=== PATIENT | female | born 1945 | race Caucasian/White ===

== ENCOUNTER 2016-04-30 13:55 | Emergency (ER) | payer OTHER ==
[~2016-04-30 13:55] MED LIST: ADVIN25/60 INH; ASCO500T16 PO; CALC-354 PO; CHOL100010 PO; CYAN250T PO; DIPH1TAB PO; FERR1TAB13 PO; FURO-85 PO; LEVE750T PO; LEVO112T2 PO; MULTTAB58 PO; OMEP20CA9 PO; POLYSOL4 OP; SIMV10TA2 PO; SNG10 PO
[2016-04-30 13:58] VITALS: TEMP 36.7
[2016-04-30 14:32] VITALS: O2SAT 100
--- NOTE | 2016-04-30 14:33 | EMERGENCY ROOM VISIT NOTE ---
History Report prepared by Jodi: Ranjith Gaxiola Under the Supervision of: Dr. Julián Hernandez M.D. First contact with patient: 14:15 Chief Complaint: DIARRHEA Stated Complaint: DIARRHEA AND DIZZINESS Nursing Triage Summary: pt to the ED with diarrhea since yesterday, c/o black stool for 2 years "my counts are low" no c/o pain c/o difficulty breathing and talking History of Present Illness The patient is a 70 year old female who presents to the Emergency Room with complaints of worsening dizziness today. The patient is experiencing generalized weakness. She had similar dizziness and weakness last time she was in the ED when she was anemic and required a blood transfusion. She had an appointment to have her blood work checked today but could not make it secondary to her symptoms. The patient had diarrhea yesterday but not today. Her stools have been black. The patient denies any history of GI bleeding. She has a history of pernicious anemia. The patient additionally has complaints of having trouble initialing urination. She also urinates frequently but in small amounts. Source of History: patient Onset: today Position: other (global) Quality: other (dizzy) Timing: worsening Associated Symptoms: + diarrhea, + melena, + urinary symptoms, + weakness Review of Systems All systems have been listed, reviewed, and are negative other than those previously mentioned. Please see Additional Medical History Sheet. Past Medical & Surgical Medical Problems: (1) Diabetes mellitus (2) DVT (deep venous thrombosis) (3) HTN (hypertension) (4) Hyperlipemia (5) Symptomatic anemia Surgical Problems: (1) Bilateral knee replacements Family History Blood disorder Heart disease Social History Smoking Status: Never Smoker Drug Use: none Marital Status: Housing Status: lives with significant other Occupation Status: retired Current/Historical Medications Scheduled Calcium Carbonate-Cholecalcife (Caltrate 600+D), 1 TAB PO DAILY Cholecalciferol (Vitamin D3), 1 CAP PO DAILY Ciprofloxacin Tab (Cipro), 250 MG PO BID Cyanocobalamin (Vitamin B-12), 250 MCG PO DAILY Ferrous Sulfate (Kp Ferrous Sulfate), 325 MG PO DAILY Fluticasone Prop/Salmeterol (Advair Diskus 250/50 60 Dose), 1 PUFFS INH BID Furosemide (Lasix), 20 MG PO UD Levetiracetam (Keppra), 750 MG PO BID Levothyroxine Sodium (Synthroid), 112 MCG PO DAILY Montelukast Sod (Montelukast Sodium), 10 MG PO DAILY Multiple Vitamin (Multivitamin), 1 TAB PO DAILY Omeprazole (Prilosec), 20 MG PO DAILY Polyethylene Glycol-Propylene (Systane), 1 DROPS OP UD Simvastatin (Zocor), 10 MG PO QPM Scheduled PRN Ascorbic Acid (Ascorbic Acid), 500 PO BID PRN for COLS SYMPTOMS Diphenhydramine Hcl (Benadryl Allergy), 25 MG PO TID PRN for ALLERGIC REACTION Allergies Coded Allergies: Iodinated Diagnostic Agents (Verified Allergy, Severe, SHORTNESS OF BREATH , 01/18/16) Gluten (Verified Allergy, Intermediate, GI SYMPTOMS, 01/18/16) Latex (Verified Allergy, Intermediate, RASH, 01/18/16) Aspirin (Verified Allergy, Unknown, 01/18/16) Ibuprofen (Verified Allergy, Unknown, 01/18/16) Latex1 -Allergic Contact Dermititis (Verified Allergy, Unknown, 01/18/16) Lisinopril (Unverified Allergy, Unknown, UNKNOWN, 01/18/16) Meperidine (Unverified Allergy, Unknown, UNKNOWN, 01/18/16) Metformin (Unverified Allergy, Unknown, GI SYMPTOMS, 01/18/16) Midazolam (Verified Allergy, Unknown, UNKN, 01/18/16) Nut Tree (Unverified Allergy, Unknown, UNKNOWN, 01/18/16) Peanut (Unverified Allergy, Unknown, UNKNOWN, 01/18/16) Penicillins (Verified Allergy, Unknown, SHORTNESS OF BREATH, 01/18/16) (FROM UNCODED ALLERGIES) Sulfa Antibiotics (Verified Allergy, Unknown, UNKNOWN, 01/18/16) Physical Exam Vital Signs Date Time Temp Pulse Resp B/P Pulse Ox O2 Delivery O2 Flow Rate FiO2 04/30/16 17:20 96 Room Air 04/30/16 17:00 67 18 182/84 04/30/16 16:16 68 18 176/73 04/30/16 14:32 100 Room Air 04/30/16 14:32 73 04/30/16 13:58 36.7 76 20 175/82 100 Room Air Physical Exam GENERAL: Patient awake, alert, oriented x 3. Patient follows commands. Patient does not appear toxic. Patient is adequately hydrated and well- nourished. SKIN: Skin is pale. HEENT: Normal head, pupils equal, reactive to light and accommodation. Ears normal. Oral cavity and posterior pharynx appear normal. Neck: Without adenopathy, no neck vein distention. LUNGS: Clear to auscultation. No wheezes, no rales, no rhonchi. HEART: No murmurs. No gallops. No rubs ABDOMEN: Obese, soft, nontender. EXTREMITIES: No signs of trauma. 2+ nonpitting pretibial edema. No calf or thigh tenderness. NEUROLOGIC: Cranial nerves II-XII within normal limits. No gross motor sensory function deficits. RECTAL: Small external hemorrhoids, brown stool heme positive. Medical Decision & Procedures ER Provider Diagnostic Interpretation: X ray results are stated below per my interpretation and the radiologist's interpretation. SINGLE VIEW CHEST CLINICAL HISTORY: Dizziness. Anemia. FINDINGS: An AP, portable, upright chest radiograph is compared to study dated 01/18/2016. The examination is degraded by portable technique and patient rotation. The heart is enlarged and there is atherosclerotic calcification of the thoracic aorta. The pulmonary vasculature is noncongested. There is mild bibasilar atelectasis. A trace left pleural effusion is suspected. No airspace consolidation is identified typical for pneumonia. There is no pneumothorax. The skeletal structures are osteopenic. Degenerative change is noted throughout the thoracic spine. IMPRESSION: 1. Cardiomegaly without radiographic evidence of congestive failure. 2. Small left pleural effusion and bibasilar atelectasis. There is no airspace consolidation typical for pneumonia. Electronically signed by: Mitchell Tejada M.D. 04/30/2016 3:07 PM Dictated Date/Time: 04/30/2016 3:06 PM Laboratory Results 04/30/16 14:55 Red Blood Count 3.46, Mean Corpuscular Volume 78.0, Mean Corpuscular Hemoglobin 24.0, Mean Corpuscular Hemoglobin Concent 30.7, Mean Platelet Volume 9.9, Neutrophils (%) (Auto) 69.2, Lymphocytes (%) (Auto) 15.6, Monocytes (%) (Auto) 12.6, Eosinophils (%) (Auto) 2.0, Basophils (%) (Auto) 0.4, Neutrophils # (Auto ) 3.14, Lymphocytes # (Auto) 0.71, Monocytes # (Auto) 0.57, Eosinophils # (Auto ) 0.09, Basophils # (Auto) 0.02 04/30/16 14:55 Test 04/30/16 14:55 04/30/16 15:24 White Blood Count 4.54 K/uL (4.8-10.8) Red Blood Count 3.46 M/uL (4.2-5.4) Hemoglobin 8.3 g/dL (12.0-16.0) Hematocrit 27.0 % (37-47) Mean Corpuscular Volume 78.0 fL (80-100) Mean Corpuscular Hemoglobin 24.0 pg (25-34) Mean Corpuscular Hemoglobin Concent 30.7 g/dl (32-36) Platelet Count 260 K/uL (130-400) Mean Platelet Volume 9.9 fL (7.4-10.4) Neutrophils (%) (Auto) 69.2 % Lymphocytes (%) (Auto) 15.6 % Monocytes (%) (Auto) 12.6 % Eosinophils (%) (Auto) 2.0 % Basophils (%) (Auto) 0.4 % Neutrophils # (Auto) 3.14 K/uL (1.4-6.5) Lymphocytes # (Auto) 0.71 K/uL (1.2-3.4) Monocytes # (Auto) 0.57 K/uL (0.11-0.59) Eosinophils # (Auto) 0.09 K/uL (0-0.5) Basophils # (Auto) 0.02 K/uL (0-0.2) RDW Standard Deviation 44.5 fL (36.4-46.3) RDW Coefficient of Variation 15.7 % (11.5-14.5) Immature Granulocyte % (Auto) 0.2 % Immature Granulocyte # (Auto) 0.01 K/uL (0.00-0.02) Polychromasia 1+ Anisocytosis PRESENT Ovalocytes 1+ Schistocytes OCCASIONAL Prothrombin Time 11.1 SECONDS (9.0-12.0) Prothromb Time International Ratio 1.0 (0.9-1.1) Activated Partial Thromboplast Time 23.3 SECONDS (21.0-31.0) Partial Thromboplastin Ratio 0.9 Anion Gap 5.0 mmol/L (3-11) Estimated GFR () 77.7 Estimated GFR (Non- 67.0 BUN/Creatinine Ratio 37.1 (10-20) Calcium Level 8.8 mg/dl (8.5-10.1) Total Bilirubin 0.2 mg/dl (0.2-1) Aspartate Amino Transf (AST/SGOT) 10 U/L (15-37) Alanine Aminotransferase (ALT/SGPT) 19 U/L (12-78) Alkaline Phosphatase 81 U/L (45-117) Troponin I < 0.015 ng/ml (0-0.045) Total Protein 6.7 gm/dl (6.4-8.2) Albumin 3.7 gm/dl (3.4-5.0) Globulin 3.0 gm/dl (2.5-4.0) Albumin/Globulin Ratio 1.2 (0.9-2) Urine Color YELLOW Urine Appearance CLEAR (CLEAR) Urine pH 7.0 (4.5-7.5) Urine Specific [place] 1.011 (1.000-1.030) Urine Protein NEG (NEG) Urine Glucose (UA) NEG (NEG) Urine Ketones NEG (NEG) Urine Occult Blood NEG (NEG) Urine Nitrite POS (NEG) Urine Bilirubin NEG (NEG) Urine Urobilinogen NEG (NEG) Urine Leukocyte Esterase MODERATE (NEG) Urine WBC (Auto) 10-30 /hpf (0-5) Urine RBC (Auto) 0-4 /hpf (0-4) Urine Hyaline Casts (Auto) 0 /lpf (0-5) Urine Epithelial Cells (Auto) 0-5 /lpf (0-5) Urine Bacteria (Auto) 4+ (NEG) Laboratory results as stated above per my review. ECG Indication: weakness Rate (beats per minute): 77 Rhythm: sinus rhythm Findings: nonspecific-ST abn, PAC, other (LVH) ED Course 1418: Past medical records reviewed. The patient was evaluated in room B7. A complete history and physical examination was performed. 1625: Reassessed the patient. Discussed the discharge instructions with her. She verbalized understanding. The patient is ready for discharge. Medical Decision I considered multiple diagnoses including diarrhea viral vs bacterial, GI bleed , anemia, metabolic disorder. The patient is here with weakness. A full workup ensued including multiple labs , urinalysis, imaging and EKG. Please see above. The patient has guaiac positive stools which I believe she has had for some time. She is anemic which is also chronic. Her hemoglobin now is slightly higher than it was in the past. The patient does have a urinary tract infection which may be the major reason why her weakness is worse. The patient will be placed on ciprofloxacin. She is allergic to penicillin and sulfa. Impression Primary Impression: Urinary tract infection Additional Impressions: Anemia Guaiac positive stools Scribe Attestation The scribe's documentation has been prepared under my direction and personally reviewed by me in its entirety. I confirm that the note above accurately reflects all work, treatment, procedures, and medical decision making performed by me. Departure Information Dispostion Home / Self-Care Prescriptions Ciprofloxacin Tab (Cipro) 250 Mg Tab 250 MG PO BID for 10 Days, #20 TAB Prov: Julián Hernandez M.D. 04/30/16 Referrals Bill Young MD (PCP) Forms HOME CARE DOCUMENTATION FORM, IMPORTANT VISIT INFORMATION Patient Instructions My [facility] Additional Instructions One Cipro twice a day for 10 days. Continue all of your current medications as prescribed. Have your urinalysis repeated in 2 weeks. Problem Qualifiers
[2016-04-30 15:02] LABS: BASO % 0.4 %; BASO ABS # 0.02 K/uL (0-0.2); IG% 0.2 %; LYMPH % 15.6 %; LYMPH ABS # 0.71 K/uL (1.2-3.4); MEAN CORPUSCULAR HGB CONC 30.7 g/dl (32-36); MEAN PLATELET VOLUME 9.9 fL (7.4-10.4); MONO % 12.6 %; NEUT % 69.2 %; PLATELET COUNT 260 K/uL (130-400); RED BLOOD COUNT 3.46 M/uL (4.2-5.4); WHITE BLOOD COUNT 4.54 K/uL (4.8-10.8)
[2016-04-30] MEDS ORDERED: CHOL2000 PO (15:05)
--- NOTE | 2016-04-30 15:09 | DIAGNOSTIC IMAGING REPORT ---
SINGLE VIEW CHEST CLINICAL HISTORY: Dizziness. Anemia. FINDINGS: An AP, portable, upright chest radiograph is compared to study dated 01/18/2016. The examination is degraded by portable technique and patient rotation. The heart is enlarged and there is atherosclerotic calcification of the thoracic aorta. The pulmonary vasculature is noncongested. There is mild bibasilar atelectasis. A trace left pleural effusion is suspected. No airspace consolidation is identified typical for pneumonia. There is no pneumothorax. The skeletal structures are osteopenic. Degenerative change is noted throughout the thoracic spine. IMPRESSION: 1. Cardiomegaly without radiographic evidence of congestive failure. 2. Small left pleural effusion and bibasilar atelectasis. There is no airspace consolidation typical for pneumonia. Electronically signed by: Mitchell Tejada M.D. 04/30/2016 3:07 PM Dictated Date/Time: 04/30/2016 3:06 PM
[2016-04-30 15:15] LABS: ALT/SGPT 19 U/L (12-78); AST/SGOT 10 U/L (15-37); BLOOD UREA NITROGEN 32 mg/dl (7-18); BUN/CREATININE RATIO 37.1 (10-20); CALCIUM 8.8 mg/dl (8.5-10.1); CARBON DIOXIDE 31 mmol/L (21-32); CHLORIDE 106 mmol/L (98-107); CREATININE 0.87 mg/dl (0.60-1.20); GLUCOSE 113 mg/dl (70-99); SODIUM 142 mmol/L (136-145)
[2016-04-30 15:16] LABS: PARTIAL THROMBOPLASTIN RATIO 0.9; PROTHROMBIN TIME (PATIENT) 11.1 SECONDS (9.0-12.0)
[2016-04-30 15:20] LABS: ALB/GLOB RATIO 1.2 (0.9-2); ALKALINE PHOSPHATASE 81 U/L (45-117)
[2016-04-30 15:43] LABS: ANISOCYTOSIS PRESENT; COMPLETE YES; OVALOCYTES 1+; POLYCHROMASIA 1+; SCHISTOCYTES OCCASIONAL
[2016-04-30 15:46] LABS: URINE APPEARANCE CLEAR (CLEAR); URINE BILIRUBIN NEG (NEG); URINE COLOR YELLOW; URINE EPITHELIAL CELL AUTO 0-5 /lpf (0-5); URINE NITRITE POS (NEG); URINE SPECIFIC GRAVITY 1.011 (1.000-1.030); UROBILINOGEN NEG (NEG); ZZURINE CULT IF INDIC CATH YES
[2016-04-30 15:47] LABS: MANUAL MICROSCOPIC REQUIRED? NO; REVIEW REQ? NO
[2016-04-30] MEDS ORDERED: CIPR1TAB11 PO (16:35)
[2016-04-30 17:00] VITALS: BP 182/84; PULSE 67
[2016-04-30 17:20] VITALS: O2SAT 96
--- NOTE | 2016-05-02 11:35 | Pharmacy Progress Note ---
ED Pharmacist Culture FollowUp Date of Service: May 02, 2016. Patient was sent home with a prescription for ciprofloxacin, which should cover the E. coli growing from the patient's urine culture.
[2016-09-09] MEDS ORDERED: DIPH25CA65 PO (10:41)
[2016-09-09] MEDS ORDERED: DOCU-94 PO (10:41)
== END 2016-04-30 17:19 | disposition home or self-care (01) ==
LOC: C.EDB 13:57
DX: N39.0 Urinary tract infection, site not specified (principal); D64.9 Anemia, unspecified; R19.5 Other fecal abnormalities; A49.8 Other bacterial infections of unspecified site; E11.9 Type 2 diabetes mellitus without complications; I10 Essential (primary) hypertension; E78.5 Hyperlipidemia, unspecified; Z96.653 Presence of artificial knee joint, bilateral; Z86.718 Personal history of other venous thrombosis and embolism; Z79.899 Other long term (current) drug therapy

== ENCOUNTER → 2016-05-16 | Outpatient (CLI) | payer OTHER ==
[~2016-05-16] MED LIST changes: +ACET-1256 PO; +ARTISOL12 OP; +CARB25TA12 PO; -CHOL100010 PO; +CHOL2000 PO; +CLIN300C2 PO; +COEN1CAP17 PO; +CPR500 PO; -DIPH1TAB PO; +DIPH1TAB87 PO; +DIPH25CA65 PO; +DOCU-94 PO; +LEVE500T13 PO; +MENTPOW4 TOP; +NITR1CAP33 PO; +NRV5 PO; +NYST80OI TOP; +OXYBUTIN PO; +PRVIN525X NEB; +SPCCR30 TOP
--- NOTE | 2016-05-16 12:57 | DIAGNOSTIC IMAGING REPORT ---
NUCLEAR GI BLEEDING SCAN CLINICAL HISTORY: Iron deficiency anemia. COMPARISON STUDY: Fluoroscopic small bowel study dated 04/22/2015. TECHNIQUE: Following the IV administration of 22 mCi of technetium 99m UltraTag labeled red blood cells, nuclear bleeding scan was performed. Anterior flow images were obtained every 2 seconds for a total 58 seconds. Anterior static images were obtained every 5 minutes for a total of 60 minutes. FINDINGS: There is no evidence of active GI bleeding at the time of examination. There is expected tracer activity within the liver, spleen, and abdominal excreted tracer is noted within the bladder. IMPRESSION: There is no evidence of active GI bleeding at the time of examination. Electronically signed by: Mitchell Tejada M.D. 05/16/2016 12:55 PM Dictated Date/Time: 05/16/2016 12:50 PM
== END | disposition home or self-care (01) ==
LOC: C.NUCL 10:35
PROVIDERS: ATTEND Internal Medicine Hematology & Oncology
DX: D50.0 Iron deficiency anemia secondary to blood loss (chronic) (principal)

== ENCOUNTER 2016-07-07 12:06 | Inpatient (IN) | payer OTHER ==
[2016-07-07] VITALS (7 sets, daily range): BP systolic 111–192; BP diastolic 63–86; PULSE 66–74; TEMP 36.4–36.8; O2SAT 18–97; Ht 167.6 cm; Wt 108.0 kg
[~2016-07-07] VITALS: Ht 167.6 cm; Wt 108.0 kg
[~2016-07-07 12:06] MED LIST changes: -ACET-1256 PO; -ARTISOL12 OP; -CARB25TA12 PO; -CLIN300C2 PO; -COEN1CAP17 PO; -CPR500 PO; -DIPH25CA65 PO; -DOCU-94 PO; -LEVE500T13 PO; -MENTPOW4 TOP; -NITR1CAP33 PO; -NRV5 PO; -NYST80OI TOP; -OXYBUTIN PO; -PRVIN525X NEB; -SPCCR30 TOP
[2016-07-07] MEDS ORDERED: SODIUM CHLORIDE 0.9% 1000ML 500 ML IV STA (12:32)
[2016-07-07] MEDS ORDERED: NITR1CAP33 PO (12:47)
--- NOTE | 2016-07-07 12:50 | EMERGENCY ROOM VISIT NOTE ---
History Report prepared by Jodi: Natalia Hale Under the Supervision of: Dr. Mitchell Dela Cruz M.D. First contact with patient: 12:27 Chief Complaint: ILLNESS Stated Complaint: GENERALIZED ILLNESS History of Present Illness The patient is a 70 year old female who presents to the Emergency Room with complaints of a persistent illness that has worsened over the past several days. The patient states that over the past month she has been treated for a bladder infection first with Cipro and now with Nitrofurantoin. She states that she has been on a low dosage of the Nitrofurantoin for the past month. The patient states that over the past few days she has noticed a decrease in appetite and fluid intake and was instructed by her PCP's office to come to the emergency department for further evaluation. Today she notes urinary frequency , cough, shortness of breath and diarrhea. She denies any chest pain, fever, or vomiting. The patient reports a history of GERD, but denies any history of lung disease. She states that she has been anemic for the past two years, but states that she is unsure where she has been losing blood. The patient states that she has been receiving iron infusions at the cancer center. Source of History: patient Onset: past several days Position: other (global) Quality: other (illness) Timing: worsening Associated Symptoms: + cough, + SOB, + diarrhea, + urinary symptoms ( urinary frequency), No fevers, No chest pain, No vomiting Note: Associated Symptoms: decrease in appetite, decrease in fluid intake Review of Systems See HPI for pertinent positives & negatives. A total of 10 systems reviewed and were otherwise negative. Past Medical & Surgical Medical Problems: (1) Diabetes mellitus (2) DVT (deep venous thrombosis) (3) HTN (hypertension) (4) Hyperlipemia (5) Symptomatic anemia Surgical Problems: (1) Bilateral knee replacements Family History Blood disorder Heart disease Social History Smoking Status: Never Smoker Drug Use: none Marital Status: Housing Status: lives with significant other Occupation Status: retired Current/Historical Medications Scheduled Calcium Carbonate-Cholecalcife (Caltrate 600+D), 1 TAB PO DAILY Cholecalciferol (Vitamin D3), 1 CAP PO DAILY Cyanocobalamin (Vitamin B-12), 250 MCG PO DAILY Fluticasone Prop/Salmeterol (Advair Diskus 250/50 60 Dose), 1 PUFFS INH BID Furosemide (Lasix), 20 MG PO UD Levetiracetam (Keppra), 750 MG PO BID Levothyroxine Sodium (Synthroid), 112 MCG PO DAILY Montelukast Sod (Montelukast Sodium), 10 MG PO DAILY Nitrofurantoin Macrocrystals (Macrodantin), 50 MG PO DAILY Omeprazole (Prilosec), 20 MG PO DAILY Simvastatin (Zocor), 10 MG PO QPM Scheduled PRN Ascorbic Acid (Ascorbic Acid), 500 PO BID PRN for COLS SYMPTOMS Diphenhydramine Hcl (Benadryl Allergy), 25 MG PO TID PRN for ALLERGIC REACTION Allergies Coded Allergies: Iodinated Diagnostic Agents (Verified Allergy, Severe, SHORTNESS OF BREATH , 01/18/16) Gluten (Verified Allergy, Intermediate, GI SYMPTOMS, 01/18/16) Latex (Verified Allergy, Intermediate, RASH, 01/18/16) Aspirin (Verified Allergy, Unknown, 01/18/16) Ibuprofen (Verified Allergy, Unknown, 01/18/16) Latex1 -Allergic Contact Dermititis (Verified Allergy, Unknown, 01/18/16) Lisinopril (Unverified Allergy, Unknown, UNKNOWN, 01/18/16) Meperidine (Unverified Allergy, Unknown, UNKNOWN, 01/18/16) Metformin (Unverified Allergy, Unknown, GI SYMPTOMS, 01/18/16) Midazolam (Verified Allergy, Unknown, UNKN, 01/18/16) Nut Tree (Unverified Allergy, Unknown, UNKNOWN, 01/18/16) Peanut (Unverified Allergy, Unknown, UNKNOWN, 01/18/16) Penicillins (Verified Allergy, Unknown, SHORTNESS OF BREATH, 01/18/16) (FROM UNCODED ALLERGIES) Sulfa Antibiotics (Verified Allergy, Unknown, UNKNOWN, 01/18/16) Physical Exam Vital Signs Date Time Temp Pulse Resp B/P (MAP) Pulse Ox O2 Delivery O2 Flow Rate FiO2 07/07/16 17:30 95 Room Air 07/07/16 16:08 168/65 07/07/16 15:21 81 26 200/85 95 07/07/16 14:14 69 22 214/96 93 Room Air 07/07/16 14:05 70 07/07/16 13:35 70 20 223/95 98 Room Air 07/07/16 13:34 93 Room Air 07/07/16 12:08 36.6 75 22 158/80 97 Room Air Physical Exam GENERAL: Patient is in no acute distress. HEENT: No acute trauma, normocephalic atraumatic, mucous membranes moist, no nasal congestion, no scleral icterus. NECK: No stridor, no adenopathy, no meningismus, trachea is midline. LUNGS: Clear to auscultation bilaterally, no wheeze, no rhonchi, breath sounds equal. HEART: 2/6 systolic murmur with a regular rate and rhythm ABDOMEN: Soft, nontender, bowel sounds positive, no hernias, no peritonitis. EXTREMITIES: Moderate bilateral pedal edema. No cyanosis, full range of motion of all the joints without pain or difficulty, no signs for acute trauma. NEUROLOGIC: Oriented x 3, no acute motor or sensory deficits, no focal weakness. SKIN: Cellulitic appearing erythematous rash around the vaginal area extending down the inner thighs, no drainage, no jaundice, no diaphoresis. Medical Decision & Procedures ER Provider Diagnostic Interpretation: Radiology results as stated below per my review and radiologist interpretation: CHEST ONE VIEW PORTABLE CLINICAL HISTORY: Altered mental status. Weakness. COMPARISON STUDY: Chest radiograph April 30, 2016. FINDINGS: Lung volumes are normal. There is no pneumothorax or pleural effusion. Moderate cardiomegaly is unchanged. The patient is rotated. There is no consolidation to suggest pneumonia. There is no evidence of pulmonary edema. Minimal bibasilar opacities favor atelectasis. IMPRESSION: No acute cardiopulmonary findings. Electronically signed by: Joshua Nelson M.D. 07/07/2016 1:52 PM Dictated Date/Time: 07/07/2016 1:[address] OF THE HEAD WITHOUT CONTRAST CLINICAL HISTORY: Weakness. COMPARISON STUDY: Head CT June 21, 2012. TECHNIQUE: Helical axial images of the head were obtained without IV contrast. Automated exposure control was utilized for the study. FINDINGS: No acute intracranial hemorrhage, midline shift or mass effect is present. Cavum septum pellucidum is incidentally noted. Ventricular system is stable. The basilar cisterns are patent. There are no extra-axial collections. There are no findings to suggest acute dural sinus thrombosis or acute territorial infarct. Visualized portions of the sinuses and mastoid air cells were clear. There are no calvarial abnormality. IMPRESSION: No acute intracranial findings. Electronically signed by: Joshua Nelson M.D. 07/07/2016 3:01 PM Dictated Date/Time: 07/07/2016 2:58 PM Laboratory Results 07/07/16 14:05 Red Blood Count 3.66, Mean Corpuscular Volume 78.4, Mean Corpuscular Hemoglobin 23.0, Mean Corpuscular Hemoglobin Concent 29.3, Mean Platelet Volume 10.5, Neutrophils (%) (Auto) 77.0, Lymphocytes (%) (Auto) 10.8, Monocytes (%) (Auto) 7.9, Eosinophils (%) (Auto) 3.9, Basophils (%) (Auto) 0.2, Neutrophils # (Auto) 4.57, Lymphocytes # (Auto) 0.64, Monocytes # (Auto) 0.47, Eosinophils # (Auto) 0.23, Basophils # (Auto) 0.01 07/07/16 13:00 Test 07/07/16 12:30 07/07/16 13:00 07/07/16 13:19 07/07/16 14:05 Urine Color YELLOW Urine Appearance CLEAR (CLEAR) Urine pH 7.5 (4.5-7.5) Urine Specific [place] 1.010 (1.000-1.030) Urine Protein NEG (NEG) Urine Glucose (UA) NEG (NEG) Urine Ketones NEG (NEG) Urine Occult Blood NEG (NEG) Urine Nitrite NEG (NEG) Urine Bilirubin NEG (NEG) Urine Urobilinogen NEG (NEG) Urine Leukocyte Esterase NEG (NEG) Anion Gap 9.0 mmol/L (3-11) Estimated GFR () 90.0 Estimated GFR (Non- 77.7 BUN/Creatinine Ratio 21.6 (10-20) Calcium Level 9.4 mg/dl (8.5-10.1) Magnesium Level 2.4 mg/dl (1.8-2.4) Total Bilirubin 0.3 mg/dl (0.2-1) Aspartate Amino Transf (AST/SGOT) 10 U/L (15-37) Alanine Aminotransferase (ALT/SGPT) 20 U/L (12-78) Alkaline Phosphatase 65 U/L (45-117) Troponin I < 0.015 ng/ml (0-0.045) Total Protein 6.8 gm/dl (6.4-8.2) Albumin 3.6 gm/dl (3.4-5.0) Globulin 3.2 gm/dl (2.5-4.0) Albumin/Globulin Ratio 1.1 (0.9-2) Thyroid Stimulating Hormone (TSH) 0.827 uIu/ml (0.300-4.500) Free Thyroxine 1.62 ng/dl (0.80-1.60) Lactic Acid Level 1.0 mmol/L (0.4-2.0) White Blood Count 5.93 K/uL (4.8-10.8) Red Blood Count 3.66 M/uL (4.2-5.4) Hemoglobin 8.4 g/dL (12.0-16.0) Hematocrit 28.7 % (37-47) Mean Corpuscular Volume 78.4 fL (80-100) Mean Corpuscular Hemoglobin 23.0 pg (25-34) Mean Corpuscular Hemoglobin Concent 29.3 g/dl (32-36) Platelet Count 260 K/uL (130-400) Mean Platelet Volume 10.5 fL (7.4-10.4) Neutrophils (%) (Auto) 77.0 % Lymphocytes (%) (Auto) 10.8 % Monocytes (%) (Auto) 7.9 % Eosinophils (%) (Auto) 3.9 % Basophils (%) (Auto) 0.2 % Neutrophils # (Auto) 4.57 K/uL (1.4-6.5) Lymphocytes # (Auto) 0.64 K/uL (1.2-3.4) Monocytes # (Auto) 0.47 K/uL (0.11-0.59) Eosinophils # (Auto) 0.23 K/uL (0-0.5) Basophils # (Auto) 0.01 K/uL (0-0.2) RDW Standard Deviation 54.2 fL (36.4-46.3) RDW Coefficient of Variation 18.6 % (11.5-14.5) Immature Granulocyte % (Auto) 0.2 % Immature Granulocyte # (Auto) 0.01 K/uL (0.00-0.02) Polychromasia 1+ Poikilocytosis PRESENT Anisocytosis PRESENT Microcytosis PRESENT Prothrombin Time 11.2 SECONDS (9.0-12.0) Prothromb Time International Ratio 1.0 (0.9-1.1) Activated Partial Thromboplast Time 26.1 SECONDS (21.0-31.0) Partial Thromboplastin Ratio 1.0 Test 07/07/16 17:51 Laboratory results reviewed by me. Medications Administered Medications (Trade) Dose Ordered Sig/Phong Route Start Time Stop Time Status Last Admin Dose Admin Sodium Chloride 500 ml @ 999 mls/hr Q31M STAT IV 07/07/16 12:32 07/07/16 13:02 DC 07/07/16 13:31 999 MLS/HR Hydralazine HCl (HydrALAZINE INJ) 10 mg NOW STAT IV 07/07/16 14:13 07/07/16 14:14 DC 07/07/16 14:18 10 MG Labetalol HCl (Normodyne IV) 10 mg NOW STAT IV 07/07/16 15:25 07/07/16 15:26 DC 07/07/16 15:48 10 MG Ceftriaxone Sodium (Rocephin Inj) 1 gm NOW STAT IV 07/07/16 15:25 07/07/16 15:26 DC 07/07/16 15:49 1 GM ECG Indication: SOB/dyspnea Rate (beats per minute): 66 Rhythm: normal sinus Findings: no acute ischemic change, no ectopy, other (LVH) ED Course 1231: The patient was evaluated in room A3. A complete history and physical exam was performed. 1232: Ordered Sodium Chloride 500 ml @ 999 mls/hr IV. 1413: Ordered Hydralazine Inj 10 mg IV. 1516: I reevaluated the patient and she is resting comfortably. I discussed the exam findings with her and I discussed the treatment plan. She verbalized complete understanding and agreement. She will be e valuated for further treatment. 1525: Ordered Rocephin Inj 1 gm IV, Labetalol HCL 10 mg IV. 1528: I discussed the patients case with CHAYITO Mejia. He is going to evaluate the patient for further treatment. Medical Decision The patient is a 70 year old female who presents to the ED with complaints of illness. Differential diagnoses considered include failed outpatient treatment , UTI, anemia, electrolyte imbalance, dehydration, pneumonia, infection, cardiac ischemia, OK. There is no leukocytosis. The patient is anemic but the hemoglobin has been around the level of 8 for the last several checks. In short, no significant hemoglobin drop. Renal panel testing does not show renal failure or significant electrolyte abnormality. There was no hepatitis. Lactic acid level was not elevated making sepsis less likely. Blood cultures are pending. Urinalysis does not show infection. There was no significant coagulopathy. EKG showed a sinus rhythm, no acute ischemia. Cardiac enzyme testing 1 is not consistent with acute cardiac injury. Chest x-ray does not show pneumonia or CHF. Brain CT shows no acute bleed or mass effect. On exam, there were no focal neurologic deficits. The patient was given IV ceftriaxone for the possibility of cellulitis in the area of the groin and vaginal region. She received IV hydralazine and then IV labetalol for the high blood pressure. She received IV saline for hydration. The patient presents with weakness and some fatigue. Workup here shows a high blood pressure, she appears to have a cellulitis in the vaginal area and groin, she is having a very difficult time holding her urine and this may be causing the irritation to the groin. The patient does not have a UTI by our urinalysis result. I don't find evidence for stroke. I do think further care in the hospital is warranted as she is not doing well at home. I did speak to the patient and to case management. The on-call hospitalist was consulted. Medication Reconciliation: I attest that I have personally reviewed the patient' s current medication list. Blood Pressure Screening: Patient was found to have an elevated blood pressure and was referred to their primary doctor for recheck and further treatment. Consults Time Called: 1520 Consulting Physician: CHAYITO Mejia Returned Call: 1528 I discussed the patients case with CHAYITO Mejia. He is going to evaluate the patient for further treatment. Impression Primary Impression: Weakness Additional Impressions: Hypertension Dehydration Cellulitis Scribe Attestation The scribe's documentation has been prepared under my direction and personally reviewed by me in its entirety. I confirm that the note above accurately reflects all work, treatment, procedures, and medical decision making performed by me. Departure Information Dispostion Being Evaluated By Hospitalist Referrals No Doctor, Assigned (PCP) Problem Qualifiers
[2016-07-07 13:02] LABS: URINE APPEARANCE CLEAR (CLEAR); URINE BILIRUBIN NEG (NEG); URINE COLOR YELLOW; URINE NITRITE NEG (NEG); URINE PH 7.5 (4.5-7.5); UROBILINOGEN NEG (NEG); ZZURINE CULT IF INDIC CATH NO
[2016-07-07 13:12] LABS: MANUAL MICROSCOPIC REQUIRED? NO; REVIEW REQ? NO
[2016-07-07 13:33] LABS: ALT/SGPT 20 U/L (12-78); BLOOD UREA NITROGEN 17 mg/dl (7-18); BUN/CREATININE RATIO 21.6 (10-20); CARBON DIOXIDE 30 mmol/L (21-32); CHLORIDE 104 mmol/L (98-107); CREATININE 0.77 mg/dl (0.60-1.20); GLUCOSE 103 mg/dl (70-99); MAGNESIUM 2.4 mg/dl (1.8-2.4); POTASSIUM 3.7 mmol/L (3.5-5.1); SODIUM 143 mmol/L (136-145)
[2016-07-07 13:40] LABS: CALCIUM 9.4 mg/dl (8.5-10.1)
[2016-07-07 13:43] LABS: ALB/GLOB RATIO 1.1 (0.9-2); ALKALINE PHOSPHATASE 65 U/L (45-117); AST/SGOT 10 U/L (15-37); THYROID STIMULATING HORMONE 0.827 uIu/ml (0.300-4.500)
--- NOTE | 2016-07-07 13:53 | DIAGNOSTIC IMAGING REPORT ---
CHEST ONE VIEW PORTABLE CLINICAL HISTORY: Altered mental status. Weakness. COMPARISON STUDY: Chest radiograph April 30, 2016. FINDINGS: Lung volumes are normal. There is no pneumothorax or pleural effusion. Moderate cardiomegaly is unchanged. The patient is rotated. There is no consolidation to suggest pneumonia. There is no evidence of pulmonary edema. Minimal bibasilar opacities favor atelectasis. IMPRESSION: No acute cardiopulmonary findings. Electronically signed by: Joshua Nelson M.D. 07/07/2016 1:52 PM Dictated Date/Time: 07/07/2016 1:51 PM
[2016-07-07] MEDS ORDERED: HydrALAZINE HCL 20 MG/ML VIAL IV STA (14:13)
[2016-07-07 14:26] LABS: PROTHROMBIN TIME (PATIENT) 11.2 SECONDS (9.0-12.0)
[2016-07-07 14:33] LABS: HEMATOCRIT 28.7 % (37-47); MEAN CELL VOLUME 78.4 fL (80-100); MEAN CORPUSCULAR HGB CONC 29.3 g/dl (32-36); MEAN PLATELET VOLUME 10.5 fL (7.4-10.4); PLATELET COUNT 260 K/uL (130-400); RED BLOOD COUNT 3.66 M/uL (4.2-5.4); WHITE BLOOD COUNT 5.93 K/uL (4.8-10.8)
[2016-07-07 14:37] LABS: ANISOCYTOSIS PRESENT; BASO % 0.2 %; BASO ABS # 0.01 K/uL (0-0.2); COMPLETE YES; EOS % 3.9 %; IG% 0.2 %; LYMPH % 10.8 %; LYMPH ABS # 0.64 K/uL (1.2-3.4); MICROCYTOSIS PRESENT; MONO % 7.9 %; POIKILOCYTOSIS PRESENT; POLYCHROMASIA 1+
--- NOTE | 2016-07-07 15:02 | DIAGNOSTIC IMAGING REPORT ---
CT OF THE HEAD WITHOUT CONTRAST CLINICAL HISTORY: Weakness. COMPARISON STUDY: Head CT June 21, 2012. TECHNIQUE: Helical axial images of the head were obtained without IV contrast. Automated exposure control was utilized for the study. FINDINGS: No acute intracranial hemorrhage, midline shift or mass effect is present. Cavum septum pellucidum is incidentally noted. Ventricular system is stable. The basilar cisterns are patent. There are no extra-axial collections. There are no findings to suggest acute dural sinus thrombosis or acute territorial infarct. Visualized portions of the sinuses and mastoid air cells were clear. There are no calvarial abnormality. IMPRESSION: No acute intracranial findings. Electronically signed by: Joshua Nelson M.D. 07/07/2016 3:01 PM Dictated Date/Time: 07/07/2016 2:58 PM
[2016-07-07] MEDS ORDERED: LABETALOL HCL IV 5 MG/ML 20ML IV STA (15:25)
[2016-07-07] MEDS ORDERED: CEFTRIAXONE SOD INJ 1 GM ADDVIAL IV STA (15:25)
[2016-07-07] MEDS ORDERED: ONDANSETRON INJ 2 MG/ML 2 ML VIAL IV PRN (17:15)
[2016-07-07] MEDS ORDERED: ALUMINUM/MAGNESIUM/SIMETH (MAALOX MAX) 30 ML UDC PO PRN (17:15)
[2016-07-07] MEDS ORDERED: ACETAMINOPHEN 325 MG TAB PO PRN (17:15)
--- NOTE | 2016-07-07 17:29 | History and Physical ---
History & Physical Date & Time of Service: Jul 07, 2016 at 17:26 Chief Complaint: Generalized Illness Primary Care Physician: Bill Young MD History of Present Illness Source: patient, family 70 F with a PMH significant for chronic iron deficiency anemia and ESBL presented to [facility] with a 3 week history of weakness She has had 3 weeks of feeling very tired and sluggish. She has had a decreased appetite, palpitations, and dizziness when she stands up. She has been going to the [facility] for iron infusions. She has been going for 6 weeks. Her last infusion was last week but she was unable to attend because she felt far too tired. She has been diagnosed with an iron deficiency anemia but does not have a known source of bleeding. She had a colonoscopy and upper GI done 2 years ago at which point there was no source of bleeding found. She has not had any blood in her stools, or in her urine. She notes that she has had dark stools in the past that started before her iron transfusions. She also has a history of UTI's in which she is being treated with macrobid for 6 months due to ESBL that was cultured as an outpatient. She failed a trial of cipro. She still has burning when she pees on occasion however her urine done in the ED was clear. She has not noticed any blood in her urine. She is incontinent of urine at times. On ROS she has a dry cough at night, recent weight loss, bruises easily and left hand shakes She denies any chest pain, SOB, fevers, night sweats, chills, ab pain, nausea, vomiting, blood in stool, or blood in urine Past Medical/Surgical History Medical Problems: (1) Diabetes mellitus Status: Chronic (2) DVT (deep venous thrombosis) Status: Resolved (3) HTN (hypertension) Status: Chronic (4) Hyperlipemia Status: Chronic Surgical Problems: (1) Bilateral knee replacements Status: Resolved Family History Blood disorder Heart disease Social History Smoking Status: Never Smoker Alcohol Use: none Drug Use: none Marital Status: Housing status: lives with family Occupational Status: retired Immunizations History of Influenza Vaccine: Yes History of Tetanus Vaccine?: Yes History of Pneumococcal: No History of Hepatitis B Vaccine: Yes Multi-Drug Resistant Organisms History of MDRO: No Allergies Coded Allergies: Iodinated Diagnostic Agents (Verified Allergy, Severe, SHORTNESS OF BREATH , 01/18/16) Gluten (Verified Allergy, Intermediate, GI SYMPTOMS, 01/18/16) Latex (Verified Allergy, Intermediate, RASH, 01/18/16) Aspirin (Verified Allergy, Unknown, 01/18/16) Ibuprofen (Verified Allergy, Unknown, 01/18/16) Latex1 -Allergic Contact Dermititis (Verified Allergy, Unknown, 01/18/16) Lisinopril (Unverified Allergy, Unknown, UNKNOWN, 01/18/16) Meperidine (Unverified Allergy, Unknown, UNKNOWN, 01/18/16) Metformin (Unverified Allergy, Unknown, GI SYMPTOMS, 01/18/16) Midazolam (Verified Allergy, Unknown, UNKN, 01/18/16) Nut Tree (Unverified Allergy, Unknown, UNKNOWN, 01/18/16) Peanut (Unverified Allergy, Unknown, UNKNOWN, 01/18/16) Penicillins (Verified Allergy, Unknown, SHORTNESS OF BREATH, 01/18/16) (FROM UNCODED ALLERGIES) Sulfa Antibiotics (Verified Allergy, Unknown, UNKNOWN, 01/18/16) Home Medications Scheduled Calcium Carbonate-Cholecalcife (Caltrate 600+D), 1 TAB PO DAILY Cholecalciferol (Vitamin D3), 1 CAP PO DAILY Cyanocobalamin (Vitamin B-12), 250 MCG PO DAILY Fluticasone Prop/Salmeterol (Advair Diskus 250/50 60 Dose), 1 PUFFS INH BID Furosemide (Lasix), 20 MG PO UD Levetiracetam (Keppra), 750 MG PO BID Levothyroxine Sodium (Synthroid), 112 MCG PO DAILY Montelukast Sod (Montelukast Sodium), 10 MG PO DAILY Nitrofurantoin Macrocrystals (Macrodantin), 50 MG PO DAILY Omeprazole (Prilosec), 20 MG PO DAILY Simvastatin (Zocor), 10 MG PO QPM Scheduled PRN Ascorbic Acid (Ascorbic Acid), 500 PO BID PRN for COLS SYMPTOMS Diphenhydramine Hcl (Benadryl Allergy), 25 MG PO TID PRN for ALLERGIC REACTION Review of Systems Please see HPI for ROS Physical Exam Vital Signs Date Time Temp Pulse Resp B/P (MAP) Pulse Ox O2 Delivery O2 Flow Rate FiO2 07/07/16 16:08 168/65 07/07/16 15:21 81 26 200/85 95 07/07/16 14:14 69 22 214/96 93 Room Air 07/07/16 14:05 70 07/07/16 13:35 70 20 223/95 98 Room Air 07/07/16 13:34 93 Room Air 07/07/16 12:08 36.6 75 22 158/80 97 Room Air General Appearance: WD/WN, no apparent distress, + pertinent finding (obese) Eyes: normal inspection, PERRL, sclerae normal ENT: hearing grossly normal, pharynx normal, + pertinent finding (full neck) Neck: supple, no carotid bruits, trachea midline, + pertinent finding (unable to see JVD due to weight) Respiratory/Chest: chest non-tender, lungs clear, normal breath sounds, no accessory muscle use Cardiovascular: regular rate, rhythm, no murmur, + abnormal peripheral pulses ( weak) Abdomen/GI: normal bowel sounds, soft, + tenderness (tender in the suprapubic region) Back: normal inspection, no CVA tenderness Extremities/Musculoskelatal: + pedal edema (edema up to the mid garcia +2), + pertinent finding (has bandages on lower extremities) Neurologic/Psych: alert, normal mood/affect, oriented x 3 Skin: + pertinent finding (redenned area around groin area as well as vagina ( appears to be fungal infection in nature)) Lymphatic: no adenopathy Diagnostics Laboratory Results Results Past 24 Hours Test 07/07/16 12:30 07/07/16 13:00 07/07/16 13:19 07/07/16 14:05 Range/Units Urine Color YELLOW Urine Appearance CLEAR CLEAR Urine pH 7.5 4.5-7.5 Urine Specific [place] 1.010 1.000-1.030 Urine Protein NEG NEG Urine Glucose (UA) NEG NEG Urine Ketones NEG NEG Urine Occult Blood NEG NEG Urine Nitrite NEG NEG Urine Bilirubin NEG NEG Urine Urobilinogen NEG NEG Urine Leukocyte Esterase NEG NEG Sodium Level 143 136-145 mmol/L Potassium Level 3.7 3.5-5.1 mmol/L Chloride Level 104 98-107 mmol/L Carbon Dioxide Level 30 21-32 mmol/L Anion Gap 9.0 3-11 mmol/L Blood Urea Nitrogen 17 7-18 mg/dl Creatinine 0.77 0.60-1.20 mg/dl Estimated GFR () 90.0 Estimated GFR (Non- 77.7 BUN/Creatinine Ratio 21.6 10-20 Random Glucose 103 70-99 mg/dl Calcium Level 9.4 8.5-10.1 mg/dl Magnesium Level 2.4 1.8-2.4 mg/dl Total Bilirubin 0.3 0.2-1 mg/dl Aspartate Amino Transf (AST/SGOT) 10 15-37 U/L Alanine Aminotransferase (ALT/SGPT) 20 12-78 U/L Alkaline Phosphatase 65 45-117 U/L Troponin I < 0.015 0-0.045 ng/ml Total Protein 6.8 6.4-8.2 gm/dl Albumin 3.6 3.4-5.0 gm/dl Globulin 3.2 2.5-4.0 gm/dl Albumin/Globulin Ratio 1.1 0.9-2 Thyroid Stimulating Hormone (TSH) 0.827 0.300-4.500 uIu/ml Free Thyroxine 1.62 0.80-1.60 ng/dl Lactic Acid Level 1.0 0.4-2.0 mmol/L White Blood Count 5.93 4.8-10.8 K/uL Red Blood Count 3.66 4.2-5.4 M/uL Hemoglobin 8.4 12.0-16.0 g/dL Hematocrit 28.7 37-47 % Mean Corpuscular Volume 78.4 80-100 fL Mean Corpuscular Hemoglobin 23.0 25-34 pg Mean Corpuscular Hemoglobin Concent 29.3 32-36 g/dl Platelet Count 260 130-400 K/uL Mean Platelet Volume 10.5 7.4-10.4 fL Neutrophils (%) (Auto) 77.0 % Lymphocytes (%) (Auto) 10.8 % Monocytes (%) (Auto) 7.9 % Eosinophils (%) (Auto) 3.9 % Basophils (%) (Auto) 0.2 % Neutrophils # (Auto) 4.57 1.4-6.5 K/uL Lymphocytes # (Auto) 0.64 1.2-3.4 K/uL Monocytes # (Auto) 0.47 0.11-0.59 K/uL Eosinophils # (Auto) 0.23 0-0.5 K/uL Basophils # (Auto) 0.01 0-0.2 K/uL RDW Standard Deviation 54.2 36.4-46.3 fL RDW Coefficient of Variation 18.6 11.5-14.5 % Immature Granulocyte % (Auto) 0.2 % Immature Granulocyte # (Auto) 0.01 0.00-0.02 K/uL Polychromasia 1+ Poikilocytosis PRESENT Anisocytosis PRESENT Microcytosis PRESENT Prothrombin Time 11.2 9.0-12.0 SECONDS Prothromb Time International Ratio 1.0 0.9-1.1 Activated Partial Thromboplast Time 26.1 21.0-31.0 SECONDS Partial Thromboplastin Ratio 1.0 Test 07/07/16 17:15 Range/Units Microbiology Results 07/07/16 Blood Culture, Received Pending 07/07/16 Blood Culture, Received Pending Diagnostic Radiology CT head=normal CXR normal Impression Assessment and Plan 70 year old female with PMH of iron deficiency anemia and ESBL presented to [facility] with weakness. Fatigue -- likely multifactorial - iron deficiency anemia/deconditioning/?sleep apnea/?orthostasis. No sign of infection - Transfuse and further evaluate anemia - Nocturnal O2 testing - PT/OT Anemia - Most recent Hgb 8.4 (symptomatic) - Will transfuse 1 unit of PRBC - Peripheral smear - FOBT - Hgb electrophoresis - Monitor Hgb Hx of ESBL uti - UA clear in ED - Continue nitrofurantoin - incontinence likely contributing to recurrence Hx of Orthostatic Hypotension - obtain orthostatic vitals Urinary incontinence - Fair catheter placed as patient incontinent in ED Lower extremity edema - likely chronic venous insufficiency - will order wound care nurse to see patient - hold lasix HTN - no home meds Hypothyroidism - continue synthroid GERD - continue omeprazole HLD - continue statin Asthma - continue montelukast and advair Seizure - continue keppra Diet - regular diet DVT prophylaxis - lovenox Dispo - PT/OT - discharge eval Level of Care Med/Surg VTE Prophylaxis VTE Risk Assessment Done? Y/N: Yes Risk Level: High Given or contraindicated: Enoxaparin (Lovenox)SQ Reviewed: Pt Seen/Exam by Me History 70 y/o F brought to ED for worsening fatigue. Has known h/o iron deficiency anemia with negative GI work up and has been on IV iron infusion. Nursing in ED reports patient being completely incontinent of urine with erythema in groin area. Constitutional: acknowledges: weakness, denies: fever Respiratory: negative: short of breath Cardiovascular: denies chest pain Gastrointestinal/Abdominal: negative: abdominal pain General Appearance: no apparent distress (lethargic) Respiratory: lungs clear, no respiratory distress Cardiovascular: regular rate, rhythm Extremities: pedal edema (bilaterally) Neurologic/Psychiatric: alert, oriented x 3, other (tremors in UE) Skin Characteristics: warm/dry Assessment/Plan I have reviewed the medical record and performed a history and physical examination of this patient today. I have discussed the case with Dr. Sellers . The above note reflects my findings, conclusions, and recommendations
[2016-07-07] MEDS ORDERED: PATIENT'S HEIGHT AND/OR WEIGHT NEEDED SCH (20:00)
[2016-07-07] MEDS: FLUTICASONE/SALMETEROL 250/50 (ADVAIR) 14 PUFF/1 INHALER INH SCH (21:19)
[2016-07-07] MEDS: SIMVASTATIN 10 MG TAB PO SCH (21:20)
[2016-07-07] MEDS: MONTELUKAST SOD 10 MG TAB PO SCH (21:20)
[2016-07-07] MEDS: LEVETIRACETAM 250 MG TAB PO SCH (21:20)
[2016-07-07] MEDS: ENOXAPARIN 40 MG/0.4 ML SYR SQ SCH (21:55)
[2016-07-08] VITALS: BP 147/70; PULSE 63; TEMP 36.8; O2SAT 92
[2016-07-08 06:15] LABS: BASO % 0.4 %; BASO ABS # 0.02 K/uL (0-0.2); EOS % 5.5 %; HEMATOCRIT 26.7 % (37-47); IG% 0.2 %; LYMPH % 16.8 %; LYMPH ABS # 0.82 K/uL (1.2-3.4); MEAN CELL VOLUME 79.2 fL (80-100); MEAN CORPUSCULAR HGB CONC 30.3 g/dl (32-36); MEAN PLATELET VOLUME 10.5 fL (7.4-10.4); MONO % 10.9 %; NEUT % 66.2 %; PLATELET COUNT 236 K/uL (130-400); RED BLOOD COUNT 3.37 M/uL (4.2-5.4); WHITE BLOOD COUNT 4.88 K/uL (4.8-10.8)
[2016-07-08] MEDS: LEVOTHYROXINE 112 MCG TAB PO SCH (06:22)
[2016-07-08 06:39] LABS: COMPLETE YES; HYPOCHROMIA PRESENT; OVALOCYTES 1+
[2016-07-08 07:25] VITALS: BP_SYST 166; BP_SYST 168; BP_DIAS 70; BP_DIAS 77; PULSE 63; TEMP 36.6; O2SAT 90
[2016-07-08] MEDS: LEVETIRACETAM 250 MG TAB PO SCH ×2 (08:01→20:49)
[2016-07-08] MEDS: PANTOprazole SOD 40 MG TAB PO SCH (08:01)
[2016-07-08] MEDS: FLUTICASONE/SALMETEROL 250/50 (ADVAIR) 14 PUFF/1 INHALER INH SCH ×2 (08:01→20:48)
[2016-07-08] MEDS: CYANOCOBALAMIN 500 MCG TAB (VIT B-12) PO SCH (08:02)
[2016-07-08] MEDS: NYSTATIN POWDER 15GM BTL EXT SCH (08:02)
[2016-07-08] MEDS: CALCIUM 600MG + VIT D 400 IU TAB PO SCH (08:02)
[2016-07-08] MEDS: NITROFURANTOIN MACROCRYSTALS 50 MG CAP PO SCH (08:03)
[2016-07-08] MEDS: CHOLECALCIFEROL 1000 INTER.UNIT TAB PO SCH (08:03)
--- NOTE | 2016-07-08 08:44 | Family Medicine Progress Note ---
Progress Note Date of Service Jul 08, 2016. Subjective Pt evaluation today including: conversation w/ patient, physical exam, chart review, conversation w/ emergency management consultant, review of inpatient medication list Pain: none PO Intake: good Voiding: munoz catheter in place Patient with no acute events overnight She is feeling a lit bit better than she did yesterday. She said her "head feels out of sorts", and the she said that she thinks her vision is failing her. She did receive 1 unit of PRBC yesterday evening but she did not have a significant rise in her Hgb. When listening to her heart she asked if she had CHF because a doctor once had told her that she had it but then told her she didn't? She denies any syncope, chest pain, palpitations, nausea, vomiting, shortness of breath, fevers, night sweats chills, leg swelling Additional Comments: please see above for ROS Medications Current Inpatient Medications Medications (Trade) Dose Ordered Sig/Phong Route Start Time Stop Time Status Last Admin Dose Admin Enoxaparin Sodium (Lovenox Inj) 40 mg Q24H SQ 07/07/16 21:00 08/06/16 20:59 07/07/16 21:55 40 MG Acetaminophen (Tylenol Tab) 650 mg Q4H PRN PO 07/07/16 17:15 08/06/16 17:14 Al Hydrox/Mg Hydrox/Simethicone (Maalox Max Susp) 15 ml Q4H PRN PO 07/07/16 17:15 08/06/16 17:14 Magnesium Hydroxide (Milk Of Magnesia Susp) 30 ml Q6H PRN PO 07/07/16 17:15 08/06/16 17:14 Polyethylene (Miralax Powder Packet) 17 gm DAILY PRN PO 07/07/16 17:15 08/06/16 17:14 Ondansetron HCl (Zofran Inj) 4 mg Q6H PRN IV 07/07/16 17:15 08/06/16 17:14 Nystatin (Mycostatin Powder) 1 appln DAILY EXT 07/08/16 08:00 08/07/16 08:59 07/08/16 08:02 1 APPLN Cyanocobalamin (Vitamin B-12 Tab) 250 mcg DAILY PO 07/08/16 08:00 08/07/16 08:59 07/08/16 08:02 250 MCG Salmeterol Xinafoate/ Fluticasone (Advair Diskus 250/50 Inh) 1 puff BID INH 07/07/16 20:00 08/06/16 20:59 07/08/16 08:01 1 PUFF Levetiracetam (Keppra Tab) 750 mg BID PO 07/07/16 20:00 08/06/16 20:59 07/08/16 08:01 750 MG Levothyroxine Sodium (Synthroid Tab) 112 mcg DAILYBB PO 07/08/16 06:30 08/07/16 06:59 07/08/16 06:22 112 MCG Montelukast Sodium (Singulair Tab) 10 mg HS PO 07/07/16 21:00 08/06/16 20:59 07/07/16 21:20 10 MG Nitrofurantoin Macrocrystals (Macrodantin Cap) 50 mg DAILY PO 07/08/16 08:00 08/07/16 08:59 07/08/16 08:03 50 MG Simvastatin (Zocor Tab) 10 mg QPM PO 07/07/16 21:00 08/06/16 20:59 07/07/16 21:20 10 MG Calcium/Vitamin D (Caltrate Plus Tab) 1 tab DAILY PO 07/08/16 08:00 08/07/16 08:59 07/08/16 08:02 1 TAB Cholecalciferol (Vitamin D Tab) 2,000 inter.unit DAILY PO 07/08/16 08:00 08/07/16 08:59 07/08/16 08:03 2,000 INTER.UNIT Diphenhydramine HCl (Benadryl Cap) 25 mg TID PRN PO 07/07/16 17:15 08/06/16 17:14 Pantoprazole Sodium (Protonix Tab) 40 mg DAILY PO 07/08/16 08:00 08/07/16 08:59 07/08/16 08:01 40 MG Objective Vital Signs Date Time Temp Pulse Resp B/P (MAP) Pulse Ox O2 Delivery O2 Flow Rate FiO2 07/08/16 07:25 36.6 63 20 168/70 (102) 90 Room Air 166/77 (106) 07/08/16 02:30 Room Air 07/08/16 00:00 36.8 63 18 147/70 (95) 92 Room Air 07/07/16 22:37 36.8 66 18 159/76 97 07/07/16 21:50 36.7 67 18 184/86 97 07/07/16 21:50 36.7 67 18 184/82 97 07/07/16 20:50 36.8 66 18 157/75 97 07/07/16 20:20 36.5 71 18 111/64 97 07/07/16 20:00 36.4 74 18 124/67 18 07/07/16 19:54 36.5 70 18 169/63 (98) 95 Room Air 07/07/16 19:34 36.6 67 18 192/70 95 07/07/16 19:07 67 18 07/07/16 19:02 69 17 192/70 07/07/16 18:57 66 16 07/07/16 18:52 66 16 07/07/16 18:47 66 23 07/07/16 18:42 68 19 07/07/16 18:37 59 20 07/07/16 18:32 192/78 07/07/16 18:30 63 20 07/07/16 18:19 65 07/07/16 18:01 196/82 07/07/16 18:00 67 15 07/07/16 17:31 186/75 07/07/16 17:30 36.6 67 18 192/70 95 Room Air 07/07/16 17:30 65 23 07/07/16 17:03 166/47 07/07/16 17:00 70 23 07/07/16 16:32 187/70 07/07/16 16:30 71 19 98 07/07/16 16:16 172/72 07/07/16 16:08 168/65 07/07/16 16:02 168/65 07/07/16 16:00 70 19 95 07/07/16 15:54 183/74 07/07/16 15:51 173/77 07/07/16 15:32 197/78 07/07/16 15:30 74 20 95 07/07/16 15:21 81 26 200/85 95 07/07/16 15:19 200/85 07/07/16 15:06 208/83 07/07/16 14:14 69 22 214/96 93 Room Air 07/07/16 14:05 70 07/07/16 13:35 70 20 223/95 98 Room Air 07/07/16 13:34 93 Room Air 07/07/16 12:08 36.6 75 22 158/80 97 Room Air Physical Exam General Appearance: WD/WN, no apparent distress, + obese Eyes: normal inspection, PERRL ENT: hearing grossly normal, pharynx normal Neck: supple, thyroid normal, trachea midline, + JVD (elevated half way up to the angle of the mandible) Respiratory/Chest: chest non-tender, no respiratory distress, no accessory muscle use, + crackles (crackles at the bases bilaterally), + pertinent finding (no wheezing or rhonchi) Cardiovascular: regular rate, rhythm, no edema, + systolic murmur (systolic murmur heard best over the LUSB and RUSB) Abdomen: normal bowel sounds, non tender, soft, + pertinent finding (groin area is much less red after application of antifungal yesterday) Extremities: no pedal edema, no calf tenderness, normal capillary refill, + pertinent finding (has some sloughing of skin of the lower extremities bilaterally, doesnt have dressing over skin) Neurologic/Psychiatric: alert, normal mood/affect, oriented x 3 Laboratory Results Results Past 24 Hours Test 07/07/16 12:30 07/07/16 13:00 07/07/16 13:19 07/07/16 14:05 Range/Units Urine Color YELLOW Urine Appearance CLEAR CLEAR Urine pH 7.5 4.5-7.5 Urine Specific [place] 1.010 1.000-1.030 Urine Protein NEG NEG Urine Glucose (UA) NEG NEG Urine Ketones NEG NEG Urine Occult Blood NEG NEG Urine Nitrite NEG NEG Urine Bilirubin NEG NEG Urine Urobilinogen NEG NEG Urine Leukocyte Esterase NEG NEG Sodium Level 143 136-145 mmol/L Potassium Level 3.7 3.5-5.1 mmol/L Chloride Level 104 98-107 mmol/L Carbon Dioxide Level 30 21-32 mmol/L Anion Gap 9.0 3-11 mmol/L Blood Urea Nitrogen 17 7-18 mg/dl Creatinine 0.77 0.60-1.20 mg/dl Estimated GFR () 90.0 Estimated GFR (Non- 77.7 BUN/Creatinine Ratio 21.6 10-20 Random Glucose 103 70-99 mg/dl Calcium Level 9.4 8.5-10.1 mg/dl Magnesium Level 2.4 1.8-2.4 mg/dl Total Bilirubin 0.3 0.2-1 mg/dl Aspartate Amino Transf (AST/SGOT) 10 15-37 U/L Alanine Aminotransferase (ALT/SGPT) 20 12-78 U/L Alkaline Phosphatase 65 45-117 U/L Troponin I < 0.015 0-0.045 ng/ml Total Protein 6.8 6.4-8.2 gm/dl Albumin 3.6 3.4-5.0 gm/dl Globulin 3.2 2.5-4.0 gm/dl Albumin/Globulin Ratio 1.1 0.9-2 Thyroid Stimulating Hormone (TSH) 0.827 0.300-4.500 uIu/ml Free Thyroxine 1.62 0.80-1.60 ng/dl Lactic Acid Level 1.0 0.4-2.0 mmol/L White Blood Count 5.93 4.8-10.8 K/uL Red Blood Count 3.66 4.2-5.4 M/uL Hemoglobin 8.4 12.0-16.0 g/dL Hematocrit 28.7 37-47 % Mean Corpuscular Volume 78.4 80-100 fL Mean Corpuscular Hemoglobin 23.0 25-34 pg Mean Corpuscular Hemoglobin Concent 29.3 32-36 g/dl Platelet Count 260 130-400 K/uL Mean Platelet Volume 10.5 7.4-10.4 fL Neutrophils (%) (Auto) 77.0 % Lymphocytes (%) (Auto) 10.8 % Monocytes (%) (Auto) 7.9 % Eosinophils (%) (Auto) 3.9 % Basophils (%) (Auto) 0.2 % Neutrophils # (Auto) 4.57 1.4-6.5 K/uL Lymphocytes # (Auto) 0.64 1.2-3.4 K/uL Monocytes # (Auto) 0.47 0.11-0.59 K/uL Eosinophils # (Auto) 0.23 0-0.5 K/uL Basophils # (Auto) 0.01 0-0.2 K/uL RDW Standard Deviation 54.2 36.4-46.3 fL RDW Coefficient of Variation 18.6 11.5-14.5 % Immature Granulocyte % (Auto) 0.2 % Immature Granulocyte # (Auto) 0.01 0.00-0.02 K/uL Polychromasia 1+ Poikilocytosis PRESENT Anisocytosis PRESENT Microcytosis PRESENT Prothrombin Time 11.2 9.0-12.0 SECONDS Prothromb Time International Ratio 1.0 0.9-1.1 Activated Partial Thromboplast Time 26.1 21.0-31.0 SECONDS Partial Thromboplastin Ratio 1.0 Test 07/07/16 17:51 07/07/16 20:29 07/08/16 05:55 Range/Units Bedside Glucose 144 70-90 mg/dl White Blood Count 4.88 4.8-10.8 K/uL Red Blood Count 3.37 4.2-5.4 M/uL Hemoglobin 8.1 12.0-16.0 g/dL Hematocrit 26.7 37-47 % Mean Corpuscular Volume 79.2 80-100 fL Mean Corpuscular Hemoglobin 24.0 25-34 pg Mean Corpuscular Hemoglobin Concent 30.3 32-36 g/dl Platelet Count 236 130-400 K/uL Mean Platelet Volume 10.5 7.4-10.4 fL Neutrophils (%) (Auto) 66.2 % Lymphocytes (%) (Auto) 16.8 % Monocytes (%) (Auto) 10.9 % Eosinophils (%) (Auto) 5.5 % Basophils (%) (Auto) 0.4 % Neutrophils # (Auto) 3.23 1.4-6.5 K/uL Lymphocytes # (Auto) 0.82 1.2-3.4 K/uL Monocytes # (Auto) 0.53 0.11-0.59 K/uL Eosinophils # (Auto) 0.27 0-0.5 K/uL Basophils # (Auto) 0.02 0-0.2 K/uL RDW Standard Deviation 54.6 36.4-46.3 fL RDW Coefficient of Variation 18.7 11.5-14.5 % Immature Granulocyte % (Auto) 0.2 % Immature Granulocyte # (Auto) 0.01 0.00-0.02 K/uL Hypochromasia PRESENT Ovalocytes 1+ Microbiology Results 07/07/16 Blood Culture, Received Pending 07/07/16 Blood Culture, Received Pending Assessment and Plan 70 year old female with PMH of iron deficiency anemia and ESBL presented to [facility] with weakness. Fatigue -- likely multifactorial - iron deficiency anemia/deconditioning/ orthostasis. - No sign of infection - nocturnal pulse oximetry inconclusive - PT/OT Anemia - Transfuse and further evaluate anemia, Hgb this morning was 8.1, will recheck this afternoon - FOBT was positive, but nurse notes no umer red blood was seen in stool - Peripheral smear - Hgb electrophoresis - Monitor Hgb Orthostasis - likely sec to parkinsons - Gene stocking - amlodipine may make orthostasis worse - follow Atypical parkinsons/polyneuropathy/gait disturbance - sees neurology - PT/OT Hx of ESBL uti - UA clear in ED - Continue nitrofurantoin - incontinence likely contributing to recurrence Urinary incontinence - Munoz catheter placed as patient incontinent in ED Lower extremity edema - likely chronic venous insufficiency - will order wound care nurse to see patient - lasix restarted HTN - started amlodipine and lasix Hypothyroidism - continue synthroid GERD - continue omeprazole HLD - continue statin Asthma - continue montelukast and advair Seizure - continue keppra Diet - regular diet DVT prophylaxis - lovenox Dispo - PT/OT - discharge eval Continued [facility] stay due to: ambulation difficulties Reviewed: Pt Seen/Exam by Me History Feeling slightly better PT checked orthostatics and noted to have significant orthostasis. Constitutional: denies: fever Respiratory: negative: short of breath Cardiovascular: denies chest pain General Appearance: no apparent distress Respiratory: lungs clear, no respiratory distress Cardiovascular: regular rate, rhythm Neurologic/Psychiatric: alert, oriented x 3 Skin Characteristics: warm/dry Assessment/Plan I have reviewed the medical record and performed a history and physical examination of this patient today. I have discussed the case with Dr. Sellers . The above note reflects my findings, conclusions, and recommendations
[2016-07-08] MEDS ORDERED: AMLODIPINE BESYLATE 5 MG TAB PO ONE (11:30)
[2016-07-08 12:42] VITALS: BP 165/75
[2016-07-08 16:00] VITALS: BP_SYST 144; BP_SYST 146; BP_SYST 85; BP_DIAS 43; BP_DIAS 63; BP_DIAS 67; PULSE 71; PULSE 76; O2SAT 93; O2SAT 95; O2SAT 97
[2016-07-08 16:45] LABS: HEMATOCRIT 30.2 % (37-47)
[2016-07-08] MEDS: MONTELUKAST SOD 10 MG TAB PO SCH (20:49)
[2016-07-08] MEDS: ENOXAPARIN 40 MG/0.4 ML SYR SQ SCH (20:49)
[2016-07-08] MEDS: POLYETHYLENE (MIRALAX) 17 GM PACK PO PRN (20:49)
[2016-07-08] MEDS: SIMVASTATIN 10 MG TAB PO SCH (21:20)
[2016-07-09] VITALS (8 sets, daily range): BP systolic 161–176; BP diastolic 68–75; PULSE 18–69; TEMP 36.5–36.8; O2SAT 90–93
[2016-07-09 06:52] LABS: HEMATOCRIT 28.6 % (37-47); MEAN CELL VOLUME 78.4 fL (80-100); MEAN CORPUSCULAR HGB CONC 29.4 g/dl (32-36); MEAN PLATELET VOLUME 9.6 fL (7.4-10.4); PLATELET COUNT 240 K/uL (130-400); RED BLOOD COUNT 3.65 M/uL (4.2-5.4); WHITE BLOOD COUNT 5.07 K/uL (4.8-10.8)
[2016-07-09] MEDS: LEVOTHYROXINE 112 MCG TAB PO SCH (07:00)
[2016-07-09] MEDS: PANTOprazole SOD 40 MG TAB PO SCH (07:51)
[2016-07-09] MEDS: LEVETIRACETAM 250 MG TAB PO SCH ×2 (07:51→22:06)
[2016-07-09] MEDS: AMLODIPINE BESYLATE 5 MG TAB PO SCH (07:51)
[2016-07-09] MEDS: CALCIUM 600MG + VIT D 400 IU TAB PO SCH (07:51)
[2016-07-09] MEDS: NITROFURANTOIN MACROCRYSTALS 50 MG CAP PO SCH (07:51)
[2016-07-09] MEDS: CHOLECALCIFEROL 1000 INTER.UNIT TAB PO SCH (07:51)
[2016-07-09] MEDS: FUROSEMIDE 20 MG TAB PO SCH (07:51)
[2016-07-09] MEDS: FLUTICASONE/SALMETEROL 250/50 (ADVAIR) 14 PUFF/1 INHALER INH SCH ×2 (07:52→22:05)
[2016-07-09] MEDS: NYSTATIN POWDER 15GM BTL EXT SCH (07:52)
[2016-07-09] MEDS: MAGNESIUM HYDROXIDE SUSP 30 ML UDC PO PRN (07:59)
[2016-07-09] MEDS: CYANOCOBALAMIN 500 MCG TAB (VIT B-12) PO SCH (08:35)
[2016-07-09] MEDS ORDERED: IRON SUCROSE INJ 300 MG in SODIUM CHLORIDE 0.9% 250ML 250 ML IV SCH (09:00)
[2016-07-09 09:21] LABS: BUN/CREATININE RATIO 22.9 (10-20); CALCIUM 8.4 mg/dl (8.5-10.1); CREATININE 0.79 mg/dl (0.60-1.20); POTASSIUM 3.8 mmol/L (3.5-5.1)
--- NOTE | 2016-07-09 10:37 | Family Medicine Progress Note ---
Progress Note Date of Service Jul 09, 2016. Subjective Pt evaluation today including: conversation w/ patient, physical exam, chart review Pain: 0/10 PO Intake: WNL Voiding: no voiding problems Patient states that she is feeling generally well this morning We were discussing her iron transfusions and she states that she normally tries to make it to the appointments for these transfusions however she was missing the last couple because of difficulty getting to these appointments/ feeling too fatigued for the transfusion She also mentions that last her "muscles in her feet froze" and she has been unable to ambulate byherself, states she really does not wish to be wheelchair bound and would like to work on ambulation while she is here Constitutional: No fever Eyes: No worsening of vision ENT: No hearing loss Respiratory: No cough, No sputum, No wheezing, No shortness of breath, No dyspnea on exertion Cardiovascular: + problem reported (hypotension when getting up too quickly) , No chest pain Abdomen: + constipation, No pain, No nausea, No vomiting, No diarrhea Musculoskeletal: + problem reported ("numb feet"), No joint pain, No muscle pain Female : No dysuria, No hematuria Neurologic: + weakness, + numbness/tingling, No balance problems Psychiatric: No depression symptoms Endo: + fatigue Medications Medications Administered Medications (Trade) Dose Ordered Sig/Phong Route Start Time Stop Time Status Last Admin Dose Admin Sodium Chloride 500 ml @ 999 mls/hr Q31M STAT IV 07/07/16 12:32 07/07/16 13:02 DC 07/07/16 13:31 999 MLS/HR Hydralazine HCl (HydrALAZINE INJ) 10 mg NOW STAT IV 07/07/16 14:13 07/07/16 14:14 DC 07/07/16 14:18 10 MG Labetalol HCl (Normodyne IV) 10 mg NOW STAT IV 07/07/16 15:25 07/07/16 15:26 DC 07/07/16 15:48 10 MG Ceftriaxone Sodium (Rocephin Inj) 1 gm NOW STAT IV 07/07/16 15:25 07/07/16 15:26 DC 07/07/16 15:49 1 GM Enoxaparin Sodium (Lovenox Inj) 40 mg Q24H SQ 07/07/16 21:00 07/09/16 09:31 DC 07/08/16 20:49 40 MG Magnesium Hydroxide (Milk Of Magnesia Susp) 30 ml Q6H PRN PO 07/07/16 17:15 08/06/16 17:14 07/09/16 07:59 30 ML Polyethylene (Miralax Powder Packet) 17 gm DAILY PRN PO 07/07/16 17:15 08/06/16 17:14 07/08/16 20:49 17 GM Nystatin (Mycostatin Powder) 1 appln DAILY EXT 07/08/16 08:00 08/07/16 08:59 07/09/16 07:52 1 APPLN Cyanocobalamin (Vitamin B-12 Tab) 250 mcg DAILY PO 07/08/16 08:00 08/07/16 08:59 07/09/16 08:35 250 MCG Salmeterol Xinafoate/ Fluticasone (Advair Diskus 250/50 Inh) 1 puff BID INH 07/07/16 20:00 08/06/16 20:59 07/09/16 07:52 1 PUFF Levetiracetam (Keppra Tab) 750 mg BID PO 07/07/16 20:00 08/06/16 20:59 07/09/16 07:51 750 MG Levothyroxine Sodium (Synthroid Tab) 112 mcg DAILYBB PO 07/08/16 06:30 08/07/16 06:59 07/09/16 07:00 112 MCG Montelukast Sodium (Singulair Tab) 10 mg HS PO 07/07/16 21:00 08/06/16 20:59 07/08/16 20:49 10 MG Nitrofurantoin Macrocrystals (Macrodantin Cap) 50 mg DAILY PO 07/08/16 08:00 08/07/16 08:59 07/09/16 07:51 50 MG Simvastatin (Zocor Tab) 10 mg QPM PO 07/07/16 21:00 08/06/16 20:59 07/08/16 21:20 10 MG Calcium/Vitamin D (Caltrate Plus Tab) 1 tab DAILY PO 07/08/16 08:00 08/07/16 08:59 07/09/16 07:51 1 TAB Cholecalciferol (Vitamin D Tab) 2,000 inter.unit DAILY PO 07/08/16 08:00 08/07/16 08:59 6/3/17 07:51 2,000 INTER.UNIT Pantoprazole Sodium (Protonix Tab) 40 mg DAILY PO 07/08/16 08:00 08/07/16 08:59 07/09/16 07:51 40 MG Amlodipine Besylate (Norvasc Tab) 5 mg QAM PO 07/09/16 08:00 08/08/16 07:59 07/09/16 07:51 5 MG Amlodipine Besylate (Norvasc Tab) 5 mg NOW ONCE PO 07/08/16 11:30 07/08/16 11:31 DC 07/08/16 11:41 5 MG Furosemide (Lasix Tab) 20 mg DAILY PO 07/09/16 08:00 08/08/16 07:59 07/09/16 07:51 20 MG Objective Vital Signs Date Time Temp Pulse Resp B/P (MAP) Pulse Ox O2 Delivery O2 Flow Rate FiO2 07/09/16 07:49 36.5 63 18 163/71 (101) 90 07/09/16 00:13 36.8 67 20 169/75 (106) 93 Room Air 07/09/16 00:00 Room Air 07/08/16 19:34 Room Air 07/08/16 16:00 71 146/63 (90) 97 Room Air 07/08/16 16:00 85/43 (57) 95 Room Air 07/08/16 16:00 76 144/67 (92) 93 Room Air 07/08/16 12:42 165/75 (105) 07/08/16 11:00 Room Air Physical Exam General Appearance: no apparent distress Eyes: normal inspection ENT: normal ENT inspection Neck: supple Respiratory/Chest: normal breath sounds, no respiratory distress, no accessory muscle use Cardiovascular: regular rate, rhythm, + systolic murmur (3/6, known to patient) Abdomen: normal bowel sounds, non tender, soft Extremities: non-tender, normal inspection, no calf tenderness, + pertinent finding (outbowing of both feet, decreased sensation to bilat feet, limited ROM of bilat feet) Neurologic/Psychiatric: alert, normal mood/affect, oriented x 3 Skin: normal color, warm/dry, no rash Lymphatic: no adenopathy Laboratory Results Results Past 24 Hours Test 07/08/16 15:22 07/09/16 06:34 Range/Units Hemoglobin 8.9 8.4 12.0-16.0 g/dL Hematocrit 30.2 28.6 37-47 % White Blood Count 5.07 4.8-10.8 K/uL Red Blood Count 3.65 4.2-5.4 M/uL Mean Corpuscular Volume 78.4 80-100 fL Mean Corpuscular Hemoglobin 23.0 25-34 pg Mean Corpuscular Hemoglobin Concent 29.4 32-36 g/dl RDW Standard Deviation 53.9 36.4-46.3 fL RDW Coefficient of Variation 18.8 11.5-14.5 % Platelet Count 240 130-400 K/uL Mean Platelet Volume 9.6 7.4-10.4 fL Sodium Level 144 136-145 mmol/L Potassium Level 3.8 3.5-5.1 mmol/L Chloride Level 107 98-107 mmol/L Carbon Dioxide Level 33 21-32 mmol/L Anion Gap 4.0 3-11 mmol/L Blood Urea Nitrogen 18 7-18 mg/dl Creatinine 0.79 0.60-1.20 mg/dl Est Creatinine Clear Calc Drug Dose 81.2 ml/min Estimated GFR () 87.3 Estimated GFR (Non- 75.3 BUN/Creatinine Ratio 22.9 10-20 Random Glucose 95 70-99 mg/dl Calcium Level 8.4 8.5-10.1 mg/dl Assessment and Plan 70 year old female with PMH of iron deficiency anemia and ESBL presented to [facility] with weakness. When admitted she was found to have profound anemia along with extreme fatigue so decision was made for a blood transfusion. Patient did receive 2 units of blood with minimal improvement in the hgb. Fecal occult positive however she has had extensive work up for this and does not wish for further investigation. Anemia secondary to iron deficiency anemia - 2 units transfused - IV iron ordered - peripheral smear reflective of microcytic anemia - HGB electrophoresis pending - Fecal occult positive - hem/ onc consult- this is now the patient's third admission since 2015 for profound anemia Orthostatic hypotension; autonomic instability secondary to Parkinson's - Gene stocking - amlodipine may make orthostasis worse - follow - Education on appropriate transfer methods discussed - was unable to tolerate Sinemet according to notes because of this - follows Dr Dominguez for this Hx of ESBL uti - UA clear in ED - Continue nitrofurantoin -d/c munoz as increased risk of infection with this Lower extremity edema- improved - likely chronic venous insufficiency - lasix20 mg daily - I&O noted HTN - Amlodipine restarted - will be cautious with orthostasis - lasix cont'd Hypothyroidism - continue synthroid GERD - continue omeprazole once out of hospital - changed to protonix while inpt HLD - continue statin Asthma - continue montelukast and advair Seizure - continue keppra DVT prophylaxis - SCD as fecal occult positive - lovenox is d/c Dispo - PT/OT- discuss placement with pt as she is concerned she will lose her room at the [place] - Continued [facility] stay due to: other Discharge planning: other Reviewed: Pt Seen/Exam by Me History continuing to feel better. aware that her bp drops on standing up Constitutional: denies: fever Respiratory: negative: short of breath Cardiovascular: denies chest pain Gastrointestinal/Abdominal: negative: abdominal pain General Appearance: no apparent distress Respiratory: lungs clear, no respiratory distress Cardiovascular: regular rate, rhythm Neurologic/Psychiatric: alert, oriented x 3 Skin Characteristics: warm/dry Assessment/Plan I have reviewed the medical record and performed a history and physical examination of this patient today. I have discussed the case with Dr. Adames . The above note reflects my findings, conclusions, and recommendations
--- NOTE | 2016-07-09 12:45 | ONCOLOGY CONSULTATION ---
DATE OF CONSULTATION: 07/09/2016 DATE OF CONSULTATION: 07/09/2016. REASON FOR CONSULTATION: Generalized weakness in a 70-year-old female patient with persistent iron deficiency. HISTORY OF PRESENT ILLNESS: Izabela is a very pleasant 70-year-old female patient well known to [facility] as she is being treated for refractory iron deficiency anemia. Izabela was in the midst of receiving her final course of Ferrlecit however unfortunately missed that appointment because of weakness and inability to ambulate. Over the past several weeks she has been battling with fatigue and sluggishness as well as decreased appetite and dizziness upon change in position. Izabela has been worked up extensively from a gastroenterology standpoint, which included multiple scope procedures and camera endoscopy x2. Radio labeled bleeding scan was done recently again revealing no evidence of active bleeding. She was admitted on 07/07/2016 and labs at that time confirmed the presence of persistent microcytic anemia. She has received 1 unit of packed RBCs thus far. Today her hemoglobin is 8.4. PAST MEDICAL HISTORY: Extensive, which includes persistent iron deficiency anemia, allergic rhinitis, asthma, autonomic neuropathy, COPD, partial complex seizure, DJD, lower extremity DVT, acute, dermatitis, diverticulosis, edema, hypertension, gastroesophageal reflux disease, hypothyroidism, chronic lower extremity edema, pulmonary nodule, hyperlipidemia, orthostatic hypotension, osteoporosis, overactive bladder, syncope, venous stasis, and vitamin D deficiency. MEDICATIONS: Prior to admission include Advair 250 mcg/50 mcg 2 puffs b.i.d., supplemental calcium, furosemide 20 mg p.o. daily, Keppra 1000 mg p.o. b.i.d., levothyroxine 125 mcg p.o. every day, Singulair 10 mg p.o. every day, omeprazole 20 mg p.o. every day, simvastatin 10 mg p.o. every day, Ventolin inhaler q.i.d. p.r.n., vitamin B12 and D3 complexes. ALLERGIES: SULFA, IV CONTRAST, ASPIRIN, IBUPROFEN, METFORMIN, PENICILLIN, LISINOPRIL, MEPERIDINE, VERSED, TREE NUTS AND SEAFOOD. SOCIAL HISTORY: The patient lives in an assisted living facility, , nonsmoker, nondrinker. FAMILY HISTORY: Reports a sister with an unusual gastrointestinal bleeding issue, underwent previous colonic resection presumed arteriovenous malformations. REVIEW OF SYSTEMS: As per HPI most notably for disambulation and generalized weakness along with fatigue and anorexia. SKIN: No rashes or lesions. No history of dermatoses. HEAD, EYES, EARS, NOSE, AND THROAT: She denies headaches. No lightheadedness, dizziness on change in position. No sinus symptoms, sore throat or dysphagia. LYMPH: No history of lymphoproliferative disorder. CARDIAC: Negative for angina or palpitations. PULMONARY: Positive for COPD. She is not presently short of breath, dyspneic or orthopneic. No cough or hemoptysis. GASTROINTESTINAL: Negative for abdominal pain, nausea, vomiting, diarrhea or constipation, hematochezia or melena stools. GENITOURINARY: No hematuria, dysuria, urinary incontinence. PSYCHIATRIC: Negative for anxiety, depression or psychoses. ENDOCRINE: Positive for hypothyroidism, currently on hormone replacement. NEUROLOGIC: Positive for seizure disorder. No history of migraine headache or CVA. HEMATOLOGIC: Positive for persistent microcytic anemia consistent with iron deficiency. PHYSICAL EXAMINATION: GENERAL: Izabela is a pleasant 70-year-old female patient awake and alert and appropriate in no acute distress. VITAL SIGNS: Temperature 36.5, pulse 63, respirations 18, blood pressure 163/71. SKIN: Without rash or lesion. No petechiae or ecchymosis noted. Turgor is fair. HEAD, EYES, EARS, NOSE, AND THROAT: Atraumatic, normocephalic. EYES: PERRLA, EOMI. Nares are patent without rhinorrhea or discharge. Throat clear. Tongue is midline. Mucous membranes are moist. NECK: Supple without JVD or thyromegaly. HEART: Regular rate and rhythm. LUNGS: Clear to auscultation bilaterally. ABDOMEN: Soft, nontender, nondistended. Bowel sounds are active. No rigidity or guarding. No palpable hepatosplenomegaly. EXTREMITIES: Trace peripheral edema in bilateral lower extremities. Otherwise, strength and pulses are equal. NEUROLOGIC: The patient is awake, alert and oriented. Cranial nerves II-XII are intact. LABORATORY DATA: WBC count 5070, hemoglobin 8.4, platelet count 240,000. Sodium 144, potassium 3.8, chloride 107, carbon dioxide 33, BUN 18, creatinine 0.79. Urinalysis unremarkable. Stool occult blood is once again positive as measured on 07/08/2016. CT of the head done on admission without intracranial findings. Chest x-ray negative as well. IMPRESSIONS: 1. General clinical decline. 2. Persistent microcytic anemia. 3. Orthostatic hypotension. 4. Urinary incontinence. 5. Chronic lower extremity edema. PLAN: Izabela is well known to the [facility] currently under my care with refractory iron deficiency anemia. The patient has undergone extensive GI workup in the past revealing no direct source of bleeding which included camera endoscopy and multiple scope procedures. She once again presents with fecal occult blood testing positive for blood. However, in the setting of receiving intravenous iron it is conceivable the infused iron may be reflected in her stool. Nonetheless, she continues to drop her hemoglobin. One unit of packed RBCs has already been transfused and I would advocate for an additional unit of blood. She has completed 5 of the 6 prescribed doses of intravenous iron. I do not see the need to give her the additional course here in house and will arrange for her to follow up expediently post discharge. Other than what you are already incorporating in her care I would add PT and OT and case management to look into further outpatient support, specifically for her . She readily admits it is becoming more difficult for her to care for her at home. I have nothing further to add at this point. I am international guest coordinator the rest of the weekend and will be checking in on Izabela periodically. Thank you very much for allowing me to participate in her care. If you have any questions or concerns, feel free to contact me at any time.
[2016-07-09] MEDS: MONTELUKAST SOD 10 MG TAB PO SCH (22:07)
[2016-07-09] MEDS: SIMVASTATIN 10 MG TAB PO SCH (22:08)
[2016-07-10 00:01] VITALS: BP 174/72; PULSE 67; TEMP 37.1; O2SAT 92
[2016-07-10] MEDS: LEVOTHYROXINE 112 MCG TAB PO SCH (05:35)
[2016-07-10 05:56] LABS: HEMATOCRIT 29.2 % (37-47); MEAN CELL VOLUME 79.3 fL (80-100); MEAN CORPUSCULAR HEMOGLOBIN 23.9 pg (25-34); MEAN CORPUSCULAR HGB CONC 30.1 g/dl (32-36); MEAN PLATELET VOLUME 9.8 fL (7.4-10.4); PLATELET COUNT 227 K/uL (130-400); RED BLOOD COUNT 3.68 M/uL (4.2-5.4); WHITE BLOOD COUNT 5.35 K/uL (4.8-10.8)
[2016-07-10 06:22] LABS: CREATININE 0.78 mg/dl (0.60-1.20)
[2016-07-10 07:59] VITALS: BP 159/68; PULSE 69; TEMP 36.8; O2SAT 91
[2016-07-10] MEDS: FLUTICASONE/SALMETEROL 250/50 (ADVAIR) 14 PUFF/1 INHALER INH SCH ×2 (08:57→20:31)
[2016-07-10] MEDS: CYANOCOBALAMIN 500 MCG TAB (VIT B-12) PO SCH (08:57)
[2016-07-10] MEDS: AMLODIPINE BESYLATE 5 MG TAB PO SCH (08:57)
[2016-07-10] MEDS: NYSTATIN POWDER 15GM BTL EXT SCH (08:57)
[2016-07-10] MEDS: CALCIUM 600MG + VIT D 400 IU TAB PO SCH (08:58)
[2016-07-10] MEDS: CHOLECALCIFEROL 1000 INTER.UNIT TAB PO SCH (08:58)
[2016-07-10] MEDS: NITROFURANTOIN MACROCRYSTALS 50 MG CAP PO SCH (08:58)
[2016-07-10] MEDS: FUROSEMIDE 20 MG TAB PO SCH (08:58)
[2016-07-10] MEDS: PANTOprazole SOD 40 MG TAB PO SCH (08:59)
[2016-07-10] MEDS: LEVETIRACETAM 250 MG TAB PO SCH ×2 (08:59→20:32)
--- NOTE | 2016-07-10 09:56 | HEME/ONC PROGRESS NOTE ---
DATE: 07/10/2016 DIAGNOSES: 1. Generalized weakness, decline in performance status. 2. Persistent iron deficiency. 3. Suspected gastrointestinal bleeding. HOSPITAL COURSE: Izabela is on her second hospital day. She was admitted in the midst of completing her final course of Ferrlecit, unfortunately missed the appointment because of weakness and inability to ambulate. She is working with physical therapy presently. She also I believe will be discharged to a rehabilitation facility. She was given intravenous iron ordered by the hospitalist service. She has no other complaints otherwise this morning. Nursing reports no overnight issues. PHYSICAL EXAMINATION: GENERAL: She is in no acute distress. VITAL SIGNS: Temperature 36.8, pulse 69, respirations 18, blood pressure 159/68. SKIN: Without rash or lesion. HEENT: Oral mucosa without erythema or ulceration. NECK: Supple. HEART: Regular rate and rhythm. LUNGS: Clear to auscultation bilaterally. ABDOMEN: Soft, nontender, nondistended. EXTREMITIES: Pneumatics in place. No clubbing, cyanosis or edema. NEUROLOGIC: Grossly intact. LABORATORY DATA: WBC count 5350, hemoglobin 8.8, MCV 79.3, platelet count 227,000. Today's result, creatinine 0.78. IMPRESSION: 1. General clinical decline. 2. Persistent microcytic anemia. 3. Orthostatic hypotension. 4. Urinary incontinence. 5. Chronic lower extremity edema. PLAN: Izabela was seen at bedside today. She reports a reasonable appetite and is moving her bowels. Nursing reports no overnight issues. Reviewed the hospitalist note and plan is to have the patient sent to rehabilitation facility. She did receive IV iron yesterday. Izabela already has established outpatient followup with me. I have nothing further to add and will officially sign off her case. Feel free to reconsult as the need should arise. Thank you very much for allowing me to participate in her care.
--- NOTE | 2016-07-10 10:09 | Family Medicine Progress Note ---
Progress Note Date of Service Jul 10, 2016. Subjective Pt evaluation today including: conversation w/ patient, physical exam, chart review, lab review, review of studies Pain: 0/10 PO Intake: WNL Voiding: no voiding problems, requires PRN straight cath Patient has a history of incontinence and required a straight cath overnight No concerns but we did have a long discussion about her concerns about her quality of life and the parkinson's. She feels disheartened as the disease progresses. was able to move her bowels overnight Constitutional: No fever Eyes: No worsening of vision ENT: No hearing loss Respiratory: No cough, No sputum, No wheezing, No shortness of breath, No dyspnea on exertion Cardiovascular: No chest pain Abdomen: No pain, No nausea, No vomiting, No diarrhea, No constipation Musculoskeletal: No joint pain, No muscle pain Female : + incontinence Neurologic: + weakness, + balance problems, No numbness/tingling Psychiatric: + depression symptoms Heme: No abnormal bleeding/bruising Endo: + fatigue Medications Medications Administered Medications (Trade) Dose Ordered Sig/Phong Route Start Time Stop Time Status Last Admin Dose Admin Sodium Chloride 500 ml @ 999 mls/hr Q31M STAT IV 07/07/16 12:32 07/07/16 13:02 DC 07/07/16 13:31 999 MLS/HR Hydralazine HCl (HydrALAZINE INJ) 10 mg NOW STAT IV 07/07/16 14:13 07/07/16 14:14 DC 07/07/16 14:18 10 MG Labetalol HCl (Normodyne IV) 10 mg NOW STAT IV 07/07/16 15:25 07/07/16 15:26 DC 07/07/16 15:48 10 MG Ceftriaxone Sodium (Rocephin Inj) 1 gm NOW STAT IV 07/07/16 15:25 07/07/16 15:26 DC 07/07/16 15:49 1 GM Enoxaparin Sodium (Lovenox Inj) 40 mg Q24H SQ 07/07/16 21:00 07/09/16 09:31 DC 07/08/16 20:49 40 MG Magnesium Hydroxide (Milk Of Magnesia Susp) 30 ml Q6H PRN PO 07/07/16 17:15 08/06/16 17:14 07/09/16 07:59 30 ML Polyethylene (Miralax Powder Packet) 17 gm DAILY PRN PO 07/07/16 17:15 08/06/16 17:14 07/08/16 20:49 17 GM Nystatin (Mycostatin Powder) 1 appln DAILY EXT 07/08/16 08:00 08/07/16 08:59 07/10/16 08:57 1 APPLN Cyanocobalamin (Vitamin B-12 Tab) 250 mcg DAILY PO 07/08/16 08:00 08/07/16 08:59 07/10/16 08:57 250 MCG Salmeterol Xinafoate/ Fluticasone (Advair Diskus 250/50 Inh) 1 puff BID INH 07/07/16 20:00 08/06/16 20:59 07/10/16 08:57 1 PUFF Levetiracetam (Keppra Tab) 750 mg BID PO 07/07/16 20:00 08/06/16 20:59 07/10/16 08:59 750 MG Levothyroxine Sodium (Synthroid Tab) 112 mcg DAILYBB PO 07/08/16 06:30 08/07/16 06:59 07/10/16 05:35 112 MCG Montelukast Sodium (Singulair Tab) 10 mg HS PO 07/07/16 21:00 08/06/16 20:59 07/09/16 22:07 10 MG Nitrofurantoin Macrocrystals (Macrodantin Cap) 50 mg DAILY PO 07/08/16 08:00 08/07/16 08:59 07/10/16 08:58 50 MG Simvastatin (Zocor Tab) 10 mg QPM PO 07/07/16 21:00 08/06/16 20:59 07/09/16 22:08 10 MG Calcium/Vitamin D (Caltrate Plus Tab) 1 tab DAILY PO 07/08/16 08:00 08/07/16 08:59 07/10/16 08:58 1 TAB Cholecalciferol (Vitamin D Tab) 2,000 inter.unit DAILY PO 07/08/16 08:00 08/07/16 08:59 07/10/16 08:58 2,000 INTER.UNIT Pantoprazole Sodium (Protonix Tab) 40 mg DAILY PO 07/08/16 08:00 08/07/16 08:59 07/10/16 08:59 40 MG Amlodipine Besylate (Norvasc Tab) 5 mg QAM PO 07/09/16 08:00 08/08/16 07:59 07/10/16 08:57 5 MG Amlodipine Besylate (Norvasc Tab) 5 mg NOW ONCE PO 07/08/16 11:30 07/08/16 11:31 DC 07/08/16 11:41 5 MG Furosemide (Lasix Tab) 20 mg DAILY PO 07/09/16 08:00 08/08/16 07:59 07/10/16 08:58 20 MG Iron Sucrose 300 mg/Sodium Chloride 265 ml @ 176.667 mls/hr 0900 IV 07/09/16 09:00 07/09/16 10:29 DC 07/09/16 11:08 176.667 MLS/HR Objective Vital Signs Date Time Temp Pulse Resp B/P (MAP) Pulse Ox O2 Delivery O2 Flow Rate FiO2 07/10/16 09:31 Room Air 07/10/16 07:59 36.8 69 18 159/68 (98) 91 Room Air 07/10/16 00:15 Room Air 07/10/16 00:01 37.1 67 20 174/72 (106) 92 Room Air 07/09/16 17:22 Room Air 07/09/16 16:45 36.8 64 18 173/72 07/09/16 15:45 36.7 66 18 176/68 07/09/16 15:30 36.7 69 18 166/74 (104) 93 Room Air 07/09/16 15:15 36.7 69 18 166/74 07/09/16 15:00 36.8 64 18 170/75 07/09/16 14:37 36.8 66 18 161/70 07/09/16 10:35 Room Air Physical Exam General Appearance: no apparent distress Eyes: normal inspection ENT: normal ENT inspection Neck: supple Respiratory/Chest: normal breath sounds, no respiratory distress, no accessory muscle use Cardiovascular: regular rate, rhythm, + systolic murmur (3/6) Abdomen: normal bowel sounds, non tender, soft Extremities: no pedal edema, no calf tenderness, + pertinent finding ( outbowing of bilat feet) Neurologic/Psychiatric: alert, normal mood/affect, oriented x 3 Skin: normal color, warm/dry, no rash Lymphatic: no adenopathy Laboratory Results Results Past 24 Hours Test 07/10/16 05:33 Range/Units White Blood Count 5.35 4.8-10.8 K/uL Red Blood Count 3.68 4.2-5.4 M/uL Hemoglobin 8.8 12.0-16.0 g/dL Hematocrit 29.2 37-47 % Mean Corpuscular Volume 79.3 80-100 fL Mean Corpuscular Hemoglobin 23.9 25-34 pg Mean Corpuscular Hemoglobin Concent 30.1 32-36 g/dl RDW Standard Deviation 55.4 36.4-46.3 fL RDW Coefficient of Variation 18.9 11.5-14.5 % Platelet Count 227 130-400 K/uL Mean Platelet Volume 9.8 7.4-10.4 fL Creatinine 0.78 0.60-1.20 mg/dl Est Creatinine Clear Calc Drug Dose 82.3 ml/min Estimated GFR () 88.6 Estimated GFR (Non- 76.5 Assessment and Plan 70 year old female with PMH of iron deficiency anemia and ESBL presented to [facility] with weakness. When admitted she was found to have profound anemia along with extreme fatigue so decision was made for a blood transfusion. Patient did receive 2 units of blood with minimal improvement in the hgb. Fecal occult positive however she has had extensive work up for this and does not wish for further investigation. Anemia secondary to iron deficiency anemia - 2 units transfused - IV iron ordered - peripheral smear reflective of microcytic anemia - HGB electrophoresis pending - Fecal occult positive - hem/ onc consult- follow up in outpt Orthostatic hypotension; autonomic instability secondary to Parkinson's - Gene stocking - amlodipine may make orthostasis worse - follow - Education on appropriate transfer methods discussed - was unable to tolerate Sinemet according to notes because of this - follows Dr Dominguez for this Hx of ESBL uti; urinary incontinence - seems overflow - d/opal munoz this am to avoid infection consider h/o ESBL uti - retained > 900cc of urine and "leaking" throughout the day - has seen urology in past- will consult. declines use of medication - has had problem with side effects - UA clear in ED - Continue nitrofurantoin Groin skin irritation sec to urinary incontinence/intertrigo - munoz cath - nystatin powder Lower extremity edema- improved - likely chronic venous insufficiency - lasix20 mg daily - I&O noted HTN - Amlodipine restarted - will be cautious with orthostasis - lasix cont'd Hypothyroidism - continue synthroid GERD - continue omeprazole once out of hospital - changed to protonix while inpt HLD - continue statin Asthma - continue montelukast and advair Seizure - continue keppra DVT prophylaxis - SCD as fecal occult positive - lovenox is d/c Dispo - PT/OT- discuss placement with pt as she is concerned she will lose her room at the [facility] - Plan is for [facility]ued [facility] stay due to: other Discharge planning: [facility] facility Reviewed: Pt Seen/Exam by Me History munoz d/opal this am - had incontinence. had retained urine of 900ml Constitutional: denies: fever Respiratory: negative: short of breath Cardiovascular: denies chest pain Gastrointestinal/Abdominal: negative: abdominal pain General Appearance: no apparent distress Respiratory: lungs clear, no respiratory distress Cardiovascular: regular rate, rhythm Neurologic/Psychiatric: alert, oriented x 3 Skin Characteristics: warm/dry Assessment/Plan I have reviewed the medical record and performed a history and physical examination of this patient today. I have discussed the case with Dr. Adames . The above note reflects my findings, conclusions, and recommendations
[2016-07-10 15:35] VITALS: BP 143/73; PULSE 70; TEMP 36.8; O2SAT 96
[2016-07-10] MEDS: LIDOCAINE HCL 2% VISCOUS SOLN 60 ML, DiphenhydrAMINE HCL SYRUP 150 MG, ALUMINUM/MAGNESI... MT SCH ×4 (20:00)
[2016-07-10] MEDS ORDERED: MAGIC SWIZZLE PO SCH (20:00)
[2016-07-10] MEDS: MONTELUKAST SOD 10 MG TAB PO SCH (20:33)
[2016-07-10] MEDS: SIMVASTATIN 10 MG TAB PO SCH (20:33)
[2016-07-10 23:59] VITALS: BP 131/74; PULSE 62; TEMP 36.6; O2SAT 93
[2016-07-11 05:47] LABS: HEMATOCRIT 31.5 % (37-47); MEAN CELL VOLUME 79.3 fL (80-100); MEAN CORPUSCULAR HEMOGLOBIN 23.7 pg (25-34); MEAN CORPUSCULAR HGB CONC 29.8 g/dl (32-36); MEAN PLATELET VOLUME 9.6 fL (7.4-10.4); PLATELET COUNT 238 K/uL (130-400); RED BLOOD COUNT 3.97 M/uL (4.2-5.4); WHITE BLOOD COUNT 6.53 K/uL (4.8-10.8)
[2016-07-11 06:16] LABS: BUN/CREATININE RATIO 26.5 (10-20); CALCIUM 8.7 mg/dl (8.5-10.1); CREATININE 0.97 mg/dl (0.60-1.20); POTASSIUM 3.9 mmol/L (3.5-5.1)
[2016-07-11] MEDS: LEVOTHYROXINE 112 MCG TAB PO SCH (06:34)
[2016-07-11 07:34] VITALS: BP 138/72; PULSE 68; TEMP 36.6; O2SAT 90
[2016-07-11] MEDS: CHOLECALCIFEROL 1000 INTER.UNIT TAB PO SCH (09:03)
[2016-07-11] MEDS: LEVETIRACETAM 250 MG TAB PO SCH ×2 (09:03→19:44)
[2016-07-11] MEDS: PANTOprazole SOD 40 MG TAB PO SCH (09:04)
[2016-07-11] MEDS: AMLODIPINE BESYLATE 5 MG TAB PO SCH (09:04)
[2016-07-11] MEDS: CYANOCOBALAMIN 500 MCG TAB (VIT B-12) PO SCH (09:05)
[2016-07-11] MEDS: CALCIUM 600MG + VIT D 400 IU TAB PO SCH (09:06)
[2016-07-11] MEDS: NITROFURANTOIN MACROCRYSTALS 50 MG CAP PO SCH (09:06)
[2016-07-11] MEDS: FUROSEMIDE 20 MG TAB PO SCH (09:07)
[2016-07-11] MEDS: FLUTICASONE/SALMETEROL 250/50 (ADVAIR) 14 PUFF/1 INHALER INH SCH ×2 (09:07→19:42)
[2016-07-11] MEDS: NYSTATIN POWDER 15GM BTL EXT SCH (09:08)
[2016-07-11] MEDS: LIDOCAINE HCL 2% VISCOUS SOLN 60 ML, DiphenhydrAMINE HCL SYRUP 150 MG, ALUMINUM/MAGNESI... MT SCH ×8 (09:21→19:45)
--- NOTE | 2016-07-11 12:09 | Urology Consultation ---
History General Date of Service: Jul 11, 2016. Chief Complaint: incomplete bladder emptying with incontinence Primary Care Physician: Bill Young MD Pt seen a urologist before?: Yes (Merly YOON) If yes, why?: incontinence, recurrent UTI History of Present Illness 70 yo female with Parkinson's admitted to [facility] for ESBL UTI and weakness. Found to have incomplete bladder emptying and incontinence on admission. Munoz catheter replaced after noted to have a PVR of >900ml. Munoz now draining clear, yellow urine. She reports being treated for UTI by Dr. Sellers as an outpatient for the past month. Noted to have an ESBL infection. Other than weakness, she denies any other UTI symptoms, and says she was unaware of having a UTI. No repeat urine culture since admission. Noted to have negative blood cultures. She does report skin breakdown around her vaginal and thigh area d/t incontinence. This area sanchez and is sore with leaking of urine. She was last seen in our office by Merly YOON in May 2016. Noted to have some incontinence at that time as well. Previously unable to tolerate Myrbetriq. Also previously recommend she not be tx for UTI unless symptomatic d/ t chronic bacteruria. Laboratory Last 24 Hours Test 07/11/16 05:26 White Blood Count 6.53 K/uL Red Blood Count 3.97 M/uL Hemoglobin 9.4 g/dL Hematocrit 31.5 % Mean Corpuscular Volume 79.3 fL Mean Corpuscular Hemoglobin 23.7 pg Mean Corpuscular Hemoglobin Concent 29.8 g/dl RDW Standard Deviation 56.3 fL RDW Coefficient of Variation 19.3 % Platelet Count 238 K/uL Mean Platelet Volume 9.6 fL Sodium Level 142 mmol/L Potassium Level 3.9 mmol/L Chloride Level 102 mmol/L Carbon Dioxide Level 34 mmol/L Anion Gap 6.0 mmol/L Blood Urea Nitrogen 26 mg/dl Creatinine 0.97 mg/dl Est Creatinine Clear Calc Drug Dose 66.2 ml/min Estimated GFR () 68.1 Estimated GFR (Non- 58.8 BUN/Creatinine Ratio 26.5 Random Glucose 106 mg/dl Calcium Level 8.7 mg/dl Problem List Medical Problems: (1) Cellulitis Status: Acute (2) Congestive heart failure (CHF) Status: Acute (3) Dehydration Status: Acute (4) Flu-like symptoms Status: Acute (5) Guaiac positive stools Status: Acute (6) Hypertension Status: Acute (7) Profound anemia Status: Acute (8) Shortness of breath Status: Acute (9) Urinary tract infection Status: Acute (10) Weakness Status: Acute Past History arthritis, deep vein thrombosis, diabetes, high cholesterol, hypertension, urinary tract infection, other Past Surgical History: , TKR (bilatearl ), other Family History Blood disorder Heart disease Social History Hx Tobacco Use In Past Year?: No Smoking: non-smoker Alcohol: never Drug use: none Marital status: Housing status: lives with family Occupation status: retired Immunizations History of Influenza Vaccine: Yes History of Tetanus Vaccine?: Yes History of Pneumococcal: No History of Hepatitis B Vaccine: Yes History of MDRO No Allergies Coded Allergies: Iodinated Diagnostic Agents (Verified Allergy, Severe, SHORTNESS OF BREATH , 01/18/16) Gluten (Verified Allergy, Intermediate, GI SYMPTOMS, 01/18/16) Latex (Verified Allergy, Intermediate, RASH, 01/18/16) Aspirin (Verified Allergy, Unknown, 01/18/16) Ibuprofen (Verified Allergy, Unknown, 01/18/16) Latex1 -Allergic Contact Dermititis (Verified Allergy, Unknown, 01/18/16) Lisinopril (Unverified Allergy, Unknown, UNKNOWN, 01/18/16) Meperidine (Unverified Allergy, Unknown, UNKNOWN, 01/18/16) Metformin (Unverified Allergy, Unknown, GI SYMPTOMS, 01/18/16) Midazolam (Verified Allergy, Unknown, UNKN, 01/18/16) Nut Tree (Unverified Allergy, Unknown, UNKNOWN, 01/18/16) Peanut (Unverified Allergy, Unknown, UNKNOWN, 01/18/16) Penicillins (Verified Allergy, Unknown, SHORTNESS OF BREATH, 01/18/16) (FROM UNCODED ALLERGIES) Sulfa Antibiotics (Verified Allergy, Unknown, UNKNOWN, 01/18/16) Medications Home Medications: Home Meds and Scripts Medications Dose Route/Sig Max Daily Dose Days Date Category Dose Instructions Macrodantin (Nitrofurantoin Macrocrystals) 50 Mg Cap 50 Mg PO DAILY 07/07/16 Reported Vitamin D3 (Cholecalciferol) 2,000 Unit Cap 1 Cap PO DAILY 90 04/30/16 Reported Ascorbic Acid 500 Mg Tab 500 PO BID PRN 01/18/16 Reported Vitamin B-12 (Cyanocobalamin) 250 Mcg Tab 250 Mcg PO DAILY 01/18/16 Reported Lasix (Furosemide) 20 Mg Tab 20 Mg PO UD 01/18/16 Reported 1 TABLET DAILY. INCREASE TO 40MG (2 TABS) FOR WEIGHT GAIN >4 LBS Advair Diskus 250/50 60 Dose (Fluticasone Prop/Salmeterol) 1 Ea Aerp 1 Puffs INH BID 01/18/16 Reported Benadryl Allergy (Diphenhydramine Hcl) 25 Mg Tab 25 Mg PO TID PRN 04/20/15 Reported Synthroid (Levothyroxine Sodium) 112 Mcg Tab 112 Mcg PO DAILY 04/20/15 Reported Caltrate 600+D (Calcium Carbonate-Cholecalcife) 1 Tab Tab 1 Tab PO DAILY 10/15/14 Reported Zocor (Simvastatin) 10 Mg Tab 10 Mg PO QPM 08/12/14 Reported Prilosec (Omeprazole) 20 Mg Cap 20 Mg PO DAILY 04/23/14 Reported Montelukast Sodium (Montelukast Sod) 10 Mg Tab 10 Mg PO DAILY 04/23/14 Reported Keppra (Levetiracetam) 750 Mg Tab 750 Mg PO BID 06/21/12 Reported Inpatient Medications: Current Inpatient Medications Medications (Trade) Dose Ordered Sig/Phong Route Start Time Stop Time Status Last Admin Dose Admin Acetaminophen (Tylenol Tab) 650 mg Q4H PRN PO 07/07/16 17:15 08/06/16 17:14 Al Hydrox/Mg Hydrox/Simethicone (Maalox Max Susp) 15 ml Q4H PRN PO 07/07/16 17:15 08/06/16 17:14 Magnesium Hydroxide (Milk Of Magnesia Susp) 30 ml Q6H PRN PO 07/07/16 17:15 08/06/16 17:14 07/09/16 07:59 30 ML Polyethylene (Miralax Powder Packet) 17 gm DAILY PRN PO 07/07/16 17:15 08/06/16 17:14 07/08/16 20:49 17 GM Ondansetron HCl (Zofran Inj) 4 mg Q6H PRN IV 07/07/16 17:15 08/06/16 17:14 Nystatin (Mycostatin Powder) 1 appln DAILY EXT 07/08/16 08:00 08/07/16 08:59 07/11/16 09:08 1 APPLN Cyanocobalamin (Vitamin B-12 Tab) 250 mcg DAILY PO 07/08/16 08:00 08/07/16 08:59 07/11/16 09:05 250 MCG Salmeterol Xinafoate/ Fluticasone (Advair Diskus 250/50 Inh) 1 puff BID INH 07/07/16 20:00 08/06/16 20:59 07/11/16 09:07 1 PUFF Levetiracetam (Keppra Tab) 750 mg BID PO 07/07/16 20:00 08/06/16 20:59 07/11/16 09:03 750 MG Levothyroxine Sodium (Synthroid Tab) 112 mcg DAILYBB PO 07/08/16 06:30 08/07/16 06:59 07/11/16 06:34 112 MCG Montelukast Sodium (Singulair Tab) 10 mg HS PO 07/07/16 21:00 08/06/16 20:59 07/10/16 20:33 10 MG Nitrofurantoin Macrocrystals (Macrodantin Cap) 50 mg DAILY PO 07/08/16 08:00 08/07/16 08:59 07/11/16 09:06 50 MG Simvastatin (Zocor Tab) 10 mg QPM PO 07/07/16 21:00 08/06/16 20:59 07/10/16 20:33 10 MG Calcium/Vitamin D (Caltrate Plus Tab) 1 tab DAILY PO 07/08/16 08:00 08/07/16 08:59 07/11/16 09:06 1 TAB Cholecalciferol (Vitamin D Tab) 2,000 inter.unit DAILY PO 07/08/16 08:00 08/07/16 08:59 07/11/16 09:03 2,000 INTER.UNIT Diphenhydramine HCl (Benadryl Cap) 25 mg TID PRN PO 07/07/16 17:15 08/06/16 17:14 Pantoprazole Sodium (Protonix Tab) 40 mg DAILY PO 07/08/16 08:00 08/07/16 08:59 07/11/16 09:04 40 MG Amlodipine Besylate (Norvasc Tab) 5 mg QAM PO 07/09/16 08:00 08/08/16 07:59 07/11/16 09:04 5 MG Furosemide (Lasix Tab) 20 mg DAILY PO 07/09/16 08:00 08/08/16 07:59 07/11/16 09:07 20 MG Lidocaine HCl/ Diphenhydramine HCl/Al Hydroxide/ Mg Hydroxide/ Glycerin/Barcode BID MT 07/10/16 20:00 08/09/16 19:59 07/11/16 09:21 5 ML Review of Systems Review of Systems Constitutional: No fever, No chills Eyes: No double vision Neurological: No dizzy Endocrine: No excessive thirst Gastrointestinal: No abdominal pain, No nausea, No vomiting Cardiovascular: No chest pain Respiratory: No shortness of breath Skin: No rash Musculoskeletal: + arthritis Female : No blood in urine Physical Exam Vital Signs: Vital Signs Past 12 Hours Date Time Temp Pulse Resp B/P (MAP) Pulse Ox O2 Delivery O2 Flow Rate FiO2 07/11/16 09:00 Room Air 07/11/16 07:34 36.6 68 18 138/72 (94) 90 07/11/16 00:15 Room Air 07/10/16 23:59 36.6 62 16 131/74 (93) 93 Room Air Physical Exam: General Appearance: no apparent distress, + obese Eyes: bilateral eyes normal inspection ENT: hearing grossly normal Neck: no JVD Respiratory/Chest: no respiratory distress, no accessory muscle use Cardiovascular: no JVD Extremities: normal inspection Neurologic/Psychiatric: alert, normal mood/affect, oriented x 3 Skin: normal color Assessment & Plan Assessment & Plan A/P: Incomplete bladder emptying, recurrent UTI 1. Incomplete bladder emptying Recommend leaving munoz catheter in place until perineal/thigh skin irritation has improved. Would then attempt a TOV in the next 1-2 weeks as an outpatient. If she fails the TOV, may consider initiating CIC 3-4x per day to prevent overflow incontinence. 2. Recurrent UTI Previously recommended the pt not be tx for UTI unless she is symptomatic. Would continue with this plan if possible as she likely has chronic bacteriuria and says she often is asymptomatic. May need to consider outpatient cysto and/or UDS if incomplete emptying persists. Thanks for the consult. No further management at this time. Will arrange for outpatient f/u in our office in 1-2 weeks for a TOV.
[2016-07-11 15:16] VITALS: BP 157/61; PULSE 82; TEMP 37; O2SAT 94
--- NOTE | 2016-07-11 18:01 | Progress Note ---
Subjective Date of Service: Jul 11, 2016. Subjective Pt evaluation today including: conversation w/ patient, physical exam, chart review, lab review, review of inpatient medication list Pain: denies PO Intake: fair, on gluten free diet Voiding: munoz catheter in place, incontinence, voiding difficulty munoz catheter needed to be reinserted yesterday after she had significant urinary retention (nearly 1 liter of urine) she reports diarrhea with gluten-rich foods and has been following a gluten- free diet for 1-2 years she cannot recall how long she took oral iron before transitioning over to IV iron denies other complaints Problem List Medical Problems: (1) Cellulitis Status: Acute (2) Congestive heart failure (CHF) Status: Acute (3) Dehydration Status: Acute (4) Flu-like symptoms Status: Acute (5) Guaiac positive stools Status: Acute (6) Hypertension Status: Acute (7) Profound anemia Status: Acute (8) Shortness of breath Status: Acute (9) Urinary tract infection Status: Acute (10) Weakness Status: Acute Review of Systems Constitutional: No fever Respiratory: No cough, No shortness of breath Cardiac: No chest pain, No orthopnea Abdomen: No pain Objective Vital Signs Date Time Temp Pulse Resp B/P (MAP) Pulse Ox O2 Delivery O2 Flow Rate FiO2 07/11/16 15:30 Room Air 07/11/16 15:16 37.0 82 16 157/61 (93) 94 Room Air 07/11/16 09:00 Room Air 07/11/16 07:34 36.6 68 18 138/72 (94) 90 07/11/16 00:15 Room Air 07/10/16 23:59 36.6 62 16 131/74 (93) 93 Room Air Physical Exam General Appearance: no apparent distress, + pertinent finding (masked facies ) ENT: pharynx normal Neck: no JVD Respiratory/Chest: lungs clear, no respiratory distress, no accessory muscle use Cardiovascular: regular rate, rhythm, no gallop, no murmur Abdomen: normal bowel sounds, non tender, soft, no organomegaly Extremities: + pedal edema (trace b/l ) Neurologic/Psychiatric: alert, oriented x 3, + pertinent finding (rigid extremities x 4 ) Laboratory Results Last 24 Hours Test 07/11/16 05:26 White Blood Count 6.53 K/uL Red Blood Count 3.97 M/uL Hemoglobin 9.4 g/dL Hematocrit 31.5 % Mean Corpuscular Volume 79.3 fL Mean Corpuscular Hemoglobin 23.7 pg Mean Corpuscular Hemoglobin Concent 29.8 g/dl RDW Standard Deviation 56.3 fL RDW Coefficient of Variation 19.3 % Platelet Count 238 K/uL Mean Platelet Volume 9.6 fL Sodium Level 142 mmol/L Potassium Level 3.9 mmol/L Chloride Level 102 mmol/L Carbon Dioxide Level 34 mmol/L Anion Gap 6.0 mmol/L Blood Urea Nitrogen 26 mg/dl Creatinine 0.97 mg/dl Est Creatinine Clear Calc Drug Dose 66.2 ml/min Estimated GFR () 68.1 Estimated GFR (Non- 58.8 BUN/Creatinine Ratio 26.5 Random Glucose 106 mg/dl Calcium Level 8.7 mg/dl Assessment and Plan 70yo female - 1. weakness - presumed to be due to acute/chronic anemia. I am unclear if the anemia is the sole player in this. Will check sed rate, CPK, keppra level, etc in AM to be complete. TSH noted to be compensated. 2. acute/chronic anemia - Acute anemia presumed to be acute GI blood loss. Chronic anemia is 2nd to iron deficiency. Other vitamins (b12, folate) have been normal. She has been anemic for 5+ years based on records. Appreciate heme/onc consultation. She is s/p 2 units PRBCs this admission. She has heme+ stool and has had extensive GI work-ups in the past w/o a source of bleeding. She reports gluten intolerance. Celiac disease can cause iron deficiency and thus will check celiac panel in AM. Repeat Hb in am for stability. 3. orthostatic hypotension/autonomic insuff 2nd to PD - check orthostatics. consider midodrine if needed. TEDS. 4. hypothyroidism - TSH compensated; cont synthroid. 5. chronic urinary incontinence - urology consult appreciated. Cont munoz. Spontaneous trial of voiding as outpatient. May need urodynamic studies and/or cystoscopy. No evidence of UTI this admission. Cont nitrofurantoin. 6. intertrigo of groin - cont nystatin. 7. DVT proph - SCDs due to heme+ stool and anemia. 8. HTN - cont amlodipine. 9. GERD - PPI. 10. hyperlipidemia - check CPK in am due to statin use. 11. asthma - cont montelukast and advair. Not in exacerbation. 12. h/o seizure d/o - cont keppra. Check level in AM as high level can lead to sedation. 13. dispo - SNF ([facility]) Discharge planning: residential facility
--- NOTE | 2016-07-11 18:25 | ECHOCARDIOGRAM REPORT ---
*NOTICE TO RECEIVING DEMOCRAT AGENCY This information is strictly Confidential and protected under [place] law. [place] law prohibits you from making any further disclosure of this information unless further disclosure is expressly permitted by the written consent of the person to whom it pertains or is authorized by law. A general authorization for the release of medical or other information is not sufficient for this purpose. Hospital accepts no responsibility if the information is made available to any other person, INCLUDING THE PATIENT. Interpretation Summary * Name: JACQUELINE FLYNN Study Date: 07/11/2016 12:56 PM BP: 138/72 mmHg * Patient Location: .[id number]\E414\S\1 HR: 72 * : 1945 (M/d/yyyy) Gender: Female Height: 66 in * Age: 70 yrs Ethnicity: [place] Weight: 231 lb * Ordering Physician: Yovani Sellers * Referring Physician: Bill Young * Performed By: Charlotte Napoles RCS * * Reason For Study: MURMUR * BSA: 2.1 m2 * -- Conclusions -- * 1. Normal LV size. Mild concentric LVH. * 2. Normal LV systolic function. LVEF 55-60 %. No regional wall motion abnormalities. Grade 1 diastolic dysfunction. * 3. Mildly dilated RV, normal RV function. * 4. No significant valvular pathology. * 5. Mild pulmonary hypertension. Estimated PASP 40-45 mmHg. Est RA 8 mmHg * 6. Severe biatrial dilation * 7. Compared with prior study on 04/25/2015: No significant change Procedure Details * A complete two-dimensional transthoracic echocardiogram was performed (2D, M-mode, Doppler and color flow Doppler). Left Ventricle * The left ventricle is grossly normal size. * There is mild concentric left ventricular hypertrophy. * Ejection Fraction = 55-60%. * No regional wall motion abnormalities noted. Right Ventricle * The right ventricle is mildly dilated. * The right ventricular systolic function is normal as assessed by tricuspid annular plane systolic excursion (TAPSE) (normal >1.5 cm). Atria * The left atrium is severely dilated. * The right atrium is severely dilated. * No ASD detected; PFO is not assessed. Mitral Valve * The mitral valve is grossly normal. * Mitral stenosis is absent. * Significant mitral regurgitation is absent. Tricuspid Valve * The tricuspid valve anatomy is normal. * There is no tricuspid stenosis. * There is trace tricuspid regurgitation. * Mild pulmonary hypertension. Est PASP 40-45 mmHg. Aortic Valve * The aortic valve opens well. * The aortic valve is trileaflet. * No hemodynamically significant valvular aortic stenosis. * There is no significant aortic regurgitation. Pulmonic Valve * The pulmonary valve is inadequately visualized, but the Doppler data is adequate for interpretation. * Pulmonic stenosis is absent. * There is no pulmonic valvular regurgitation. Great Vessels * The aortic root and proximal ascending aorta are normal sized. * No Doppler or imaging evidence of an aortic coarctation. Pericardium/Pleural * There is no pericardial effusion. Great Vessels * IVC > 2.1, > 50% change with respiration. Est RA 8 mmHg. Left Ventricular Diastolic Function * Grade I diastolic dysfunction, (abnormal relaxation pattern). MMode 2D Measurements and Calculations IVSd 1.6 cm IVSs 1.7 cm LVIDd 5.2 cm LVIDs 3.8 cm LVPWd 1.5 cm LVPWs 1.7 cm IVS/LVPW 1.0 FS 27.8 % EDV(Teich) 129.5 ml ESV(Teich) 60.2 ml EF(Teich) 53.5 % EDV(cubed) 140.6 ml ESV(cubed) 52.9 ml EF(cubed) 62.4 % % IVS thick 8.1 % % LVPW thick 8.9 % LV mass(C)d 355.5 grams LV mass(C)dI 167.2 grams/m\S\2 LV mass(C)s 253.6 grams LV mass(C)sI 119.3 grams/m\S\2 SV(Teich) 69.3 ml SI(Teich) 32.6 ml/m\S\2 SV(cubed) 87.7 ml SI(cubed) 41.3 ml/m\S\2 Ao root diam 3.4 cm Ao root area 9.1 cm\S\2 LA dimension 3.3 cm LA/Ao 0.98 LVOT diam 1.9 cm LVOT area 2.8 cm\S\2 LVAd ap4 41.9 cm\S\2 LVLd ap4 8.9 cm EDV(MOD-sp4) 164.0 ml EDV(sp4-el) 168.3 ml LVAs ap4 26.7 cm\S\2 LVLs ap4 8.0 cm ESV(MOD-sp4) 73.3 ml ESV(sp4-el) 75.8 ml EF(MOD-sp4) 55.3 % EF(sp4-el) 55.0 % LVAd ap2 33.2 cm\S\2 LVLd ap2 8.0 cm EDV(MOD-sp2) 112.6 ml EDV(sp2-el) 117.5 ml LVAs ap2 20.7 cm\S\2 LVLs ap2 6.7 cm ESV(MOD-sp2) 55.2 ml ESV(sp2-el) 54.7 ml EF(MOD-sp2) 50.9 % EF(sp2-el) 53.4 % LVLd %diff -11.25 % EDV(MOD-bp) 134.9 ml LVLs %diff -19.93 % ESV(MOD-bp) 68.9 ml EF(MOD-bp) 49.0 % SV(MOD-sp4) 90.6 ml SI(MOD-sp4) 42.6 ml/m\S\2 SV(MOD-sp2) 57.3 ml SI(MOD-sp2) 27.0 ml/m\S\2 SV(MOD-bp) 66.0 ml SI(MOD-bp) 31.0 ml/m\S\2 SV(sp4-el) 92.5 ml SI(sp4-el) 43.5 ml/m\S\2 SV(sp2-el) 62.8 ml SI(sp2-el) 29.5 ml/m\S\2 Doppler Measurements and Calculations MV E max jessie 57.2 cm/sec MV A max jessie 108.9 cm/sec MV E/A 0.52 MV P1/2t max jessie 74.2 cm/sec MV P1/2t 63.4 msec MVA(P1/2t) 3.5 cm\S\2 MV dec slope 342.7 cm/sec\S\2 MV dec time 0.23 sec Ao V2 max 180.1 cm/sec Ao max PG 13.0 mmHg Ao max PG (full) 4.7 mmHg GLENNY(V,A) 2.3 cm\S\2 GLENNY(V,D) 2.3 cm\S\2 LV V1 max PG 8.3 mmHg LV V1 max 144.2 cm/sec PA V2 max 140.1 cm/sec PA max PG 7.8 mmHg TR max jessie 288.4 cm/sec
[2016-07-11] MEDS: SIMVASTATIN 10 MG TAB PO SCH (20:32)
[2016-07-11] MEDS: MONTELUKAST SOD 10 MG TAB PO SCH (20:32)
[2016-07-11] MEDS: MAGNESIUM HYDROXIDE SUSP 30 ML UDC PO PRN (20:35)
[2016-07-12 00:20] VITALS: BP 144/55; PULSE 72; TEMP 36.5; O2SAT 95
[2016-07-12] MEDS: LEVOTHYROXINE 112 MCG TAB PO SCH (06:16)
[2016-07-12 07:38] VITALS: BP 129/61; PULSE 71; TEMP 36.7; O2SAT 86; O2SAT 95
[2016-07-12] MEDS: FUROSEMIDE 20 MG TAB PO SCH (08:02)
[2016-07-12] MEDS: LEVETIRACETAM 250 MG TAB PO SCH ×2 (08:02→19:31)
[2016-07-12] MEDS: CYANOCOBALAMIN 500 MCG TAB (VIT B-12) PO SCH (08:02)
[2016-07-12] MEDS: FLUTICASONE/SALMETEROL 250/50 (ADVAIR) 14 PUFF/1 INHALER INH SCH ×2 (08:03→19:30)
[2016-07-12] MEDS: NITROFURANTOIN MACROCRYSTALS 50 MG CAP PO SCH (08:03)
[2016-07-12] MEDS: NYSTATIN POWDER 15GM BTL EXT SCH (08:03)
[2016-07-12] MEDS: AMLODIPINE BESYLATE 5 MG TAB PO SCH (08:03)
[2016-07-12] MEDS: CALCIUM 600MG + VIT D 400 IU TAB PO SCH (08:03)
[2016-07-12] MEDS: PANTOprazole SOD 40 MG TAB PO SCH (08:03)
[2016-07-12] MEDS: CHOLECALCIFEROL 1000 INTER.UNIT TAB PO SCH (08:03)
[2016-07-12] MEDS: LIDOCAINE HCL 2% VISCOUS SOLN 60 ML, DiphenhydrAMINE HCL SYRUP 150 MG, ALUMINUM/MAGNESI... MT SCH ×8 (08:07→19:33)
[2016-07-12 10:04] LABS: BUN/CREATININE RATIO 34.4 (10-20); CREATININE 0.88 mg/dl (0.60-1.20); POTASSIUM 4.1 mmol/L (3.5-5.1)
[2016-07-12 15:08] VITALS: BP 144/69; PULSE 69; TEMP 36.7; O2SAT 97
[2016-07-12] MEDS: POLYETHYLENE (MIRALAX) 17 GM PACK PO PRN (17:20)
[2016-07-12 18:18] LABS: URINE APPEARANCE CLEAR (CLEAR); URINE BILIRUBIN NEG (NEG); URINE COLOR YELLOW; URINE EPITHELIAL CELL AUTO >30 /lpf (0-5); URINE NITRITE POS (NEG); URINE SPECIFIC GRAVITY 1.018 (1.000-1.030); UROBILINOGEN NEG (NEG)
[2016-07-12 18:27] LABS: MANUAL MICROSCOPIC REQUIRED? NO; REVIEW REQ? NO
--- NOTE | 2016-07-12 19:38 | Family Medicine Progress Note ---
Progress Note Date of Service Jul 12, 2016. Subjective Pt evaluation today including: conversation w/ patient, physical exam, chart review, lab review, conversation w/ [facility] consultant, review of inpatient medication list Pain: none PO Intake: poor Voiding: munoz catheter in place Patient is still feeling very weak and tied. Has not eaten breakfast because she is feeling so tired. She says that her eyes have been burning and watering all the time. They are not itchy. She has also been complaining of a dry mouth for months. She denies any arm/leg weakness, chest pain, sob, speech difficulties, ab pain, fevers, night sweats or chills Additional Comments: please see note for ROS Medications Current Inpatient Medications Medications (Trade) Dose Ordered Sig/Phong Route Start Time Stop Time Status Last Admin Dose Admin Acetaminophen (Tylenol Tab) 650 mg Q4H PRN PO 07/07/16 17:15 08/06/16 17:14 Al Hydrox/Mg Hydrox/Simethicone (Maalox Max Susp) 15 ml Q4H PRN PO 07/07/16 17:15 08/06/16 17:14 Magnesium Hydroxide (Milk Of Magnesia Susp) 30 ml Q6H PRN PO 07/07/16 17:15 08/06/16 17:14 07/11/16 20:35 30 ML Polyethylene (Miralax Powder Packet) 17 gm DAILY PRN PO 07/07/16 17:15 08/06/16 17:14 07/12/16 17:20 17 GM Ondansetron HCl (Zofran Inj) 4 mg Q6H PRN IV 07/07/16 17:15 08/06/16 17:14 Nystatin (Mycostatin Powder) 1 appln DAILY EXT 07/08/16 08:00 08/07/16 08:59 07/12/16 08:03 1 APPLN Cyanocobalamin (Vitamin B-12 Tab) 250 mcg DAILY PO 07/08/16 08:00 08/07/16 08:59 07/12/16 08:02 250 MCG Salmeterol Xinafoate/ Fluticasone (Advair Diskus 250/50 Inh) 1 puff BID INH 07/07/16 20:00 08/06/16 20:59 07/12/16 08:03 1 PUFF Levetiracetam (Keppra Tab) 750 mg BID PO 07/07/16 20:00 08/06/16 20:59 07/12/16 08:02 750 MG Levothyroxine Sodium (Synthroid Tab) 112 mcg DAILYBB PO 07/08/16 06:30 08/07/16 06:59 07/12/16 06:16 112 MCG Montelukast Sodium (Singulair Tab) 10 mg HS PO 07/07/16 21:00 08/06/16 20:59 07/11/16 20:32 10 MG Nitrofurantoin Macrocrystals (Macrodantin Cap) 50 mg DAILY PO 07/08/16 08:00 08/07/16 08:59 07/12/16 08:03 50 MG Simvastatin (Zocor Tab) 10 mg QPM PO 07/07/16 21:00 08/06/16 20:59 07/11/16 20:32 10 MG Calcium/Vitamin D (Caltrate Plus Tab) 1 tab DAILY PO 07/08/16 08:00 08/07/16 08:59 07/12/16 08:03 1 TAB Cholecalciferol (Vitamin D Tab) 2,000 inter.unit DAILY PO 07/08/16 08:00 08/07/16 08:59 07/12/16 08:03 2,000 INTER.UNIT Diphenhydramine HCl (Benadryl Cap) 25 mg TID PRN PO 07/07/16 17:15 08/06/16 17:14 Pantoprazole Sodium (Protonix Tab) 40 mg DAILY PO 07/08/16 08:00 08/07/16 08:59 07/12/16 08:03 40 MG Amlodipine Besylate (Norvasc Tab) 5 mg QAM PO 07/09/16 08:00 08/08/16 07:59 07/12/16 08:03 5 MG Furosemide (Lasix Tab) 20 mg DAILY PO 07/09/16 08:00 08/08/16 07:59 07/12/16 08:02 20 MG Lidocaine HCl/ Diphenhydramine HCl/Al Hydroxide/ Mg Hydroxide/ Glycerin/Barcode BID MT 07/10/16 20:00 08/09/16 19:59 07/12/16 08:07 5 ML Objective Vital Signs Date Time Temp Pulse Resp B/P (MAP) Pulse Ox O2 Delivery O2 Flow Rate FiO2 07/12/16 16:08 Room Air 07/12/16 15:08 36.7 69 18 144/69 (94) 97 Room Air 07/12/16 08:00 Room Air 07/12/16 07:38 36.7 71 18 129/61 (83) 95 Room Air 07/12/16 00:20 36.5 72 20 144/55 (84) 95 Room Air 07/12/16 00:00 Room Air Physical Exam General Appearance: WD/WN, no apparent distress, + pertinent finding (fine resting tremor) Eyes: PERRL, sclerae normal, + pertinent finding (eyes watery bilaterally) Neck: no carotid bruits, trachea midline Respiratory/Chest: lungs clear, normal breath sounds, no respiratory distress, no accessory muscle use Cardiovascular: regular rate, rhythm, + systolic murmur (2/6 over LUSB) Abdomen: normal bowel sounds, non tender, soft Extremities: non-tender, no pedal edema, no calf tenderness, + pedal edema ( trace), + pertinent finding (rigid extremities) Neurologic/Psychiatric: alert, oriented x 3, + motor weakness (lower limb 3-4/ 5 power), + pertinent finding (flat affect) Assessment and Plan 70 year old female with PMH of iron deficiency anemia and ESBL presented to [facility] with weakness. Anemia secondary to iron deficiency anemia - 2 units transfused - IV iron ordered - peripheral smear reflective of microcytic anemia - HGB electrophoresis pending - Fecal occult positive - hem/ onc consult- follow up in outpt - Celiac panel pending - follow hgb Orthostatic hypotension; autonomic instability secondary to Parkinson's - Gene stocking - Education on appropriate transfer methods discussed Hx of ESBL uti; urinary incontinence - seems overflow - munoz placed - has seen urology in past- will consult. declines use of medication - has had problem with side effects - UA clear in ED - stop nitrofurantoin - will repeat UA today Groin skin irritation sec to urinary incontinence/intertrigo - munoz cath - nystatin powder Lower extremity edema- improved - likely chronic venous insufficiency - lasix20 mg daily - I&O noted HTN - Amlodipine restarted - will be cautious with orthostasis - lasix cont'd Hypothyroidism - continue synthroid GERD - continue omeprazole once out of hospital - changed to protonix while inpt HLD - continue statin Asthma - continue montelukast and advair Seizure - continue keppra DVT prophylaxis - SCD as fecal occult positive - lovenox is d/c Dispo - PT/OT- discuss placement with pt as she is concerned she will lose her room at the [facility] - Plan is for [facility] Resident Physician Supervision Note: I was present with PGY1 Dr. Yovani Sellers during the history and exam. I discussed the case with the resident and agree with the findings and plan as documented in the note. Any exceptions or clarifications are listed here: patient with strength of all 4 extremities closer to 4-5/5. Pt c/o ongoing weakness and poor appetite. States she doesn't like the hospital food. c/o bilateral watery eyes. Some irritation. c/o weakness in all 4 extremities. Has been essentially wheelchair dependent for months-years. Dx with possible PD by Dr. Villa in the last year. VSS no fever gen - nad, flat affect vs masked facies eyes - conjunctival injection b/l, sclera clear mouth - MMM neck - no JVD heart - RRR, s1 ,s2 lungs - CTA b/l abd - soft, NT ext - no edema neuro - no proximal muscle weakness; strength all 4 limbs 4-5/5; DTRs symmetric ; no facial droop; mild tremor u/a suggestive of UTI A/P: 1. weakness - presumed to be due to acute/chronic anemia, but she continues with generalized weakness even despite improvement in H/H. This makes it likely there is a concomitant process contributing. Sed rate, b12, tsh normal. Neuro consult, r/o PD; if PD is present - need for meds?? U/a suggestive of UTI - start abx. 2. acute/chronic anemia - Acute anemia presumed to be acute GI blood loss. Chronic anemia is 2nd to iron deficiency. Other vitamins (b12, folate) have been normal. She has been anemic for 5+ years based on records. Appreciate heme/onc consultation. She is s/p 2 units PRBCs this admission. She has heme+ stool and has had extensive GI work-ups in the past w/o a source of bleeding. She reports gluten intolerance. Celiac disease can cause iron deficiency and thus celiac panel sent. Repeat Hb stable today; cbc again in am. 3. possible UTI - urine cx pending, ancef 1 gm BID started. dispo - [place] Documented By: Jonathon Devries MD
[2016-07-12 20:00] VITALS: O2SAT 97
[2016-07-12] MEDS: SIMVASTATIN 10 MG TAB PO SCH (21:29)
[2016-07-12] MEDS: MONTELUKAST SOD 10 MG TAB PO SCH (21:29)
[2016-07-12] MEDS: CEFAZOLIN IV 1,000 MG in DEXTROSE 5% 50ML 50 ML IV SCH (22:38)
[2016-07-12 23:33] VITALS: BP 148/69; PULSE 76; TEMP 36.8; O2SAT 97
[2016-07-13] VITALS: O2SAT 97
[2016-07-13] MEDS: LEVOTHYROXINE 112 MCG TAB PO SCH (05:28)
[2016-07-13 06:25] LABS: BUN/CREATININE RATIO 42.1 (10-20); CALCIUM 8.7 mg/dl (8.5-10.1); CREATININE 0.85 mg/dl (0.60-1.20); POTASSIUM 4.4 mmol/L (3.5-5.1)
[2016-07-13 06:36] LABS: HEMATOCRIT 32.9 % (37-47); MEAN CELL VOLUME 80.8 fL (80-100); MEAN CORPUSCULAR HEMOGLOBIN 23.3 pg (25-34); MEAN CORPUSCULAR HGB CONC 28.9 g/dl (32-36); MEAN PLATELET VOLUME 10.5 fL (7.4-10.4); PLATELET COUNT 234 K/uL (130-400); RED BLOOD COUNT 4.07 M/uL (4.2-5.4); WHITE BLOOD COUNT 7.08 K/uL (4.8-10.8)
[2016-07-13 07:39] VITALS: BP 136/66; PULSE 72; TEMP 36.4; O2SAT 92
[2016-07-13] MEDS: CYANOCOBALAMIN 500 MCG TAB (VIT B-12) PO SCH (08:30)
[2016-07-13] MEDS: LEVETIRACETAM 250 MG TAB PO SCH ×2 (08:30→20:53)
[2016-07-13] MEDS: LIDOCAINE HCL 2% VISCOUS SOLN 60 ML, DiphenhydrAMINE HCL SYRUP 150 MG, ALUMINUM/MAGNESI... MT SCH ×8 (08:30→20:00)
[2016-07-13] MEDS: CALCIUM 600MG + VIT D 400 IU TAB PO SCH (08:31)
[2016-07-13] MEDS: NITROFURANTOIN MACROCRYSTALS 50 MG CAP PO SCH (08:31)
[2016-07-13] MEDS: FUROSEMIDE 20 MG TAB PO SCH (08:31)
[2016-07-13] MEDS: CHOLECALCIFEROL 1000 INTER.UNIT TAB PO SCH (08:31)
[2016-07-13] MEDS: PANTOprazole SOD 40 MG TAB PO SCH (08:31)
[2016-07-13] MEDS: AMLODIPINE BESYLATE 5 MG TAB PO SCH (08:31)
[2016-07-13] MEDS: FLUTICASONE/SALMETEROL 250/50 (ADVAIR) 14 PUFF/1 INHALER INH SCH ×2 (08:32→20:52)
[2016-07-13] MEDS: NYSTATIN POWDER 15GM BTL EXT SCH (08:32)
[2016-07-13] MEDS: CEFAZOLIN IV 1,000 MG in DEXTROSE 5% 50ML 50 ML IV SCH (10:34)
--- NOTE | 2016-07-13 10:58 | Neurology Consultation ---
Neurology Consultation Date of Consultation: Jul 13, 2016. Attending Physician: Jonathon Devries MD Primary Care Physician: Bill Young MD Reason for Consultation: Consultation for Parkinson's and question about medication management History of Present Illness Source: patient, clinic records, hospital records This is a 70-year-old female who has been followed in neurology clinic for many years by Dr. Villa for epilepsy that appears to be well controlled on Keppra. Patient has had worsening parkinsonism symptoms over the last year. Most prominently with autonomic dysregulation of blood pressure. Clinic notes were reviewed. Patient was tried on Sinemet earlier this year in February and did not tolerate medication likely due to Sinemet exacerbating orthostatic hypotension symptoms. Patient also has recently had an updated MRI of her brain which I reviewed the report but did not have images to review as it came from an outside institution. 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 Dr. 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 Today the patient complains about generally worsening weakness. The same time she reports that she is essentially been bed or chair bound for the last year due to her orthostatic dizziness symptoms. No focal weakness. Reports some dysarthria and slurred speech at times. Reports small handwriting. Reports trouble using utensils. Patient also reports some symptoms of dysphasia at times. Reports poor appetite. Has been evaluated this admission for possible UTI. She reports her blood pressure will go from 170s laying down to a systolic 80's standing when working with physical therapy. Patient does describe any symptoms consistent with orthostatic hypotension. 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 Also reports a father with some sort of progressive paralysis. No other neurodegenerative neuromuscular disorders within the family. Social History The patient has been bedbound and wheelchair-bound for the last year. Needs help with activities of daily living. Smoking Status: Never smoker Alcohol Use: none Drug Use: none Marital Status: Housing Status: lives with significant other Occupation Status: retired Allergies Coded Allergies: Iodinated Diagnostic Agents (Verified Allergy, Severe, SHORTNESS OF BREATH , 01/18/16) Gluten (Verified Allergy, Intermediate, GI SYMPTOMS, 01/18/16) Latex (Verified Allergy, Intermediate, RASH, 01/18/16) Aspirin (Verified Allergy, Unknown, 01/18/16) Ibuprofen (Verified Allergy, Unknown, 01/18/16) Latex1 -Allergic Contact Dermititis (Verified Allergy, Unknown, 01/18/16) Lisinopril (Unverified Allergy, Unknown, UNKNOWN, 01/18/16) Meperidine (Unverified Allergy, Unknown, UNKNOWN, 01/18/16) Metformin (Unverified Allergy, Unknown, GI SYMPTOMS, 01/18/16) Midazolam (Verified Allergy, Unknown, UNKN, 01/18/16) Nut Tree (Unverified Allergy, Unknown, UNKNOWN, 01/18/16) Peanut (Unverified Allergy, Unknown, UNKNOWN, 01/18/16) Penicillins (Verified Allergy, Unknown, SHORTNESS OF BREATH, 01/18/16) (FROM UNCODED ALLERGIES) Sulfa Antibiotics (Verified Allergy, Unknown, UNKNOWN, 01/18/16) Current Inpatient Medications Current Inpatient Medications Medications (Trade) Dose Ordered Sig/Phong Route Start Time Stop Time Status Last Admin Dose Admin Acetaminophen (Tylenol Tab) 650 mg Q4H PRN PO 07/07/16 17:15 08/06/16 17:14 Al Hydrox/Mg Hydrox/Simethicone (Maalox Max Susp) 15 ml Q4H PRN PO 07/07/16 17:15 08/06/16 17:14 Magnesium Hydroxide (Milk Of Magnesia Susp) 30 ml Q6H PRN PO 07/07/16 17:15 08/06/16 17:14 07/11/16 20:35 30 ML Polyethylene (Miralax Powder Packet) 17 gm DAILY PRN PO 07/07/16 17:15 08/06/16 17:14 07/12/16 17:20 17 GM Ondansetron HCl (Zofran Inj) 4 mg Q6H PRN IV 07/07/16 17:15 08/06/16 17:14 Nystatin (Mycostatin Powder) 1 appln DAILY EXT 07/08/16 08:00 08/07/16 08:59 07/13/16 08:32 1 APPLN Cyanocobalamin (Vitamin B-12 Tab) 250 mcg DAILY PO 07/08/16 08:00 08/07/16 08:59 07/13/16 08:30 250 MCG Salmeterol Xinafoate/ Fluticasone (Advair Diskus 250/50 Inh) 1 puff BID INH 07/07/16 20:00 08/06/16 20:59 07/13/16 08:32 1 PUFF Levetiracetam (Keppra Tab) 750 mg BID PO 07/07/16 20:00 08/06/16 20:59 07/13/16 08:30 750 MG Levothyroxine Sodium (Synthroid Tab) 112 mcg DAILYBB PO 07/08/16 06:30 08/07/16 06:59 07/13/16 05:28 112 MCG Montelukast Sodium (Singulair Tab) 10 mg HS PO 07/07/16 21:00 08/06/16 20:59 07/12/16 21:29 10 MG Nitrofurantoin Macrocrystals (Macrodantin Cap) 50 mg DAILY PO 07/08/16 08:00 08/07/16 08:59 07/13/16 08:31 50 MG Simvastatin (Zocor Tab) 10 mg QPM PO 07/07/16 21:00 08/06/16 20:59 07/12/16 21:29 10 MG Calcium/Vitamin D (Caltrate Plus Tab) 1 tab DAILY PO 07/08/16 08:00 08/07/16 08:59 07/13/16 08:31 1 TAB Cholecalciferol (Vitamin D Tab) 2,000 inter.unit DAILY PO 07/08/16 08:00 08/07/16 08:59 07/13/16 08:31 2,000 INTER.UNIT Diphenhydramine HCl (Benadryl Cap) 25 mg TID PRN PO 07/07/16 17:15 08/06/16 17:14 Pantoprazole Sodium (Protonix Tab) 40 mg DAILY PO 07/08/16 08:00 08/07/16 08:59 07/13/16 08:31 40 MG Amlodipine Besylate (Norvasc Tab) 5 mg QAM PO 07/09/16 08:00 08/08/16 07:59 07/13/16 08:31 5 MG Furosemide (Lasix Tab) 20 mg DAILY PO 07/09/16 08:00 08/08/16 07:59 07/13/16 08:31 20 MG Lidocaine HCl/ Diphenhydramine HCl/Al Hydroxide/ Mg Hydroxide/ Glycerin/Barcode BID MT 07/10/16 20:00 08/09/16 19:59 07/13/16 08:30 5 ML Naphazoline HCl/ Pheniramine Maleate (Visine-A Oph Soln) 1 drops Q4 PRN OP 07/12/16 20:00 08/11/16 19:59 Cefazolin Sodium 1000 mg/Dextrose 55 ml @ 100 mls/hr Q12H IV 07/12/16 22:00 07/22/16 21:59 07/13/16 10:34 100 MLS/HR Review of Systems Complete review of systems otherwise negative except for the above-noted history of present illness Physical Exam Vital Signs (Past 24 Hrs): Date Time Temp Pulse Resp B/P (MAP) Pulse Ox O2 Delivery O2 Flow Rate FiO2 07/13/16 08:00 Room Air 07/13/16 07:39 36.4 72 18 136/66 (89) 92 Room Air 07/13/16 00:00 97 Room Air 07/12/16 23:33 36.8 76 18 148/69 (95) 97 Room Air 07/12/16 20:00 97 Room Air 07/12/16 16:08 Room Air 07/12/16 15:08 36.7 69 18 144/69 (94) 97 Room Air Gen.: Patient is alert and oriented in no acute distress lying in bed Heart: Regular rate and rhythm Extremities: No gross deformities or rashes noted Neurological examination: Mental status: Patient is alert and oriented to person place and time. Able to give his own history. Attention concentration normal for the situation. Speech is fluent without any dysarthria or aphasia noted Cranial nerves: Funduscopic examination was difficult to visualize. Pupils equally round and reactive to light. Extraocular muscles intact without nystagmus. No facial asymmetry noted. Facial sensation intact. Tongue midline. Good palatal elevation. Good shoulder shrug bilaterally. Hearing grossly intact voice. Strength: 5/5 both proximal and distal in all extremities . Mild to moderate increased rigidity in bilateral upper extremities equally. Sensation: Grossly intact to light touch in all extremities with the exception of decreased sensation in distal feet. (Patient has no neuropathy) Deep tendon reflexes: +1 in bilateral biceps and patellar. Toes are downgoing to plantar stimulation bilaterally Coordination: Patient had a mild action tremor with [id number] testing and likely mild dysmetria (which would would be consistent with reported signs of cerebellar atrophy on previous MRI) Station within the bed is normal. Laboratory Results Past 24 Hours: 07/13/16 05:30 07/13/16 05:30 Test 07/12/16 18:07 07/13/16 05:30 Urine Color YELLOW Urine Appearance CLEAR (CLEAR) Urine pH 7.0 (4.5-7.5) Urine Specific Mize 1.018 (1.000-1.030) Urine Protein NEG (NEG) Urine Glucose (UA) NEG (NEG) Urine Ketones NEG (NEG) Urine Occult Blood NEG (NEG) Urine Nitrite POS (NEG) Urine Bilirubin NEG (NEG) Urine Urobilinogen NEG (NEG) Urine Leukocyte Esterase MODERATE (NEG) Urine WBC (Auto) 10-30 /hpf (0-5) Urine RBC (Auto) 0-4 /hpf (0-4) Urine Hyaline Casts (Auto) 1-5 /lpf (0-5) Urine Epithelial Cells (Auto) >30 /lpf (0-5) Urine Bacteria (Auto) 1+ (NEG) Red Blood Count 4.07 M/uL (4.2-5.4) Mean Corpuscular Volume 80.8 fL (80-100) Mean Corpuscular Hemoglobin 23.3 pg (25-34) Mean Corpuscular Hemoglobin Concent 28.9 g/dl (32-36) RDW Standard Deviation 58.8 fL (36.4-46.3) RDW Coefficient of Variation 20.0 % (11.5-14.5) Mean Platelet Volume 10.5 fL (7.4-10.4) Anion Gap 2.0 mmol/L (3-11) Est Creatinine Clear Calc Drug Dose 75.5 ml/min Estimated GFR () 79.9 Estimated GFR (Non- 68.9 BUN/Creatinine Ratio 42.1 (10-20) Calcium Level 8.7 mg/dl (8.5-10.1) Imaging No acute findings on CT of the head Impression This is a 70-year-old female with 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 Patient has failed trial Sinemet earlier this year. 2) seizures appear to be under good control with current antiepileptic medication. Plan Patient was tried on Sinemet earlier this year and did not tolerate it. Unfortunately for multiple system atrophy we do not have any good medical treatment and many of the Parkinson's plus disorders do not respond well to dopamine medications. While we could consider a dopamine agonist such as Requip , I do not strongly recommend this as more than likely the patient will not find benefit and have increased side effects of dizziness and orthostatic hypotension. Follow-up in neurology clinic with Dr. Villa. Discussed extensively with the patient diagnosis of multisystem atrophy. Discussed that blood pressure fluctuations are common and can be fairly disabling. Discussed that we usually allow for a wide range of blood pressures to try to reduce symptoms even though her blood pressure being on the higher side does put her at risk for heart attacks and strokes. Discussed that we do not have any good medical treatment for this condition. Physical therapy and activity as tolerated. Think you for allowing me to participate in this patient's care. If there is any questions or concerns, feel free to call/page me.
[2016-07-13] MEDS ORDERED: CEFEPIME IV 1,000 MG in DEXTROSE 5% 100ML 100 ML IV ONE (14:30)
[2016-07-13 15:08] VITALS: BP 170/69; PULSE 69; TEMP 36.6; O2SAT 94
--- NOTE | 2016-07-13 17:48 | Family Medicine Progress Note ---
Progress Note Date of Service Jul 13, 2016. Subjective Pt evaluation today including: conversation w/ patient, conversation w/ family , physical exam Pain: none PO Intake: adequate Voiding: munoz catheter in place patient with no acute events overnight She says that her weakness and fatigue have improved and that she is feeling better than she had yesterday. She was started on antibiotics yesterday for UTI. 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 Constitutional: No fever, No chills Respiratory: No cough, No shortness of breath Cardiovascular: No chest pain, No edema, No palpitations Abdomen: No pain, No nausea, No vomiting, No diarrhea Medications Current Inpatient Medications Medications (Trade) Dose Ordered Sig/Phong Route Start Time Stop Time Status Last Admin Dose Admin Acetaminophen (Tylenol Tab) 650 mg Q4H PRN PO 07/07/16 17:15 08/06/16 17:14 Al Hydrox/Mg Hydrox/Simethicone (Maalox Max Susp) 15 ml Q4H PRN PO 07/07/16 17:15 08/06/16 17:14 Magnesium Hydroxide (Milk Of Magnesia Susp) 30 ml Q6H PRN PO 07/07/16 17:15 08/06/16 17:14 07/11/16 20:35 30 ML Polyethylene (Miralax Powder Packet) 17 gm DAILY PRN PO 07/07/16 17:15 08/06/16 17:14 07/12/16 17:20 17 GM Ondansetron HCl (Zofran Inj) 4 mg Q6H PRN IV 07/07/16 17:15 08/06/16 17:14 Nystatin (Mycostatin Powder) 1 appln DAILY EXT 07/08/16 08:00 08/07/16 08:59 07/13/16 08:32 1 APPLN Cyanocobalamin (Vitamin B-12 Tab) 250 mcg DAILY PO 07/08/16 08:00 08/07/16 08:59 07/13/16 08:30 250 MCG Salmeterol Xinafoate/ Fluticasone (Advair Diskus 250/50 Inh) 1 puff BID INH 07/07/16 20:00 08/06/16 20:59 07/13/16 08:32 1 PUFF Levetiracetam (Keppra Tab) 750 mg BID PO 07/07/16 20:00 08/06/16 20:59 07/13/16 08:30 750 MG Levothyroxine Sodium (Synthroid Tab) 112 mcg DAILYBB PO 07/08/16 06:30 08/07/16 06:59 07/13/16 05:28 112 MCG Montelukast Sodium (Singulair Tab) 10 mg HS PO 07/07/16 21:00 08/06/16 20:59 07/12/16 21:29 10 MG Nitrofurantoin Macrocrystals (Macrodantin Cap) 50 mg DAILY PO 07/08/16 08:00 08/07/16 08:59 07/13/16 08:31 50 MG Simvastatin (Zocor Tab) 10 mg QPM PO 07/07/16 21:00 08/06/16 20:59 07/12/16 21:29 10 MG Calcium/Vitamin D (Caltrate Plus Tab) 1 tab DAILY PO 07/08/16 08:00 08/07/16 08:59 07/13/16 08:31 1 TAB Cholecalciferol (Vitamin D Tab) 2,000 inter.unit DAILY PO 07/08/16 08:00 08/07/16 08:59 07/13/16 08:31 2,000 INTER.UNIT Diphenhydramine HCl (Benadryl Cap) 25 mg TID PRN PO 07/07/16 17:15 08/06/16 17:14 Pantoprazole Sodium (Protonix Tab) 40 mg DAILY PO 07/08/16 08:00 08/07/16 08:59 07/13/16 08:31 40 MG Amlodipine Besylate (Norvasc Tab) 5 mg QAM PO 07/09/16 08:00 08/08/16 07:59 07/13/16 08:31 5 MG Furosemide (Lasix Tab) 20 mg DAILY PO 07/09/16 08:00 08/08/16 07:59 07/13/16 08:31 20 MG Lidocaine HCl/ Diphenhydramine HCl/Al Hydroxide/ Mg Hydroxide/ Glycerin/Barcode BID MT 07/10/16 20:00 08/09/16 19:59 07/13/16 08:30 5 ML Naphazoline HCl/ Pheniramine Maleate (Visine-A Oph Soln) 1 drops Q4 PRN OP 07/12/16 20:00 08/11/16 19:59 Cefepime HCl 1000 mg/Dextrose 111.3 ml @ 200 mls/hr Q12H IV 07/14/16 04:00 07/23/16 03:59 Objective Vital Signs Date Time Temp Pulse Resp B/P (MAP) Pulse Ox O2 Delivery O2 Flow Rate FiO2 07/13/16 16:00 Room Air 07/13/16 15:08 36.6 69 18 170/69 (102) 94 Room Air 07/13/16 08:00 Room Air 07/13/16 07:39 36.4 72 18 136/66 (89) 92 Room Air 07/13/16 00:00 97 Room Air 07/12/16 23:33 36.8 76 18 148/69 (95) 97 Room Air 07/12/16 20:00 97 Room Air Physical Exam Notes: General Appearance: WD/WN, no apparent distress, + pertinent finding (fine resting tremor) Eyes: PERRL, sclerae normal, Neck: no carotid bruits, trachea midline Respiratory/Chest: lungs clear, normal breath sounds, no respiratory distress, no accessory muscle use Cardiovascular: regular rate, rhythm, + systolic murmur (2/6 over LUSB) Abdomen: normal bowel sounds, non tender, soft Extremities: non-tender, no pedal edema, no calf tenderness, + pedal edema ( trace), Neurologic/Psychiatric: alert, oriented x 3, + motor weakness (lower limb 3-4/ 5 power), + pertinent finding (flat affect) Laboratory Results Results Past 24 Hours Test 07/12/16 18:07 07/13/16 05:30 Range/Units Urine Color YELLOW Urine Appearance CLEAR CLEAR Urine pH 7.0 4.5-7.5 Urine Specific [place] 1.018 1.000-1.030 Urine Protein NEG NEG Urine Glucose (UA) NEG NEG Urine Ketones NEG NEG Urine Occult Blood NEG NEG Urine Nitrite POS NEG Urine Bilirubin NEG NEG Urine Urobilinogen NEG NEG Urine Leukocyte Esterase MODERATE NEG Urine WBC (Auto) 10-30 0-5 /hpf Urine RBC (Auto) 0-4 0-4 /hpf Urine Hyaline Casts (Auto) 1-5 0-5 /lpf Urine Epithelial Cells (Auto) >30 0-5 /lpf Urine Bacteria (Auto) 1+ NEG White Blood Count 7.08 4.8-10.8 K/uL Red Blood Count 4.07 4.2-5.4 M/uL Hemoglobin 9.5 12.0-16.0 g/dL Hematocrit 32.9 37-47 % Mean Corpuscular Volume 80.8 80-100 fL Mean Corpuscular Hemoglobin 23.3 25-34 pg Mean Corpuscular Hemoglobin Concent 28.9 32-36 g/dl RDW Standard Deviation 58.8 36.4-46.3 fL RDW Coefficient of Variation 20.0 11.5-14.5 % Platelet Count 234 130-400 K/uL Mean Platelet Volume 10.5 7.4-10.4 fL Sodium Level 141 136-145 mmol/L Potassium Level 4.4 3.5-5.1 mmol/L Chloride Level 102 98-107 mmol/L Carbon Dioxide Level 37 21-32 mmol/L Anion Gap 2.0 3-11 mmol/L Blood Urea Nitrogen 36 7-18 mg/dl Creatinine 0.85 0.60-1.20 mg/dl Est Creatinine Clear Calc Drug Dose 75.5 ml/min Estimated GFR () 79.9 Estimated GFR (Non- 68.9 BUN/Creatinine Ratio 42.1 10-20 Random Glucose 112 70-99 mg/dl Calcium Level 8.7 8.5-10.1 mg/dl Microbiology Results 07/12/16 Urine Culture - Preliminary, Resulted Probable Pseudomonas Species Assessment and Plan 70 year old female with PMH of iron deficiency anemia and ESBL presented to [facility] with weakness. 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 declines use of medication - has had problem with side effects - repeat UA positive - patient started on cefazolin IV - urine is growing pseudomonas Groin skin irritation sec to urinary incontinence/intertrigo - munoz cath - nystatin powder Lower extremity edema- improved - likely chronic venous insufficiency - lasix20 mg daily - I&O noted HTN - Amlodipine restarted - will be cautious with orthostasis - lasix cont'd Hypothyroidism - continue synthroid GERD - continue omeprazole once out of hospital - changed to protonix while inpt HLD - continue statin Asthma - continue montelukast and advair Seizure - continue keppra DVT prophylaxis - SCD as fecal occult positive - lovenox is d/c Dispo - PT/OT- discuss placement with pt as she is concerned she will lose her room at the [facility] - Plan is for [facility] - Resident Physician Supervision Note: I was present with PGY1 Dr. Yovani Sellers during the history and exam. I discussed the case with the resident and agree with the findings and plan as documented in the note. Any exceptions or clarifications are listed here: abx to be changed to cefepime due to pseudomonas in urine awaiting final cx result. NO issues overnight. Still weak but not any worse. Eating IS better today. VSS no fever gen - nad, flat affect vs masked facies eyes - conjunctival injection b/l, sclera clear, less watery today mouth - MMM neck - no JVD heart - RRR, s1 ,s2 lungs - CTA b/l abd - soft, NT ext - no edema u/a with pseudomonas Hb 9.5 A/P: 1. weakness - presumed to be due to acute/chronic anemia, but she continues with generalized weakness even despite improvement in H/H. This makes it likely there is a concomitant process contributing. Sed rate, b12, tsh normal. UTI could be contributing. MSA (multiple systems atrophy) could be playing a role. Cannot r/o depression. 2. acute/chronic anemia - Acute anemia presumed to be acute GI blood loss. Chronic anemia is 2nd to iron deficiency. Other vitamins (b12, folate) have been normal. She has been anemic for 5+ years based on records. Appreciate heme/onc consultation. She is s/p 2 units PRBCs this admission. She has heme+ stool and has had extensive GI work-ups in the past w/o a source of bleeding. She reports gluten intolerance. Celiac disease can cause iron deficiency and thus celiac panel sent. Repeat Hb stable again today. 3. pseudomonas UTI - change abx to cefepime; f/u on culture in AM. 4. multiple system atrophy - appreciate neurology consultation. Pt has been told about this dx. [facility] (formerly [facility]) Documented By: Jonathon Devries MD Continued [facility] stay due to: multiple IV medications needed
[2016-07-13 18:47] LABS: HCT 28.7 % (35.0-45.0); HEMOGLOBIN A2 2.2 % (1.8-3.5); HGB 8.1 g/dL (11.7-15.5); MCH 22.6 pg (27.0-33.0); MCV 80.2 FL (80.0-100.0); RBC 3.58 Mill/uL (3.80-5.10); RDW 20.9 % (11.0-15.0)
[2016-07-13] MEDS: MONTELUKAST SOD 10 MG TAB PO SCH (20:52)
[2016-07-13] MEDS: SIMVASTATIN 10 MG TAB PO SCH (20:54)
[2016-07-13] MEDS: NAPHAZOLIN/PHENIRAMIN OPH SOLN 75 DROPS/5 ML BTL OP PRN (22:04)
[2016-07-13 23:56] VITALS: BP 151/72; PULSE 68; TEMP 36.8; O2SAT 91
[2016-07-14] MEDS ORDERED: CEFEPIME IV 1,000 MG in DEXTROSE 5% 100ML 100 ML IV SCH (04:00)
[2016-07-14] MEDS: LEVOTHYROXINE 112 MCG TAB PO SCH (05:54)
[2016-07-14 07:18] VITALS: BP 156/70; PULSE 69; TEMP 36.6; O2SAT 96
[2016-07-14] MEDS: NAPHAZOLIN/PHENIRAMIN OPH SOLN 75 DROPS/5 ML BTL OP PRN (08:33)
[2016-07-14] MEDS: FUROSEMIDE 20 MG TAB PO SCH (08:33)
[2016-07-14] MEDS: AMLODIPINE BESYLATE 5 MG TAB PO SCH (08:34)
[2016-07-14] MEDS: LEVETIRACETAM 250 MG TAB PO SCH (08:34)
[2016-07-14] MEDS: PANTOprazole SOD 40 MG TAB PO SCH (08:34)
[2016-07-14] MEDS: CHOLECALCIFEROL 1000 INTER.UNIT TAB PO SCH (08:34)
[2016-07-14] MEDS: NITROFURANTOIN MACROCRYSTALS 50 MG CAP PO SCH (08:34)
[2016-07-14] MEDS: CYANOCOBALAMIN 500 MCG TAB (VIT B-12) PO SCH (08:34)
[2016-07-14] MEDS: CALCIUM 600MG + VIT D 400 IU TAB PO SCH (08:34)
[2016-07-14] MEDS: LIDOCAINE HCL 2% VISCOUS SOLN 60 ML, DiphenhydrAMINE HCL SYRUP 150 MG, ALUMINUM/MAGNESI... MT SCH ×4 (08:35)
[2016-07-14] MEDS: FLUTICASONE/SALMETEROL 250/50 (ADVAIR) 14 PUFF/1 INHALER INH SCH (08:35)
[2016-07-14] MEDS: NYSTATIN POWDER 15GM BTL EXT SCH (08:35)
[2016-07-14 08:58] LABS: HEMATOCRIT 32.8 % (37-47)
[2016-07-14 09:00] VITALS: O2SAT 92
[2016-07-14 09:24] LABS: CALCIUM 8.9 mg/dl (8.5-10.1)
[2016-07-14 09:30] LABS: BUN/CREATININE RATIO 38.5 (10-20); CREATININE 0.84 mg/dl (0.60-1.20); POTASSIUM 4.5 mmol/L (3.5-5.1)
[2016-07-14] MEDS ORDERED: CIPROFLOXACIN 500 MG TAB PO ONE (09:30)
[2016-07-14] MEDS ORDERED: CPR500 PO (13:47)
[2016-07-14] MEDS ORDERED: NRV5 PO (13:47)
--- NOTE | 2016-07-14 14:46 | Discharge Instructions ---
Discharge Instructions Date of Service Jul 14, 2016. Admission Reason for Admission: Weakness Discharge Discharge Diagnosis / Problem: UTI and Multisystem Atrophy Discharge Goals Goal(s): Improve function, Learn about illness, Prevent Disease Progression Activity Recommendations Activity Limitations: per Instructions/Follow-up section . 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 Try not to stand quickly and only make slow controlled movements Please use aaron stockings at [facility] as this will help with your blood pressure If you have any worsening of your symptoms then please come back to the hospital Please follow up with urology and neurology next week Current Hospital Diet Patient's current hospital diet: Regular Diet Discharge Diet Recommended Diet: Regular Diet Pending Studies Studies pending at discharge: no Medical Emergencies . Who to Call and When: Medical Emergencies: If at any time you feel your situation is an emergency, please call 911 immediately. . Non-Emergent Contact Non-Emergency issues call your: Primary Care Provider . . "Provider Documentation" section prepared by Yovani Sellers. . VTE Core Measure Inpt VTE Proph given/why not?: Enoxaparin (Lovenox)SQ
[2016-07-14 15:04] VITALS: BP 156/70; PULSE 69; TEMP 36.6; O2SAT 92
--- NOTE | 2016-07-14 15:27 | Discharge Summary ---
Discharge Summary Date of Service Jul 14, 2016. (Yovani Sellers MD) Discharge Summary Admission Date: Jul 07, 2016 at 17:24 Discharge Date: Jul 14, 2016 Discharge Disposition: [facility] facility Principal Diagnosis: UTI and Multisystem Atrophy Immunizations: Have You Had Influenza Vaccine: Yes History of Tetanus Vaccine?: Yes History of Pneumococcal: No History of Hepatitis B Vaccine: Yes Consultations: Neurology Urology Haem/Onc (Yovani Sellers MD) Problems/Secondary Diagnoses: 1. microcytic anemia with heme+ stools 2. severe fatigue 3. orthostatic hypotension 4. severe deconditioning 5. urinary incontinence s/p munoz placement 6. hypothyroidism 7. hyperlipidemia 8. GERD 9. HTN 10. seizure disorder 11. recurrent UTIs 12. asthma Procedures: PRBCs x 2 units echocardiogram - * -- Conclusions -- * 1. Normal LV size. Mild concentric LVH. * 2. Normal LV systolic function. LVEF 55-60 %. No regional wall motion abnormalities. Grade 1 diastolic dysfunction. * 3. Mildly dilated RV, normal RV function. * 4. No significant valvular pathology. * 5. Mild pulmonary hypertension. Estimated PASP 40-45 mmHg. Est RA 8 mmHg * 6. Severe biatrial dilation * 7. Compared with prior study on 04/25/2015: No significant change (Jonathon Devries MD) Medication Reconciliation New Medications: Amlodipine Besylate (Amlodipine Besylate) 5 Mg Tab 5 MG PO QAM for 14 Days, #14 TAB Ciprofloxacin (Ciprofloxacin HCl) 500 Mg Tab 500 MG PO Q12H for 6 Days, #12 TAB Continued Medications: Ascorbic Acid (Ascorbic Acid) 500 Mg Tab 500 PO BID PRN for COLS SYMPTOMS, TAB Calcium Carbonate-Cholecalcife (Caltrate 600+D) 1 Tab Tab 1 TAB PO DAILY Cholecalciferol (Vitamin D3) 2,000 Unit Cap 1 CAP PO DAILY for 90 Days, #90 CAP 3 Refills Cyanocobalamin (Vitamin B-12) 250 Mcg Tab 250 MCG PO DAILY, TAB Diphenhydramine Hcl (Benadryl Allergy) 25 Mg Tab 25 MG PO TID PRN for ALLERGIC REACTION Fluticasone Prop/Salmeterol (Advair Diskus 250/50 60 Dose) 1 Ea Aerp 1 PUFFS INH BID, INHALER 3 Refills Furosemide (Lasix) 20 Mg Tab 20 MG PO UD, TAB 1 TABLET DAILY. INCREASE TO 40MG (2 TABS) FOR WEIGHT GAIN >4 LBS Levetiracetam (Keppra) 750 Mg Tab 750 MG PO BID, TAB Levothyroxine Sodium (Synthroid) 112 Mcg Tab 112 MCG PO DAILY, TAB Montelukast Sod (Montelukast Sodium) 10 Mg Tab 10 MG PO DAILY Omeprazole (Prilosec) 20 Mg Cap 20 MG PO DAILY Simvastatin (Zocor) 10 Mg Tab 10 MG PO QPM, TAB Discontinued Medications: Nitrofurantoin Macrocrystals (Macrodantin) 50 Mg Cap 50 MG PO DAILY, CAP Discharge Exam 70 year old female with no acute events overnight The only thing she is complaining about in the hospital is her vision. She says it has been blurry for some time now and we said that she should organize to go see an shopper marketing manager She did mention that the viscine drops that she received helped with the fullness she felt in her eyes. Review of Systems: Constitutional: No fever, No chills, No sweats Eyes: + worsening of vision, No eye pain, No redness, No discharge, No diplopia ENT: No hearing loss, No sore throat, No trouble swallowing Respiratory: No cough, No sputum, No shortness of breath Cardiovascular: No chest pain, No palpitations Abdomen: No pain, No nausea, No vomiting, No diarrhea, No constipation Musculoskeletal: No joint pain Genitourinary - Female: No dysuria, No hematuria Neurologic: + weakness Endocrine: + fatigue (Yovani Sellers MD) Hospital Course 70 year old female with PMH of iron deficiency anemia and ESBL presented to [facility] with weakness. 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 currently no treatment - It can lead to labile blood pressures. She can have BP systolic 140-150's - She will need SWATI stockings for orthostatic symptoms - Transfers should be very slow and considerate - Could consider midodrine if blood pressure drops too quickly Hx of ESBL uti; urinary incontinence - - patient seen by urology - told to stop nitrofurantoin - patient grew pseudomonas in urine - Was originally on cefazolin in hospital but will be discharged with 6 days of cipro 500 mg bid. 6 days to finish 7 day course - munoz placed and will follow up with urology next week for voiding trail Groin skin irritation sec to urinary incontinence/intertrigo - cleared at day of discharge - munoz cath - nystatin powder Lower extremity edema- improved - likely chronic venous insufficiency - lasix20 mg daily - I&O noted HTN - Amlodipine restarted - will be cautious with orthostasis - lasix cont'd Hypothyroidism - continue synthroid GERD - continue omeprazole once out of hospital HLD - continue statin Asthma - continue montelukast and advair Seizure - continue keppra DVT prophylaxis - SCD as fecal occult positive - lovenox is d/c Dispo - Patient is going to [facility] Total Time Spent: Less than 30 minutes This includes examination of the patient, discharge planning, medication reconciliation, and communication with other providers. (Yovani Sellers .MD) Attending Discharge Note & Attestation: Pt seen/examined, chart reviewed, and care plan d/w PGY1 Dr. Yovani Sellers. I agree w/ the churchill components of his discharge summary. 70yo female with recurrent UTIs, urinary incontinence, ?parkinsonism, hypothyroidism, and persistent iron deficiency anemia who presented with ongoing weakness. Hb was 8.4 at time of admission and stool was heme+. During her stay she was transfused 2 units of PRBCs and at discharge her Hb was 9.8. Despite transfusion she continued with weakness. She again told the medical team she was not interested in GI work-up ( colonoscopy, etc). Her stay was complicated by pseudomonas UTI for which she will receive a cipro course. She was seen by Dr. Natalia Hernandez during this hospitalization and she felt that Ms. Bojorquez had Multiple System Atrophy. Her urinary incontinence, orthostasis, etc would be explained by this condition. Following discharge the patient will continue with IV iron infusions under the care of Dr. Jean at the [facility]. She will also need follow-up with [facility] for voiding trial and other urological testing. Discharge exam - gen - NAD, flat affect mouth - MMM neck - no JVD heart - RRR, s1, s2 lungs - CTA b/l abd - soft, NT, ND, BS+ ext - 1+ edema b/l To be complete, and in light of her persistent iron deficiency anemia, a celiac panel was sent and was pending at time of discharge. Jonathon Devries MD Total Time Spent: Greater than 30 minutes (Jonathon Devries MD) Discharge Instructions Please refer to the electronic Patient Visit Report (Discharge Instructions) for additional information. (Yovani Sellers MD) Additional Copies To Bill Young MD; Sergo Mcneal; Jimmy Villa M.D.; Brien Jean D.O.
[2016-07-14] MEDS ORDERED: CIPROFLOXACIN 500 MG TAB PO SCH (21:00)
[2016-07-15 22:55] LABS: IGA SERUM 38 mg/dL (81-463); TIS TRANS IGA 1 U/mL (<4)
[2016-09-09] MEDS ORDERED: DIPH25CA65 PO (10:41)
[2016-09-09] MEDS ORDERED: DOCU-94 PO (10:41)
[2016-12-23] MEDS ORDERED: CLIN300C2 PO (07:08)
[2016-12-23] MEDS ORDERED: ACET-1256 PO (07:08)
[2016-12-23] MEDS ORDERED: SPCCR30 TOP (07:08)
[2016-12-23] MEDS ORDERED: OXYBUTIN PO (07:08)
== END 2016-07-14 17:37 | DRG 57 ==
LOC: C.EDB 12:09 → C.4E 17:24 → ENRESERV 18:31
PROVIDERS: ADMIT Family Medicine; ATTEND Internal Medicine
DX: G20 Parkinson's disease (principal); N39.0 Urinary tract infection, site not specified; G13.8 Systemic atrophy primarily affecting central nervous system in other diseases classified elsewhere; G90.3 Multi-system degeneration of the autonomic nervous system; D50.9 Iron deficiency anemia, unspecified; B96.5 Pseudomonas (aeruginosa) (mallei) (pseudomallei) as the cause of diseases classified elsewhere; L30.4 Erythema intertrigo; R32 Unspecified urinary incontinence; I87.2 Venous insufficiency (chronic) (peripheral); G40.909 Epilepsy, unspecified, not intractable, without status epilepticus; I10 Essential (primary) hypertension; E11.9 Type 2 diabetes mellitus without complications; E78.5 Hyperlipidemia, unspecified; E03.9 Hypothyroidism, unspecified; K21.9 Gastro-esophageal reflux disease without esophagitis; J45.909 Unspecified asthma, uncomplicated; E66.9 Obesity, unspecified; Z79.899 Other long term (current) drug therapy; Z87.440 Personal history of urinary (tract) infections; Z86.718 Personal history of other venous thrombosis and embolism; Z99.3 Dependence on wheelchair; Z74.01 Bed confinement status; Z68.38 Body mass index [BMI] 38.0-38.9, adult; Z83.2 Family history of diseases of the blood and blood-forming organs and certain disorders involving the immune mechanism; Z82.49 Family history of ischemic heart disease and other diseases of the circulatory system

== ENCOUNTER 2016-08-30 11:29 | Inpatient (IN) | payer OTHER ==
[2016-08-30] VITALS (14 sets, daily range): BP systolic 132–184; BP diastolic 60–72; PULSE 68–77; TEMP 36.4–37.2; O2SAT 98–100; Ht 165.1 cm; Wt 97.2 kg
[~2016-08-30] VITALS: Ht 165.1 cm; Wt 97.2 kg
[~2016-08-30 11:29] MED LIST changes: +CPR500 PO; +DIPH1TAB PO; -DIPH1TAB87 PO; -FERR1TAB13 PO; -MULTTAB58 PO; +NRV5 PO; -POLYSOL4 OP
[2016-08-30 12:19] LABS: PARTIAL THROMBOPLASTIN RATIO 0.8; PROTHROMBIN TIME (PATIENT) 10.9 SECONDS (9.0-12.0)
[2016-08-30 12:27] LABS: BUN/CREATININE RATIO 44.7 (10-20); CALCIUM 9.1 mg/dl (8.5-10.1); CREATININE 0.64 mg/dl (0.60-1.20); POTASSIUM 3.5 mmol/L (3.5-5.1)
[2016-08-30 12:28] LABS: HEMATOCRIT 19.8 % (37-47); MEAN CORPUSCULAR HEMOGLOBIN 20.7 pg (25-34); MEAN CORPUSCULAR HGB CONC 28.8 g/dl (32-36); MEAN PLATELET VOLUME 9.2 fL (7.4-10.4); PLATELET COUNT 266 K/uL (130-400); RED BLOOD COUNT 2.75 M/uL (4.2-5.4); WHITE BLOOD COUNT 4.78 K/uL (4.8-10.8)
--- NOTE | 2016-08-30 12:48 | EMERGENCY ROOM VISIT NOTE ---
History Report prepared by Jodi: Jenn Arceo Under the Supervision of: Dr. Humza Yang M.D. First contact with patient: 11:32 Chief Complaint: ABNORMAL LABS Stated Complaint: LOW HEMOGLOBIN History of Present Illness The patient is a 70 year old female who presents to the Emergency Room for further evaluation of abnormal labs that were noticed STEAK [employer]. The patient came to the ED via ambulance from [facility]. She was reported to have a hemoglobin of 4.6. The patient states that she had blood work done this morning after she was evaluated by Dr. Nichols at [facility]. The patient states that she has experienced near-syncope when they help her get up to go the bathroom. She states that she has been experiencing those symptoms for the past 2 days. The patient states that she felt well prior to 2 days ago. She is also experiencing dizziness when she is transferred. She denies headache, changes in vision, chest pain, shortness of breath, nausea, vomiting, diarrhea, melena, hematochezia, abdominal pain, and fatigue.The patient states that she does not ambulate on her own secondary to the weakness in her lower extremities. She states that the weakness is secondary to Parkinson's disease. 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 Villa - Neurology. The patient states that she had a Fair catheter removed 3 days ago and has been unable to void on her own since then. She states that she was catheterized this morning. The patient has experienced similar symptoms in the past and had a blood transfusion in July. She states that they never identified the cause of her low hemoglobin levels. She has not followed with a linen room custodian. The patient is not on any blood thinners. 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 A total of ten systems were reviewed and were otherwise negative. Past Medical & Surgical Medical Problems: (1) Atypical Parkinsonism (2) Diabetes mellitus (3) DVT (deep venous thrombosis) (4) Gait disturbance (5) HTN (hypertension) (6) Hyperlipemia (7) Orthostatic hypotension (8) Polyneuropathy (9) Symptomatic anemia Surgical Problems: (1) Bilateral knee replacements Family History Blood disorder Heart disease Social History Smoking Status: Never Smoker Drug Use: none Marital Status: Housing Status: lives with significant other Occupation Status: retired Current/Historical Medications Scheduled Amlodipine Besylate (Amlodipine Besylate), 5 MG PO QAM Artificial Tear Solution (Artificial Tears), 1 DROPS OP QID Calcium Carbonate-Cholecalcife (Caltrate 600+D), 1 TAB PO DAILY Carbidopa/Levodopa (Sinemet 25MG/100MG), 0.5 TAB PO BID Cholecalciferol (Vitamin D3), 2,000 UNITS PO DAILY Coenzyme Q10 (Ubidecarenone) (Co Q 10), 100 MG PO AMHS Cyanocobalamin (Vitamin B-12), 250 MCG PO DAILY Fluticasone Prop/Salmeterol (Advair Diskus 250/50 60 Dose), 1 PUFFS INH BID Furosemide (Lasix), 20 MG PO DAILY Furosemide (Lasix), 20 MG PO DAILY Levetiracetam (Keppra), 500 MG PO BID Levothyroxine Sodium (Synthroid), 112 MCG PO DAILY Menthol-Zinc Oxide (Gold Melchor), 1 APPLN TOP TID Montelukast Sod (Montelukast Sodium), 10 MG PO HS Omeprazole (Prilosec), 20 MG PO DAILY Simvastatin (Zocor), 10 MG PO QPM Scheduled PRN Albuterol Sulf (Albuterol Sulfate), 3 ML NEB Q6 PRN for DYSPNEA Allergies Coded Allergies: Iodinated Diagnostic Agents (Verified Allergy, Severe, SHORTNESS OF BREATH , 08/30/16) Gluten (Verified Allergy, Intermediate, GI SYMPTOMS, 08/30/16) Latex (Verified Allergy, Intermediate, RASH, 08/30/16) Aspirin (Verified Allergy, Unknown, 08/30/16) Chocolate (Unverified Allergy, Unknown, UNKNOWN, 08/30/16) Ibuprofen (Verified Allergy, Unknown, 08/30/16) Latex1 -Allergic Contact Dermititis (Verified Allergy, Unknown, 08/30/16) Lisinopril (Unverified Allergy, Unknown, UNKNOWN, 01/18/16) Meperidine (Unverified Allergy, Unknown, UNKNOWN, 08/30/16) Metformin (Unverified Allergy, Unknown, GI SYMPTOMS, 08/30/16) Midazolam (Verified Allergy, Unknown, UNKN, 08/30/16) Nut Tree (Unverified Allergy, Unknown, UNKNOWN, 08/30/16) Peanut (Unverified Allergy, Unknown, UNKNOWN, 08/30/16) Penicillins (Verified Allergy, Unknown, SHORTNESS OF BREATH, 08/30/16) (FROM UNCODED ALLERGIES) Sulfa Antibiotics (Verified Allergy, Unknown, UNKNOWN, 08/30/16) Physical Exam Vital Signs Date Time Temp Pulse Resp B/P (MAP) Pulse Ox O2 Delivery O2 Flow Rate FiO2 08/30/16 14:33 77 18 173/61 100 2.0 08/30/16 14:12 98 Nasal Cannula 2.0 08/30/16 14:03 74 18 159/60 98 2.0 08/30/16 13:42 37.2 76 20 184/68 100 2.0 08/30/16 13:27 36.4 73 18 173/68 100 08/30/16 12:50 73 20 172/70 100 Nasal Cannula 2.0 08/30/16 12:08 78 08/30/16 11:35 37.2 76 18 125/49 100 Nasal Cannula 2.0 Physical Exam GENERAL: Awake, alert, weak-appearing, in no distress HENT: Normocephalic, atraumatic. Cracked, dry mucous membranes. EYES: Normal conjunctiva. Sclera non-icteric. NECK: Supple. No nuchal rigidity. FROM. No JVD. RESPIRATORY: Clear to auscultation. CARDIAC: Regular rate, normal rhythm. Extremities warm and well perfused. Pulses equal. ABDOMEN: Soft, non-distended. No tenderness to palpation. No rebound or guarding. No masses. RECTAL: Deferred. MUSCULOSKELETAL: Chest examination reveals no tenderness. The back is symmetrical on inspection without obvious abnormality. There is no CVA tenderness to palpation. No joint edema. LOWER EXTREMITIES: Calves are equal size bilaterally and non-tender. No edema. No discoloration. NEURO: Normal sensorium. No sensory deficits noted. Generalized weakness in all extremities at baseline secondary to Parkinson's SKIN: Pale, no rash or jaundice noted. Medical Decision & Procedures Laboratory Results 08/30/16 12:01 Red Blood Count 2.75, Mean Corpuscular Volume 72.0, Mean Corpuscular Hemoglobin 20.7, Mean Corpuscular Hemoglobin Concent 28.8, Mean Platelet Volume 9.2, Neutrophils (%) (Auto) 72.4, Lymphocytes (%) (Auto) 13.8, Monocytes (%) (Auto) 11.5, Eosinophils (%) (Auto) 1.9, Basophils (%) (Auto) 0.2, Neutrophils # (Auto ) 3.46, Lymphocytes # (Auto) 0.66, Monocytes # (Auto) 0.55, Eosinophils # (Auto ) 0.09, Basophils # (Auto) 0.01 08/30/16 12:01 Test 08/30/16 12:01 White Blood Count 4.78 K/uL (4.8-10.8) Red Blood Count 2.75 M/uL (4.2-5.4) Hemoglobin 5.7 g/dL (12.0-16.0) Hematocrit 19.8 % (37-47) Mean Corpuscular Volume 72.0 fL (80-100) Mean Corpuscular Hemoglobin 20.7 pg (25-34) Mean Corpuscular Hemoglobin Concent 28.8 g/dl (32-36) Platelet Count 266 K/uL (130-400) Mean Platelet Volume 9.2 fL (7.4-10.4) Neutrophils (%) (Auto) 72.4 % Lymphocytes (%) (Auto) 13.8 % Monocytes (%) (Auto) 11.5 % Eosinophils (%) (Auto) 1.9 % Basophils (%) (Auto) 0.2 % Neutrophils # (Auto) 3.46 K/uL (1.4-6.5) Lymphocytes # (Auto) 0.66 K/uL (1.2-3.4) Monocytes # (Auto) 0.55 K/uL (0.11-0.59) Eosinophils # (Auto) 0.09 K/uL (0-0.5) Basophils # (Auto) 0.01 K/uL (0-0.2) RDW Standard Deviation 51.9 fL (36.4-46.3) RDW Coefficient of Variation 19.5 % (11.5-14.5) Immature Granulocyte % (Auto) 0.2 % Immature Granulocyte # (Auto) 0.01 K/uL (0.00-0.02) Hypochromasia PRESENT Microcytosis PRESENT Prothrombin Time 10.9 SECONDS (9.0-12.0) Prothromb Time International Ratio 1.0 (0.9-1.1) Activated Partial Thromboplast Time 19.6 SECONDS (21.0-31.0) Partial Thromboplastin Ratio 0.8 Anion Gap 4.0 mmol/L (3-11) Est Creatinine Clear Calc Drug Dose 93.1 ml/min Estimated GFR () 104.1 Estimated GFR (Non- 89.8 BUN/Creatinine Ratio 44.7 (10-20) Calcium Level 9.1 mg/dl (8.5-10.1) Laboratory results reviewed by me ECG Indication: weakness Rate (beats per minute): 74 Rhythm: normal sinus Findings: no acute ischemic change, other (LVH) ED Course 1144: The patient was evaluated in room C10. A complete history and physical exam was performed. 1154: I discussed the risks and benefits of a blood transfusion with the patient. She consented to have a blood transfusion. 1215: The patient's labs were obtained from the [employer] system. Her hemoglobin was 4.6. 1243: Upon reexamination, the patient was resting comfortably. I discussed the test results and treatment plan with her. The patient will be evaluated for further management. 1302: Discussed the patient's case with Dr. Brennan Crocker of the [facility]. The patient will be evaluated for further treatment and disposition. Medical Decision I reviewed the patient's past medical history, medications, and the nursing notes as described above. Differential diagnoses include weakness, anemia, GI bleed vs hematologic process. Patient is a 70-year-old woman with a past medical history of anemia, Parkinson' s, and multisystem atrophy presents to the emergency department from her [facility] facility after labs drawn showed severe anemia with a hemoglobin of 4.8 in the setting of syncopal episodes. The patient arrives to emergency department fatigued and pale-appearing, AFVSS. Otherwise on exam patient has dry mucous membranes, but otherwise is neurologically intact at her baseline in the setting of Parkinson's. EKG unremarkable. Patient was consented for blood products and transfusion ordered. Repeat lab draw confirmed severe anemia with a hemoglobin of 5.7. Otherwise, patient denies any bloody or black stools and denies any nausea or vomiting. Patient admitted to hospital medicine for further management and evaluation. Head Trauma GCS Score: 15 Medication Reconcilliation Current Medication List: was personally reviewed by me Blood Pressure Screening Patient's blood pressure: Normal blood pressure Consults Time Called: 1242 Consulting Physician: Dr. Brennan Crocker - [facility] [place] Returned Call: 1302 Discussed the patient's case with Dr. Brennan Crocker of the [facility]. The patient will be evaluated for further treatment and disposition. Impression Primary Impression: Severe anemia Scribe Attestation The scribe's documentation has been prepared under my direction and personally reviewed by me in its entirety. I confirm that the note above accurately reflects all work, treatment, procedures, and medical decision making performed by me. Departure Information Dispostion Being Evaluated By Hospitalist Referrals Bill Young MD (PCP) Patient Instructions [facility]
[2016-08-30] MEDS ORDERED: PRVIN525X NEB (13:20)
[2016-08-30] MEDS ORDERED: ARTISOL12 OP (13:22)
[2016-08-30] MEDS ORDERED: CARB25TA12 PO (13:24)
[2016-08-30 13:25] LABS: BASO % 0.2 %; BASO ABS # 0.01 K/uL (0-0.2); COMPLETE YES; EOS % 1.9 %; HYPOCHROMIA PRESENT; IG% 0.2 %; LYMPH % 13.8 %; LYMPH ABS # 0.66 K/uL (1.2-3.4); MICROCYTOSIS PRESENT; MONO % 11.5 %; NEUT % 72.4 %
[2016-08-30] MEDS ORDERED: COEN1CAP17 PO (13:25)
[2016-08-30] MEDS ORDERED: MENTPOW4 TOP (13:27)
[2016-08-30] MEDS ORDERED: LEVE500T13 PO (13:28)
[2016-08-30] MEDS ORDERED: FURO-85 PO (13:29)
[2016-08-30] MEDS ORDERED: NITROGLYCERIN 0.4 MG SL PER TAB CHARGE SL PRN (14:00)
[2016-08-30] MEDS ORDERED: MAGNESIUM HYDROXIDE SUSP 30 ML UDC PO PRN (14:00)
[2016-08-30] MEDS ORDERED: MENTHOL TOP SCH (14:00)
[2016-08-30] MEDS ORDERED: ALBUTEROL 0.5% NEB SOLN 2.5 MG/0.5 ML VIAL INH PRN (14:00)
[2016-08-30] MEDS ORDERED: POLYETHYLENE (MIRALAX) 17 GM PACK PO PRN (14:00)
[2016-08-30] MEDS ORDERED: ALUMINUM/MAGNESIUM/SIMETH (MAALOX MAX) 30 ML UDC PO PRN (14:00)
[2016-08-30] MEDS ORDERED: ZINC OXIDE TOP SCH (14:00)
[2016-08-30] MEDS ORDERED: ONDANSETRON INJ 2 MG/ML 2 ML VIAL IV PRN (14:00)
[2016-08-30] MEDS ORDERED: ACETAMINOPHEN 325 MG TAB PO PRN (14:00)
--- NOTE | 2016-08-30 14:39 | History and Physical ---
History & Physical Date & Time of Service: Aug 30, 2016 at 14:03 Chief Complaint: Low Hemoglobin Primary Care Physician: Bill Young MD History of Present Illness Source: patient, clinic records, hospital records Patient is a pleasant 70 y/o female, with PMHx of refractory iron deficiency anemia, complex partial seizures, Parkinson's disease, multisystem atrophy, hypothyroidism, HTN, hyperlipidemia, asthma, and GERD, who presented to the ED because of symptomatic anemia. Patient is a resident of [facility]. She was reported to have a hgb of 4.6. She has been experiencing lightheadedness, dizziness, fatigue, weakness, and SOB since 08/27. She denies any obvious bleeding or melena. Patient's most recent admission to [facility] was at the beginning of July due to symptomatic anemia. She follows brenda/ Dr. Jean for refractory iron deficiency anemia. During her last admission, she received her final 6/6 Ferrlecit injection. Her stool studies were positive, but was thought to be due to IV iron. Patient has had an extensive GI workup in the past, including multiple scopes, camera endoscopy x2, and a bleeding scan, with no evidence of bleeding. Additionally, during her last admission, she was discharged with a Fair due to incomplete bladder emptying. Her Fair was removed on 08/27 and she states she has been unable to void, requiring catheterizations. Patient follows brenda/ Dr. Villa for Parkinson's disease, complex partial seizures, multisystem atrophy. Patient denies any fever, chills, sweats , vision changes, CP, palpitations, edema, wheezing, cough, abdominal pain, nausea, vomiting, diarrhea, melena, numbness/tingling, muscle/joint pain, anxiety/depression, active bleeding, or new skin discoloration/changes. Past Medical/Surgical History Medical Problems: refractory iron deficiency anemia complex partial seizures Parkinson's disease multisystem atrophy hypothyroidism HTN hyperlipidemia asthma GERD h/o DVT h/o T2DM Surgical Problems: (1) Bilateral knee replacements Status: Resolved Family History Blood disorder Heart disease Social History Smoking Status: Never Smoker Drug Use: none Marital Status: Housing status: lives with family Occupational Status: retired Immunizations History of Influenza Vaccine: Yes History of Tetanus Vaccine?: Yes History of Pneumococcal: No History of Hepatitis B Vaccine: Yes Multi-Drug Resistant Organisms History of MDRO: No Allergies Coded Allergies: Iodinated Diagnostic Agents (Verified Allergy, Severe, SHORTNESS OF BREATH , 08/30/16) Gluten (Verified Allergy, Intermediate, GI SYMPTOMS, 08/30/16) Latex (Verified Allergy, Intermediate, RASH, 08/30/16) Aspirin (Verified Allergy, Unknown, 08/30/16) Chocolate (Unverified Allergy, Unknown, UNKNOWN, 08/30/16) Ibuprofen (Verified Allergy, Unknown, 08/30/16) Latex1 -Allergic Contact Dermititis (Verified Allergy, Unknown, 08/30/16) Lisinopril (Unverified Allergy, Unknown, UNKNOWN, 01/18/16) Meperidine (Unverified Allergy, Unknown, UNKNOWN, 08/30/16) Metformin (Unverified Allergy, Unknown, GI SYMPTOMS, 08/30/16) Midazolam (Verified Allergy, Unknown, UNKN, 08/30/16) Nut Tree (Unverified Allergy, Unknown, UNKNOWN, 08/30/16) Peanut (Unverified Allergy, Unknown, UNKNOWN, 08/30/16) Penicillins (Verified Allergy, Unknown, SHORTNESS OF BREATH, 08/30/16) (FROM UNCODED ALLERGIES) Sulfa Antibiotics (Verified Allergy, Unknown, UNKNOWN, 08/30/16) Home Medications Scheduled Amlodipine Besylate (Amlodipine Besylate), 5 MG PO QAM Artificial Tear Solution (Artificial Tears), 1 DROPS OP QID Calcium Carbonate-Cholecalcife (Caltrate 600+D), 1 TAB PO DAILY Carbidopa/Levodopa (Sinemet 25MG/100MG), 0.5 TAB PO BID Cholecalciferol (Vitamin D3), 2,000 UNITS PO DAILY Coenzyme Q10 (Ubidecarenone) (Co Q 10), 100 MG PO AMHS Cyanocobalamin (Vitamin B-12), 250 MCG PO DAILY Fluticasone Prop/Salmeterol (Advair Diskus 250/50 60 Dose), 1 PUFFS INH BID Furosemide (Lasix), 20 MG PO DAILY Furosemide (Lasix), 20 MG PO DAILY Levetiracetam (Keppra), 500 MG PO BID Levothyroxine Sodium (Synthroid), 112 MCG PO DAILY Menthol-Zinc Oxide (Gold Melchor), 1 APPLN TOP TID Montelukast Sod (Montelukast Sodium), 10 MG PO HS Omeprazole (Prilosec), 20 MG PO DAILY Simvastatin (Zocor), 10 MG PO QPM Scheduled PRN Albuterol Sulf (Albuterol Sulfate), 3 ML NEB Q6 PRN for DYSPNEA Physical Exam Vital Signs Date Time Temp Pulse Resp B/P (MAP) Pulse Ox O2 Delivery O2 Flow Rate FiO2 08/30/16 13:42 37.2 76 20 184/68 100 2.0 08/30/16 13:27 36.4 73 18 173/68 100 08/30/16 12:50 73 20 172/70 100 Nasal Cannula 2.0 08/30/16 12:08 78 08/30/16 11:35 37.2 76 18 125/49 100 Nasal Cannula 2.0 General Appearance: no apparent distress, + obese, + pertinent finding (2L O2 NC) Head: normocephalic, atraumatic Eyes: PERRL ENT: hearing grossly normal Neck: supple Respiratory/Chest: lungs clear, no respiratory distress, no accessory muscle use Cardiovascular: regular rate, rhythm, + systolic murmur Abdomen/GI: normal bowel sounds, non tender, soft Extremities/Musculoskelatal: no calf tenderness, no pedal edema, + pertinent finding (TEDs on ) Neurologic/Psych: alert, normal mood/affect, oriented x 3 Skin: warm/dry, no rash, + pallor Diagnostics Laboratory Results Results Past 24 Hours Test 08/30/16 12:01 Range/Units White Blood Count 4.78 4.8-10.8 K/uL Red Blood Count 2.75 4.2-5.4 M/uL Hemoglobin 5.7 12.0-16.0 g/dL Hematocrit 19.8 37-47 % Mean Corpuscular Volume 72.0 80-100 fL Mean Corpuscular Hemoglobin 20.7 25-34 pg Mean Corpuscular Hemoglobin Concent 28.8 32-36 g/dl Platelet Count 266 130-400 K/uL Mean Platelet Volume 9.2 7.4-10.4 fL Neutrophils (%) (Auto) 72.4 % Lymphocytes (%) (Auto) 13.8 % Monocytes (%) (Auto) 11.5 % Eosinophils (%) (Auto) 1.9 % Basophils (%) (Auto) 0.2 % Neutrophils # (Auto) 3.46 1.4-6.5 K/uL Lymphocytes # (Auto) 0.66 1.2-3.4 K/uL Monocytes # (Auto) 0.55 0.11-0.59 K/uL Eosinophils # (Auto) 0.09 0-0.5 K/uL Basophils # (Auto) 0.01 0-0.2 K/uL RDW Standard Deviation 51.9 36.4-46.3 fL RDW Coefficient of Variation 19.5 11.5-14.5 % Immature Granulocyte % (Auto) 0.2 % Immature Granulocyte # (Auto) 0.01 0.00-0.02 K/uL Hypochromasia PRESENT Microcytosis PRESENT Prothrombin Time 10.9 9.0-12.0 SECONDS Prothromb Time International Ratio 1.0 0.9-1.1 Activated Partial Thromboplast Time 19.6 21.0-31.0 SECONDS Partial Thromboplastin Ratio 0.8 Sodium Level 141 136-145 mmol/L Potassium Level 3.5 3.5-5.1 mmol/L Chloride Level 103 98-107 mmol/L Carbon Dioxide Level 34 21-32 mmol/L Anion Gap 4.0 3-11 mmol/L Blood Urea Nitrogen 29 7-18 mg/dl Creatinine 0.64 0.60-1.20 mg/dl Est Creatinine Clear Calc Drug Dose 93.1 ml/min Estimated GFR () 104.1 Estimated GFR (Non- 89.8 BUN/Creatinine Ratio 44.7 10-20 Random Glucose 104 70-99 mg/dl Calcium Level 9.1 8.5-10.1 mg/dl EKG JACQUELINE FLYNN ID:[id number] 30-AUG-2016 11:39:55 [facility] Poor data quality, interpretation may be adversely affected Normal sinus rhythm Left ventricular hypertrophy with repolarization abnormality Abnormal ECG When compared with ECG of 07-JUL-2016 12:47, No significant change was found Confirmed by FADI CAMPOS MD ([id number]) on 08/30/2016 1:35:19 PM 25mm/s 10mm/mV 150Hz 8.0 SP2 12SL 241 HD CASSIA: 12 Referred by: Confirmed By: MD BETH APONTE Vent. rate 74 BPM TX interval 176 ms QRS duration 90 ms QT/QTc 362/401 ms P-R-T axes 88 -28 53 1945 (70 yr) Female 111in 1lb Room: Loc: Tube Inspector: [id number] Test ind: Impression Assessment and Plan Patient is a pleasant 70 y/o female, with PMHx of refractory iron deficiency anemia, complex partial seizures, Parkinson's disease, multisystem atrophy, hypothyroidism, HTN, hyperlipidemia, asthma, and GERD, who presented to the ED because of symptomatic anemia. Symptomatic anemia w/ hgb of 5.7 due to h/o refractory iron deficiency anemia- follows w/ Dr. Jean: - Admit to tele for cardiac monitoring - O2 protocol- wears 2L O2 chronically - Trend H&H - Transfusion of 2 U PRBCs started in ED; follow-up H&H and transfusion PRN - Check stool Hemoccult - b12/folate checked 03/22/16- continue supplements - Consult hematology, appreciate recommendations Ongoing incomplete bladder emptying/incontinence, h/o ESBL UTI- follows w/ Dr. Panchal: - Place Fair - Check UA - Consult urology, appreciate recommendations Chronic diastolic CHF- STABLE- follows w/ Dr. Ortiz: - Continue Lasix 20 mg QAM and PRN weight gain - Last ECHO 07/11/16 * 1. Normal LV size. Mild concentric LVH. * 2. Normal LV systolic function. LVEF 55-60 %. No regional wall motion abnormalities. Grade 1 diastolic dysfunction. * 3. Mildly dilated RV, normal RV function. * 4. No significant valvular pathology. * 5. Mild pulmonary hypertension. Estimated PASP 40-45 mmHg. Est RA 8 mmHg * 6. Severe biatrial dilation * 7. Compared with prior study on 04/25/2015: No significant change Asthma- STABLE: Continue home inhalers HTN- STABLE: Continue Amlodipine 5 mg QAM Parkinson's disease/complex partial seizures, multisystem atrophy- follows w/ Dr. Villa: Continue Sinemet 0.5 tab BID, Keppra 500 mg BID Hyperlipidemia: Continue Zocor 10 mg QPM Hyperthyroidism: - Continue Synthroid 112 mcg daily - Last TSH 07/07/16- WNL GERD: Protonix 40 mg daily DVT Prophylaxis: TEDs/SCDs; chemical means contraindicated due to anemia Code Status: LEVEL V, DNR Dispo: Resident of [facility]- social media manager consulted - PT/OT once hgb stabilizes I personally interviewed and examined the patient I discussed the above plan with Miss Alexandra Brar I agree with her Hx and PE 70 y/o/F with Hx of persistent anemia s/p multiple transfusions, Hx of EGD and colonoscopy 2 years ago that was negative. presented with recurrent worsening of anemia. 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 Y/N: Yes Risk Level: Moderate Given or contraindicated: T.E.D. Stockings, SCD's, Contraindicated
[2016-08-30] MEDS: ARTIFICIAL TEARS OP SOLN OP SCH ×4 (17:16→20:59)
[2016-08-30 19:21] LABS: HEMATOCRIT 23.4 % (37-47)
[2016-08-30] MEDS: FLUTICASONE/SALMETEROL 250/50 (ADVAIR) 14 PUFF/1 INHALER INH SCH (20:59)
[2016-08-30] MEDS ORDERED: SIMVASTATIN 10 MG TAB PO SCH (21:00)
[2016-08-30] MEDS ORDERED: NON-FORMULARY MEDICATION (Coenzyme Q10 (Ubidecarenone) (Co Q 10) 100 MG) PO SCH (21:00)
[2016-08-30] MEDS ORDERED: MONTELUKAST SOD 10 MG TAB PO SCH (21:00)
[2016-08-30] MEDS: CARBIDOPA/LEVODOPA 25/100MG TAB PO SCH (21:01)
[2016-08-30] MEDS: LEVETIRACETAM 500 MG TAB PO SCH (21:01)
[2016-08-31] VITALS (12 sets, daily range): BP systolic 102–150; BP diastolic 61–73; PULSE 61–79; TEMP 36.5–36.9; O2SAT 96–99
[2016-08-31 00:47] LABS: HEMATOCRIT 21.8 % (37-47)
[2016-08-31 02:36] LABS: URINE APPEARANCE CLOUDY (CLEAR); URINE BILIRUBIN NEG (NEG); URINE COLOR YELLOW; URINE NITRITE POS (NEG); URINE PH 6.5 (4.5-7.5); URINE SPECIFIC GRAVITY 1.019 (1.000-1.030); UROBILINOGEN NEG (NEG); ZZURINE CULT IF INDIC CATH YES
[2016-08-31 02:47] LABS: MANUAL MICROSCOPIC REQUIRED? NO; REVIEW REQ? YES
[2016-08-31] MEDS ORDERED: LEVOTHYROXINE 112 MCG TAB PO SCH (06:00)
[2016-08-31] MEDS: FLUTICASONE/SALMETEROL 250/50 (ADVAIR) 14 PUFF/1 INHALER INH SCH (07:33)
[2016-08-31] MEDS: LEVETIRACETAM 500 MG TAB PO SCH (07:34)
[2016-08-31] MEDS: CARBIDOPA/LEVODOPA 25/100MG TAB PO SCH (07:34)
[2016-08-31] MEDS: ARTIFICIAL TEARS OP SOLN OP SCH ×4 (07:35→13:17)
[2016-08-31 08:41] LABS: HEMATOCRIT 28.1 % (37-47); MEAN CORPUSCULAR HEMOGLOBIN 23.6 pg (25-34); MEAN CORPUSCULAR HGB CONC 30.6 g/dl (32-36); MEAN PLATELET VOLUME 9.5 fL (7.4-10.4); PLATELET COUNT 214 K/uL (130-400); RED BLOOD COUNT 3.65 M/uL (4.2-5.4); WHITE BLOOD COUNT 4.91 K/uL (4.8-10.8)
[2016-08-31] MEDS ORDERED: CALCIUM 600MG + VIT D 400 IU TAB PO SCH (09:00)
[2016-08-31] MEDS ORDERED: PANTOprazole SOD 40 MG TAB PO SCH (09:00)
[2016-08-31] MEDS ORDERED: CHOLECALCIFEROL 1000 INTER.UNIT TAB PO SCH (09:00)
[2016-08-31] MEDS ORDERED: AMLODIPINE BESYLATE 5 MG TAB PO SCH (09:00)
[2016-08-31] MEDS ORDERED: FUROSEMIDE 20 MG TAB PO SCH ×2 (09:00)
[2016-08-31] MEDS ORDERED: CYANOCOBALAMIN 500 MCG TAB (VIT B-12) PO SCH (09:00)
[2016-08-31 09:12] LABS: BUN/CREATININE RATIO 28.1 (10-20); CALCIUM 8.7 mg/dl (8.5-10.1); CREATININE 0.69 mg/dl (0.60-1.20); POTASSIUM 3.7 mmol/L (3.5-5.1)
--- NOTE | 2016-08-31 11:20 | Urology Consultation ---
History General Date of Service: Aug 31, 2016. Chief Complaint: urinary retention Primary Care Physician: Bill Young MD Pt seen a urologist before?: Yes (Merly YOON) If yes, why?: urinary retention History of Present Illness 70 yo female with Parkinson's disease and MSA admitted with anemia. consulted for UR. The pt saw Merly YOON in our office last week, and was noted to have developed UR over the past month. Munoz in place at that time. [facility], but the pt was unable to void and required straight cathing. Munoz replaced since admission, and is currently draining clear, yellow urine. The pt reports her physical function has dramatically declined within the past year. Her ambulation and speech have been affected as well. She reports that her seems to be in denial about her physical decline and no longer talks to her because he cannot hear her well. She also states that he is not paying their bills on time as she was previously doing this task for them. Laboratory Labs were reviewed and are within normal limits unless listed below. Labs are available in the chart and at [facility] Problem List Medical Problems: (1) Cellulitis Status: Acute (2) Congestive heart failure (CHF) Status: Acute (3) Dehydration Status: Acute (4) Flu-like symptoms Status: Acute (5) Guaiac positive stools Status: Acute (6) Hypertension Status: Acute (7) Profound anemia Status: Acute (8) Severe anemia Status: Acute (9) Shortness of breath Status: Acute (10) Urinary tract infection Status: Acute (11) Weakness Status: Acute Past History arthritis, asthma, deep vein thrombosis, diabetes, GERD, high cholesterol, hypertension, hypothyroidism, seizure, urinary tract infection, other (Parkinson 's disease, multisystem atrophy) Past Surgical History: , colonoscopy, EGD, TKR (bilateral ), other Family History Blood disorder Heart disease Social History Hx Tobacco Use In Past Year?: No Smoking: non-smoker Alcohol: never Drug use: none Marital status: Housing status: lives with family Occupation status: retired Immunizations History of Influenza Vaccine: Yes History of Tetanus Vaccine?: Yes History of Pneumococcal: No History of Hepatitis B Vaccine: Yes History of MDRO No Allergies Coded Allergies: Iodinated Diagnostic Agents (Verified Allergy, Severe, SHORTNESS OF BREATH , 08/30/16) Gluten (Verified Allergy, Intermediate, GI SYMPTOMS, 08/30/16) Latex (Verified Allergy, Intermediate, RASH, 08/30/16) Aspirin (Verified Allergy, Unknown, 08/30/16) Chocolate (Unverified Allergy, Unknown, UNKNOWN, 08/30/16) Ibuprofen (Verified Allergy, Unknown, 08/30/16) Latex1 -Allergic Contact Dermititis (Verified Allergy, Unknown, 08/30/16) Lisinopril (Unverified Allergy, Unknown, UNKNOWN, 01/18/16) Meperidine (Unverified Allergy, Unknown, UNKNOWN, 08/30/16) Metformin (Unverified Allergy, Unknown, GI SYMPTOMS, 08/30/16) Midazolam (Verified Allergy, Unknown, UNKN, 08/30/16) Nut Tree (Unverified Allergy, Unknown, UNKNOWN, 08/30/16) Peanut (Unverified Allergy, Unknown, UNKNOWN, 08/30/16) Penicillins (Verified Allergy, Unknown, SHORTNESS OF BREATH, 08/30/16) (FROM UNCODED ALLERGIES) Sulfa Antibiotics (Verified Allergy, Unknown, UNKNOWN, 08/30/16) Medications Home Medications: Home Meds and Scripts Medications Dose Route/Sig Max Daily Dose Days Date Category Dose Instructions Lasix (Furosemide) 20 Mg Tab 20 Mg PO DAILY 08/30/16 Reported Keppra (Levetiracetam) 500 Mg Tab 500 Mg PO BID 08/30/16 Reported Gold Melchor (Menthol-Zinc Oxide) 1 Pow Pow 1 Appln TOP TID 08/30/16 Reported THIGHS & GROIN AREA Co Q 10 (Coenzyme Q10 (Ubidecarenone)) 100 Mg Cap 100 Mg PO AMHS 08/30/16 Reported Sinemet 25MG/100MG (Carbidopa/Levodopa) Tab 0.5 Tab PO BID 08/30/16 Reported Artificial Tears (Artificial Tear Solution) 1 Johanny Johanny 1 Drops OP QID 08/30/16 Reported Albuterol Sulfate (Albuterol Sulf) 2.5 Mg/0.5 Ml Nebu 3 Ml NEB Q6 PRN 08/30/16 Reported Amlodipine Besylate 5 Mg Tab 5 Mg PO QAM 14 07/14/16 Rx Vitamin D3 (Cholecalciferol) 2,000 Unit Cap 2,000 Units PO DAILY 90 04/30/16 Reported Vitamin B-12 (Cyanocobalamin) 250 Mcg Tab 250 Mcg PO DAILY 01/18/16 Reported Lasix (Furosemide) 20 Mg Tab 20 Mg PO DAILY 01/18/16 Reported ADMINISTER AN EXTRA 20MG IF WEIGHT IS OVER 220 LBS Advair Diskus 250/50 60 Dose (Fluticasone Prop/Salmeterol) 1 Ea Aerp 1 Puffs INH BID 01/18/16 Reported Synthroid (Levothyroxine Sodium) 112 Mcg Tab 112 Mcg PO DAILY 04/20/15 Reported Caltrate 600+D (Calcium Carbonate-Cholecalcife) 1 Tab Tab 1 Tab PO DAILY 10/15/14 Reported Zocor (Simvastatin) 10 Mg Tab 10 Mg PO QPM 08/12/14 Reported Prilosec (Omeprazole) 20 Mg Cap 20 Mg PO DAILY 04/23/14 Reported Montelukast Sodium (Montelukast Sod) 10 Mg Tab 10 Mg PO HS 04/23/14 Reported Inpatient Medications: Current Inpatient Medications Medications (Trade) Dose Ordered Sig/Phong Route Start Time Stop Time Status Last Admin Dose Admin Acetaminophen (Tylenol Tab) 650 mg Q4H PRN PO 08/30/16 14:00 09/29/16 13:59 Al Hydrox/Mg Hydrox/Simethicone (Maalox Max Susp) 15 ml Q4H PRN PO 08/30/16 14:00 09/29/16 13:59 Magnesium Hydroxide (Milk Of Magnesia Susp) 30 ml Q12H PRN PO 08/30/16 14:00 09/29/16 13:59 08/31/16 07:29 30 ML Ondansetron HCl (Zofran Inj) 4 mg Q6H PRN IV 08/30/16 14:00 09/29/16 13:59 Nitroglycerin (Nitrostat Tab) 0.4 mg UD PRN SL 08/30/16 14:00 09/29/16 13:59 Polyethylene (Miralax Powder Packet) 17 gm DAILY PRN PO 08/30/16 14:00 09/29/16 13:59 Albuterol Sulfate (Ventolin 0.5% 2.5MG/0.5ML Neb) 2.5 mg Q6 PRN INH 08/30/16 14:00 09/29/16 13:59 Amlodipine Besylate (Norvasc Tab) 5 mg QAM PO 08/31/16 09:00 09/30/16 08:59 Carbidopa/Levodopa (Sinemet 25/ 100MG Tab) 0.5 tab BID PO 08/30/16 21:00 09/29/16 20:59 08/31/16 07:34 0.5 TAB Cyanocobalamin (Vitamin B-12 Tab) 250 mcg DAILY PO 08/31/16 09:00 09/30/16 08:59 08/31/16 07:34 250 MCG Salmeterol Xinafoate/ Fluticasone (Advair Diskus 250/50 Inh) 1 puff BID INH 08/30/16 21:00 09/29/16 20:59 08/31/16 07:33 1 PUFF Furosemide (Lasix Tab) 20 mg DAILY PO 08/31/16 09:00 09/30/16 08:59 08/31/16 07:35 20 MG Levetiracetam (Keppra Tab) 500 mg BID PO 08/30/16 21:00 09/29/16 20:59 08/31/16 07:34 500 MG Levothyroxine Sodium (Synthroid Tab) 112 mcg DAILYBB PO 08/31/16 06:00 09/30/16 06:59 08/31/16 05:55 112 MCG Montelukast Sodium (Singulair Tab) 10 mg HS PO 08/30/16 21:00 09/29/16 20:59 08/30/16 21:01 10 MG Simvastatin (Zocor Tab) 10 mg QPM PO 08/30/16 21:00 09/29/16 20:59 08/30/16 21:01 10 MG Artificial Tears (Artificial Tears) 1 drops QID OP 08/30/16 17:00 09/29/16 16:59 08/31/16 07:35 1 DROPS Calcium/Vitamin D (Caltrate Plus Tab) 1 tab DAILY PO 08/31/16 09:00 09/30/16 08:59 08/31/16 07:34 1 TAB Cholecalciferol (Vitamin D Tab) 2,000 inter.unit DAILY PO 08/31/16 09:00 09/30/16 08:59 08/31/16 07:34 2,000 INTER.UNIT Pantoprazole Sodium (Protonix Tab) 40 mg QAM PO 08/31/16 09:00 09/30/16 08:59 08/31/16 07:34 40 MG Miscellaneous Information (Order Awaiting Action) 1 ea QS N/A 08/30/16 16:00 09/29/16 15:59 Review of Systems Review of Systems Constitutional: No fever, No chills Eyes: No double vision Neurological: No dizzy Endocrine: No excessive thirst Gastrointestinal: No abdominal pain, No nausea, No vomiting Cardiovascular: No chest pain Respiratory: No shortness of breath Skin: No rash Musculoskeletal: + arthritis Female : + urinary retention, No blood in urine Physical Exam Vital Signs: Vital Signs Past 12 Hours Date Time Temp Pulse Resp B/P (MAP) Pulse Ox O2 Delivery O2 Flow Rate FiO2 08/31/16 08:07 36.8 79 18 150/73 (98) 97 08/31/16 08:00 Nasal Cannula 2.0 08/31/16 05:56 36.7 61 18 107/61 98 2.0 08/31/16 05:04 36.7 64 16 118/68 98 2.0 08/31/16 04:44 36.7 62 16 102/62 96 2.0 08/31/16 04:25 36.9 63 18 107/64 98 2.0 08/31/16 04:10 36.5 66 16 125/67 99 2.0 08/31/16 04:00 Nasal Cannula 2.0 08/31/16 03:20 36.5 61 18 109/64 96 2.0 08/31/16 02:28 36.6 64 18 128/71 99 2.0 08/31/16 02:00 36.9 64 18 135/68 98 2.0 08/31/16 01:35 36.5 67 15 124/65 98 2.0 08/31/16 00:00 Nasal Cannula 2.0 08/30/16 23:30 36.7 72 18 132/68 (89) 99 Nasal Cannula 2.0 Physical Exam: General Appearance: no apparent distress Eyes: bilateral eyes normal inspection ENT: hearing grossly normal Neck: no JVD Respiratory/Chest: no respiratory distress, no accessory muscle use Cardiovascular: no JVD Extremities: normal inspection Neurologic/Psychiatric: alert, normal mood/affect, oriented x 3 Skin: normal color Assessment & Plan Assessment & Plan A/P: Urinary retention I suspected her Parkinson's Disease and MSA have affected her bladder as well. May consider UDS and cysto as an outpatient, but I'm uncertain if this will affect her plan of care or outcomes. For now will leave her munoz catheter in place for 1-2 weeks. May consider reattempting a TOV at that time. May need to resume straight cathing if still unable to void. Tamsulosin may be of some benefit to her as well. May consider trying if she fails repeat TOV. Will arrange for outpatient f/u with Merly YOON in 2 weeks for TOV and re- evaluation. As for her home issues with her , I think it would be helpful for either a psychiatry or social research assistant consult to help put Izabela and her in touch with someone who can help with the transition of aging and illness in the elderly. Thanks for the consult. No further management at this time. Recall PRN issues.
--- NOTE | 2016-08-31 13:14 | Discharge Instructions ---
Discharge Instructions Date of Service Aug 31, 2016. Admission Reason for Admission: Symptomatic Anemia Discharge Discharge Diagnosis / Problem: symptomatic anemia improved post transfusion Discharge Goals Goal(s): Improve disease control, Diagnostic testing Activity Recommendations Activity Level: Assistance Required Therapies: Physical Therapy, Occupational Therapy . Additional Information Patient informed of condition: Yes Advance Directives: Yes DNR: No Level of Care: Skilled (rehab empahsis) Communicable Disease: Yes Prognosis: Stable Instructions / Follow-Up Instructions / Follow-Up symptomatic anemia -improved s/p transfusion - no appearance of acute blood loss/hemorrhage - therefore most appropriate for ongoing outpatient evaluation and treatment ----ongoing outpatient heme/onc evaluation and treatment - to follow up in office 1-2 weeks ----heme/onc feels would be appropriate for repeat GI evaluations for occult GI blood loss -- would refer to GI for ongoing outpatient evaluation and treatment ---weekly CBC x 4 then as clinically indicated (or sooner if clinically indicated) Current Hospital Diet Patient's current hospital diet: AHA Diet (Heart Healthy), Gluten Free Diet Discharge Diet Recommended Diet: AHA Diet (Heart Healthy), Gluten Free Diet Pending Studies Studies pending at discharge: no Medical Emergencies . Who to Call and When: Medical Emergencies: If at any time you feel your situation is an emergency, please call 911 immediately. . Non-Emergent Contact Non-Emergency issues call your: Primary Care Provider . . "Provider Documentation" section prepared by Benja Keen. . Core Measure Problem Core Measures: None
--- NOTE | 2016-08-31 16:59 | Oncology Consultation ---
Oncology/Heme Consultation Date of Consultation: Aug 31, 2016. Attending Physician: Benja Keen D.O. Reason for Consultation: Iron-deficiency anemia, GI bleed History of Present Illness Ms. Bojorquez is a 70 year old woman who has a recurring GI bleed. She's been admitted multiple times with iron-deficiency anemia, including in January, April, and July. It appears she had an endoscopic evaluation in April of 2015, but not since. In that time, she's had confirmed heme positive stools. She was inpatient in July and, per notes from that time, refused endoscopic evaluation. She also had a tagged RBC scan in May of this year that was unrevealing. During her July admission, she was tested for hemoglobinopathies and was found to be normal. She presents this admission with symptomatic anemia. She was very short of breath with transfers in her facility and continues to have black stools. Her hemoglobin on admission here was 5.7 and improved to 8.6 with 4 units of PRBCs. She denies any overt bleeding anywhere. She received 6 weekly doses of IV Ferrlicet from 05/26 - 06/30/16 in our cancer center. Past Medical/Surgical History Medical Problems: (1) Cellulitis Status: Acute (2) Congestive heart failure (CHF) Status: Acute (3) Dehydration Status: Acute (4) Flu-like symptoms Status: Acute (5) Guaiac positive stools Status: Acute (6) Hypertension Status: Acute (7) Profound anemia Status: Acute (8) Severe anemia Status: Acute (9) Shortness of breath Status: Acute (10) Urinary tract infection Status: Acute (11) Weakness Status: Acute Family History Blood disorder Heart disease Social History Smoking Status: Never Smoker Drug Use: none Marital Status: Housing Status: lives with significant other Occupation Status: retired Allergies Coded Allergies: Iodinated Diagnostic Agents (Verified Allergy, Severe, SHORTNESS OF BREATH , 08/30/16) Gluten (Verified Allergy, Intermediate, GI SYMPTOMS, 08/30/16) Latex (Verified Allergy, Intermediate, RASH, 08/30/16) Aspirin (Verified Allergy, Unknown, 08/30/16) Chocolate (Unverified Allergy, Unknown, UNKNOWN, 08/30/16) Ibuprofen (Verified Allergy, Unknown, 08/30/16) Latex1 -Allergic Contact Dermititis (Verified Allergy, Unknown, 08/30/16) Lisinopril (Unverified Allergy, Unknown, UNKNOWN, 01/18/16) Meperidine (Unverified Allergy, Unknown, UNKNOWN, 08/30/16) Metformin (Unverified Allergy, Unknown, GI SYMPTOMS, 08/30/16) Midazolam (Verified Allergy, Unknown, UNKN, 08/30/16) Nut Tree (Unverified Allergy, Unknown, UNKNOWN, 08/30/16) Peanut (Unverified Allergy, Unknown, UNKNOWN, 08/30/16) Penicillins (Verified Allergy, Unknown, SHORTNESS OF BREATH, 08/30/16) (FROM UNCODED ALLERGIES) Sulfa Antibiotics (Verified Allergy, Unknown, UNKNOWN, 08/30/16) Home Medications Scheduled Amlodipine Besylate (Amlodipine Besylate), 5 MG PO QAM Artificial Tear Solution (Artificial Tears), 1 DROPS OP QID Calcium Carbonate-Cholecalcife (Caltrate 600+D), 1 TAB PO DAILY Carbidopa/Levodopa (Sinemet 25MG/100MG), 0.5 TAB PO BID Cholecalciferol (Vitamin D3), 2,000 UNITS PO DAILY Coenzyme Q10 (Ubidecarenone) (Co Q 10), 100 MG PO AMHS Cyanocobalamin (Vitamin B-12), 250 MCG PO DAILY Fluticasone Prop/Salmeterol (Advair Diskus 250/50 60 Dose), 1 PUFFS INH BID Furosemide (Lasix), 20 MG PO DAILY Furosemide (Lasix), 20 MG PO DAILY Levetiracetam (Keppra), 500 MG PO BID Levothyroxine Sodium (Synthroid), 112 MCG PO DAILY Menthol-Zinc Oxide (Gold Melchor), 1 APPLN TOP TID Montelukast Sod (Montelukast Sodium), 10 MG PO HS Omeprazole (Prilosec), 20 MG PO DAILY Simvastatin (Zocor), 10 MG PO QPM Scheduled PRN Albuterol Sulf (Albuterol Sulfate), 3 ML NEB Q6 PRN for [id number] Current Inpatient Medications Current Inpatient Medications Medications (Trade) Dose Ordered Sig/Phong Route Start Time Stop Time Status Last Admin Dose Admin Acetaminophen (Tylenol Tab) 650 mg Q4H PRN PO 08/30/16 14:00 09/29/16 13:59 Al Hydrox/Mg Hydrox/Simethicone (Maalox Max Susp) 15 ml Q4H PRN PO 08/30/16 14:00 09/29/16 13:59 Magnesium Hydroxide (Milk Of Magnesia Susp) 30 ml Q12H PRN PO 08/30/16 14:00 09/29/16 13:59 08/31/16 07:29 30 ML Ondansetron HCl (Zofran Inj) 4 mg Q6H PRN IV 08/30/16 14:00 09/29/16 13:59 Nitroglycerin (Nitrostat Tab) 0.4 mg UD PRN SL 08/30/16 14:00 09/29/16 13:59 Polyethylene (Miralax Powder Packet) 17 gm DAILY PRN PO 08/30/16 14:00 09/29/16 13:59 08/31/16 13:17 17 GM Albuterol Sulfate (Ventolin 0.5% 2.5MG/0.5ML Neb) 2.5 mg Q6 PRN INH 08/30/16 14:00 09/29/16 13:59 Amlodipine Besylate (Norvasc Tab) 5 mg QAM PO 08/31/16 09:00 09/30/16 08:59 Carbidopa/Levodopa (Sinemet 25/ 100MG Tab) 0.5 tab BID PO 08/30/16 21:00 09/29/16 20:59 08/31/16 07:34 0.5 TAB Cyanocobalamin (Vitamin B-12 Tab) 250 mcg DAILY PO 08/31/16 09:00 09/30/16 08:59 08/31/16 07:34 250 MCG Salmeterol Xinafoate/ Fluticasone (Advair Diskus 250/50 Inh) 1 puff BID INH 08/30/16 21:00 09/29/16 20:59 08/31/16 07:33 1 PUFF Furosemide (Lasix Tab) 20 mg DAILY PO 08/31/16 09:00 09/30/16 08:59 08/31/16 07:35 20 MG Levetiracetam (Keppra Tab) 500 mg BID PO 08/30/16 21:00 09/29/16 20:59 08/31/16 07:34 500 MG Levothyroxine Sodium (Synthroid Tab) 112 mcg DAILYBB PO 08/31/16 06:00 09/30/16 06:59 08/31/16 05:55 112 MCG Montelukast Sodium (Singulair Tab) 10 mg HS PO 08/30/16 21:00 09/29/16 20:59 08/30/16 21:01 10 MG Simvastatin (Zocor Tab) 10 mg QPM PO 08/30/16 21:00 09/29/16 20:59 08/30/16 21:01 10 MG Artificial Tears (Artificial Tears) 1 drops QID OP 08/30/16 17:00 09/29/16 16:59 08/31/16 13:17 1 DROPS Calcium/Vitamin D (Caltrate Plus Tab) 1 tab DAILY PO 08/31/16 09:00 09/30/16 08:59 08/31/16 07:34 1 TAB Cholecalciferol (Vitamin D Tab) 2,000 inter.unit DAILY PO 08/31/16 09:00 09/30/16 08:59 08/31/16 07:34 2,000 INTER.UNIT Pantoprazole Sodium (Protonix Tab) 40 mg QAM PO 08/31/16 09:00 09/30/16 08:59 08/31/16 07:34 40 MG Miscellaneous Information (Order Awaiting Action) 1 ea QS N/A 08/30/16 16:00 09/29/16 15:59 Review of Systems Constitutional: + weakness (generalized), No fever, No chills ENT: No unusual epistaxis Respiratory: No cough, No hemoptysis Cardiovascular: No chest pain, No edema Abdomen: + GI bleeding (dark stools), No pain, No nausea Genitourinary - Female: No dysuria, No hematuria Neurologic: No weakness, No numbness/tingling Hematologic / Lymphatic: No clotting problems, No swollen lymph nodes Physical Exam Date Time Temp Pulse Resp B/P (MAP) Pulse Ox O2 Delivery O2 Flow Rate FiO2 08/31/16 14:05 36.8 68 18 96 Nasal Cannula 08/31/16 12:00 Nasal Cannula 2.0 08/31/16 11:54 36.8 68 18 129/64 (85) 96 08/31/16 08:07 36.8 79 18 150/73 (98) 97 08/31/16 08:00 Nasal Cannula 2.0 08/31/16 05:56 36.7 61 18 107/61 98 2.0 08/31/16 05:04 36.7 64 16 118/68 98 2.0 08/31/16 04:44 36.7 62 16 102/62 96 2.0 08/31/16 04:25 36.9 63 18 107/64 98 2.0 08/31/16 04:10 36.5 66 16 125/67 99 2.0 08/31/16 04:00 Nasal Cannula 2.0 08/31/16 03:20 36.5 61 18 109/64 96 2.0 08/31/16 02:28 36.6 64 18 128/71 99 2.0 08/31/16 02:00 36.9 64 18 135/68 98 2.0 08/31/16 01:35 36.5 67 15 124/65 98 2.0 08/31/16 00:00 Nasal Cannula 2.0 08/30/16 23:30 36.7 72 18 132/68 (89) 99 Nasal Cannula 2.0 08/30/16 20:00 98 Nasal Cannula 2.0 08/30/16 19:33 36.8 68 16 136/66 (89) 99 Nasal Cannula 2.0 08/30/16 18:06 36.8 72 18 146/72 100 08/30/16 17:06 36.8 73 18 144/70 99 General Appearance: no apparent distress, + pertinent finding (frail-appearing elderly woman ) Eyes: EOMI, sclerae normal (anicteric) ENT: pharynx normal Respiratory/Chest: lungs clear Cardiovascular: regular rate, rhythm Abdomen/GI: non tender, soft Extremities/Musculoskelatal: non-tender Neurologic/Psych: alert, oriented x 3 Skin: no rash Laboratory Results Last 24 Hours Test 08/30/16 19:10 08/31/16 00:14 08/31/16 02:15 08/31/16 08:00 Hemoglobin 7.0 g/dL 6.7 g/dL 8.6 g/dL Hematocrit 23.4 % 21.8 % 28.1 % Urine Color YELLOW Urine Appearance CLOUDY Urine pH 6.5 Urine Specific [place] 1.019 Urine Protein 1+ Urine Glucose (UA) NEG Urine Ketones NEG Urine Occult Blood TRACE Urine Nitrite POS Urine Bilirubin NEG Urine Urobilinogen NEG Urine Leukocyte Esterase LARGE Urine WBC (Auto) >30 /hpf Urine RBC (Auto) 0-4 /hpf Urine Hyaline Casts (Auto) 0 /lpf Urine Epithelial Cells (Auto) 5-10 /lpf Urine Bacteria (Auto) 2+ Urine Pathogenic Casts /lpf White Blood Count 4.91 K/uL Red Blood Count 3.65 M/uL Mean Corpuscular Volume 77.0 fL Mean Corpuscular Hemoglobin 23.6 pg Mean Corpuscular Hemoglobin Concent 30.6 g/dl RDW Standard Deviation 51.8 fL RDW Coefficient of Variation 18.2 % Platelet Count 214 K/uL Mean Platelet Volume 9.5 fL Sodium Level 141 mmol/L Potassium Level 3.7 mmol/L Chloride Level 103 mmol/L Carbon Dioxide Level 34 mmol/L Anion Gap 4.0 mmol/L Blood Urea Nitrogen 19 mg/dl Creatinine 0.69 mg/dl Est Creatinine Clear Calc Drug Dose 86.3 ml/min Estimated GFR () 101.5 Estimated GFR (Non- 87.6 BUN/Creatinine Ratio 28.1 Random Glucose 101 mg/dl Calcium Level 8.7 mg/dl Assessment & Plan Ms. Bojorquez has persistent microcytic anemia with documented low iron. This is almost certainly due to a persistent GI bleed. Given her black stools, I suspect this is an upper GI source. She had an endoscopic evaluation last more than a year ago, based on records in [place], though it's possible she's had other workup since then. A tagged RBC scan in May was negative, but those are often negative unless there is a brisk, active bleed. The transfusion has addressed her acute hemoglobin drop. She should be evaluated by GI for another endoscopic workup, especially an EGD. She may also need a capsule study or even , if she would tolerate it, an enteroscopy. This would need to be done at a center that performs advanced endoscopy. She should follow up with GI and with our clinic to reassess her iron stores. The blood should help replete her iron, but she may need more.
--- NOTE | 2016-08-31 19:27 | Discharge Summary ---
Discharge Summary Date of Service Aug 31, 2016. Discharge Summary Admission Date: Aug 30, 2016 at 14:02 Discharge Date: Aug 31, 2016 Discharge Disposition: snf facility Principal Diagnosis: acute on chronic anemia Immunizations: Have You Had Influenza Vaccine: Yes History of Tetanus Vaccine?: Yes History of Pneumococcal: No History of Hepatitis B Vaccine: Yes Procedures: transfusion 2 units PRBC Consultations: heme/onc: Ms. Bojorquez has persistent microcytic anemia with documented low iron. This is almost certainly due to a persistent GI bleed. Given her black stools, I suspect this is an upper GI source. She had an endoscopic evaluation last more than a year ago, based on records in [facility], though it's possible she's had other workup since then. A tagged RBC scan in May was negative, but those are often negative unless there is a brisk, active bleed. The transfusion has addressed her acute hemoglobin drop. She should be evaluated by GI for another endoscopic workup, especially an EGD. She may also need a capsule study or even , if she would tolerate it, an enteroscopy. This would need to be done at a center that performs advanced endoscopy. She should follow up with GI and with our clinic to reassess her iron stores. The blood should help replete her iron, but she may need more. 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 May consider UDS and cysto as an outpatient, but I'm uncertain if this will affect her plan of care or outcomes. For now will leave her munoz catheter in place for 1-2 weeks. May consider reattempting a TOV at that time. May need to resume straight cathing if still unable to void. Tamsulosin may be of some benefit to her as well. May consider trying if she fails repeat TOV. Will arrange for outpatient f/u with Merly YOON in 2 weeks for TOV and re- evaluation. As for her home issues with her , I think it would be helpful for either a psychiatry or adoption social worker consult to help put Izabela and her in touch with someone who can help with the transition of aging and illness in the elderly. Thanks for the consult. No further management at this time. Recall PRN issues. Medication Reconciliation Continued Medications: Albuterol Sulf (Albuterol Sulfate) 2.5 Mg/0.5 Ml Nebu 3 ML NEB Q6 PRN for DYSPNEA Amlodipine Besylate (Amlodipine Besylate) 5 Mg Tab 5 MG PO QAM for 14 Days, #14 TAB Artificial Tear Solution (Artificial Tears) 1 Johanny Johanny 1 DROPS OP QID, #30 ML 5 Refills Calcium Carbonate-Cholecalcife (Caltrate 600+D) 1 Tab Tab 1 TAB PO DAILY Carbidopa/Levodopa (Sinemet 25MG/100MG) Tab 0.5 TAB PO BID, TAB Cholecalciferol (Vitamin D3) 2,000 Unit Cap 2000 UNITS PO DAILY for 90 Days, CAP 3 Refills Coenzyme Q10 (Ubidecarenone) (Co Q 10) 100 Mg Cap 100 MG PO AMHS Cyanocobalamin (Vitamin B-12) 250 Mcg Tab 250 MCG PO DAILY, TAB Fluticasone Prop/Salmeterol (Advair Diskus 250/50 60 Dose) 1 Ea Aerp 1 PUFFS INH BID, INHALER 3 Refills Furosemide (Lasix) 20 Mg Tab 20 MG PO DAILY for WEIGHT GAIN, TAB ADMINISTER AN EXTRA 20MG IF WEIGHT IS OVER 220 LBS Furosemide (Lasix) 20 Mg Tab 20 MG PO DAILY, TAB Levetiracetam (Keppra) 500 Mg Tab 500 MG PO BID Levothyroxine Sodium (Synthroid) 112 Mcg Tab 112 MCG PO DAILY, TAB Menthol-Zinc Oxide (Gold Melchor) 1 Pow Pow 1 APPLN TOP TID THIGHS & GROIN AREA Montelukast Sod (Montelukast Sodium) 10 Mg Tab 10 MG PO HS Omeprazole (Prilosec) 20 Mg Cap 20 MG PO DAILY Simvastatin (Zocor) 10 Mg Tab 10 MG PO QPM, TAB Discharge Exam Physical Exam: General Appearance: no apparent distress Eyes: EOMI ENT: hearing grossly normal Neck: trachea midline Respiratory/Chest: no respiratory distress, no accessory muscle use Extremities: normal inspection Neurologic/Psychiatric: home manager II-XII nml as tested, alert, normal mood/affect Skin: normal color, warm/dry Hospital Course admitted with symptomatic anemia - transfused and improved. no signs of hemorrhage or hemodynamic instability - just acute on chronic anemia - so stable for return to SNF. -heme/onc recommends re-evaluation by GI as above, as well as ongoing hematology f/u -urology recommends munoz for now as above -urine culture was sent, results still pending, no s/s sepsis, or active infection, however -- f/u and/or treat based on final culture and clinical picture once available, no treatment appearing needed based on clinical assessment at this time -weekly CBC x 4 so that if she is showing a downward trend, transfusion can be arranged before reaches symptomatic point Total Time Spent: Less than 30 minutes This includes examination of the patient, discharge planning, medication reconciliation, and communication with other providers. Discharge Instructions Please refer to the electronic Patient Visit Report (Discharge Instructions) for additional information.
[2016-09-09] MEDS ORDERED: DOCU-94 PO (10:41)
[2016-09-09] MEDS ORDERED: DIPH25CA65 PO (10:41)
== END 2016-08-31 14:30 | DRG 812 ==
LOC: EDBD 11:29 → C.EDC 11:31 → C.2T 14:02 → ENRESERV 14:24
PROVIDERS: ADMIT Internal Medicine; ATTEND Family Medicine
DX: D50.0 Iron deficiency anemia secondary to blood loss (chronic) (principal); K92.2 Gastrointestinal hemorrhage, unspecified; I50.32 Chronic diastolic (congestive) heart failure; J96.10 Chronic respiratory failure, unspecified whether with hypoxia or hypercapnia; G90.3 Multi-system degeneration of the autonomic nervous system; G40.209 Localization-related (focal) (partial) symptomatic epilepsy and epileptic syndromes with complex partial seizures, not intractable, without status epilepticus; R33.8 Other retention of urine; G20 Parkinson's disease; R32 Unspecified urinary incontinence; I11.0 Hypertensive heart disease with heart failure; E03.9 Hypothyroidism, unspecified; E78.5 Hyperlipidemia, unspecified; J45.909 Unspecified asthma, uncomplicated; K21.9 Gastro-esophageal reflux disease without esophagitis; G47.33 Obstructive sleep apnea (adult) (pediatric); E66.9 Obesity, unspecified; Z68.35 Body mass index [BMI] 35.0-35.9, adult; Z66 Do not resuscitate; Z99.81 Dependence on supplemental oxygen; Z96.653 Presence of artificial knee joint, bilateral; Z86.718 Personal history of other venous thrombosis and embolism; Z79.51 Long term (current) use of inhaled steroids; Z79.899 Other long term (current) drug therapy

== ENCOUNTER 2016-09-23 11:32 | Emergency (ER) | payer OTHER ==
[~2016-09-23] VITALS: Ht 165.1 cm; Wt 100.9 kg
[2016-09-23] VITALS (9 sets, daily range): BP systolic 143–165; BP diastolic 56–67; PULSE 64–71; TEMP 36.9–37.4; O2SAT 95–97; Ht 165.1 cm; Wt 100.9 kg
[~2016-09-23 11:32] MED LIST changes: +ARTISOL12 OP; -ASCO500T16 PO; +CARB25TA12 PO; +COEN1CAP17 PO; -CPR500 PO; -DIPH1TAB PO; +DIPH25CA65 PO; +DOCU-94 PO; +LEVE500T13 PO; -LEVE750T PO; +MENTPOW4 TOP; +PRVIN525X NEB
--- NOTE | 2016-09-23 12:03 | EMERGENCY ROOM VISIT NOTE ---
History Report prepared by Jodi: Chrsitina Gray Under the Supervision of: Dr. Ion Blackmon D.O. First contact with patient: 11:41 Chief Complaint: OTHER COMPLAINT Stated Complaint: ABNORMAL LABS History of Present Illness The patient is a 70 year old female who presents to the Emergency Room with complaints of low hemoglobin today. She reports that she has blood transfusions frequently and that she has had 5 since May. She has shortness of breath, but denies having chest pain and black or bloody stool. She also reports having a heart murmur. She states that her PCP is Dr. Young and that her solvent mixer is Dr. Jean and that he orders the blood. Source of History: patient Onset: today Position: other (global) Quality: other (low hemoglobin) Associated Symptoms: + SOB, No chest pain, No melena, No hematochezia Review of Systems See HPI for pertinent positives & negatives. A total of 10 systems reviewed and were otherwise negative. Past Medical & Surgical Medical Problems: (1) Atypical Parkinsonism (2) Diabetes mellitus (3) DVT (deep venous thrombosis) (4) Gait disturbance (5) HTN (hypertension) (6) Hyperlipemia (7) Orthostatic hypotension (8) Polyneuropathy (9) Symptomatic anemia Surgical Problems: (1) Bilateral knee replacements Family History Blood disorder Heart disease Social History Smoking Status: Never Smoker Drug Use: none Marital Status: Housing Status: lives with significant other Occupation Status: retired Current/Historical Medications Scheduled Amlodipine Besylate (Amlodipine Besylate), 5 MG PO QAM Artificial Tear Solution (Artificial Tears), 1 DROPS OP QID Calcium Carbonate-Cholecalcife (Caltrate 600+D), 1 TAB PO DAILY Carbidopa/Levodopa (Sinemet 25MG/100MG), 1 TAB PO BID Cholecalciferol (Vitamin D3), 2,000 UNITS PO DAILY Coenzyme Q10 (Ubidecarenone) (Co Q 10), 100 MG PO AMHS Cyanocobalamin (Vitamin B-12), 250 MCG PO DAILY Diphenhydramine Hcl (Benadryl Allergy), 1 CAP PO prn Docusate Sodium (Colace), 1 CAP PO Q2D Ferrous Sulfate (Kp Ferrous Sulfate), 1 TAB PO BID Fluticasone Prop/Salmeterol (Advair Diskus 250/50 60 Dose), 1 PUFFS INH BID Furosemide (Lasix), 20 MG PO DAILY Furosemide (Lasix), 20 MG PO DAILY Levetiracetam (Keppra), 250 MG PO BID Levothyroxine Sodium (Synthroid), 112 MCG PO DAILY Menthol-Zinc Oxide (Gold Melchor), 1 APPLN TOP TID Montelukast Sod (Montelukast Sodium), 10 MG PO HS Nystatin (Topical) (Nystatin), 1 APPLN TOP BID Omeprazole (Prilosec), 20 MG PO DAILY Simvastatin (Zocor), 10 MG PO QPM Scheduled PRN Albuterol Sulf (Albuterol Sulfate), 3 ML NEB Q6 PRN for DYSPNEA Allergies Coded Allergies: Iodinated Diagnostic Agents (Verified Allergy, Severe, SHORTNESS OF BREATH , 09/23/16) Gluten (Verified Allergy, Intermediate, GI SYMPTOMS, 09/23/16) Latex (Verified Allergy, Intermediate, RASH, 09/23/16) Aspirin (Verified Allergy, Unknown, 09/23/16) Chocolate (Unverified Allergy, Unknown, UNKNOWN, 09/23/16) Ibuprofen (Verified Allergy, Unknown, 09/23/16) Latex1 -Allergic Contact Dermititis (Verified Allergy, Unknown, 09/23/16) Lisinopril (Unverified Allergy, Unknown, UNKNOWN, 09/23/16) Meperidine (Unverified Allergy, Unknown, UNKNOWN, 09/23/16) Metformin (Unverified Allergy, Unknown, GI SYMPTOMS, 09/23/16) Midazolam (Verified Allergy, Unknown, UNKN, 09/23/16) Nut Tree (Unverified Allergy, Unknown, UNKNOWN, 09/23/16) Peanut (Unverified Allergy, Unknown, UNKNOWN, 09/23/16) Penicillins (Verified Allergy, Unknown, SHORTNESS OF BREATH, 09/23/16) (FROM UNCODED ALLERGIES) Sulfa Antibiotics (Verified Allergy, Unknown, UNKNOWN, 09/23/16) Physical Exam Vital Signs Date Time Temp Pulse Resp B/P (MAP) Pulse Ox O2 Delivery O2 Flow Rate FiO2 09/23/16 18:22 36.9 70 20 132/53 98 2.0 09/23/16 17:12 67 09/23/16 17:09 37.2 67 18 160/64 97 2.0 09/23/16 16:31 37.4 71 20 165/67 97 2.0 09/23/16 16:21 37.2 66 18 160/62 96 2.0 09/23/16 15:52 37.1 67 22 158/59 97 2.0 09/23/16 15:34 37.1 67 20 158/62 97 2.0 09/23/16 15:18 37.2 67 20 153/61 97 2.0 09/23/16 15:04 37.0 64 16 148/60 96 2.0 09/23/16 14:48 37.0 66 20 143/59 97 09/23/16 14:38 37.0 68 18 143/59 97 2.0 09/23/16 13:38 68 16 129/55 98 09/23/16 12:13 71 09/23/16 11:41 37.0 73 20 158/72 99 Nasal Cannula 2.0 Physical Exam GENERAL: Patient is awake, alert, and in no acute distress. Patient is resting comfortably and showing no signs of anxiety EYES: The conjunctivae are clear. The pupils are round and reactive. EARS, NOSE, MOUTH AND THROAT: The nose is without any evidence of any deformity. Mucous membranes are moist tongue is midline NECK: The neck is nontender and supple. RESPIRATORY: Normal respiratory effort is noted there is no evidence of wheezing rhonchi or rales CARDIOVASCULAR: Regular rate and rhythm noted. Systolic murmur was appreciated. GASTROINTESTINAL: The abdomen is soft. Bowel sounds are present in all quadrants. Abdomen is nontender MUSCULOSKELETAL/EXTREMITIES: There is no evidence of gross deformity full range of motion is noted in the hips and shoulders SKIN: There is no obvious evidence of any rash. There are no petechiae, pallor or cyanosis noted. Pitting edema bilaterally. NEUROLOGIC: Patient is awake alert and oriented x3. Medical Decision & Procedures Laboratory Results 09/23/16 12:38 Red Blood Count 3.11, Mean Corpuscular Volume 80.7, Mean Corpuscular Hemoglobin 25.4, Mean Corpuscular Hemoglobin Concent 31.5, Mean Platelet Volume 10.7, Neutrophils (%) (Auto) 78.2, Lymphocytes (%) (Auto) 11.3, Monocytes (%) (Auto) 8.4, Eosinophils (%) (Auto) 1.6, Basophils (%) (Auto) 0.1, Neutrophils # (Auto) 5.89, Lymphocytes # (Auto) 0.85, Monocytes # (Auto) 0.63, Eosinophils # (Auto) 0.12, Basophils # (Auto) 0.01 09/23/16 12:38 Test 09/23/16 12:38 09/23/16 14:05 09/23/16 17:08 White Blood Count 7.53 K/uL (4.8-10.8) Red Blood Count 3.11 M/uL (4.2-5.4) Hemoglobin 7.9 g/dL (12.0-16.0) Hematocrit 25.1 % (37-47) Mean Corpuscular Volume 80.7 fL (80-100) Mean Corpuscular Hemoglobin 25.4 pg (25-34) Mean Corpuscular Hemoglobin Concent 31.5 g/dl (32-36) Platelet Count 250 K/uL (130-400) Mean Platelet Volume 10.7 fL (7.4-10.4) Neutrophils (%) (Auto) 78.2 % Lymphocytes (%) (Auto) 11.3 % Monocytes (%) (Auto) 8.4 % Eosinophils (%) (Auto) 1.6 % Basophils (%) (Auto) 0.1 % Neutrophils # (Auto) 5.89 K/uL (1.4-6.5) Lymphocytes # (Auto) 0.85 K/uL (1.2-3.4) Monocytes # (Auto) 0.63 K/uL (0.11-0.59) Eosinophils # (Auto) 0.12 K/uL (0-0.5) Basophils # (Auto) 0.01 K/uL (0-0.2) RDW Standard Deviation 63.9 fL (36.4-46.3) RDW Coefficient of Variation 21.5 % (11.5-14.5) Immature Granulocyte % (Auto) 0.4 % Immature Granulocyte # (Auto) 0.03 K/uL (0.00-0.02) Hypochromasia PRESENT Anisocytosis PRESENT Anion Gap 3.0 mmol/L (3-11) Est Creatinine Clear Calc Drug Dose 92.0 ml/min Estimated GFR () 103.0 Estimated GFR (Non- 88.9 BUN/Creatinine Ratio 36.7 (10-20) Calcium Level 8.9 mg/dl (8.5-10.1) Total Bilirubin 0.3 mg/dl (0.2-1) Direct Bilirubin < 0.1 mg/dl (0-0.2) Aspartate Amino Transf (AST/SGOT) 12 U/L (15-37) Alanine Aminotransferase (ALT/SGPT) 6 U/L (12-78) Alkaline Phosphatase 85 U/L (45-117) Total Protein 6.2 gm/dl (6.4-8.2) Albumin 3.1 gm/dl (3.4-5.0) Prothrombin Time 10.8 SECONDS (9.0-12.0) Prothromb Time International Ratio 1.0 (0.9-1.1) Activated Partial Thromboplast Time 26.2 SECONDS (21.0-31.0) Partial Thromboplastin Ratio 1.0 Urine Occult Blood NEG (NEG) Urine RBC (Auto) 0-4 /hpf (0-4) Laboratory results per my review. Medications Administered Medications (Trade) Dose Ordered Sig/Phong Route Start Time Stop Time Status Last Admin Dose Admin Diphenhydramine HCl (Benadryl Inj) 25 mg NOW STAT IV 09/23/16 16:35 09/23/16 16:37 DC 09/23/16 16:46 25 MG Acetaminophen (Tylenol Tab) 1,000 mg NOW STAT PO 09/23/16 16:35 09/23/16 16:37 DC 09/23/16 16:44 1,000 MG ED Course 1215: The patient was evaluated in room C6. A complete history and physical examination were performed. 1245: I discussed the patient's case with Dr. Jean. The patient will be evaluated for further management. 1448: Her blood is getting started right now. 1420: Upon reevaluation, the patient is resting comfortably. I discussed the results and treatment plan with her. She verbalized agreement of the treatment plan. She was discharged home. Medical Decision Differential diagnosis: Etiologies such as metabolic, infection, hypo/hyperglycemia, electrolyte abnormalities, cardiac sources, intracerebral event, toxicologic, neurologic, as well as others were entertained. Nursing notes reviewed. I discussed his case with the patient's primary oncologist. The patient is a 70-year-old female with a history of chronic anemia who was sent to the emergency department for evaluation and blood transfusion. The patient receives chronic blood transfusion and was sent home from her recent blood transfusions because she had a possible reaction. The patient has no complaints at this time. I discussed her case with the on-call [facility] hospitalist group. They've requested that I try to give the patient a transfusion in the emergency department. The patient did tolerate a partial blood transfusion started having a spike in her blood pressure as well as a fever. She was treated with Tylenol and Benadryl. Given the patient's hemoglobin I feel that she can follow-up as an outpatient at this time. She was encouraged to continue all medications as prescribed and return to the emergency department immediately if symptoms change worsen or the need arises. Medication Reconcilliation Current Medication List: was personally reviewed by me Blood Pressure Screening Patient's blood pressure: Elevated blood pressure Blood pressure disposition: Elevated BP felt to be situational Consults Time Called: 1230 Consulting Physician: Dr. Jean-Hematology Returned Call: [phone] I discussed the patient's case with Dr. Jean. The patient will be evaluated for further management. Impression Primary Impression: Chronic anemia Scribe Attestation The scribe's documentation has been prepared under my direction and personally reviewed by me in its entirety. I confirm that the note above accurately reflects all work, treatment, procedures, and medical decision making performed by me. Departure Information Dispostion Home / Self-Care Referrals Bill Young MD (PCP) Brien Jean D.O. Forms HOME CARE DOCUMENTATION FORM, IMPORTANT VISIT INFORMATION, WORK / SCHOOL INSTRUCTIONS Patient Instructions ED Anemia Type Not Specified, My [facility], Transfusion Blood When Need Additional Instructions Follow-up with your family doctor soon as possible.
[2016-09-23] MEDS ORDERED: NYST80OI TOP (12:41)
[2016-09-23] MEDS ORDERED: FERR1TAB13 PO (12:46)
[2016-09-23 13:09] LABS: BASO % 0.1 %; BASO ABS # 0.01 K/uL (0-0.2); EOS % 1.6 %; HEMATOCRIT 25.1 % (37-47); IG% 0.4 %; LYMPH % 11.3 %; LYMPH ABS # 0.85 K/uL (1.2-3.4); MEAN CELL VOLUME 80.7 fL (80-100); MEAN CORPUSCULAR HEMOGLOBIN 25.4 pg (25-34); MEAN CORPUSCULAR HGB CONC 31.5 g/dl (32-36); MEAN PLATELET VOLUME 10.7 fL (7.4-10.4); MONO % 8.4 %; NEUT % 78.2 %; PLATELET COUNT 250 K/uL (130-400); RED BLOOD COUNT 3.11 M/uL (4.2-5.4); WHITE BLOOD COUNT 7.53 K/uL (4.8-10.8)
[2016-09-23 13:16] LABS: ALT/SGPT 6 U/L (12-78); BLOOD UREA NITROGEN 24 mg/dl (7-18); BUN/CREATININE RATIO 36.7 (10-20); CALCIUM 8.9 mg/dl (8.5-10.1); CARBON DIOXIDE 34 mmol/L (21-32); CHLORIDE 102 mmol/L (98-107); CREATININE 0.66 mg/dl (0.60-1.20); GLUCOSE 91 mg/dl (70-99); POTASSIUM 3.7 mmol/L (3.5-5.1); SODIUM 139 mmol/L (136-145)
[2016-09-23 13:19] LABS: ALKALINE PHOSPHATASE 85 U/L (45-117); AST/SGOT 12 U/L (15-37)
[2016-09-23 13:37] LABS: ANISOCYTOSIS PRESENT; COMPLETE YES; HYPOCHROMIA PRESENT
[2016-09-23 14:26] LABS: PROTHROMBIN TIME (PATIENT) 10.8 SECONDS (9.0-12.0)
[2016-09-23] MEDS ORDERED: ACETAMINOPHEN 500 MG TAB PO STA (16:35)
[2016-09-23] MEDS ORDERED: DiphenhydrAMINE HCL 50 MG/ML VIAL IV STA (16:35)
== END 2016-09-23 19:25 | disposition home or self-care (01) ==
LOC: EDSEX 11:32 → EDBD 11:32 → C.EDC 11:33
DX: D64.9 Anemia, unspecified (principal); R06.02 Shortness of breath; R01.1 Cardiac murmur, unspecified; E11.9 Type 2 diabetes mellitus without complications; E78.5 Hyperlipidemia, unspecified; I10 Essential (primary) hypertension; Z79.899 Other long term (current) drug therapy; Z86.2 Personal history of diseases of the blood and blood-forming organs and certain disorders involving the immune mechanism; Z82.49 Family history of ischemic heart disease and other diseases of the circulatory system; Z83.2 Family history of diseases of the blood and blood-forming organs and certain disorders involving the immune mechanism

== ENCOUNTER 2017-03-04 17:18 | Inpatient (IN) | payer OTHER ==
[~2017-03-04] VITALS: Ht 165.1 cm; Wt 100.4 kg
[~2017-03-04 17:18] MED LIST changes: +ACET-1256 PO; -CALC-354 PO; -CARB25TA12 PO; +CLIN300C2 PO; -COEN1CAP17 PO; -CYAN250T PO; -DIPH25CA65 PO; -DOCU-94 PO; -LEVE500T13 PO; -LEVO112T2 PO; +NYST80OI TOP; -OMEP20CA9 PO; +OXYBUTIN PO; -SNG10 PO; +SPCCR30 TOP
[2017-03-04] MEDS ORDERED: ALBUT/IPRATROP 3MG/0.5MG NEB 3 ML VIAL INH STA (17:37)
--- NOTE | 2017-03-04 17:57 | DIAGNOSTIC IMAGING REPORT ---
CHEST ONE VIEW PORTABLE HISTORY: EVALUATE RESPIRATORY DISTRESS.DYSPNEA COMPARISON: Chest 07/07/2016. FINDINGS: No pneumothorax. The heart remains enlarged. Linear densities the left lung base favor subsegmental atelectasis. Patchy airspace airspace opacities within the right mid to lower lung zone. This is new from the prior study. No definite pleural effusions. IMPRESSION: There are new patchy airspace opacities within the right mid to lower lung zone. This likely represents a pneumonia. However, an asymmetric pulmonary edema could also have a similar appearance. Electronically signed by: Malik Shrestha M.D. 03/04/2017 5:56 PM Dictated Date/Time: 03/04/2017 5:54 PM
[2017-03-04] MEDS ORDERED: CEFEPIME IV 1,000 MG in DEXTROSE 5% 100ML 100 ML IV STA (18:16)
[2017-03-04] MEDS ORDERED: LEVAQUIN 750MG / 150ML D5W IV STA (18:16)
--- NOTE | 2017-03-04 18:35 | EMERGENCY ROOM VISIT NOTE ---
History Report prepared by Jodi: Juanito Yoo Under the Supervision of: Dr. Khai Wood M.D. First contact with patient: 17:21 Stated Complaint: ILLNESS History of Present Illness The patient is a 71 year old female who presents to the Emergency Room with complaints of flu-like symptoms that began five days ago. At this time, the patient was diagnosed with pneumonia and was placed onto Tamiflu and Levaquin. She has been experiencing fever, cough, congestion, and shortness of breath. However, her shortness of breath has worsened significantly over this past week and she has not improved with her medications. Pt denies LOC, headache, chills, diaphoresis, visual changes, neck pain, chest pain, nausea, vomiting, abdominal pain, back pain, melena, hematochezia, urinary symptoms, numbness, weakness, lymphadenopathy, rash, or other complaints. She notes that she has a catheter in place that is chronic. She also has had a decreased appetite. Source of History: patient Onset: five days ago Position: other (Global) Symptom Intensity: moderate Quality: other (Flu-like symptoms) Timing: worsening Associated Symptoms: + fevers, + cough, + SOB Note: She has congestion and a decreased appetite. Review of Systems See HPI for pertinent positives and negatives. A total of ten systems were reviewed and were otherwise negative. Past Medical & Surgical Medical Problems: (1) Acute respiratory failure with hypoxia (2) Atypical Parkinsonism (3) Diabetes mellitus (4) DVT (deep venous thrombosis) (5) Gait disturbance (6) HTN (hypertension) (7) Hyperlipemia (8) Orthostatic hypotension (9) Pneumonia involving right lung (10) Polyneuropathy (11) Symptomatic anemia Surgical Problems: (1) Bilateral knee replacements Family History Blood disorder Heart disease Social History Smoking Status: Never Smoker Drug Use: none Marital Status: Housing Status: lives with significant other Occupation Status: retired Current/Historical Medications Scheduled Albuterol Sulf (Albuterol Sulfate), 3 ML NEB Q6 Amlodipine Besylate (Amlodipine Besylate), 5 MG PO QAM Calcium Carbonate-Cholecalcife (Caltrate 600+D), 1 TAB PO DAILY Carbidopa/Levodopa (Sinemet 25MG/100MG), 2 TAB PO TID Carboxymethylcellulose-Glyceri (Refresh Optive Advanced), 2 DROPS OPB QID Citalopram Hydrobromide (Citalopram Hydrobromide), 1 TAB PO DAILY Clindamycin Hcl (Cleocin), 600 MG PO UD Coenzyme Q10 (Ubidecarenone) (Co Q 10), 100 MG PO AMHS Cyanocobalamin (Vitamin B-12), 250 MCG PO DAILY Diphenhydramine Hcl (Benadryl Allergy), 1 CAP PO Q8 Docusate Sodium (Colace), 1 CAP PO DAILY Econazole Nitrate (Econazole Nitrate Crm 1% 30 Gm), 1 APPL TOP BID Ergocalciferol (Drisdol), 1 CAP PO 2XWK Eyelid Cleansers (Ocusoft Lid Scrub Plus), 1 APPLN TOP BID Ferrous Sulfate (Kp Ferrous Sulfate), 1 TAB PO BID Fluticasone Prop/Salmeterol (Advair Diskus 250/50 60 Dose), 1 PUFFS INH BID Furosemide (Lasix), 20 MG PO DAILY Furosemide (Lasix), 20 MG PO DAILY Levetiracetam (Keppra), 250 MG PO BID Levofloxacin (Levaquin), 750 MG PO DAILY Levothyroxine Sodium (Synthroid), 112 MCG PO DAILY Menthol (Topical Analgesic) (Biofreeze), 1 APPL TOP TID Menthol-Zinc Oxide (Calmoseptine), 1 APPL TOP HS Montelukast Sod (Montelukast Sodium), 10 MG PO HS Nystatin (Topical) (Nystatin), 1 APPLN TOP BID Omeprazole (Prilosec), 20 MG PO DAILY Oseltamivir Phosphate (Tamiflu), 1 CAP PO BID Simvastatin (Zocor), 20 MG PO QPM Scheduled PRN Acetaminophen (Tylenol), 1 TAB PO Q24 PRN for Pain Albuterol Sulf (Proventil 0.083% 2.5MG/3ML), 2.5 MG INH Q6 PRN for Shortness of Breath Bisacodyl (Bisac-Evac), 10 MG PO Q96H PRN for Constipation Magnesium Hydroxide (Milk Of Magnesia), 30 ML PO Q72H PRN for Constipation Oxybutynin Chloride (Ditropan), 1 TAB PO Q12 PRN for BLADDER SPASMS Sodium Phosphate/Biphosphate (Fleet Enema), 1 EA SC Q96H PRN for Constipation Allergies Coded Allergies: Iodinated Diagnostic Agents (Verified Allergy, Severe, SHORTNESS OF BREATH , 12/23/16) Latex (Verified Allergy, Intermediate, RASH, 12/23/16) Aspirin (Verified Allergy, Unknown, RASH, 12/23/16) IBUPROFEN WELL Chocolate (Unverified Allergy, Unknown, UNKNOWN, 12/23/16) Ibuprofen (Verified Allergy, Unknown, 12/23/16) Latex1 -Allergic Contact Dermititis (Verified Allergy, Unknown, 12/23/16) Lisinopril (Verified Allergy, Unknown, UNKNOWN, 12/23/16) Meperidine (Verified Allergy, Unknown, UNKNOWN, 12/23/16) Metformin (Unverified Allergy, Unknown, GI SYMPTOMS, 12/23/16) Midazolam (Verified Allergy, Unknown, UNKN, 12/23/16) Nut Tree (Verified Allergy, Unknown, UNKNOWN, 12/23/16) Peanut (Verified Allergy, Unknown, UNKNOWN, 12/23/16) Penicillins (Verified Allergy, Unknown, SHORTNESS OF BREATH, 12/23/16) (FROM UNCODED ALLERGIES) Sulfa Antibiotics (Verified Allergy, Unknown, UNKNOWN, 12/23/16) Gluten (Verified Adverse Reaction, Intermediate, GI SYMPTOMS, 12/23/16) Physical Exam Vital Signs Date Time Temp Pulse Resp B/P (MAP) Pulse Ox O2 Delivery O2 Flow Rate FiO2 03/04/17 20:19 67 22 143/60 90 Nasal Cannula 4.0 03/04/17 19:31 70 03/04/17 19:11 94 Room Air 2.0 03/04/17 19:06 73 143/60 92 Nasal Cannula 2.0 03/04/17 18:00 98 Nasal Cannula 2.0 03/04/17 17:40 37.4 69 28 129/64 96 Nasal Cannula 2.0 03/04/17 17:25 98 Nasal Cannula 2.0 Physical Exam GENERAL: Awake, alert, dyspneic and ill appearing, in no distress HENT: Normocephalic, atraumatic. Oropharynx unremarkable. EYES: Normal conjunctiva. Sclera non-icteric. NECK: Supple. No nuchal rigidity. FROM. No JVD. RESPIRATORY: Scattered rhonchi, coarse breath sounds CARDIAC: Regular rate, normal rhythm. Extremities warm and well perfused. Pulses equal. ABDOMEN: Soft, non-distended. No tenderness to palpation. No rebound or guarding. No masses. RECTAL: Deferred. MUSCULOSKELETAL: Chest examination reveals no tenderness. The back is symmetrical on inspection without obvious abnormality. There is no CVA tenderness to palpation. No joint edema. LOWER EXTREMITIES: Calves are equal size bilaterally and non-tender. No edema. No discoloration. NEURO: Normal sensorium. No sensory or motor deficits noted. SKIN: No rash or jaundice noted. Medical Decision & Procedures ER Provider Diagnostic Interpretation: Radiology results as stated below per my review and radiologist interpretation: CHEST ONE VIEW PORTABLE HISTORY: EVALUATE RESPIRATORY DISTRESS.DYSPNEA COMPARISON: Chest 07/07/2016. FINDINGS: No pneumothorax. The heart remains enlarged. Linear densities the left lung base favor subsegmental atelectasis. Patchy airspace airspace opacities within the right mid to lower lung zone. This is new from the prior study. No definite pleural effusions. IMPRESSION: There are new patchy airspace opacities within the right mid to lower lung zone. This likely represents a pneumonia. However, an asymmetric pulmonary edema could also have a similar appearance. Electronically signed by: Malik Shrestha M.D. 03/04/2017 5:56 PM Dictated Date/Time: 03/04/2017 5:54 PM Laboratory Results 03/04/17 18:27 Red Blood Count 2.77, Mean Corpuscular Volume 84.5, Mean Corpuscular Hemoglobin 28.2, Mean Corpuscular Hemoglobin Concent 33.3, Mean Platelet Volume 9.7, Neutrophils (%) (Auto) 84.7, Lymphocytes (%) (Auto) 6.3, Monocytes (%) (Auto) 8.8, Eosinophils (%) (Auto) 0.1, Basophils (%) (Auto) 0.0, Neutrophils # (Auto) 5.79, Lymphocytes # (Auto) 0.43, Monocytes # (Auto) 0.60, Eosinophils # (Auto) 0.01, Basophils # (Auto) 0.00 03/04/17 18:27 Test 03/04/17 17:37 03/04/17 18:27 03/04/17 19:00 Osmolality 254 mOsm/kg (280-300) White Blood Count 6.84 K/uL (4.8-10.8) Red Blood Count 2.77 M/uL (4.2-5.4) Hemoglobin 7.8 g/dL (12.0-16.0) Hematocrit 23.4 % (37-47) Mean Corpuscular Volume 84.5 fL (80-100) Mean Corpuscular Hemoglobin 28.2 pg (25-34) Mean Corpuscular Hemoglobin Concent 33.3 g/dl (32-36) Platelet Count 217 K/uL (130-400) Mean Platelet Volume 9.7 fL (7.4-10.4) Neutrophils (%) (Auto) 84.7 % Lymphocytes (%) (Auto) 6.3 % Monocytes (%) (Auto) 8.8 % Eosinophils (%) (Auto) 0.1 % Basophils (%) (Auto) 0.0 % Neutrophils # (Auto) 5.79 K/uL (1.4-6.5) Lymphocytes # (Auto) 0.43 K/uL (1.2-3.4) Monocytes # (Auto) 0.60 K/uL (0.11-0.59) Eosinophils # (Auto) 0.01 K/uL (0-0.5) Basophils # (Auto) 0.00 K/uL (0-0.2) RDW Standard Deviation 41.3 fL (36.4-46.3) RDW Coefficient of Variation 13.4 % (11.5-14.5) Immature Granulocyte % (Auto) 0.1 % Immature Granulocyte # (Auto) 0.01 K/uL (0.00-0.02) Ovalocytes 1+ Prothrombin Time 10.8 SECONDS (9.0-12.0) Prothromb Time International Ratio 1.0 (0.9-1.1) Activated Partial Thromboplast Time 27.8 SECONDS (21.0-31.0) Partial Thromboplastin Ratio 1.1 Anion Gap 3.0 mmol/L (3-11) Est Creatinine Clear Calc Drug Dose 146.7 ml/min Estimated GFR () 118.7 Estimated GFR (Non- 102.4 BUN/Creatinine Ratio 40.3 (10-20) Calcium Level 8.2 mg/dl (8.5-10.1) Magnesium Level 1.4 mg/dl (1.8-2.4) Total Bilirubin 0.3 mg/dl (0.2-1) Aspartate Amino Transf (AST/SGOT) 9 U/L (15-37) Alanine Aminotransferase (ALT/SGPT) 7 U/L (12-78) Alkaline Phosphatase 62 U/L (45-117) Total Creatine Kinase 38 U/L (26-192) Creatine Kinase MB 1.6 ng/ml (0.5-3.6) Creatine Kinase MB Ratio 4.2 (0-3.0) Troponin I < 0.015 ng/ml (0-0.045) Pro-B-Type Natriuretic Peptide 419 pg/ml (0-900) Total Protein 5.9 gm/dl (6.4-8.2) Albumin 2.7 gm/dl (3.4-5.0) Globulin 3.2 gm/dl (2.5-4.0) Albumin/Globulin Ratio 0.8 (0.9-2) Urine Color YELLOW Urine Appearance CLEAR (CLEAR) Urine pH 6.5 (4.5-7.5) Urine Specific Roland 1.013 (1.000-1.030) Urine Protein NEG (NEG) Urine Glucose (UA) NEG (NEG) Urine Ketones NEG (NEG) Urine Occult Blood NEG (NEG) Urine Nitrite POS (NEG) Urine Bilirubin NEG (NEG) Urine Urobilinogen NEG (NEG) Urine Leukocyte Esterase SMALL (NEG) Urine WBC (Auto) 5-10 /hpf (0-5) Urine RBC (Auto) 0-4 /hpf (0-4) Urine Hyaline Casts (Auto) 1-5 /lpf (0-5) Urine Epithelial Cells (Auto) 20-30 /lpf (0-5) Urine Bacteria (Auto) 4+ (NEG) Urine Osmolality 366 mOms/kg (500-800) Laboratory results reviewed by me Medications Administered Medications (Trade) Dose Ordered Sig/Phong Route Start Time Stop Time Status Last Admin Dose Admin Albuterol/ Ipratropium (Duoneb) 3 ml NOW STAT INH 03/04/17 17:37 03/04/17 17:39 DC 03/04/17 18:00 3 ML Levofloxacin (Levaquin / D5W) 750 mg NOW STAT IV 03/04/17 18:16 03/04/17 18:18 DC 03/04/17 18:45 750 MG Cefepime HCl 1000 mg/Dextrose 111 ml @ 200 mls/hr NOW STAT IV 03/04/17 18:16 03/04/17 18:49 DC 03/04/17 18:45 200 MLS/HR Sodium Chloride 1,000 ml @ 125 mls/hr Q8H STAT IV 03/04/17 19:29 03/05/17 03:28 03/04/17 19:29 125 MLS/HR Potassium Chloride (Kcl 10 Meq / Wtr) 10 meq NOW STAT IV 03/04/17 19:29 03/04/17 19:30 DC 03/04/17 20:18 10 MEQ Magnesium Sulfate (Magnesium Sulfate) 2 gm STK-MED ONCE .ROUTE 03/04/17 20:51 03/04/17 20:52 DC 03/04/17 20:57 2 GM ECG Indication: SOB/dyspnea Rate (beats per minute): 71 Rhythm: sinus rhythm Findings: no acute ischemic change, no ectopy, other (LVH) Change: ECG interpreted by me ED Course 1721: The patient was evaluated in room B7. A complete history and physical exam was performed. 1737: Ordered DuoNeb 3 ml INH 1816: Ordered Cefepime HCl 1000 mg/Dextrose 111 ml @ 200 mls/hr IV, Levofloxacin 750 mg IV 1929: Ordered Potassium Chloride 10 meq IV, Sodium Chloride 1000 ml @ 125 mls/ hr IV 1950: Upon reevaluation, the patient is doing well. We are waiting to be called back from a hospitalist service. 2009: Upon reexamination, the patient was resting. I discussed the test results and treatment plan with her. I discussed the patient's case with Dr. Doyle of [facility] [place]. The patient will be evaluated for further management. He recommends further observation in the ICU. Medical Decision Prior records/ancillary studies reviewed. The patient's history was concerning for shortness of breath. Differential diagnosis: Etiologies such as pneumonia, COPD, reactive airway disease, CHF, cardiac ischemia, pulmonary embolism, pneumothorax, musculoskeletal, infections, gastrointestinal, as well as others were entertained. Physical examination: As above. Coarse breath sounds. ER treatment provided: Oxygen DuoNeb Levaquin Cefepime On reassessment the patient felt better. Diagnostic interpretation by me: The electrocardiogram was negative for pathologic change. The labs revealed a moderate anemia on CBC. Chemistry panel reveals severe hyponatremia. The patient has hypokalemia as well. Cultures pending. Urinalysis concerning although indwelling catheter present. Imaging studies: Chest x-ray as above. Pneumonia present. The patient is worsening despite initiation of outpatient treatment. She is dyspneic. Her breath sounds are very coarse. She has a pneumonia. The patient has severe like to let abnormalities as well. Consultation: A consultation was placed with the hospitalist,Dr. Cody Doyle. The case was discussed and diagnostics were reviewed. The patient was evaluated in the ER for further treatment. Medication Reconcilliation Current Medication List: was personally reviewed by me Blood Pressure Screening Patient's blood pressure: Elevated blood pressure Referred to the hospitalist Consults Time Called: 1949 Consulting Physician: Dr. Doyle - [facility] [place] Returned Call: 2009 Discussed the patient's case. The patient will be evaluated for further treatment and disposition. He would like further observation in the ICU. Impression Primary Impression: Pneumonia Additional Impressions: Hyponatremia Hypokalemia Anemia Scribe Attestation The scribe's documentation has been prepared under my direction and personally reviewed by me in its entirety. I confirm that the note above accurately reflects all work, treatment, procedures, and medical decision making performed by me. Departure Information Dispostion Being Evaluated By Hospitalist Referrals Bill Young MD (PCP) Problem Qualifiers
[2017-03-04 18:44] LABS: EOS % 0.1 %; EOS ABS # 0.01 K/uL (0-0.5); HEMATOCRIT 23.4 % (37-47); HEMOGLOBIN 7.8 g/dL (12.0-16.0); IG# 0.01 K/uL (0.00-0.02); LYMPH % 6.3 %; LYMPH ABS # 0.43 K/uL (1.2-3.4); MEAN CELL VOLUME 84.5 fL (80-100); MEAN CORPUSCULAR HEMOGLOBIN 28.2 pg (25-34); MEAN CORPUSCULAR HGB CONC 33.3 g/dl (32-36); MEAN PLATELET VOLUME 9.7 fL (7.4-10.4); MONO % 8.8 %; NEUT % 84.7 %; NEUT ABS # 5.79 K/uL (1.4-6.5); PLATELET COUNT 217 K/uL (130-400); RED CELL DISTRIBUTION WIDTH CV 13.4 % (11.5-14.5); RED CELL DISTRIBUTION WIDTH SD 41.3 fL (36.4-46.3); WHITE BLOOD COUNT 6.84 K/uL (4.8-10.8)
[2017-03-04 18:53] LABS: PTT PATIENT 27.8 SECONDS (21.0-31.0)
[2017-03-04 19:01] LABS: ALBUMIN 2.7 gm/dl (3.4-5.0); ALT/SGPT 7 U/L (12-78); AST/SGOT 9 U/L (15-37); BLOOD UREA NITROGEN 17 mg/dl (7-18); CALCIUM 8.2 mg/dl (8.5-10.1); CARBON DIOXIDE 38 mmol/L (21-32); CREATININE 0.42 mg/dl (0.60-1.20); GLUCOSE 100 mg/dl (70-99); POTASSIUM 3.1 mmol/L (3.5-5.1); SODIUM 122 mmol/L (136-145)
[2017-03-04 19:06] LABS: ALKALINE PHOSPHATASE 62 U/L (45-117); CKMB 1.6 ng/ml (0.5-3.6); TOTAL PROTEIN 5.9 gm/dl (6.4-8.2)
[2017-03-04] MEDS ORDERED: POTASSIUM CHLORIDE 10 MEQ / 100ML WTR IV STA (19:29)
[2017-03-04] MEDS ORDERED: SODIUM CHLORIDE 0.9% 1000ML 1,000 ML IV STA (19:29)
[2017-03-04] MEDS ORDERED: MENTOIN TOP (19:32)
[2017-03-04] MEDS ORDERED: LEVO1TAB35 PO (19:32)
[2017-03-04] MEDS ORDERED: MENT4GEL TOP (19:32)
[2017-03-04] MEDS ORDERED: MOML PO (19:32)
[2017-03-04] MEDS ORDERED: OSEL75CA23 PO (19:32)
[2017-03-04] MEDS ORDERED: CLIN150C PO (19:32)
[2017-03-04] MEDS ORDERED: ALBINS/ INH (19:32)
[2017-03-04] MEDS ORDERED: GLUCAGON FOR INJ 1 MG VIAL SQ PRN (20:30)
[2017-03-04] MEDS ORDERED: BISACODYL 10 MG SUPP PR PRN (20:30)
[2017-03-04] MEDS ORDERED: ONDANSETRON INJ 2 MG/ML 2 ML VIAL IV PRN (20:30)
[2017-03-04] MEDS ORDERED: MAGNESIUM HYDROXIDE SUSP 30 ML UDC PO PRN (20:30)
[2017-03-04] MEDS ORDERED: DEXTROSE 50% 50 ML SYR IV PRN (20:30)
[2017-03-04] MEDS ORDERED: ONDANSETRON 8MG OD TAB PO PRN (20:30)
[2017-03-04] MEDS ORDERED: GLUCOSE 10 TABS/TUBE PO PRN (20:30)
[2017-03-04] MEDS ORDERED: SOD PHOSPHATE/SOD BIPHOSPHATE ENEMA 132 ML BTL PR PRN (20:30)
[2017-03-04] MEDS ORDERED: OXYBUTYNIN CHLORIDE 5 MG TAB PO PRN (20:30)
[2017-03-04] MEDS ORDERED: VANCOMYCIN CONSULT ACTIVE PRN (20:30)
[2017-03-04] MEDS ORDERED: GLUCOSE 40% GEL 15 GM TUBE PO PRN (20:30)
[2017-03-04] MEDS ORDERED: MAGNESIUM SULFATE 1GM / D5W 2 GM in PREMIXED IN D5W 100 ML IV STA (20:41)
[2017-03-04] MEDS ORDERED: CEFEPIME IV 1,000 MG in DEXTROSE 5% 100ML 100 ML IV SCH (20:45)
--- NOTE | 2017-03-04 20:45 | History and Physical ---
History & Physical Date & Time of Service: Mar 04, 2017 at 20:44 Chief Complaint: Illness Primary Care Physician: Bill Young MD History of Present Illness Source: patient, hospital records The patient is a 71-year-old female who presents to the emergency department due to failure of outpatient treatment for pneumonia and influenza with levofloxacin and Tamiflu that began 5 days ago, when her symptoms of fever, cough, congestion and shortness of breath began, and have worsened since that time. She also reports a decreased appetite. It is also noted that she had a chronic indwelling Fair catheter. Past Medical/Surgical History Medical Problems: (1) Diabetes mellitus Status: Chronic (2) DVT (deep venous thrombosis) Status: Resolved (3) HTN (hypertension) Status: Chronic (4) Hyperlipemia Status: Chronic Surgical Problems: (1) Bilateral knee replacements Status: Resolved Family History Blood disorder Heart disease Social History Smoking Status: Never Smoker Smokeless Tobacco Use: No Alcohol Use: none Drug Use: none Marital Status: Housing status: lives with family Occupational Status: retired Immunizations History of Influenza Vaccine: Yes History of Tetanus Vaccine?: Yes History of Pneumococcal: No History of Hepatitis B Vaccine: Yes Multi-Drug Resistant Organisms History of MDRO: No Allergies Coded Allergies: Iodinated Diagnostic Agents (Verified Allergy, Severe, SHORTNESS OF BREATH , 12/23/16) Latex (Verified Allergy, Intermediate, RASH, 12/23/16) Aspirin (Verified Allergy, Unknown, RASH, 12/23/16) IBUPROFEN WELL Chocolate (Unverified Allergy, Unknown, UNKNOWN, 12/23/16) Ibuprofen (Verified Allergy, Unknown, 12/23/16) Latex1 -Allergic Contact Dermititis (Verified Allergy, Unknown, 12/23/16) Lisinopril (Verified Allergy, Unknown, UNKNOWN, 12/23/16) Meperidine (Verified Allergy, Unknown, UNKNOWN, 12/23/16) Metformin (Unverified Allergy, Unknown, GI SYMPTOMS, 12/23/16) Midazolam (Verified Allergy, Unknown, UNKN, 12/23/16) Nut Tree (Verified Allergy, Unknown, UNKNOWN, 12/23/16) Peanut (Verified Allergy, Unknown, UNKNOWN, 12/23/16) Penicillins (Verified Allergy, Unknown, SHORTNESS OF BREATH, 12/23/16) (FROM UNCODED ALLERGIES) Sulfa Antibiotics (Verified Allergy, Unknown, UNKNOWN, 12/23/16) Gluten (Verified Adverse Reaction, Intermediate, GI SYMPTOMS, 12/23/16) Home Medications Scheduled Albuterol Sulf (Albuterol Sulfate), 3 ML NEB Q6 Amlodipine Besylate (Amlodipine Besylate), 5 MG PO QAM Calcium Carbonate-Cholecalcife (Caltrate 600+D), 1 TAB PO DAILY Carbidopa/Levodopa (Sinemet 25MG/100MG), 2 TAB PO TID Carboxymethylcellulose-Glyceri (Refresh Optive Advanced), 2 DROPS OPB QID Citalopram Hydrobromide (Citalopram Hydrobromide), 1 TAB PO DAILY Clindamycin Hcl (Cleocin), 600 MG PO UD Coenzyme Q10 (Ubidecarenone) (Co Q 10), 100 MG PO AMHS Cyanocobalamin (Vitamin B-12), 250 MCG PO DAILY Diphenhydramine Hcl (Benadryl Allergy), 1 CAP PO Q8 Docusate Sodium (Colace), 1 CAP PO DAILY Econazole Nitrate (Econazole Nitrate Crm 1% 30 Gm), 1 APPL TOP BID Ergocalciferol (Drisdol), 1 CAP PO 2XWK Eyelid Cleansers (Ocusoft Lid Scrub Plus), 1 APPLN TOP BID Ferrous Sulfate (Kp Ferrous Sulfate), 1 TAB PO BID Fluticasone Prop/Salmeterol (Advair Diskus 250/50 60 Dose), 1 PUFFS INH BID Furosemide (Lasix), 20 MG PO DAILY Furosemide (Lasix), 20 MG PO DAILY Levetiracetam (Keppra), 250 MG PO BID Levofloxacin (Levaquin), 750 MG PO DAILY Levothyroxine Sodium (Synthroid), 112 MCG PO DAILY Menthol (Topical Analgesic) (Biofreeze), 1 APPL TOP TID Menthol-Zinc Oxide (Calmoseptine), 1 APPL TOP HS Montelukast Sod (Montelukast Sodium), 10 MG PO HS Nystatin (Topical) (Nystatin), 1 APPLN TOP BID Omeprazole (Prilosec), 20 MG PO DAILY Oseltamivir Phosphate (Tamiflu), 1 CAP PO BID Simvastatin (Zocor), 20 MG PO QPM Scheduled PRN Acetaminophen (Tylenol), 1 TAB PO Q24 PRN for Pain Albuterol Sulf (Proventil 0.083% 2.5MG/3ML), 2.5 MG INH Q6 PRN for Shortness of Breath Bisacodyl (Bisac-Evac), 10 MG PO Q96H PRN for Constipation Magnesium Hydroxide (Milk Of Magnesia), 30 ML PO Q72H PRN for Constipation Oxybutynin Chloride (Ditropan), 1 TAB PO Q12 PRN for BLADDER SPASMS Sodium Phosphate/Biphosphate (Fleet Enema), 1 EA MA Q96H PRN for Constipation Review of Systems The patient denies chest pain, palpitations, lower extremity swelling, fevers, chills, sweats, nausea, vomiting, diarrhea , constipation, abdominal pain, pelvic pain, blood in urine or stool, dysuria, urinary frequency or urgency, loss of consciousness, rash, abnormal bruising or bleeding, imbalance, focal weakness, numbness or tingling in arms or legs, back or neck pain, or night sweats. The review of systems is otherwise negative other than for that already noted above, and at least 10 systems have been reviewed. Physical Exam Vital Signs Date Time Temp Pulse Resp B/P (MAP) Pulse Ox O2 Delivery O2 Flow Rate FiO2 03/04/17 20:19 67 22 143/60 90 Nasal Cannula 4.0 03/04/17 19:31 70 03/04/17 19:11 94 Room Air 2.0 03/04/17 19:06 73 143/60 92 Nasal Cannula 2.0 03/04/17 18:00 98 Nasal Cannula 2.0 03/04/17 17:40 37.4 69 28 129/64 96 Nasal Cannula 2.0 03/04/17 17:25 98 Nasal Cannula 2.0 The patient is awake, alert and oriented 3, well developed and well nourished, normocephalic and atraumatic, lying in bed and in no acute distress. HEENT--PERRL, EOMI, mucous membranes and oropharynx dry. Neck--supple. No JVD. No bruits. Thyroid normal, trachea midline, no adenopathy. Heart--normal S1 and S2. No murmurs, rubs or gallops. Lungs--coarse breath sounds and wheezes bilaterally, no respiratory distress, no accessory muscle use. Abdomen--normal bowel sounds and soft. Nontender. Nondistended, no hernias or masses, no organomegaly. Extremities--no cyanosis or clubbing. No edema. There are good distal pulses b/ l. Dermatologic--normal skin turgor, normal color, no abnormal lymph nodes, no rash. Neurologic--cranial nerves II through XII grossly intact. Rheumatologic--normal range of motion. Psychiatric--normal affect. Diagnostics Laboratory Results Results Past 24 Hours Test 03/04/17 17:37 03/04/17 18:27 03/04/17 19:00 Range/Units Osmolality 254 280-300 mOsm/kg White Blood Count 6.84 4.8-10.8 K/uL Red Blood Count 2.77 4.2-5.4 M/uL Hemoglobin 7.8 12.0-16.0 g/dL Hematocrit 23.4 37-47 % Mean Corpuscular Volume 84.5 80-100 fL Mean Corpuscular Hemoglobin 28.2 25-34 pg Mean Corpuscular Hemoglobin Concent 33.3 32-36 g/dl Platelet Count 217 130-400 K/uL Mean Platelet Volume 9.7 7.4-10.4 fL Neutrophils (%) (Auto) 84.7 % Lymphocytes (%) (Auto) 6.3 % Monocytes (%) (Auto) 8.8 % Eosinophils (%) (Auto) 0.1 % Basophils (%) (Auto) 0.0 % Neutrophils # (Auto) 5.79 1.4-6.5 K/uL Lymphocytes # (Auto) 0.43 1.2-3.4 K/uL Monocytes # (Auto) 0.60 0.11-0.59 K/uL Eosinophils # (Auto) 0.01 0-0.5 K/uL Basophils # (Auto) 0.00 0-0.2 K/uL RDW Standard Deviation 41.3 36.4-46.3 fL RDW Coefficient of Variation 13.4 11.5-14.5 % Immature Granulocyte % (Auto) 0.1 % Immature Granulocyte # (Auto) 0.01 0.00-0.02 K/uL Ovalocytes 1+ Prothrombin Time 10.8 9.0-12.0 SECONDS Prothromb Time International Ratio 1.0 0.9-1.1 Activated Partial Thromboplast Time 27.8 21.0-31.0 SECONDS Partial Thromboplastin Ratio 1.1 Sodium Level 122 136-145 mmol/L Potassium Level 3.1 3.5-5.1 mmol/L Chloride Level 81 98-107 mmol/L Carbon Dioxide Level 38 21-32 mmol/L Anion Gap 3.0 3-11 mmol/L Blood Urea Nitrogen 17 7-18 mg/dl Creatinine 0.42 0.60-1.20 mg/dl Est Creatinine Clear Calc Drug Dose 146.7 ml/min Estimated GFR () 118.7 Estimated GFR (Non- 102.4 BUN/Creatinine Ratio 40.3 10-20 Random Glucose 100 70-99 mg/dl Calcium Level 8.2 8.5-10.1 mg/dl Magnesium Level 1.4 1.8-2.4 mg/dl Total Bilirubin 0.3 0.2-1 mg/dl Aspartate Amino Transf (AST/SGOT) 9 15-37 U/L Alanine Aminotransferase (ALT/SGPT) 7 12-78 U/L Alkaline Phosphatase 62 45-117 U/L Total Creatine Kinase 38 26-192 U/L Creatine Kinase MB 1.6 0.5-3.6 ng/ml Creatine Kinase MB Ratio 4.2 0-3.0 Troponin I < 0.015 0-0.045 ng/ml Pro-B-Type Natriuretic Peptide 419 0-900 pg/ml Total Protein 5.9 6.4-8.2 gm/dl Albumin 2.7 3.4-5.0 gm/dl Globulin 3.2 2.5-4.0 gm/dl Albumin/Globulin Ratio 0.8 0.9-2 Urine Color YELLOW Urine Appearance CLEAR CLEAR Urine pH 6.5 4.5-7.5 Urine Specific [place] 1.013 1.000-1.030 Urine Protein NEG NEG Urine Glucose (UA) NEG NEG Urine Ketones NEG NEG Urine Occult Blood NEG NEG Urine Nitrite POS NEG Urine Bilirubin NEG NEG Urine Urobilinogen NEG NEG Urine Leukocyte Esterase SMALL NEG Urine WBC (Auto) 5-10 0-5 /hpf Urine RBC (Auto) 0-4 0-4 /hpf Urine Hyaline Casts (Auto) 1-5 0-5 /lpf Urine Epithelial Cells (Auto) 20-30 0-5 /lpf Urine Bacteria (Auto) 4+ NEG Microbiology Results 03/04/17 Blood Culture, Received Pending 03/04/17 Blood Culture, Received Pending 03/04/17 Urine Culture, Received Pending Diagnostic Radiology CHEST ONE VIEW PORTABLE HISTORY: EVALUATE RESPIRATORY DISTRESS.DYSPNEA COMPARISON: Chest 07/07/2016. FINDINGS: No pneumothorax. The heart remains enlarged. Linear densities the left lung base favor subsegmental atelectasis. Patchy airspace airspace opacities within the right mid to lower lung zone. This is new from the prior study. No definite pleural effusions. IMPRESSION: There are new patchy airspace opacities within the right mid to lower lung zone. This likely represents a pneumonia. However, an asymmetric pulmonary edema could also have a similar appearance. Electronically signed by: Malik Shrestha M.D. 03/04/2017 5:56 PM Dictated Date/Time: 03/04/2017 5:54 PM The status of this report is Signed. Draft = Not yet reviewed or approved by Radiologist. Signed = Reviewed and approved EKG EKG shows normal sinus rhythm at 71 bpm, LVH, no change compared to 08/31/2016 Impression Assessment and Plan Acute respiratory failure with hypoxia/pneumonia involving right lung-- The patient will be admitted to the telemetry unit for close oxygen monitoring Vancomycin IV per pharmacokinetic monitoring Cefepime 1 g IV every 8 hours Levofloxacin 500 mg IV every 24 hours Duonebs every 4 hours while awake and every 2 hours when necessary. Solu-Medrol 60 mg IV every 6 hours Guaifenesin extended release 600 mg by mouth twice a day Nasal cannula oxygen titrate to keep pulse ox greater than or equal to 92% Sputum Gram stain and culture Continue montelukast Continue Tamiflu Hold Advair Atypical parkinsonism-- Continue carbidopa/levodopa Hypertension/chronic venous insufficiency-- Continue amlodipine 5 mg every morning Hold furosemide Seizure disorder-- Continue Keppra 250 mg by mouth twice a day GERD-- Change omeprazole to pantoprazole Hyperlipidemia-- Continue simvastatin 20 mg every evening Hypothyroidism-- Continue levothyroxine sodium 112 g daily Depression-- Continue citalopram 10 mg daily Vitamin B12 deficiency-- Continue cyanocobalamin 250 g daily Level of Care Telemetry Advanced Directives Existing Advance Directive: No Existing Living Will: No Existing Power of Commissions Analyst: No Resuscitation Status FULL RESUSCITATION VTE Prophylaxis VTE Risk Assessment Done? Y/N: Yes Risk Level: Moderate Given or contraindicated: SCD's
[2017-03-04] MEDS ORDERED: MAGNESIUM SULFATE 1GM / D5W 1 GM BAG ONE (20:51)
[2017-03-04] MEDS: INSULIN ASPART 100 UNITS/ML 3 ML PEN SC SCH (21:00)
[2017-03-04] MEDS ORDERED: LEVALBUTEROL/IPRATROPIUM NEB INH SCH (21:00)
[2017-03-04] MEDS ORDERED: OSELTAMIVIR PHOSPHATE 75 MG CAP PO SCH (21:00)
[2017-03-04] MEDS ORDERED: [UNRECOGNIZED DRUG - OTHER] TOP SCH (21:00)
[2017-03-04] MEDS ORDERED: SIMVASTATIN 20 MG TAB PO SCH (21:00)
[2017-03-04] MEDS ORDERED: NON-FORMULARY MEDICATION (Coenzyme Q10 (Ubidecarenone) (Co Q 10) 100 MG) PO SCH (21:00)
[2017-03-04] MEDS: ARTIFICIAL TEARS OP SOLN OPB SCH (21:00)
[2017-03-04] MEDS ORDERED: APPLN TOP SCH (21:00)
[2017-03-04] MEDS: IPRATROPIUM BROMIDE NEB SOLN 0.02% 2.5 ML VIAL INH PRN (21:14)
[2017-03-04] MEDS: LEVALBUTEROL 1.25MG/0.5ML NEB INH PRN (21:15)
[2017-03-04 21:16] VITALS: PULSE 66; O2SAT 96
[2017-03-04] MEDS ORDERED: METHYLPREDNISOLONE IV 60 MG in SYRINGE 0 ML IV ONE (21:30)
[2017-03-04] MEDS ORDERED: VANCOMYCIN INJ 2,500 MG in SODIUM CHLORIDE 0.9% 500ML 500 ML IV ONE (21:45)
--- NOTE | 2017-03-04 21:47 | Pharmacy Progress Note ---
Pharmacy Abx Initial Consult Date of Service Mar 04, 2017. Pharmacy Dosing Scope Date of Consult: 03/04/17 Pharmacy is consulted to initiate Vancomycin IV dosing therapy, order appropriate labs and adjust drug dose/frequency. Subjective The patient is a 71 year old female admitted on 03/04/17 with pneumonia. Objective Height (Feet): 5 Height (Inches): 6 Weight (Kilograms): 103.00 Vital Signs (Past 12Hrs) Vital Signs Past 12 Hours Date Time Temp Pulse Resp B/P (MAP) Pulse Ox O2 Delivery O2 Flow Rate FiO2 03/04/17 21:16 66 28 96 Nasal Cannula 4.0 03/04/17 21:00 69 20 138/62 96 Nasal Cannula 4.0 Humidified Oxygen 03/04/17 20:19 67 22 143/60 90 Nasal Cannula 4.0 03/04/17 19:31 70 03/04/17 19:11 94 Room Air 2.0 03/04/17 19:06 73 143/60 92 Nasal Cannula 2.0 03/04/17 18:00 98 Nasal Cannula 2.0 03/04/17 17:40 37.4 69 28 129/64 96 Nasal Cannula 2.0 03/04/17 17:25 98 Nasal Cannula 2.0 Lab Results (24Hrs) Laboratory Tests (24 Hours) Test 03/04/17 18:27 White Blood Count 6.84 K/uL (4.8-10.8) Red Blood Count 2.77 M/uL (4.2-5.4) L Hemoglobin 7.8 g/dL (12.0-16.0) L Hematocrit 23.4 % (37-47) L Mean Corpuscular Volume 84.5 fL (80-100) Mean Corpuscular Hemoglobin 28.2 pg (25-34) Mean Corpuscular Hemoglobin Concent 33.3 g/dl (32-36) Platelet Count 217 K/uL (130-400) Mean Platelet Volume 9.7 fL (7.4-10.4) Neutrophils (%) (Auto) 84.7 % Lymphocytes (%) (Auto) 6.3 % Monocytes (%) (Auto) 8.8 % Eosinophils (%) (Auto) 0.1 % Basophils (%) (Auto) 0.0 % Neutrophils # (Auto) 5.79 K/uL (1.4-6.5) Lymphocytes # (Auto) 0.43 K/uL (1.2-3.4) L Monocytes # (Auto) 0.60 K/uL (0.11-0.59) H Eosinophils # (Auto) 0.01 K/uL (0-0.5) Basophils # (Auto) 0.00 K/uL (0-0.2) Total Creatine Kinase 38 U/L (26-192) Micro Results Date/Time Source Procedure Growth Status 03/04/17 18:27 Blood Blood Culture Pending Received 03/04/17 18:20 Blood Blood Culture Pending Received 03/04/17 19:00 Urine,Catheterized Urine Culture Pending Received Risk Factors for Resistance * Antimicrobial use within the last 90 days: Levaquin PO (recent outpatient RX) Assessment & Plan Assessment 71 year old female initiated on Vancomycin/Cefepime/Levaquin IV for pneumonia. Per ER note - pt continued to worsen on Levaquin and Tamiflu as outpatient. Blood and urine cultures pending. MRSA swab added to aid in deescalation. Note: If MRSA swab negative, recommend DC Vancomycin. Plan Vancomycin IV * Loading dose: 2500 mg (25 mg/kg) * Maintenance dose: 1500 mg IV (15 mg/kg) every 10 hours * Goal trough level for lung source: 15 to 20 mcg/mL * Trough level ordered for 03/06/17 @1330 prior to 1400 dose. * Pt borderline BMI for drug accumulation. If vancomycin continued past 72 hours - may need to monitor more frequently. Pharmacy will continue to follow and will adjust dose/frequency as necessary. Thank you.
[2017-03-04 22:06] VITALS: BP 192/90; PULSE 76; TEMP 37.2; O2SAT 96; Ht 165.1 cm; Wt 100.4 kg
[2017-03-04] MEDS: CARBIDOPA/LEVODOPA 25/100MG TAB PO SCH (23:02)
[2017-03-04] MEDS: CLOTRIMAZOLE 10 MG TROCHE LOZ SCH (23:03)
[2017-03-04] MEDS: MONTELUKAST SOD 10 MG TAB PO SCH (23:03)
[2017-03-04] MEDS: LEVETIRACETAM 250 MG TAB PO SCH (23:04)
[2017-03-04] MEDS: MENTHOL-ZINC OXIDE 360 APPLN/120 GM TUBE EXT SCH (23:06)
[2017-03-04] MEDS: NYSTATIN OINT 15 GM TUBE EXT SCH (23:06)
[2017-03-04] MEDS: GUAIFENESIN 200 MG TAB PO SCH (23:06)
[2017-03-04] MEDS: ECONAZOLE NITRATE 1% CRM 15 GM TUBE EXT SCH (23:07)
[2017-03-04 23:25] VITALS: BP 193/81; PULSE 70; TEMP 37; O2SAT 93
[2017-03-05] VITALS (10 sets, daily range): BP systolic 158–177; BP diastolic 67–101; PULSE 57–85; TEMP 36.5–36.8; O2SAT 94–97
[2017-03-05] MEDS: CEFEPIME IV 1,000 MG in SYRINGE 0 ML IV SCH ×3 (02:13→17:25)
[2017-03-05] MEDS: IPRATROPIUM BROMIDE NEB SOLN 0.02% 2.5 ML VIAL INH SCH ×4 (02:14→20:19)
[2017-03-05] MEDS: LEVALBUTEROL 1.25MG/0.5ML NEB INH SCH ×4 (02:14→20:19)
[2017-03-05] MEDS ORDERED: METHYLPREDNISOLONE IV 60 MG in SYRINGE 0 ML IV SCH (04:00)
[2017-03-05] MEDS: LEVOTHYROXINE 112 MCG TAB PO SCH (04:31)
[2017-03-05] MEDS: BUDESONIDE 0.5 MG/2 ML VIAL (PULMICORT) INH SCH ×2 (06:56→20:19)
[2017-03-05 07:26] LABS: HEMATOCRIT 26.6 % (37-47); HEMOGLOBIN 8.7 g/dL (12.0-16.0); IG# 0.01 K/uL (0.00-0.02); LYMPH % 3.6 %; LYMPH ABS # 0.17 K/uL (1.2-3.4); MEAN CELL VOLUME 84.2 fL (80-100); MEAN CORPUSCULAR HEMOGLOBIN 27.5 pg (25-34); MEAN CORPUSCULAR HGB CONC 32.7 g/dl (32-36); MEAN PLATELET VOLUME 9.7 fL (7.4-10.4); MONO % 0.6 %; MONO ABS # 0.03 K/uL (0.11-0.59); NEUT % 95.6 %; NEUT ABS # 4.49 K/uL (1.4-6.5); PLATELET COUNT 221 K/uL (130-400); RED CELL DISTRIBUTION WIDTH CV 13.5 % (11.5-14.5); RED CELL DISTRIBUTION WIDTH SD 41.2 fL (36.4-46.3)
[2017-03-05] MEDS: FERROUS SULFATE 325 MG TAB PO SCH ×2 (07:29→16:11)
[2017-03-05] MEDS: CLOTRIMAZOLE 10 MG TROCHE LOZ SCH ×5 (07:29→23:00)
[2017-03-05] MEDS: VANCOMYCIN INJ 1,500 MG in SODIUM CHLORIDE 0.9% 500ML 500 ML IV SCH ×2 (07:36→17:25)
[2017-03-05] MEDS: INSULIN ASPART 100 UNITS/ML 3 ML PEN SC SCH ×4 (07:56→20:03)
[2017-03-05 08:02] LABS: CALCIUM 8.5 mg/dl (8.5-10.1); CREATININE 0.47 mg/dl (0.60-1.20); POTASSIUM 3.5 mmol/L (3.5-5.1)
[2017-03-05] MEDS: ECONAZOLE NITRATE 1% CRM 15 GM TUBE EXT SCH ×2 (08:55→20:06)
[2017-03-05] MEDS: NYSTATIN OINT 15 GM TUBE EXT SCH ×2 (08:55→20:06)
[2017-03-05] MEDS: DOCUSATE SODIUM 100 MG CAP PO SCH (08:56)
[2017-03-05] MEDS: PANTOprazole SOD 40 MG TAB PO SCH (08:56)
[2017-03-05] MEDS: CITALOPRAM 20 MG TAB PO SCH (08:57)
[2017-03-05] MEDS: AMLODIPINE BESYLATE 5 MG TAB PO SCH (08:57)
--- NOTE | 2017-03-05 08:57 | Progress Note ---
Subjective Date of Service: Mar 05, 2017. Subjective the pt is significantly ill and is not making much sense today. she is short of breath but also has an element of what sounds like fluid over her vocal chords prompting a speech eval, nursing aid is feeding her and reporting no cough with eating or with po pills Problem List Medical Problems: (1) Anemia Status: Acute (2) Cellulitis Status: Acute (3) Chronic anemia Status: Acute (4) Congestive heart failure (CHF) Status: Acute (5) Dehydration Status: Acute (6) Flu-like symptoms Status: Acute (7) Guaiac positive stools Status: Acute (8) Hypertension Status: Acute (9) Hypokalemia Status: Acute (10) Hyponatremia Status: Acute (11) Pneumonia Status: Acute (12) Profound anemia Status: Acute (13) Severe anemia Status: Acute (14) Shortness of breath Status: Acute (15) Urinary tract infection Status: Acute (16) Weakness Status: Acute Review of Systems Constitutional: + weakness, + fatigue, No fever, No chills Respiratory: + shortness of breath, + dyspnea on exertion, No cough Cardiac: No chest pain, No edema Abdomen: No pain, No nausea, No vomiting, No diarrhea Neurologic: + memory loss, No weakness Psychiatric: + depression symptoms, No anhedonism Objective Vital Signs Date Time Temp Pulse Resp B/P (MAP) Pulse Ox O2 Delivery O2 Flow Rate FiO2 03/05/17 08:18 36.5 80 22 167/89 (115) 95 Nasal Cannula 3.0 03/05/17 06:56 70 16 95 Nasal Cannula 3.0 03/05/17 04:45 164/82 (109) 03/05/17 04:00 Nasal Cannula 4.0 03/05/17 03:09 36.6 70 20 177/101 (126) 94 Nasal Cannula 4.0 03/05/17 02:14 57 16 94 Nasal Cannula 3.0 03/05/17 00:01 Nasal Cannula 4.0 03/04/17 23:25 37.0 70 19 193/81 (118) 93 Nasal Cannula 4.0 03/04/17 22:06 37.2 76 20 192/90 96 Nasal Cannula 4.0 03/04/17 21:59 72 144/69 95 03/04/17 21:16 66 28 96 Nasal Cannula 4.0 03/04/17 21:00 69 20 138/62 96 Nasal Cannula 4.0 Humidified Oxygen 03/04/17 20:19 67 22 143/60 90 Nasal Cannula 4.0 03/04/17 19:31 70 03/04/17 19:11 94 Room Air 2.0 03/04/17 19:06 73 143/60 92 Nasal Cannula 2.0 03/04/17 18:00 98 Nasal Cannula 2.0 03/04/17 17:40 37.4 69 28 129/64 96 Nasal Cannula 2.0 03/04/17 17:25 98 Nasal Cannula 2.0 Physical Exam General Appearance: WD/WN, + moderate distress, + obese Eyes: normal inspection, sclerae normal Respiratory/Chest: chest non-tender, + decreased breath sounds, + accessory muscle use, + rhonchi Cardiovascular: regular rate, rhythm, + systolic murmur Abdomen: normal bowel sounds, non tender, soft Extremities: no calf tenderness, + pedal edema Neurologic/Psychiatric: alert, + disoriented Laboratory Results Last 24 Hours Test 03/04/17 17:37 03/04/17 18:27 03/04/17 19:00 03/05/17 00:07 Osmolality 254 mOsm/kg White Blood Count 6.84 K/uL Red Blood Count 2.77 M/uL Hemoglobin 7.8 g/dL Hematocrit 23.4 % Mean Corpuscular Volume 84.5 fL Mean Corpuscular Hemoglobin 28.2 pg Mean Corpuscular Hemoglobin Concent 33.3 g/dl Platelet Count 217 K/uL Mean Platelet Volume 9.7 fL Neutrophils (%) (Auto) 84.7 % Lymphocytes (%) (Auto) 6.3 % Monocytes (%) (Auto) 8.8 % Eosinophils (%) (Auto) 0.1 % Basophils (%) (Auto) 0.0 % Neutrophils # (Auto) 5.79 K/uL Lymphocytes # (Auto) 0.43 K/uL Monocytes # (Auto) 0.60 K/uL Eosinophils # (Auto) 0.01 K/uL Basophils # (Auto) 0.00 K/uL RDW Standard Deviation 41.3 fL RDW Coefficient of Variation 13.4 % Immature Granulocyte % (Auto) 0.1 % Immature Granulocyte # (Auto) 0.01 K/uL Ovalocytes 1+ Prothrombin Time 10.8 SECONDS Prothromb Time International Ratio 1.0 Activated Partial Thromboplast Time 27.8 SECONDS Partial Thromboplastin Ratio 1.1 Sodium Level 122 mmol/L Potassium Level 3.1 mmol/L Chloride Level 81 mmol/L Carbon Dioxide Level 38 mmol/L Anion Gap 3.0 mmol/L Blood Urea Nitrogen 17 mg/dl Creatinine 0.42 mg/dl Est Creatinine Clear Calc Drug Dose 146.7 ml/min Estimated GFR () 118.7 Estimated GFR (Non- 102.4 BUN/Creatinine Ratio 40.3 Random Glucose 100 mg/dl Calcium Level 8.2 mg/dl Magnesium Level 1.4 mg/dl Total Bilirubin 0.3 mg/dl Aspartate Amino Transf (AST/SGOT) 9 U/L Alanine Aminotransferase (ALT/SGPT) 7 U/L Alkaline Phosphatase 62 U/L Total Creatine Kinase 38 U/L Creatine Kinase MB 1.6 ng/ml Creatine Kinase MB Ratio 4.2 Troponin I < 0.015 ng/ml Pro-B-Type Natriuretic Peptide 419 pg/ml Total Protein 5.9 gm/dl Albumin 2.7 gm/dl Globulin 3.2 gm/dl Albumin/Globulin Ratio 0.8 Urine Color YELLOW Urine Appearance CLEAR Urine pH 6.5 Urine Specific [place] 1.013 Urine Protein NEG Urine Glucose (UA) NEG Urine Ketones NEG Urine Occult Blood NEG Urine Nitrite POS Urine Bilirubin NEG Urine Urobilinogen NEG Urine Leukocyte Esterase SMALL Urine WBC (Auto) 5-10 /hpf Urine RBC (Auto) 0-4 /hpf Urine Hyaline Casts (Auto) 1-5 /lpf Urine Epithelial Cells (Auto) 20-30 /lpf Urine Bacteria (Auto) 4+ Urine Osmolality 366 mOms/kg Bedside Glucose 131 mg/dl Test 03/05/17 06:59 03/05/17 07:09 White Blood Count 4.70 K/uL Red Blood Count 3.16 M/uL Hemoglobin 8.7 g/dL Hematocrit 26.6 % Mean Corpuscular Volume 84.2 fL Mean Corpuscular Hemoglobin 27.5 pg Mean Corpuscular Hemoglobin Concent 32.7 g/dl Platelet Count 221 K/uL Mean Platelet Volume 9.7 fL Neutrophils (%) (Auto) 95.6 % Lymphocytes (%) (Auto) 3.6 % Monocytes (%) (Auto) 0.6 % Eosinophils (%) (Auto) 0.0 % Basophils (%) (Auto) 0.0 % Neutrophils # (Auto) 4.49 K/uL Lymphocytes # (Auto) 0.17 K/uL Monocytes # (Auto) 0.03 K/uL Eosinophils # (Auto) 0.00 K/uL Basophils # (Auto) 0.00 K/uL RDW Standard Deviation 41.2 fL RDW Coefficient of Variation 13.5 % Immature Granulocyte % (Auto) 0.2 % Immature Granulocyte # (Auto) 0.01 K/uL Hypochromasia PRESENT Basophilic Stippling OCCASIONAL Sodium Level 123 mmol/L Potassium Level 3.5 mmol/L Chloride Level 81 mmol/L Carbon Dioxide Level 35 mmol/L Anion Gap 7.0 mmol/L Blood Urea Nitrogen 17 mg/dl Creatinine 0.47 mg/dl Est Creatinine Clear Calc Drug Dose 128.0 ml/min Estimated GFR () 114.4 Estimated GFR (Non- 98.7 BUN/Creatinine Ratio 36.0 Random Glucose 123 mg/dl Calcium Level 8.5 mg/dl Magnesium Level 2.0 mg/dl Bedside Glucose 140 mg/dl Assessment and Plan 71 F recently treated for influenza presents with Acute respiratory failure with hypoxia/pneumonia involving right lung--hyponatremia, hypokalemia, hypomagnesemia, gram negative uti poa associated with chronic indwelling munoz cath Right sided pneumonia concern for gram negative penumonia, on vancomycin, cefepime and levaquin, this will also cover gram negative uti associated with munoz cath, poa. Concern with upper airway sounds will prompt a speech consult , antibiotics may be altered is aspiration is more evident or clinical course does not improve metabolic encephalopathy from hyponatremia and infection, persists as neither improved significantly since admission Acute respiratory failure, will be on supplemental oxygen, nebulized medications , solu-medrol of xopenex and ipatropium q 6 hours plus her usual home meds of singulair Hyponatremia, is on fluid restriction po, on iv nss, pending random urine sodium , holding lasix Hypokalemia and hypomagnesemia replete Atypical parkinsonism, continue sinemet HTN continue norvasc but hold diuretic with hyponatremia Seizure disorder-- Continue Keppra 250 mg by mouth twice a day GERD-- Change omeprazole to pantoprazole Hyperlipidemia-- Continue simvastatin 20 mg every evening Hypothyroidism-- Continue levothyroxine sodium 112 g daily Depression-- Continue citalopram 10 mg daily Vitamin B12 deficiency-- Continue cyanocobalamin 250 g daily
[2017-03-05] MEDS: GUAIFENESIN 200 MG TAB PO SCH ×2 (08:58→20:51)
[2017-03-05] MEDS: LEVETIRACETAM 250 MG TAB PO SCH ×2 (08:58→20:50)
[2017-03-05] MEDS: CARBIDOPA/LEVODOPA 25/100MG TAB PO SCH ×3 (08:58→20:04)
[2017-03-05] MEDS: CYANOCOBALAMIN 500 MCG TAB (VIT B-12) PO SCH (08:58)
[2017-03-05] MEDS ORDERED: CALCIUM 600MG + VIT D 400 IU TAB PO SCH (09:00)
[2017-03-05] MEDS: ARTIFICIAL TEARS OP SOLN OPB SCH ×4 (09:00→20:51)
[2017-03-05] MEDS: HEPARIN SOD 5000 UNIT/0.5 ML CARP SQ SCH ×2 (09:52→20:52)
[2017-03-05] MEDS: METHYLPREDNISOLONE IV 40 MG in SYRINGE 0 ML IV SCH (16:12)
[2017-03-05] MEDS ORDERED: LEVOFLOXACIN / D5W 500 MG in PREMIXED IN D5W 100 ML IV SCH (18:00)
[2017-03-05] MEDS: MONTELUKAST SOD 10 MG TAB PO SCH (20:03)
[2017-03-05] MEDS: MENTHOL-ZINC OXIDE 360 APPLN/120 GM TUBE EXT SCH (20:06)
[2017-03-06] VITALS (12 sets, daily range): BP systolic 124–174; BP diastolic 67–84; PULSE 54–89; TEMP 36.4–37.4; O2SAT 95–99
[2017-03-06] MEDS: IPRATROPIUM BROMIDE NEB SOLN 0.02% 2.5 ML VIAL INH SCH ×4 (02:17→19:20)
[2017-03-06] MEDS: LEVALBUTEROL 1.25MG/0.5ML NEB INH SCH ×4 (02:17→19:20)
[2017-03-06] MEDS: CEFEPIME IV 1,000 MG in SYRINGE 0 ML IV SCH ×3 (02:42→18:27)
[2017-03-06] MEDS ORDERED: NURSING VERBAL MED ORDER ONE ×2 (03:30→15:15)
[2017-03-06] MEDS ORDERED: LEVETIRACTAM 500 MG in DEXTROSE 5% 100ML IV STA (03:31)
[2017-03-06] MEDS: METHYLPREDNISOLONE IV 40 MG in SYRINGE 0 ML IV SCH ×2 (04:00→16:45)
[2017-03-06] MEDS: VANCOMYCIN INJ 1,500 MG in SODIUM CHLORIDE 0.9% 500ML 500 ML IV SCH ×2 (04:23→14:01)
[2017-03-06] MEDS: LEVOTHYROXINE 112 MCG TAB PO SCH (05:59)
[2017-03-06] MEDS: CLOTRIMAZOLE 10 MG TROCHE LOZ SCH ×5 (07:00→22:40)
[2017-03-06] MEDS: BUDESONIDE 0.5 MG/2 ML VIAL (PULMICORT) INH SCH ×2 (07:25→19:20)
[2017-03-06 07:26] LABS: HEMATOCRIT 25.1 % (37-47); HEMOGLOBIN 8.3 g/dL (12.0-16.0); IG# 0.03 K/uL (0.00-0.02); LYMPH % 3.9 %; LYMPH ABS # 0.37 K/uL (1.2-3.4); MEAN CELL VOLUME 84.2 fL (80-100); MEAN CORPUSCULAR HEMOGLOBIN 27.9 pg (25-34); MEAN PLATELET VOLUME 9.6 fL (7.4-10.4); MONO ABS # 0.38 K/uL (0.11-0.59); NEUT % 91.8 %; NEUT ABS # 8.73 K/uL (1.4-6.5); PLATELET COUNT 250 K/uL (130-400); RED CELL DISTRIBUTION WIDTH CV 13.5 % (11.5-14.5); RED CELL DISTRIBUTION WIDTH SD 41.2 fL (36.4-46.3); WHITE BLOOD COUNT 9.51 K/uL (4.8-10.8)
[2017-03-06 07:28] LABS: CALCIUM 8.2 mg/dl (8.5-10.1); CREATININE 0.41 mg/dl (0.60-1.20); POTASSIUM 3.6 mmol/L (3.5-5.1)
[2017-03-06] MEDS: FERROUS SULFATE 325 MG TAB PO SCH ×2 (07:30→16:45)
[2017-03-06 07:38] LABS: MEAN CORPUSCULAR HGB CONC 33.1 g/dl (32-36)
[2017-03-06] MEDS: INSULIN ASPART 100 UNITS/ML 3 ML PEN SC SCH ×4 (07:56→21:00)
[2017-03-06] MEDS: NYSTATIN OINT 15 GM TUBE EXT SCH ×2 (08:09→20:44)
[2017-03-06] MEDS: ECONAZOLE NITRATE 1% CRM 15 GM TUBE EXT SCH ×2 (08:10→20:44)
[2017-03-06] MEDS: ARTIFICIAL TEARS OP SOLN OPB SCH ×4 (08:10→20:44)
[2017-03-06] MEDS: HEPARIN SOD 5000 UNIT/0.5 ML CARP SQ SCH ×2 (08:13→20:43)
[2017-03-06] MEDS: CITALOPRAM 20 MG TAB PO SCH ×2 (08:36→11:11)
[2017-03-06] MEDS: CYANOCOBALAMIN 500 MCG TAB (VIT B-12) PO SCH ×2 (08:37→11:11)
[2017-03-06] MEDS: LEVETIRACETAM 250 MG TAB PO SCH (08:37)
[2017-03-06] MEDS: PANTOprazole SOD 40 MG TAB PO SCH ×2 (08:37→11:08)
[2017-03-06] MEDS: CARBIDOPA/LEVODOPA 25/100MG TAB PO SCH ×3 (08:37→20:45)
[2017-03-06] MEDS: DOCUSATE SODIUM 100 MG CAP PO SCH (08:37)
[2017-03-06] MEDS: AMLODIPINE BESYLATE 5 MG TAB PO SCH ×2 (08:37→11:11)
[2017-03-06] MEDS: GUAIFENESIN 200 MG TAB PO SCH ×2 (08:37→20:45)
--- NOTE | 2017-03-06 09:10 | Neurology Consultation ---
Neurology Consultation Date of Consultation: Mar 06, 2017. Attending Physician: Cody Doyle M.D. 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 The patient was admitted to the hospital for further evaluation and management of pneumonia following an influenza-like illness. The patient has been exhibiting minimal responsiveness, beginning overnight. An EEG and neurology consult were ordered. Past Medical/Surgical History Medical Problems: (1) Anemia Status: Acute (2) Cellulitis Status: Acute (3) Chronic anemia Status: Acute (4) Congestive heart failure (CHF) Status: Acute (5) Dehydration Status: Acute (6) Flu-like symptoms Status: Acute (7) Guaiac positive stools Status: Acute (8) Hypertension Status: Acute (9) Hypokalemia Status: Acute (10) Hyponatremia Status: Acute (11) Pneumonia Status: Acute (12) Profound anemia Status: Acute (13) Severe anemia Status: Acute (14) Shortness of breath Status: Acute (15) Urinary tract infection Status: Acute (16) Weakness Status: Acute Family History Noncontributory Social History Smoking Status: Never smoker Smokeless Tobacco Use: No Alcohol Use: none Drug Use: none Marital Status: Housing Status: lives with significant other Occupation Status: retired Allergies Coded Allergies: Iodinated Diagnostic Agents (Verified Allergy, Severe, SHORTNESS OF BREATH , 12/23/16) Latex (Verified Allergy, Intermediate, RASH, 12/23/16) Aspirin (Verified Allergy, Unknown, RASH, 12/23/16) IBUPROFEN WELL Chocolate (Unverified Allergy, Unknown, UNKNOWN, 12/23/16) Ibuprofen (Verified Allergy, Unknown, 12/23/16) Latex1 -Allergic Contact Dermititis (Verified Allergy, Unknown, 12/23/16) Lisinopril (Verified Allergy, Unknown, UNKNOWN, 12/23/16) Meperidine (Verified Allergy, Unknown, UNKNOWN, 12/23/16) Metformin (Unverified Allergy, Unknown, GI SYMPTOMS, 12/23/16) Midazolam (Verified Allergy, Unknown, UNKN, 12/23/16) Nut Tree (Verified Allergy, Unknown, UNKNOWN, 12/23/16) Peanut (Verified Allergy, Unknown, UNKNOWN, 12/23/16) Penicillins (Verified Allergy, Unknown, SHORTNESS OF BREATH, 12/23/16) (FROM UNCODED ALLERGIES) Sulfa Antibiotics (Verified Allergy, Unknown, UNKNOWN, 12/23/16) Gluten (Verified Adverse Reaction, Intermediate, GI SYMPTOMS, 12/23/16) Current Inpatient Medications Current Inpatient Medications Medications (Trade) Dose Ordered Sig/Phong Route Start Time Stop Time Status Last Admin Dose Admin Ondansetron HCl (Zofran Inj) 4 mg Q6H PRN IV 03/04/17 20:30 04/03/17 20:29 Levofloxacin 500 mg/Prmx 100 ml @ 100 mls/hr Q24H IV 03/05/17 18:00 03/10/17 18:59 03/05/17 17:25 100 MLS/HR Guaifenesin (Organidin Nr Tab) 600 mg BID PO 03/04/17 21:00 04/03/17 20:59 03/05/17 20:51 600 MG Ondansetron HCl (Zofran Odt) 8 mg Q6H PRN PO 03/04/17 20:30 04/03/17 20:29 Insulin Aspart (novoLOG ASPART) SLIDING SCALE If C... ACHS SC 03/04/17 21:00 04/03/17 20:59 03/05/17 17:23 1 UNITS Glucose (Glucose 40% Gel) 15-30 GRAMS 15 GRAMS... UD PRN PO 03/04/17 20:30 04/03/17 20:29 Glucose (Glucose Chew Tab) 4-8 Tablets 4 Tabl... UD PRN PO 03/04/17 20:30 04/03/17 20:29 Dextrose (Dextrose 50% 50ML Syringe) 25-50ML OF 50% DW IV FOR... UD PRN IV 03/04/17 20:30 04/03/17 20:29 Glucagon (Glucagon Inj) 1 mg UD PRN SQ 03/04/17 20:30 04/03/17 20:29 Miscellaneous Information (Consult) 1 ea UD PRN N/A 03/04/17 20:30 04/03/17 20:29 Budesonide (Pulmicort Respules 0.5MG/ 2ML Neb Soln) 0.5 mg BIDR INH 03/05/17 08:00 04/04/17 07:59 03/05/17 20:19 0.5 MG Amlodipine Besylate (Norvasc Tab) 5 mg QAM PO 03/05/17 09:00 04/04/17 08:59 03/05/17 08:57 5 MG Bisacodyl (Dulcolax Supp) 10 mg Q96H PRN [place] 03/04/17 20:30 04/03/17 20:29 Carbidopa/Levodopa (Sinemet 25/ 100MG Tab) 2 tab TID PO 03/04/17 21:00 04/03/17 20:59 03/05/17 20:04 2 TAB Cyanocobalamin (Vitamin B-12 Tab) 250 mcg DAILY PO 03/05/17 09:00 04/04/17 08:59 03/05/17 08:58 250 MCG Diphenhydramine HCl (Benadryl Cap) 25 mg Q8 PRN PO 03/04/17 22:00 04/03/17 21:59 Docusate Sodium (coLACE CAP) 100 mg DAILY PO 03/05/17 09:00 04/04/17 08:59 03/05/17 08:56 100 MG Econazole Nitrate (Econazole Nitrate 1% Crm) 1 appln BID EXT 03/04/17 21:00 04/03/17 20:59 03/06/17 08:10 1 APPLN Levetiracetam (Keppra Tab) 250 mg BID PO 03/04/17 21:00 04/03/17 20:59 03/05/17 20:50 250 MG Levothyroxine Sodium (Synthroid Tab) 112 mcg DAILYBB PO 03/05/17 06:00 04/04/17 06:59 03/05/17 04:31 112 MCG Magnesium Hydroxide (Milk Of Magnesia Susp) 30 ml Q72H PRN PO 03/04/17 20:30 04/03/17 20:29 Menthol/Zinc Oxide (Calmoseptine Oint) 1 appln HS EXT 03/04/17 21:00 04/03/17 20:59 03/05/17 20:06 1 APPLN Montelukast Sodium (Singulair Tab) 10 mg HS PO 03/04/17 21:00 04/03/17 20:59 03/05/17 20:03 10 MG Nystatin (Mycostatin Oint) 1 appln BID EXT 03/04/17 21:00 04/03/17 20:59 03/06/17 08:09 1 APPLN Oxybutynin Chloride (Ditropan Tab) 5 mg Q12 PRN PO 03/04/17 20:30 04/03/17 20:29 Sodium Biphosphate/ Sodium Phosphate (Fleet Enema) 132 ml Q96H PRN [place] 03/04/17 20:30 04/03/17 20:29 Artificial Tears (Artificial Tears) 2 drops QID OPB 03/04/17 21:00 04/03/17 20:59 03/06/17 08:10 2 DROPS Miscellaneous Information (Order Awaiting Action) 1 ea QS N/A 03/05/17 00:00 04/04/17 00:00 Citalopram Hydrobromide (celeXA TAB) 10 mg QAM PO 03/05/17 09:00 04/04/17 08:59 03/05/17 08:57 10 MG Ferrous Sulfate (Feosol Tab) 325 mg BIDM PO 03/05/17 07:30 04/04/17 07:59 Pantoprazole Sodium (Protonix Tab) 40 mg QAM PO 03/05/17 09:00 04/04/17 08:59 03/05/17 08:56 40 MG Clotrimazole (Mycelex 10MG Manuel) 1 manuel [id number] MIGUEL 03/04/17 23:00 03/14/17 22:59 03/05/17 20:05 1 MANUEL Ipratropium [place] (Atrovent 0.02% 0.5MG/2.5ML Neb) 0.5 mg Q6R INH 03/05/17 03:00 04/04/17 02:59 03/06/17 02:17 0.5 MG Levalbuterol (Xopenex 1.25MG/ 0.5ML Neb) 1.25 mg Q6R INH 03/05/17 03:00 04/04/17 02:59 03/06/17 02:17 1.25 MG Ipratropium [place] (Atrovent 0.02% 0.5MG/2.5ML Neb) 0.5 mg Q2H PRN INH 03/04/17 21:15 04/03/17 21:14 03/04/17 21:14 0.5 MG Levalbuterol (Xopenex 1.25MG/ 0.5ML Neb) 1.25 mg Q2H PRN INH 03/04/17 21:15 04/03/17 21:14 03/04/17 21:15 1.25 MG Vancomycin HCl 1500 mg/Sodium Chloride 530 ml @ 200 mls/hr Q10H IV 03/05/17 08:00 03/12/17 07:59 03/06/17 04:23 200 MLS/HR Cefepime HCl 1000 mg/Syringe 11 ml @ 5.5 mls/min Q8H IV 03/05/17 02:00 03/12/17 01:59 03/06/17 02:42 5.5 MLS/MIN Methylprednisolone Sodium Succinate 40 mg/Syringe 0.64 ml @ 1.5 mls/min Q12H IV 03/05/17 16:00 04/04/17 03:59 03/06/17 04:00 1.5 MLS/MIN Heparin Sodium (Porcine) (Heparin Sq 5000 Unit/0.5ml) 5,000 unit Q12 SQ 03/05/17 10:00 04/04/17 09:59 03/06/17 08:13 5,000 UNIT Review of Systems Unable to obtain as patient is encephalopathic Physical Exam Vital Signs (Past 24 Hrs): Date Time Temp Pulse Resp B/P (MAP) Pulse Ox O2 Delivery O2 Flow Rate FiO2 03/06/17 07:39 36.8 62 20 174/84 (114) 97 Nasal Cannula 4.0 03/06/17 04:00 Nasal Cannula 3.0 03/06/17 03:05 36.5 65 24 161/69 (99) 96 Nasal Cannula 4.0 03/06/17 02:17 54 16 99 Nasal Cannula 3.0 03/06/17 00:01 Nasal Cannula 3.0 03/06/17 00:00 36.9 58 22 131/68 (89) 97 Nasal Cannula 4.0 03/05/17 20:00 Nasal Cannula 3.0 03/05/17 19:10 66 16 97 Nasal Cannula 3.0 03/05/17 19:04 36.7 67 22 160/79 (106) 95 Nasal Cannula 4.0 03/05/17 16:00 Nasal Cannula 3.0 03/05/17 14:42 36.8 70 20 158/69 (98) 95 Nasal Cannula 4.0 03/05/17 14:37 85 16 95 Nasal Cannula 3.0 03/05/17 12:00 Nasal Cannula 3.0 03/05/17 11:39 36.7 69 22 159/67 (97) 95 Nasal Cannula 3.0 The patient is a well-developed elderly female. She is lying still in bed. She opens her eyes briefly to voice and tactile stimulation. She does not answer questions or follow commands. Testing of higher integrative functions/mental status cannot be performed. Pupils equal round reactive to light. Corneal reflexes intact. There is no gaze preference or nystagmus. Ocular motility cannot be fully assessed. There is no facial droop. Hearing cannot be tested. Tongue and palate midline. Shoulder shrug cannot be tested. Sensation cannot be adequately tested, patient withdraws her limbs to noxious stimulation. Deep tendon reflexes cannot be reliably tested. Plantar responses withdrawal. Testing of coordination cannot be done. Patient does not cooperate for ophthalmoscopic examination. Carotid pulses normal bilaterally, no bruits. Gait and station cannot be tested. Testing of muscle strength cannot be completed. Muscle tone is generally increased. No atrophy. No abnormal movements or tremors. Laboratory Results Past 24 Hours: 03/06/17 06:58 Red Blood Count 2.98, Mean Corpuscular Volume 84.2, Mean Corpuscular Hemoglobin 27.9, Mean Corpuscular Hemoglobin Concent 33.1, Mean Platelet Volume 9.6, Neutrophils (%) (Auto) 91.8, Lymphocytes (%) (Auto) 3.9, Monocytes (%) (Auto) 4.0, Eosinophils (%) (Auto) 0.0, Basophils (%) (Auto) 0.0, Neutrophils # (Auto) 8.73, Lymphocytes # (Auto) 0.37, Monocytes # (Auto) 0.38, Eosinophils # (Auto) 0.00, Basophils # (Auto) 0.00 03/06/17 06:32 Test 03/05/17 10:49 03/06/17 06:32 03/06/17 06:46 03/06/17 06:58 Urine Random Sodium 5 mEq/L Anion Gap 6.0 mmol/L (3-11) Est Creatinine Clear Calc Drug Dose 148.9 ml/min Estimated GFR () 119.6 Estimated GFR (Non- 103.2 BUN/Creatinine Ratio 40.6 (10-20) Calcium Level 8.2 mg/dl (8.5-10.1) Magnesium Level 2.1 mg/dl (1.8-2.4) Bedside Glucose 107 mg/dl (70-90) White Blood Count 9.51 K/uL (4.8-10.8) Red Blood Count 2.98 M/uL (4.2-5.4) Hemoglobin 8.3 g/dL (12.0-16.0) Hematocrit 25.1 % (37-47) Mean Corpuscular Volume 84.2 fL (80-100) Mean Corpuscular Hemoglobin 27.9 pg (25-34) Mean Corpuscular Hemoglobin Concent 33.1 g/dl (32-36) Platelet Count 250 K/uL (130-400) Mean Platelet Volume 9.6 fL (7.4-10.4) Neutrophils (%) (Auto) 91.8 % Lymphocytes (%) (Auto) 3.9 % Monocytes (%) (Auto) 4.0 % Eosinophils (%) (Auto) 0.0 % Basophils (%) (Auto) 0.0 % Neutrophils # (Auto) 8.73 K/uL (1.4-6.5) Lymphocytes # (Auto) 0.37 K/uL (1.2-3.4) Monocytes # (Auto) 0.38 K/uL (0.11-0.59) Eosinophils # (Auto) 0.00 K/uL (0-0.5) Basophils # (Auto) 0.00 K/uL (0-0.2) RDW Standard Deviation 41.2 fL (36.4-46.3) RDW Coefficient of Variation 13.5 % (11.5-14.5) Immature Granulocyte % (Auto) 0.3 % Immature Granulocyte # (Auto) 0.03 K/uL (0.00-0.02) Hypochromasia PRESENT Ovalocytes 1+ Impression Persistent encephalopathy secondary to respiratory failure in the context of pneumonia following a flulike illness further complicated by metabolic encephalopathy due to hyponatremia and infection. History of atypical parkinsonism. History of suspected complex partial seizures. Subclinical seizures not excluded at this time. Plan Agree with EEG as ordered. Start Keppra 500 mg IV every 12 hours. Stop Keppra tablets at this time. CT of the head without contrast. Restart Sinemet when mental status improves and patient able to swallow.
--- NOTE | 2017-03-06 10:02 | DIAGNOSTIC IMAGING REPORT ---
HEAD WITHOUT CONTRAST (CT) CLINICAL HISTORY: 71 years-old Female presenting with change in mental status, encephalopathy, unresponsive. TECHNIQUE: Multidetector CT imaging of the head was performed without the use of intravenous contrast. IV contrast: None. A dose lowering technique was used consistent with the principles of ALARA (as low as reasonably achievable). COMPARISON: 07/07/2016. CT DOSE (mGy.cm): The estimated cumulative dose is 729.78 mGycm. 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 Proportional ventricular and sulcal prominence, likely age-related parenchymal volume loss. Cavum septi pellucidi noted. Brain parenchyma normal in appearance with preserved cotton-white differentiation. No mass effect or midline shift. No hemorrhage or acute territorial infarct. No extra-axial fluid collection. Paranasal sinuses and mastoid air cells clear. Calvarium intact. IMPRESSION: 1. No acute intracranial abnormality. Electronically signed by: Aubrey Kenney M.D. 03/06/2017 10:01 AM Dictated Date/Time: 03/06/2017 9:58 AM
[2017-03-06] MEDS: LEVETIRACETAM IV 500 MG in DEXTROSE 5% 100ML 100 ML IV SCH ×2 (10:08→22:06)
--- NOTE | 2017-03-06 11:40 | Progress Note ---
Subjective Date of Service: Mar 06, 2017. Subjective Patient is more awake. But does not provide much history. She knows she is in the hospital but is ot alert or oriented. Patient has dry cough. Coarse breath sounds bilaterally. Unable to provide more history. Unable to obtain a ROS. Problem List Medical Problems: (1) Anemia Status: Acute (2) Cellulitis Status: Acute (3) Chronic anemia Status: Acute (4) Congestive heart failure (CHF) Status: Acute (5) Dehydration Status: Acute (6) Flu-like symptoms Status: Acute (7) Guaiac positive stools Status: Acute (8) Hypertension Status: Acute (9) Hypokalemia Status: Acute (10) Hyponatremia Status: Acute (11) Pneumonia Status: Acute (12) Profound anemia Status: Acute (13) Severe anemia Status: Acute (14) Shortness of breath Status: Acute (15) Urinary tract infection Status: Acute (16) Weakness Status: Acute Medications Current Inpatient Medications Medications (Trade) Dose Ordered Sig/Phong Route Start Time Stop Time Status Last Admin Dose Admin Ondansetron HCl (Zofran Inj) 4 mg Q6H PRN IV 03/04/17 20:30 04/03/17 20:29 Guaifenesin (Organidin Nr Tab) 600 mg BID PO 03/04/17 21:00 04/03/17 20:59 03/07/17 08:15 600 MG Ondansetron HCl (Zofran Odt) 8 mg Q6H PRN PO 03/04/17 20:30 04/03/17 20:29 Insulin Aspart (novoLOG ASPART) SLIDING SCALE If C... ACHS SC 03/04/17 21:00 04/03/17 20:59 03/05/17 17:23 1 UNITS Glucose (Glucose 40% Gel) 15-30 GRAMS 15 GRAMS... UD PRN PO 03/04/17 20:30 04/03/17 20:29 Glucose (Glucose Chew Tab) 4-8 Tablets 4 Tabl... UD PRN PO 03/04/17 20:30 04/03/17 20:29 Dextrose (Dextrose 50% 50ML Syringe) 25-50ML OF 50% DW IV FOR... UD PRN IV 03/04/17 20:30 04/03/17 20:29 Glucagon (Glucagon Inj) 1 mg UD PRN SQ 03/04/17 20:30 04/03/17 20:29 Miscellaneous Information (Consult) 1 ea UD PRN N/A 03/04/17 20:30 04/03/17 20:29 Budesonide (Pulmicort Respules 0.5MG/ 2ML Neb Soln) 0.5 mg BIDR INH 03/05/17 08:00 04/04/17 07:59 03/07/17 07:00 0.5 MG Amlodipine Besylate (Norvasc Tab) 5 mg QAM PO 03/05/17 09:00 04/04/17 08:59 03/07/17 08:16 5 MG Bisacodyl (Dulcolax Supp) 10 mg Q96H PRN [place] 03/04/17 20:30 04/03/17 20:29 Carbidopa/Levodopa (Sinemet 25/ 100MG Tab) 2 tab TID PO 03/04/17 21:00 04/03/17 20:59 03/07/17 08:14 2 TAB Cyanocobalamin (Vitamin B-12 Tab) 250 mcg DAILY PO 03/05/17 09:00 04/04/17 08:59 03/07/17 08:15 250 MCG Diphenhydramine HCl (Benadryl Cap) 25 mg Q8 PRN PO 03/04/17 22:00 04/03/17 21:59 Docusate Sodium (coLACE CAP) 100 mg DAILY PO 03/05/17 09:00 04/04/17 08:59 03/07/17 08:14 100 MG Econazole Nitrate (Econazole Nitrate 1% Crm) 1 appln BID EXT 03/04/17 21:00 04/03/17 20:59 03/07/17 08:11 1 APPLN Levothyroxine Sodium (Synthroid Tab) 112 mcg DAILYBB PO 03/05/17 06:00 04/04/17 06:59 03/05/17 04:31 112 MCG Magnesium Hydroxide (Milk Of Magnesia Susp) 30 ml Q72H PRN PO 03/04/17 20:30 04/03/17 20:29 Menthol/Zinc Oxide (Calmoseptine Oint) 1 appln HS EXT 03/04/17 21:00 04/03/17 20:59 03/06/17 20:45 1 APPLN Montelukast Sodium (Singulair Tab) 10 mg HS PO 03/04/17 21:00 04/03/17 20:59 03/06/17 20:45 10 MG Nystatin (Mycostatin Oint) 1 appln BID EXT 03/04/17 21:00 04/03/17 20:59 03/07/17 08:10 1 APPLN Oxybutynin Chloride (Ditropan Tab) 5 mg Q12 PRN PO 03/04/17 20:30 04/03/17 20:29 Sodium Biphosphate/ Sodium Phosphate (Fleet Enema) 132 ml Q96H PRN [place] 03/04/17 20:30 04/03/17 20:29 Artificial Tears (Artificial Tears) 2 drops QID OPB 03/04/17 21:00 04/03/17 20:59 03/07/17 08:11 2 DROPS Miscellaneous Information (Order Awaiting Action) 1 ea QS N/A 03/05/17 00:00 04/04/17 00:00 Citalopram Hydrobromide (celeXA TAB) 10 mg QAM PO 03/05/17 09:00 04/04/17 08:59 03/07/17 08:16 10 MG Ferrous Sulfate (Feosol Tab) 325 mg BIDM PO 03/05/17 07:30 04/04/17 07:59 03/07/17 08:10 325 MG Pantoprazole Sodium (Protonix Tab) 40 mg QAM PO 03/05/17 09:00 04/04/17 08:59 03/07/17 08:13 40 MG Clotrimazole (Mycelex 10MG Manuel) 1 manuel [id number] MIGUEL 03/04/17 23:00 03/14/17 22:59 03/07/17 08:12 1 MANUEL Ipratropium [place] (Atrovent 0.02% 0.5MG/2.5ML Neb) 0.5 mg Q6R INH 03/05/17 03:00 04/04/17 02:59 03/07/17 07:00 0.5 MG Levalbuterol (Xopenex 1.25MG/ 0.5ML Neb) 1.25 mg Q6R INH 03/05/17 03:00 04/04/17 02:59 03/07/17 07:00 1.25 MG Ipratropium [place] (Atrovent 0.02% 0.5MG/2.5ML Neb) 0.5 mg Q2H PRN INH 03/04/17 21:15 04/03/17 21:14 03/06/17 16:58 0.5 MG Levalbuterol (Xopenex 1.25MG/ 0.5ML Neb) 1.25 mg Q2H PRN INH 03/04/17 21:15 04/03/17 21:14 03/06/17 16:58 1.25 MG Cefepime HCl 1000 mg/Syringe 11 ml @ 5.5 mls/min Q8H IV 03/05/17 02:00 03/12/17 01:59 03/07/17 01:44 5.5 MLS/MIN Methylprednisolone Sodium Succinate 40 mg/Syringe 0.64 ml @ 1.5 mls/min Q12H IV 03/05/17 16:00 04/04/17 03:59 03/07/17 04:27 1.5 MLS/MIN Heparin Sodium (Porcine) (Heparin Sq 5000 Unit/0.5ml) 5,000 unit Q12 SQ 03/05/17 10:00 04/04/17 09:59 03/07/17 08:19 5,000 UNIT Levetiracetam 500 mg/Dextrose 105 ml @ 420 mls/hr Q12H IV 03/06/17 10:00 04/05/17 09:59 03/06/17 22:06 420 MLS/HR Vancomycin HCl 1500 mg/Sodium Chloride 530 ml @ 200 mls/hr Q12H IV 03/07/17 02:00 03/14/17 01:59 03/07/17 02:48 200 MLS/HR Potassium/ Phosphorus/Sodium (Phospha 250 Neutral 155-852-130 Mg) 2 tab QID PO 03/06/17 21:00 03/09/17 20:59 03/07/17 08:12 2 TAB Sodium Chloride (Sodium Chloride Tab) 1 gm [id number] PO 03/07/17 14:00 04/06/17 08:59 UNV Objective Vital Signs Date Time Temp Pulse Resp B/P (MAP) Pulse Ox O2 Delivery O2 Flow Rate FiO2 03/06/17 08:00 Nasal Cannula 4.0 03/06/17 07:39 36.8 62 20 174/84 (114) 97 Nasal Cannula 4.0 03/06/17 04:00 Nasal Cannula 3.0 03/06/17 03:05 36.5 65 24 161/69 (99) 96 Nasal Cannula 4.0 03/06/17 02:17 54 16 99 Nasal Cannula 3.0 03/06/17 00:01 Nasal Cannula 3.0 03/06/17 00:00 36.9 58 22 131/68 (89) 97 Nasal Cannula 4.0 03/05/17 20:00 Nasal Cannula 3.0 03/05/17 19:10 66 16 97 Nasal Cannula 3.0 03/05/17 19:04 36.7 67 22 160/79 (106) 95 Nasal Cannula 4.0 03/05/17 16:00 Nasal Cannula 3.0 03/05/17 14:42 36.8 70 20 158/69 (98) 95 Nasal Cannula 4.0 03/05/17 14:37 85 16 95 Nasal Cannula 3.0 03/05/17 12:00 Nasal Cannula 3.0 03/05/17 11:39 36.7 69 22 159/67 (97) 95 Nasal Cannula 3.0 Physical Exam Comments: General Appearance: WD/WN, + no distress+ obese Eyes: normal inspection, sclerae normal Respiratory/Chest: chest non-tender, + decreased breath sounds, + accessory muscle use, + rhonchi Cardiovascular: regular rate, rhythm, + systolic murmur Abdomen: normal bowel sounds, non tender, soft Extremities: no calf tenderness, + pedal edema Neurologic/Psychiatric: alert, oriented x 2 Laboratory Results Last 24 Hours Test 03/05/17 15:55 03/05/17 20:03 03/06/17 06:32 03/06/17 06:46 Bedside Glucose 130 mg/dl 131 mg/dl 107 mg/dl Sodium Level 122 mmol/L Potassium Level 3.6 mmol/L Chloride Level 84 mmol/L Carbon Dioxide Level 32 mmol/L Anion Gap 6.0 mmol/L Blood Urea Nitrogen 17 mg/dl Creatinine 0.41 mg/dl Est Creatinine Clear Calc Drug Dose 148.9 ml/min Estimated GFR () 119.6 Estimated GFR (Non- 103.2 BUN/Creatinine Ratio 40.6 Random Glucose 104 mg/dl Calcium Level 8.2 mg/dl Magnesium Level 2.1 mg/dl Test 03/06/17 06:58 03/06/17 10:56 White Blood Count 9.51 K/uL Red Blood Count 2.98 M/uL Hemoglobin 8.3 g/dL Hematocrit 25.1 % Mean Corpuscular Volume 84.2 fL Mean Corpuscular Hemoglobin 27.9 pg Mean Corpuscular Hemoglobin Concent 33.1 g/dl Platelet Count 250 K/uL Mean Platelet Volume 9.6 fL Neutrophils (%) (Auto) 91.8 % Lymphocytes (%) (Auto) 3.9 % Monocytes (%) (Auto) 4.0 % Eosinophils (%) (Auto) 0.0 % Basophils (%) (Auto) 0.0 % Neutrophils # (Auto) 8.73 K/uL Lymphocytes # (Auto) 0.37 K/uL Monocytes # (Auto) 0.38 K/uL Eosinophils # (Auto) 0.00 K/uL Basophils # (Auto) 0.00 K/uL RDW Standard Deviation 41.2 fL RDW Coefficient of Variation 13.5 % Immature Granulocyte % (Auto) 0.3 % Immature Granulocyte # (Auto) 0.03 K/uL Hypochromasia PRESENT Ovalocytes 1+ Bedside Glucose 139 mg/dl Assessment and Plan 71 F recently treated for influenza presents with Acute respiratory failure with hypoxia/pneumonia involving right lung--hyponatremia, hypokalemia, hypomagnesemia, gram negative uti poa associated with chronic indwelling munoz cath Right sided pneumonia Concern for gram negative pneumonia, on vancomycin, cefepime Levaquin stopped due to resistance. this will also cover gram negative UTI associated with munoz cath, Concern with upper airway sounds will prompt a speech consult, antibiotics may be altered is aspiration is more evident or clinical course does not improve Do not believe patient is fluid overloaded. CT chest confirmed pneumonia. metabolic encephalopathy from hyponatremia and infection, persists as neither improved significantly since admission Acute respiratory failure, will be on supplemental oxygen, nebulized medications, solu-medrol of xopenex and ipatropium q 6 hours plus her usual home meds of singulair Hyponatremia, Likely hypovolemic hyponatremia will give one liter fluid as patient is not responding to fluid restrcition. will repeat urine sodium and urine osmolality. will also consult nephrology. Hypokalemia and hypomagnesemia replete Atypical parkinsonism, continue sinemet HTN continue norvasc but hold diuretic with hyponatremia Seizure disorder-- Continue Keppra 250 mg by mouth twice a day GERD-- Change omeprazole to pantoprazole Hyperlipidemia-- Continue simvastatin 20 mg every evening Hypothyroidism-- Continue levothyroxine sodium 112 g daily Depression-- Continue citalopram 10 mg daily Vitamin B12 deficiency-- Continue cyanocobalamin 250 g daily I spent 55 minutes on the management of this case, this also included reviewing her case and medicine.
--- NOTE | 2017-03-06 12:39 | EEG Procedure Note ---
EEG Procedure Note Date of Service Mar 06, 2017. Start / End Times Start Time: 8:36 AM End Time: 8:56 AM Referring Physician Cody Cooper History This is a 71-year-old female with concerns for possible seizures. EEG for further evaluation of possible seizure etiology. Home Medication List Scheduled Albuterol Sulf (Albuterol Sulfate), 3 ML NEB Q6 Amlodipine Besylate (Amlodipine Besylate), 5 MG PO QAM Calcium Carbonate-Cholecalcife (Caltrate 600+D), 1 TAB PO DAILY Carbidopa/Levodopa (Sinemet 25MG/100MG), 2 TAB PO TID Carboxymethylcellulose-Glyceri (Refresh Optive Advanced), 2 DROPS OPB QID Citalopram Hydrobromide (Citalopram Hydrobromide), 1 TAB PO DAILY Clindamycin Hcl (Cleocin), 600 MG PO UD Coenzyme Q10 (Ubidecarenone) (Co Q 10), 100 MG PO AMHS Cyanocobalamin (Vitamin B-12), 250 MCG PO DAILY Diphenhydramine Hcl (Benadryl Allergy), 1 CAP PO Q8 Docusate Sodium (Colace), 1 CAP PO DAILY Econazole Nitrate (Econazole Nitrate Crm 1% 30 Gm), 1 APPL TOP BID Ergocalciferol (Drisdol), 1 CAP PO 2XWK Eyelid Cleansers (Ocusoft Lid Scrub Plus), 1 APPLN TOP BID Ferrous Sulfate (Kp Ferrous Sulfate), 1 TAB PO BID Fluticasone Prop/Salmeterol (Advair Diskus 250/50 60 Dose), 1 PUFFS INH BID Furosemide (Lasix), 20 MG PO DAILY Furosemide (Lasix), 20 MG PO DAILY Levetiracetam (Keppra), 250 MG PO BID Levofloxacin (Levaquin), 750 MG PO DAILY Levothyroxine Sodium (Synthroid), 112 MCG PO DAILY Menthol (Topical Analgesic) (Biofreeze), 1 APPL TOP TID Menthol-Zinc Oxide (Calmoseptine), 1 APPL TOP HS Montelukast Sod (Montelukast Sodium), 10 MG PO HS Nystatin (Topical) (Nystatin), 1 APPLN TOP BID Omeprazole (Prilosec), 20 MG PO DAILY Oseltamivir Phosphate (Tamiflu), 1 CAP PO BID Simvastatin (Zocor), 20 MG PO QPM Scheduled PRN Acetaminophen (Tylenol), 1 TAB PO Q24 PRN for Pain Albuterol Sulf (Proventil 0.083% 2.5MG/3ML), 2.5 MG INH Q6 PRN for Shortness of Breath Bisacodyl (Bisac-Evac), 10 MG PO Q96H PRN for Constipation Magnesium Hydroxide (Milk Of Magnesia), 30 ML PO Q72H PRN for Constipation Oxybutynin Chloride (Ditropan), 1 TAB PO Q12 PRN for BLADDER SPASMS Sodium Phosphate/Biphosphate (Fleet Enema), 1 EA VA Q96H PRN for Constipation Inpatient Medication List Current Inpatient Medications Medications (Trade) Dose Ordered Sig/Phong Route Start Time Stop Time Status Last Admin Dose Admin Ondansetron HCl (Zofran Inj) 4 mg Q6H PRN IV 03/04/17 20:30 04/03/17 20:29 Guaifenesin (Organidin Nr Tab) 600 mg BID PO 03/04/17 21:00 04/03/17 20:59 03/05/17 20:51 600 MG Ondansetron HCl (Zofran Odt) 8 mg Q6H PRN PO 03/04/17 20:30 04/03/17 20:29 Insulin Aspart (novoLOG ASPART) SLIDING SCALE If C... ACHS SC 03/04/17 21:00 04/03/17 20:59 03/05/17 17:23 1 UNITS Glucose (Glucose 40% Gel) 15-30 GRAMS 15 GRAMS... UD PRN PO 03/04/17 20:30 04/03/17 20:29 Glucose (Glucose Chew Tab) 4-8 Tablets 4 Tabl... UD PRN PO 03/04/17 20:30 04/03/17 20:29 Dextrose (Dextrose 50% 50ML Syringe) 25-50ML OF 50% DW IV FOR... UD PRN IV 03/04/17 20:30 04/03/17 20:29 Glucagon (Glucagon Inj) 1 mg UD PRN SQ 03/04/17 20:30 04/03/17 20:29 Miscellaneous Information (Consult) 1 ea UD PRN N/A 03/04/17 20:30 04/03/17 20:29 Budesonide (Pulmicort Respules 0.5MG/ 2ML Neb Soln) 0.5 mg BIDR INH 03/05/17 08:00 04/04/17 07:59 03/05/17 20:19 0.5 MG Amlodipine Besylate (Norvasc Tab) 5 mg QAM PO 03/05/17 09:00 04/04/17 08:59 03/06/17 11:11 5 MG Bisacodyl (Dulcolax Supp) 10 mg Q96H PRN VA 03/04/17 20:30 04/03/17 20:29 Carbidopa/Levodopa (Sinemet 25/ 100MG Tab) 2 tab TID PO 03/04/17 21:00 04/03/17 20:59 03/06/17 11:07 2 TAB Cyanocobalamin (Vitamin B-12 Tab) 250 mcg DAILY PO 03/05/17 09:00 04/04/17 08:59 03/06/17 11:11 250 MCG Diphenhydramine HCl (Benadryl Cap) 25 mg Q8 PRN PO 03/04/17 22:00 04/03/17 21:59 Docusate Sodium (coLACE CAP) 100 mg DAILY PO 03/05/17 09:00 04/04/17 08:59 03/05/17 08:56 100 MG Econazole Nitrate (Econazole Nitrate 1% Crm) 1 appln BID EXT 03/04/17 21:00 04/03/17 20:59 03/06/17 08:10 1 APPLN Levothyroxine Sodium (Synthroid Tab) 112 mcg DAILYBB PO 03/05/17 06:00 04/04/17 06:59 03/05/17 04:31 112 MCG Magnesium Hydroxide (Milk Of Magnesia Susp) 30 ml Q72H PRN PO 03/04/17 20:30 04/03/17 20:29 Menthol/Zinc Oxide (Calmoseptine Oint) 1 appln HS EXT 03/04/17 21:00 04/03/17 20:59 03/05/17 20:06 1 APPLN Montelukast Sodium (Singulair Tab) 10 mg HS PO 03/04/17 21:00 04/03/17 20:59 03/05/17 20:03 10 MG Nystatin (Mycostatin Oint) 1 appln BID EXT 03/04/17 21:00 04/03/17 20:59 03/06/17 08:09 1 APPLN Oxybutynin Chloride (Ditropan Tab) 5 mg Q12 PRN PO 03/04/17 20:30 04/03/17 20:29 Sodium Biphosphate/ Sodium Phosphate (Fleet Enema) 132 ml Q96H PRN VA 03/04/17 20:30 04/03/17 20:29 Artificial Tears (Artificial Tears) 2 drops QID OPB 03/04/17 21:00 04/03/17 20:59 03/06/17 08:10 2 DROPS Miscellaneous Information (Order Awaiting Action) 1 ea QS N/A 03/05/17 00:00 04/04/17 00:00 Citalopram Hydrobromide (celeXA TAB) 10 mg QAM PO 03/05/17 09:00 04/04/17 08:59 03/06/17 11:11 10 MG Ferrous Sulfate (Feosol Tab) 325 mg BIDM PO 03/05/17 07:30 04/04/17 07:59 Pantoprazole Sodium (Protonix Tab) 40 mg QAM PO 03/05/17 09:00 04/04/17 08:59 03/06/17 11:08 40 MG Clotrimazole (Mycelex 10MG Manuel) 1 manuel [id number] MIGUEL 03/04/17 23:00 03/14/17 22:59 03/06/17 11:08 1 MANUEL Ipratropium Gilbert (Atrovent 0.02% 0.5MG/2.5ML Neb) 0.5 mg Q6R INH 03/05/17 03:00 04/04/17 02:59 03/06/17 02:17 0.5 MG Levalbuterol (Xopenex 1.25MG/ 0.5ML Neb) 1.25 mg Q6R INH 03/05/17 03:00 04/04/17 02:59 03/06/17 02:17 1.25 MG Ipratropium Gilbert (Atrovent 0.02% 0.5MG/2.5ML Neb) 0.5 mg Q2H PRN INH 03/04/17 21:15 04/03/17 21:14 03/04/17 21:14 0.5 MG Levalbuterol (Xopenex 1.25MG/ 0.5ML Neb) 1.25 mg Q2H PRN INH 03/04/17 21:15 04/03/17 21:14 03/04/17 21:15 1.25 MG Vancomycin HCl 1500 mg/Sodium Chloride 530 ml @ 200 mls/hr Q10H IV 03/05/17 08:00 03/12/17 07:59 03/06/17 04:23 200 MLS/HR Cefepime HCl 1000 mg/Syringe 11 ml @ 5.5 mls/min Q8H IV 03/05/17 02:00 03/12/17 01:59 03/06/17 09:07 5.5 MLS/MIN Methylprednisolone Sodium Succinate 40 mg/Syringe 0.64 ml @ 1.5 mls/min Q12H IV 03/05/17 16:00 04/04/17 03:59 03/06/17 04:00 1.5 MLS/MIN Heparin Sodium (Porcine) (Heparin Sq 5000 Unit/0.5ml) 5,000 unit Q12 SQ 03/05/17 10:00 04/04/17 09:59 03/06/17 08:13 5,000 UNIT Levetiracetam 500 mg/Dextrose 105 ml @ 420 mls/hr Q12H IV 03/06/17 10:00 04/05/17 09:59 03/06/17 10:08 420 MLS/HR Description This is a 21 electrode EEG with a single channel dedicated to limited EKG. The electrodes were placed in accordance with the International 10-20 system. Bed start of this recording the patient was then reported altered mental status. There was diffuse electrical activity that obscured most of the EEG tracings. Intermittently could see underlying theta, alpha, and beta frequencies in the background. Interpretation Overall this was a nondiagnostic study due to diffuse electrical artifact. There did not appear to be any status epilepticus with brief periods of background activity seen. Clinical Correlation This is a nondiagnostic study due to diffuse electrical artifact. If there is high concern for seizures, may need to repeat EEG study later on.
--- NOTE | 2017-03-06 13:26 | DIAGNOSTIC IMAGING REPORT ---
(CHEST) THORAX WITHOUT CT DOSE: 748.37 mGy.cm HISTORY: airspace opacity/ questionable fluid overload TECHNIQUE: Multiaxial CT images of the chest were performed without contrast. A dose lowering technique was utilized adhering to the principles of ALARA. COMPARISON: Chest 03/04/2017. FINDINGS: Consolidation involving the lateral segment of the right middle lobe. Small peripheral area of consolidation within the right upper lobe posteriorly. Punctate calcified granuloma within the left upper lobe. Linear densities within the base of the right lower lobe posteriorly and base of the lingula favor subsegmental atelectasis. As also focal consolidation within the left lower lobe. Small amount of mucoid material within the trachea. No CT evidence for pulmonary edema. Trace right pleural effusion. Nondilated fluid-filled esophagus. The visualized liver, spleen, and adrenal glands are unremarkable. No mediastinal or hilar lymphadenopathy. The heart is mildly enlarged. Normal caliber thoracic aorta. The main pulmonary artery is distended up to 3.7 cm. This is consistent with pulmonary arterial hypertension. Mild body wall edema. No fractures within the visualized osseous structures. IMPRESSION: 1. Consolidation involving the lateral segment of the right middle lobe and left lower lobe. This is concerning for a pneumonia. Atelectasis could also have a similar appearance. 2. Linear densities within the base of the right lower lobe and lingula which favor subsegmental atelectasis. 3. Trace right pleural effusion. 4. Small amount of mucoid material within the trachea. 5. Cardiomegaly. No CT evidence for pulmonary edema at this time. 6. Mild body wall edema. 7. Pulmonary arterial hypertension. Electronically signed by: Malik Shrestha M.D. 03/06/2017 1:24 PM Dictated Date/Time: 03/06/2017 1:19 PM
[2017-03-06] MEDS ORDERED: VANCOMYCIN TROUGH SCH (13:30)
[2017-03-06] MEDS ORDERED: SODIUM CHLORIDE 0.9% 1000ML 1,000 ML IV ONE (15:30)
--- NOTE | 2017-03-06 15:32 | Pharmacy Progress Note ---
Pharmacy Abx Dose Progress Nt Date of Service Mar 06, 2017. Pharmacy Dosing Scope The patient is currently receiving the following antimicrobial agents per Pharmacy consult: Vancomycin Objective Height (Feet): 5 Height (Inches): 5.00 Weight (Kilograms): 104.600 Vital Signs (Past 12Hrs) Vital Signs Past 12 Hours Date Time Temp Pulse Resp B/P (MAP) Pulse Ox O2 Delivery O2 Flow Rate FiO2 03/06/17 14:37 73 16 96 Nasal Cannula 4.0 03/06/17 12:00 Nasal Cannula 4.0 03/06/17 11:52 36.8 89 19 129/83 (98) 95 Room Air 03/06/17 08:00 Nasal Cannula 4.0 03/06/17 07:39 36.8 62 20 174/84 (114) 97 Nasal Cannula 4.0 03/06/17 07:25 62 16 97 Nasal Cannula 3.0 03/06/17 04:00 Nasal Cannula 3.0 Lab Results (24Hrs) Laboratory Tests (24 Hours) Test 03/06/17 06:58 White Blood Count 9.51 K/uL (4.8-10.8) Red Blood Count 2.98 M/uL (4.2-5.4) L Hemoglobin 8.3 g/dL (12.0-16.0) L Hematocrit 25.1 % (37-47) L Mean Corpuscular Volume 84.2 fL (80-100) Mean Corpuscular Hemoglobin 27.9 pg (25-34) Mean Corpuscular Hemoglobin Concent 33.1 g/dl (32-36) Platelet Count 250 K/uL (130-400) Mean Platelet Volume 9.6 fL (7.4-10.4) Neutrophils (%) (Auto) 91.8 % Lymphocytes (%) (Auto) 3.9 % Monocytes (%) (Auto) 4.0 % Eosinophils (%) (Auto) 0.0 % Basophils (%) (Auto) 0.0 % Neutrophils # (Auto) 8.73 K/uL (1.4-6.5) H Lymphocytes # (Auto) 0.37 K/uL (1.2-3.4) L Monocytes # (Auto) 0.38 K/uL (0.11-0.59) Eosinophils # (Auto) 0.00 K/uL (0-0.5) Basophils # (Auto) 0.00 K/uL (0-0.2) Micro Results Date/Time Source Procedure Growth Status 03/04/17 18:27 Blood Blood Culture - Preliminary NO GROWTH TO DATE. Resulted 03/04/17 18:20 Blood Blood Culture - Preliminary NO GROWTH TO DATE. Resulted 03/05/17 06:20 Nasal MRSA DNA Surveillance Screen - Final Specimen Negative for MRSA by DNA Probe Complete 03/04/17 19:00 Urine,Catheterized Urine Culture - Final Escherichia Coli Complete Assessment & Plan Assessment Pt receiving Vancomycin/Cefepime for a pulmonary source. Spoke with Dr. Morales re: negative MRSA nasal swab. He wishes to continue Vanco for another 24hrs pursuant to pt's clinical status. We will discuss tomorrow. Plan Today's trough came back therapeutic at 21.2 mcg/mL. Ms. Bojorquez's bariatric nature is indicative of Vancomycin accumulation. Will increase dosing regimen from q10--->q12 in an effort to lower the trough. Will order trough for 03/08/17 @ 0130 Pharmacy will continue to follow and will adjust dose/frequency as necessary. Thank you.
[2017-03-06] MEDS: IPRATROPIUM BROMIDE NEB SOLN 0.02% 2.5 ML VIAL INH PRN (16:58)
[2017-03-06] MEDS: LEVALBUTEROL 1.25MG/0.5ML NEB INH PRN (16:58)
--- NOTE | 2017-03-06 17:29 | Nephrology Consultation ---
Nephrology Consultation Date & Providers Date of Consultation: Mar 06, 2017. Primary Care Provider: Bill Young MD Referring Provider: Reason for Consultation Hyponatremia History of Present Illness Ms. 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 Izabela was admitted to [facility] on March 04 with failed response to treatment of pneumonia with influenza. The patient had completed 5 days of Tamiflu and levofloxacin prior to admission. She was exhibiting decreased mentation overnight. Neurology consultation and EEG were obtained. Nephrology consultation was requested to evaluate hyponatremia. Serum sodium has been stable at 122 mmol/L since admission. Appetite is poor and oral intake reduced. Renal function preserved with a serum creatinine of 0.41 mg/dL. Metabolic profile is otherwise normal. Urine osmolality is 366. Urine sodium ~5. Blood pressure is acceptable. New medications include vancomycin and cefepime. 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 Partial complex seizure disorder JORDYN + Hypertension Asthma GERD Hyperlipidemia Hypothyroidism Overactive bladder with chronic indwelling Fair catheter RLS History of TIA (1) Bilateral knee replacements Allergies Coded Allergies: Iodinated Diagnostic Agents (Verified Allergy, Severe, SHORTNESS OF BREATH , 12/23/16) Latex (Verified Allergy, Intermediate, RASH, 12/23/16) Aspirin (Verified Allergy, Unknown, RASH, 12/23/16) IBUPROFEN WELL Chocolate (Unverified Allergy, Unknown, UNKNOWN, 12/23/16) Ibuprofen (Verified Allergy, Unknown, 12/23/16) Latex1 -Allergic Contact Dermititis (Verified Allergy, Unknown, 12/23/16) Lisinopril (Verified Allergy, Unknown, UNKNOWN, 12/23/16) Meperidine (Verified Allergy, Unknown, UNKNOWN, 12/23/16) Metformin (Unverified Allergy, Unknown, GI SYMPTOMS, 12/23/16) Midazolam (Verified Allergy, Unknown, UNKN, 12/23/16) Nut Tree (Verified Allergy, Unknown, UNKNOWN, 12/23/16) Peanut (Verified Allergy, Unknown, UNKNOWN, 12/23/16) Penicillins (Verified Allergy, Unknown, SHORTNESS OF BREATH, 12/23/16) (FROM UNCODED ALLERGIES) Sulfa Antibiotics (Verified Allergy, Unknown, UNKNOWN, 12/23/16) Gluten (Verified Adverse Reaction, Intermediate, GI SYMPTOMS, 12/23/16) Inpatient Medications Current Inpatient Medications Medications (Trade) Dose Ordered Sig/Phong Route Start Time Stop Time Status Last Admin Dose Admin Ondansetron HCl (Zofran Inj) 4 mg Q6H PRN IV 03/04/17 20:30 04/03/17 20:29 Guaifenesin (Organidin Nr Tab) 600 mg BID PO 03/04/17 21:00 04/03/17 20:59 03/05/17 20:51 600 MG Ondansetron HCl (Zofran Odt) 8 mg Q6H PRN PO 03/04/17 20:30 04/03/17 20:29 Insulin Aspart (novoLOG ASPART) SLIDING SCALE If C... ACHS SC 03/04/17 21:00 04/03/17 20:59 03/05/17 17:23 1 UNITS Glucose (Glucose 40% Gel) 15-30 GRAMS 15 GRAMS... UD PRN PO 03/04/17 20:30 04/03/17 20:29 Glucose (Glucose Chew Tab) 4-8 Tablets 4 Tabl... UD PRN PO 03/04/17 20:30 04/03/17 20:29 Dextrose (Dextrose 50% 50ML Syringe) 25-50ML OF 50% DW IV FOR... UD PRN IV 03/04/17 20:30 04/03/17 20:29 Glucagon (Glucagon Inj) 1 mg UD PRN SQ 03/04/17 20:30 04/03/17 20:29 Miscellaneous Information (Consult) 1 ea UD PRN N/A 03/04/17 20:30 04/03/17 20:29 Budesonide (Pulmicort Respules 0.5MG/ 2ML Neb Soln) 0.5 mg BIDR INH 03/05/17 08:00 04/04/17 07:59 03/06/17 07:25 0.5 MG Amlodipine Besylate (Norvasc Tab) 5 mg QAM PO 03/05/17 09:00 04/04/17 08:59 03/06/17 11:11 5 MG Bisacodyl (Dulcolax Supp) 10 mg Q96H PRN ID 03/04/17 20:30 04/03/17 20:29 Carbidopa/Levodopa (Sinemet 25/ 100MG Tab) 2 tab TID PO 03/04/17 21:00 04/03/17 20:59 03/06/17 11:07 2 TAB Cyanocobalamin (Vitamin B-12 Tab) 250 mcg DAILY PO 03/05/17 09:00 04/04/17 08:59 03/06/17 11:11 250 MCG Diphenhydramine HCl (Benadryl Cap) 25 mg Q8 PRN PO 03/04/17 22:00 04/03/17 21:59 Docusate Sodium (coLACE CAP) 100 mg DAILY PO 03/05/17 09:00 04/04/17 08:59 03/05/17 08:56 100 MG Econazole Nitrate (Econazole Nitrate 1% Crm) 1 appln BID EXT 03/04/17 21:00 04/03/17 20:59 03/06/17 08:10 1 APPLN Levothyroxine Sodium (Synthroid Tab) 112 mcg DAILYBB PO 03/05/17 06:00 04/04/17 06:59 03/05/17 04:31 112 MCG Magnesium Hydroxide (Milk Of Magnesia Susp) 30 ml Q72H PRN PO 03/04/17 20:30 04/03/17 20:29 Menthol/Zinc Oxide (Calmoseptine Oint) 1 appln HS EXT 03/04/17 21:00 04/03/17 20:59 03/05/17 20:06 1 APPLN Montelukast Sodium (Singulair Tab) 10 mg HS PO 03/04/17 21:00 04/03/17 20:59 03/05/17 20:03 10 MG Nystatin (Mycostatin Oint) 1 appln BID EXT 03/04/17 21:00 04/03/17 20:59 03/06/17 08:09 1 APPLN Oxybutynin Chloride (Ditropan Tab) 5 mg Q12 PRN PO 03/04/17 20:30 04/03/17 20:29 Sodium Biphosphate/ Sodium Phosphate (Fleet Enema) 132 ml Q96H PRN ID 03/04/17 20:30 04/03/17 20:29 Artificial Tears (Artificial Tears) 2 drops QID OPB 03/04/17 21:00 04/03/17 20:59 03/06/17 16:45 2 DROPS Miscellaneous Information (Order Awaiting Action) 1 ea QS N/A 03/05/17 00:00 04/04/17 00:00 Citalopram Hydrobromide (celeXA TAB) 10 mg QAM PO 03/05/17 09:00 04/04/17 08:59 03/06/17 11:11 10 MG Ferrous Sulfate (Feosol Tab) 325 mg BIDM PO 03/05/17 07:30 04/04/17 07:59 03/06/17 16:45 325 MG Pantoprazole Sodium (Protonix Tab) 40 mg QAM PO 03/05/17 09:00 04/04/17 08:59 03/06/17 11:08 40 MG Clotrimazole (Mycelex 10MG Manuel) 1 manuel [id number] MIGUEL 03/04/17 23:00 03/14/17 22:59 03/06/17 11:08 1 MANUEL Ipratropium Whitney (Atrovent 0.02% 0.5MG/2.5ML Neb) 0.5 mg Q6R INH 03/05/17 03:00 04/04/17 02:59 03/06/17 14:35 0.5 MG Levalbuterol (Xopenex 1.25MG/ 0.5ML Neb) 1.25 mg Q6R INH 03/05/17 03:00 04/04/17 02:59 03/06/17 14:35 1.25 MG Ipratropium Whitney (Atrovent 0.02% 0.5MG/2.5ML Neb) 0.5 mg Q2H PRN INH 03/04/17 21:15 04/03/17 21:14 03/06/17 16:58 0.5 MG Levalbuterol (Xopenex 1.25MG/ 0.5ML Neb) 1.25 mg Q2H PRN INH 03/04/17 21:15 04/03/17 21:14 03/06/17 16:58 1.25 MG Cefepime HCl 1000 mg/Syringe 11 ml @ 5.5 mls/min Q8H IV 03/05/17 02:00 03/12/17 01:59 03/06/17 09:07 5.5 MLS/MIN Methylprednisolone Sodium Succinate 40 mg/Syringe 0.64 ml @ 1.5 mls/min Q12H IV 03/05/17 16:00 04/04/17 03:59 03/06/17 16:45 1.5 MLS/MIN Heparin Sodium (Porcine) (Heparin Sq 5000 Unit/0.5ml) 5,000 unit Q12 SQ 03/05/17 10:00 04/04/17 09:59 03/06/17 08:13 5,000 UNIT Levetiracetam 500 mg/Dextrose 105 ml @ 420 mls/hr Q12H IV 03/06/17 10:00 04/05/17 09:59 03/06/17 10:08 420 MLS/HR Sodium Chloride 1,000 ml @ 125 mls/hr Q8H ONCE IV 03/06/17 15:30 03/06/17 23:29 03/06/17 16:44 125 MLS/HR Vancomycin HCl 1500 mg/Sodium Chloride 530 ml @ 200 mls/hr Q12H IV 03/07/17 02:00 03/14/17 01:59 Family History Blood disorder Heart disease Social History Smoking Status: Never Smoker Smokeless Tobacco Use: No Alcohol Use: none Drug Use: none Marital Status: Housing Status: lives with family 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 Review of Systems A complete review of systems was performed. Pertinent positives are noted above. All other systems are negative. Physical Exam Date Time Temp Pulse Resp B/P (MAP) Pulse Ox O2 Delivery O2 Flow Rate FiO2 03/06/17 16:58 68 15 96 Nasal Cannula 4.0 03/06/17 15:37 36.7 67 22 144/73 (96) 97 Nasal Cannula 03/06/17 14:37 73 16 96 Nasal Cannula 4.0 03/06/17 12:00 Nasal Cannula 4.0 03/06/17 11:52 36.8 89 19 129/83 (98) 95 Room Air 03/06/17 08:00 Nasal Cannula 4.0 03/06/17 07:39 36.8 62 20 174/84 (114) 97 Nasal Cannula 4.0 03/06/17 07:25 62 16 97 Nasal Cannula 3.0 03/06/17 04:00 Nasal Cannula 3.0 03/06/17 03:05 36.5 65 24 161/69 (99) 96 Nasal Cannula 4.0 03/06/17 02:17 54 16 99 Nasal Cannula 3.0 03/06/17 00:01 Nasal Cannula 3.0 03/06/17 00:00 36.9 58 22 131/68 (89) 97 Nasal Cannula 4.0 03/05/17 20:00 Nasal Cannula 3.0 03/05/17 19:10 66 16 97 Nasal Cannula 3.0 03/05/17 19:04 36.7 67 22 160/79 (106) 95 Nasal Cannula 4.0 General Appearance: no apparent distress, + pertinent finding (frail) Head: normocephalic, atraumatic Eyes: normal inspection, sclerae normal ENT: normal ENT inspection, + pertinent finding (oral mucosa slightly dry) Neck: supple, no JVD Respiratory/Chest: no respiratory distress, no accessory muscle use, + rhonchi Cardiovascular: no gallop, no murmur, + bradycardia Abdomen/GI: non tender, soft Extremities/Musculoskelatal: normal inspection, no pedal edema Neurologic/Psych: alert Skin: normal color Laboratory Results Last 24 Hours Test 03/05/17 20:03 03/06/17 06:32 03/06/17 06:46 03/06/17 06:58 Bedside Glucose 131 mg/dl 107 mg/dl Sodium Level 122 mmol/L Potassium Level 3.6 mmol/L Chloride Level 84 mmol/L Carbon Dioxide Level 32 mmol/L Anion Gap 6.0 mmol/L Blood Urea Nitrogen 17 mg/dl Creatinine 0.41 mg/dl Est Creatinine Clear Calc Drug Dose 148.9 ml/min Estimated GFR () 119.6 Estimated GFR (Non- 103.2 BUN/Creatinine Ratio 40.6 Random Glucose 104 mg/dl Calcium Level 8.2 mg/dl Magnesium Level 2.1 mg/dl White Blood Count 9.51 K/uL Red Blood Count 2.98 M/uL Hemoglobin 8.3 g/dL Hematocrit 25.1 % Mean Corpuscular Volume 84.2 fL Mean Corpuscular Hemoglobin 27.9 pg Mean Corpuscular Hemoglobin Concent 33.1 g/dl Platelet Count 250 K/uL Mean Platelet Volume 9.6 fL Neutrophils (%) (Auto) 91.8 % Lymphocytes (%) (Auto) 3.9 % Monocytes (%) (Auto) 4.0 % Eosinophils (%) (Auto) 0.0 % Basophils (%) (Auto) 0.0 % Neutrophils # (Auto) 8.73 K/uL Lymphocytes # (Auto) 0.37 K/uL Monocytes # (Auto) 0.38 K/uL Eosinophils # (Auto) 0.00 K/uL Basophils # (Auto) 0.00 K/uL RDW Standard Deviation 41.2 fL RDW Coefficient of Variation 13.5 % Immature Granulocyte % (Auto) 0.3 % Immature Granulocyte # (Auto) 0.03 K/uL Hypochromasia PRESENT Ovalocytes 1+ Test 03/06/17 10:56 03/06/17 13:57 03/06/17 16:24 03/06/17 17:16 Bedside Glucose 139 mg/dl 120 mg/dl Vancomycin Level Trough 21.2 mcg/ml Impression (1) Hyponatremia Izabela is a frail 71 year-old female admitted with pneumonia complicated by hyponatremia. Dysnatremia is new since September. Izabela does not endorse significant symptoms. Clinical presentation consistent with hypovolemic hyponatremia. Cannot exclude possible underlying SIADH related to pneumonia but suspect her increased urine osmolality was appropriately physiologic. Urine sodium is very low consistent with recent history of poor solute intake. She is receiving IV saline and I have ordered a repeat metabolic profile at this time. I would avoid a rate of correction greater than 0.5 mml/L/hr or greater than 8- 10 mmol/24 hours. Recommendations -- Continue 0.9% saline @ current rate -- Encourage nutrition -- Repeat metabolic profile now and monitor q 6-8 hours -- Medications appropriate for renal function -- Maintain appropriate thyroid replacement
--- NOTE | 2017-03-06 17:31 | ECHOCARDIOGRAM REPORT ---
*NOTICE TO RECEIVING CONSTITUTION PARTY AGENCY This information is strictly Confidential and protected under [place] law. [place] law prohibits you from making any further disclosure of this information unless further disclosure is expressly permitted by the written consent of the person to whom it pertains or is authorized by law. A general authorization for the release of medical or other information is not sufficient for this purpose. Hospital accepts no responsibility if the information is made available to any other person, INCLUDING THE PATIENT. Interpretation Summary * Name: JACQUELINE FLYNN Study Date: 03/06/2017 02:31 PM BP: 174/84 mmHg * Patient Location: .2T\S\E217\S\1 HR: 63 * : 1945 (M/d/yyy) Gender: Female Height: 65 in * Age: 71 yrs Ethnicity: [place] Weight: 230 lb * Ordering Physician: Aidan Morales * Referring Physician: Self, Referred * Performed By: Charlotte Napoles [facility] * * Reason For Study: PATCHY INFILTRATES ON X-RAY / ASSESS LV FUNCTION * BSA: 2.1 m2 * -- Conclusions -- * 1. Normal LV size, moderate concentric LVH. * 2. Normal LV systolic function. LVEF 60-65%. * 3. Normal RV size and function. * 4. No significant valvular pathology. * 5. Diastolic dysfunction. * 6. Trivial pericardial effusion. * 7. Compared with prior study on 07/11/2016: Rhythm is now atrial fibrillation. Procedure Details * A complete two-dimensional transthoracic echocardiogram was performed (2D, M-mode, Doppler and color flow Doppler). Left Ventricle * The left ventricle is grossly normal size. * There is moderate concentric left ventricular hypertrophy. * Ejection Fraction = 60-65%. * Flattened septum is consistent with RV pressure/volume overload. Right Ventricle * The right ventricle is grossly normal size. * The right ventricular systolic function is normal as assessed by tricuspid annular plane systolic excursion (TAPSE) (normal >1.5 cm). Atria * The left atrium is severely dilated. * The right atrium is moderately dilated. * No ASD detected; PFO is not assessed. Mitral Valve * The mitral valve is grossly normal. * There is no mitral valve stenosis. * There is trace mitral regurgitation. Tricuspid Valve * There is trace tricuspid regurgitation. Aortic Valve * The aortic valve opens well. * The aortic valve is trileaflet. * No hemodynamically significant valvular aortic stenosis. * There is no significant aortic regurgitation. Pulmonic Valve * The pulmonary valve is inadequately visualized, but the Doppler data is adequate for interpretation. * There is no significant pulmonary regurgitation. Great Vessels * The aortic root and proximal ascending aorta are normal sized. Pericardium/Pleural * Trivial pericardial effusion Great Vessels * IVC > 2.1, >50% change with respiration. Est RA 8 mmHg. Left Ventricular Diastolic Function * Diastolic dysfunction MMode 2D Measurements and Calculations IVSd 1.8 cm IVSs 2.0 cm LVIDd 4.1 cm LVIDs 2.7 cm LVPWd 1.8 cm LVPWs 2.2 cm IVS/LVPW 1.0 FS 32.9 % EDV(Teich) 74.2 ml ESV(Teich) 28.2 ml EF(Teich) 61.9 % EDV(cubed) 68.9 ml ESV(cubed) 20.8 ml EF(cubed) 69.9 % % IVS thick 13.0 % % LVPW thick 25.3 % LV mass(C)d 315.2 grams LV mass(C)dI 150.2 grams/m\S\2 LV mass(C)s 265.4 grams LV mass(C)sI 126.4 grams/m\S\2 SV(Teich) 46.0 ml SI(Teich) 21.9 ml/m\S\2 SV(cubed) 48.1 ml SI(cubed) 22.9 ml/m\S\2 Ao root diam 3.5 cm Ao root area 9.6 cm\S\2 LA dimension 4.3 cm LA/Ao 1.2 LVOT diam 2.0 cm LVOT area 3.2 cm\S\2 LVAd ap4 30.2 cm\S\2 LVLd ap4 7.1 cm EDV(MOD-sp4) 105.5 ml EDV(sp4-el) 109.1 ml LVAs ap4 20.6 cm\S\2 LVLs ap4 5.9 cm ESV(MOD-sp4) 58.4 ml ESV(sp4-el) 60.9 ml EF(MOD-sp4) 44.7 % EF(sp4-el) 44.2 % LVAd ap2 31.8 cm\S\2 LVLd ap2 7.6 cm EDV(MOD-sp2) 110.0 ml EDV(sp2-el) 112.1 ml LVAs ap2 21.5 cm\S\2 LVLs ap2 6.6 cm ESV(MOD-sp2) 56.7 ml ESV(sp2-el) 59.0 ml EF(MOD-sp2) 48.5 % EF(sp2-el) 47.4 % LVLd %diff 7.4 % EDV(MOD-bp) 108.1 ml LVLs %diff 10.8 % ESV(MOD-bp) 58.8 ml EF(MOD-bp) 45.6 % SV(MOD-sp4) 47.2 ml SI(MOD-sp4) 22.5 ml/m\S\2 SV(MOD-sp2) 53.3 ml SI(MOD-sp2) 25.4 ml/m\S\2 SV(MOD-bp) 49.4 ml SI(MOD-bp) 23.5 ml/m\S\2 SV(sp4-el) 48.2 ml SI(sp4-el) 23.0 ml/m\S\2 SV(sp2-el) 53.2 ml SI(sp2-el) 25.3 ml/m\S\2 Doppler Measurements and Calculations MV E max jessie 106.2 cm/sec MV P1/2t max jessie 123.1 cm/sec MV P1/2t 78.7 msec MVA(P1/2t) 2.8 cm\S\2 MV dec slope 458.2 cm/sec\S\2 MV dec time 0.20 sec Ao V2 max 146.7 cm/sec Ao max PG 8.6 mmHg Ao max PG (full) 4.3 mmHg GLENNY(V,A) 2.3 cm\S\2 GLENNY(V,D) 2.3 cm\S\2 LV V1 max PG 4.3 mmHg LV V1 max 104.1 cm/sec PA V2 max 104.9 cm/sec PA max PG 4.4 mmHg TR max jessie 255.6 cm/sec
[2017-03-06 19:11] LABS: ALBUMIN 2.6 gm/dl (3.4-5.0); CALCIUM 7.9 mg/dl (8.5-10.1); CREATININE 0.42 mg/dl (0.60-1.20); POTASSIUM 3.3 mmol/L (3.5-5.1)
[2017-03-06 19:27] LABS: PHOSPHORUS 1.3 mg/dl (2.5-4.9)
[2017-03-06] MEDS ORDERED: POT PHOSPHATE MONOBASIC W/ SOD TAB PO ONE (19:45)
[2017-03-06] MEDS: POTASSIUM CHLORIDE 20 MEQ/15 ML UDC PO SCH (20:44)
[2017-03-06] MEDS: MENTHOL-ZINC OXIDE 360 APPLN/120 GM TUBE EXT SCH (20:45)
[2017-03-06] MEDS: MONTELUKAST SOD 10 MG TAB PO SCH (20:45)
[2017-03-06] MEDS ORDERED: SODIUM CHLORIDE 1 GM TAB PO ONE (21:28)
[2017-03-06] MEDS: POT PHOSPHATE MONOBASIC W/ SOD TAB PO SCH (22:06)
[2017-03-07] VITALS (9 sets, daily range): BP systolic 114–148; BP diastolic 66–78; PULSE 62–83; TEMP 36.4–37.6; O2SAT 95–98
[2017-03-07] MEDS: CEFEPIME IV 1,000 MG in SYRINGE 0 ML IV SCH ×3 (01:44→18:36)
[2017-03-07] MEDS ORDERED: VANCOMYCIN INJ 1,500 MG in SODIUM CHLORIDE 0.9% 500ML 500 ML IV SCH (02:00)
[2017-03-07] MEDS: LEVALBUTEROL 1.25MG/0.5ML NEB INH SCH ×4 (02:26→19:19)
[2017-03-07] MEDS: IPRATROPIUM BROMIDE NEB SOLN 0.02% 2.5 ML VIAL INH SCH ×4 (02:26→19:19)
[2017-03-07] MEDS: METHYLPREDNISOLONE IV 40 MG in SYRINGE 0 ML IV SCH ×2 (04:27→17:05)
[2017-03-07] MEDS: LEVOTHYROXINE 112 MCG TAB PO SCH ×2 (06:04→06:11)
--- NOTE | 2017-03-07 06:29 | Progress Note ---
Progress Note Date of Service Mar 07, 2017. Progress Note Called re: patient admitted in NSR and found to be in afib as of yesterday at 11am as per nursing staff EKG done confirms a.fib currently. Patient denies chest pain, and is in fact asymptomatic No previous documented history of a.fib noted. K+ and PO4+ noted to be low and supplemented. AM labs pending. Currently rate controlled and on prophylactic heparin Deferring discussion re: anticoagulation to primary team Resident Tracking Resident Involvement: Resident Care Provided Care Provided: Adult [facility]
[2017-03-07] MEDS: BUDESONIDE 0.5 MG/2 ML VIAL (PULMICORT) INH SCH ×2 (07:00→19:19)
[2017-03-07] MEDS: INSULIN ASPART 100 UNITS/ML 3 ML PEN SC SCH ×4 (07:00→20:31)
[2017-03-07 07:03] LABS: HEMATOCRIT 26.2 % (37-47); HEMOGLOBIN 8.6 g/dL (12.0-16.0); IG# 0.01 K/uL (0.00-0.02); LYMPH % 6.9 %; LYMPH ABS # 0.33 K/uL (1.2-3.4); MEAN CELL VOLUME 85.3 fL (80-100); MEAN CORPUSCULAR HGB CONC 32.8 g/dl (32-36); MEAN PLATELET VOLUME 9.8 fL (7.4-10.4); MONO % 7.7 %; MONO ABS # 0.37 K/uL (0.11-0.59); NEUT % 85.2 %; PLATELET COUNT 271 K/uL (130-400); RED CELL DISTRIBUTION WIDTH CV 13.8 % (11.5-14.5); RED CELL DISTRIBUTION WIDTH SD 42.7 fL (36.4-46.3); WHITE BLOOD COUNT 4.81 K/uL (4.8-10.8)
[2017-03-07 07:37] LABS: CREATININE 0.34 mg/dl (0.60-1.20)
[2017-03-07 07:38] LABS: PHOSPHORUS 2.2 mg/dl (2.5-4.9); POTASSIUM 3.5 mmol/L (3.5-5.1)
[2017-03-07] MEDS: FERROUS SULFATE 325 MG TAB PO SCH ×2 (08:10→17:06)
[2017-03-07] MEDS: NYSTATIN OINT 15 GM TUBE EXT SCH ×2 (08:10→21:07)
[2017-03-07] MEDS: ARTIFICIAL TEARS OP SOLN OPB SCH ×4 (08:11→20:05)
[2017-03-07] MEDS: ECONAZOLE NITRATE 1% CRM 15 GM TUBE EXT SCH ×2 (08:11→21:08)
[2017-03-07] MEDS: POT PHOSPHATE MONOBASIC W/ SOD TAB PO SCH ×4 (08:12→20:08)
[2017-03-07] MEDS: CLOTRIMAZOLE 10 MG TROCHE LOZ SCH ×5 (08:12→23:22)
[2017-03-07] MEDS: PANTOprazole SOD 40 MG TAB PO SCH (08:13)
[2017-03-07] MEDS: DOCUSATE SODIUM 100 MG CAP PO SCH (08:14)
[2017-03-07] MEDS: CARBIDOPA/LEVODOPA 25/100MG TAB PO SCH ×3 (08:14→20:07)
[2017-03-07] MEDS: POTASSIUM CHLORIDE 20 MEQ/15 ML UDC PO SCH (08:15)
[2017-03-07] MEDS: GUAIFENESIN 200 MG TAB PO SCH ×2 (08:15→20:05)
[2017-03-07] MEDS: CYANOCOBALAMIN 500 MCG TAB (VIT B-12) PO SCH (08:15)
[2017-03-07] MEDS: CITALOPRAM 20 MG TAB PO SCH (08:16)
[2017-03-07] MEDS: AMLODIPINE BESYLATE 5 MG TAB PO SCH (08:16)
[2017-03-07] MEDS: HEPARIN SOD 5000 UNIT/0.5 ML CARP SQ SCH ×2 (08:19→20:10)
[2017-03-07] MEDS ORDERED: SODIUM CHLORIDE 1 GM TAB PO SCH (09:00)
--- NOTE | 2017-03-07 09:17 | Nephrology Progress Note ---
Nephrology Progress Note Date of Service Mar 07, 2017. Chief Complaint Hyponatremia Subjective No acute events overnight. Izabela was minimally responsive this morning. She did not answer questions. Izabela did not eat breakfast. IVF have been discontinued. She was able to tolerate oral NaCl yesterday. Review of Systems A complete review of systems was performed. Pertinent positives are noted above. All other systems are negative. Vital Signs Last 8 Hrs Date Time Temp Pulse Resp B/P (MAP) Pulse Ox O2 Delivery O2 Flow Rate FiO2 03/07/17 07:00 83 18 96 Nasal Cannula 4.0 03/07/17 04:19 36.8 62 22 134/69 (90) 97 03/07/17 04:00 Nasal Cannula 4.0 03/07/17 02:26 63 18 98 Nasal Cannula 4.0 Last Recorded Weight Weight (Kilograms): 104.460 Physical Exam General Appearance: WD/WN, no apparent distress Head: normocephalic, atraumatic Eyes: normal inspection, sclerae normal ENT: normal ENT inspection, pharynx normal Neck: supple, no JVD Respiratory/Chest: lungs clear, no respiratory distress, no accessory muscle use Cardiovascular: regular rate, rhythm Abdomen/GI: non tender, soft Extremities/Musculoskelatal: + pertinent finding (LUE rigidity with cogwheeling , right side ) Neurologic/Psych: alert, normal mood/affect Family History Blood disorder Heart disease Social History Smoking Status: Never smoker Smokeless Tobacco Use: No Alcohol Use: none Drug Use: none Marital Status: Housing Status: lives with family 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 Laboratory Results Past 24 Hours 03/07/17 06:25 Red Blood Count 3.07, Mean Corpuscular Volume 85.3, Mean Corpuscular Hemoglobin 28.0, Mean Corpuscular Hemoglobin Concent 32.8, Mean Platelet Volume 9.8, Neutrophils (%) (Auto) 85.2, Lymphocytes (%) (Auto) 6.9, Monocytes (%) (Auto) 7.7, Eosinophils (%) (Auto) 0.0, Basophils (%) (Auto) 0.0, Neutrophils # (Auto) 4.10, Lymphocytes # (Auto) 0.33, Monocytes # (Auto) 0.37, Eosinophils # (Auto) 0.00, Basophils # (Auto) 0.00 03/06/17 18:38 03/07/17 06:25 Test 03/06/17 10:56 03/06/17 13:57 03/06/17 16:24 03/06/17 18:38 Bedside Glucose 139 mg/dl (70-90) 120 mg/dl (70-90) Vancomycin Level Trough 21.2 mcg/ml (SEE COMMENT) Anion Gap 6.0 mmol/L (3-11) Est Creatinine Clear Calc Drug Dose 145.3 ml/min Estimated GFR () 118.7 Estimated GFR (Non- 102.4 BUN/Creatinine Ratio 39.4 (10-20) Calcium Level 7.9 mg/dl (8.5-10.1) Phosphorus Level 1.3 mg/dl (2.5-4.9) Albumin 2.6 gm/dl (3.4-5.0) Test 03/06/17 20:05 03/07/17 03:10 03/07/17 06:25 Bedside Glucose 116 mg/dl (70-90) Urine Random Sodium 5 mEq/L White Blood Count 4.81 K/uL (4.8-10.8) Red Blood Count 3.07 M/uL (4.2-5.4) Hemoglobin 8.6 g/dL (12.0-16.0) Hematocrit 26.2 % (37-47) Mean Corpuscular Volume 85.3 fL (80-100) Mean Corpuscular Hemoglobin 28.0 pg (25-34) Mean Corpuscular Hemoglobin Concent 32.8 g/dl (32-36) Platelet Count 271 K/uL (130-400) Mean Platelet Volume 9.8 fL (7.4-10.4) Neutrophils (%) (Auto) 85.2 % Lymphocytes (%) (Auto) 6.9 % Monocytes (%) (Auto) 7.7 % Eosinophils (%) (Auto) 0.0 % Basophils (%) (Auto) 0.0 % Neutrophils # (Auto) 4.10 K/uL (1.4-6.5) Lymphocytes # (Auto) 0.33 K/uL (1.2-3.4) Monocytes # (Auto) 0.37 K/uL (0.11-0.59) Eosinophils # (Auto) 0.00 K/uL (0-0.5) Basophils # (Auto) 0.00 K/uL (0-0.2) RDW Standard Deviation 42.7 fL (36.4-46.3) RDW Coefficient of Variation 13.8 % (11.5-14.5) Immature Granulocyte % (Auto) 0.2 % Immature Granulocyte # (Auto) 0.01 K/uL (0.00-0.02) Hypochromasia PRESENT Ovalocytes 1+ Acanthocytes 1+ Anion Gap 8.0 mmol/L (3-11) Est Creatinine Clear Calc Drug Dose 179.4 ml/min Estimated GFR () 127.2 Estimated GFR (Non- 109.8 BUN/Creatinine Ratio 42.2 (10-20) Calcium Level 8.0 mg/dl (8.5-10.1) Phosphorus Level 2.2 mg/dl (2.5-4.9) Magnesium Level 2.1 mg/dl (1.8-2.4) Allergies Coded Allergies: Iodinated Diagnostic Agents (Verified Allergy, Severe, SHORTNESS OF BREATH , 12/23/16) Latex (Verified Allergy, Intermediate, RASH, 12/23/16) Aspirin (Verified Allergy, Unknown, RASH, 12/23/16) IBUPROFEN WELL Chocolate (Unverified Allergy, Unknown, UNKNOWN, 12/23/16) Ibuprofen (Verified Allergy, Unknown, 12/23/16) Latex1 -Allergic Contact Dermititis (Verified Allergy, Unknown, 12/23/16) Lisinopril (Verified Allergy, Unknown, UNKNOWN, 12/23/16) Meperidine (Verified Allergy, Unknown, UNKNOWN, 12/23/16) Metformin (Unverified Allergy, Unknown, GI SYMPTOMS, 12/23/16) Midazolam (Verified Allergy, Unknown, UNKN, 12/23/16) Nut Tree (Verified Allergy, Unknown, UNKNOWN, 12/23/16) Peanut (Verified Allergy, Unknown, UNKNOWN, 12/23/16) Penicillins (Verified Allergy, Unknown, SHORTNESS OF BREATH, 12/23/16) (FROM UNCODED ALLERGIES) Sulfa Antibiotics (Verified Allergy, Unknown, UNKNOWN, 12/23/16) Gluten (Verified Adverse Reaction, Intermediate, GI SYMPTOMS, 12/23/16) Medications Current Inpatient Medications Medications (Trade) Dose Ordered Sig/Phong Route Start Time Stop Time Status Last Admin Dose Admin Ondansetron HCl (Zofran Inj) 4 mg Q6H PRN IV 03/04/17 20:30 04/03/17 20:29 Guaifenesin (Organidin Nr Tab) 600 mg BID PO 03/04/17 21:00 04/03/17 20:59 03/07/17 08:15 600 MG Ondansetron HCl (Zofran Odt) 8 mg Q6H PRN PO 03/04/17 20:30 04/03/17 20:29 Insulin Aspart (novoLOG ASPART) SLIDING SCALE If C... ACHS SC 03/04/17 21:00 04/03/17 20:59 03/05/17 17:23 1 UNITS Glucose (Glucose 40% Gel) 15-30 GRAMS 15 GRAMS... UD PRN PO 03/04/17 20:30 04/03/17 20:29 Glucose (Glucose Chew Tab) 4-8 Tablets 4 Tabl... UD PRN PO 03/04/17 20:30 04/03/17 20:29 Dextrose (Dextrose 50% 50ML Syringe) 25-50ML OF 50% DW IV FOR... UD PRN IV 03/04/17 20:30 04/03/17 20:29 Glucagon (Glucagon Inj) 1 mg UD PRN SQ 03/04/17 20:30 04/03/17 20:29 Miscellaneous Information (Consult) 1 ea UD PRN N/A 03/04/17 20:30 04/03/17 20:29 Budesonide (Pulmicort Respules 0.5MG/ 2ML Neb Soln) 0.5 mg BIDR INH 03/05/17 08:00 04/04/17 07:59 03/07/17 07:00 0.5 MG Amlodipine Besylate (Norvasc Tab) 5 mg QAM PO 03/05/17 09:00 04/04/17 08:59 03/07/17 08:16 5 MG Bisacodyl (Dulcolax Supp) 10 mg Q96H PRN [place] 03/04/17 20:30 04/03/17 20:29 Carbidopa/Levodopa (Sinemet 25/ 100MG Tab) 2 tab TID PO 03/04/17 21:00 04/03/17 20:59 03/07/17 08:14 2 TAB Cyanocobalamin (Vitamin B-12 Tab) 250 mcg DAILY PO 03/05/17 09:00 04/04/17 08:59 03/07/17 08:15 250 MCG Diphenhydramine HCl (Benadryl Cap) 25 mg Q8 PRN PO 03/04/17 22:00 04/03/17 21:59 Docusate Sodium (coLACE CAP) 100 mg DAILY PO 03/05/17 09:00 04/04/17 08:59 03/07/17 08:14 100 MG Econazole Nitrate (Econazole Nitrate 1% Crm) 1 appln BID EXT 03/04/17 21:00 04/03/17 20:59 03/07/17 08:11 1 APPLN Levothyroxine Sodium (Synthroid Tab) 112 mcg DAILYBB PO 03/05/17 06:00 04/04/17 06:59 03/05/17 04:31 112 MCG Magnesium Hydroxide (Milk Of Magnesia Susp) 30 ml Q72H PRN PO 03/04/17 20:30 04/03/17 20:29 Menthol/Zinc Oxide (Calmoseptine Oint) 1 appln HS EXT 03/04/17 21:00 04/03/17 20:59 03/06/17 20:45 1 APPLN Montelukast Sodium (Singulair Tab) 10 mg HS PO 03/04/17 21:00 04/03/17 20:59 03/06/17 20:45 10 MG Nystatin (Mycostatin Oint) 1 appln BID EXT 03/04/17 21:00 04/03/17 20:59 03/07/17 08:10 1 APPLN Oxybutynin Chloride (Ditropan Tab) 5 mg Q12 PRN PO 03/04/17 20:30 04/03/17 20:29 Sodium Biphosphate/ Sodium Phosphate (Fleet Enema) 132 ml Q96H PRN [place] 03/04/17 20:30 04/03/17 20:29 Artificial Tears (Artificial Tears) 2 drops QID OPB 03/04/17 21:00 04/03/17 20:59 03/07/17 08:11 2 DROPS Miscellaneous Information (Order Awaiting Action) 1 ea QS N/A 03/05/17 00:00 04/04/17 00:00 Citalopram Hydrobromide (celeXA TAB) 10 mg QAM PO 03/05/17 09:00 04/04/17 08:59 03/07/17 08:16 10 MG Ferrous Sulfate (Feosol Tab) 325 mg BIDM PO 03/05/17 07:30 04/04/17 07:59 03/07/17 08:10 325 MG Pantoprazole Sodium (Protonix Tab) 40 mg QAM PO 03/05/17 09:00 04/04/17 08:59 03/07/17 08:13 40 MG Clotrimazole (Mycelex 10MG Manuel) 1 manuel [id number] MIGUEL 03/04/17 23:00 03/14/17 22:59 03/07/17 08:12 1 MANUEL Ipratropium [place] (Atrovent 0.02% 0.5MG/2.5ML Neb) 0.5 mg Q6R INH 03/05/17 03:00 04/04/17 02:59 03/07/17 07:00 0.5 MG Levalbuterol (Xopenex 1.25MG/ 0.5ML Neb) 1.25 mg Q6R INH 03/05/17 03:00 04/04/17 02:59 03/07/17 07:00 1.25 MG Ipratropium [place] (Atrovent 0.02% 0.5MG/2.5ML Neb) 0.5 mg Q2H PRN INH 03/04/17 21:15 04/03/17 21:14 03/06/17 16:58 0.5 MG Levalbuterol (Xopenex 1.25MG/ 0.5ML Neb) 1.25 mg Q2H PRN INH 03/04/17 21:15 04/03/17 21:14 03/06/17 16:58 1.25 MG Cefepime HCl 1000 mg/Syringe 11 ml @ 5.5 mls/min Q8H IV 03/05/17 02:00 03/12/17 01:59 03/07/17 01:44 5.5 MLS/MIN Methylprednisolone Sodium Succinate 40 mg/Syringe 0.64 ml @ 1.5 mls/min Q12H IV 03/05/17 16:00 04/04/17 03:59 03/07/17 04:27 1.5 MLS/MIN Heparin Sodium (Porcine) (Heparin Sq 5000 Unit/0.5ml) 5,000 unit Q12 SQ 03/05/17 10:00 04/04/17 09:59 03/07/17 08:19 5,000 UNIT Levetiracetam 500 mg/Dextrose 105 ml @ 420 mls/hr Q12H IV 03/06/17 10:00 04/05/17 09:59 03/06/17 22:06 420 MLS/HR Vancomycin HCl 1500 mg/Sodium Chloride 530 ml @ 200 mls/hr Q12H IV 03/07/17 02:00 03/14/17 01:59 03/07/17 02:48 200 MLS/HR Potassium/ Phosphorus/Sodium (Phospha 250 Neutral 155-852-130 Mg) 2 tab QID PO 03/06/17 21:00 03/09/17 20:59 03/07/17 08:12 2 TAB Sodium Chloride (Sodium Chloride Tab) 1 gm DAILY PO 03/07/17 09:00 04/06/17 08:59 03/07/17 08:11 1 GM Impression (1) Hyponatremia Izabela is a frail 71 year-old female admitted with pneumonia complicated by hyponatremia. Dysnatremia is new since September. Izabela does not endorse significant symptoms. Clinical presentation consistent with hypovolemic hyponatremia. Cannot exclude possible underlying SIADH related to pneumonia but suspect her increased urine osmolality was appropriately physiologic. Urine sodium is very low consistent with recent history of poor solute intake. She is receiving IV saline and I have ordered a repeat metabolic profile at this time. I would avoid a rate of correction greater than 0.5 mml/L/hr or greater than 8- 10 mmol/24 hours. Recommendations -- If patient is not taking Izabela PO, I would restart NS infusion -- Encourage nutrition -- Continue NaCl 1 gm BID -- Repeat metabolic profile this afternoon -- Replete potassium as needed -- Medications appropriate for renal function -- Maintain appropriate thyroid replacement
[2017-03-07] MEDS: LEVETIRACETAM IV 500 MG in DEXTROSE 5% 100ML 100 ML IV SCH ×2 (10:38→20:12)
--- NOTE | 2017-03-07 10:52 | Neurology Progress Notes ---
Neurology Progress Note Date of Service Mar 07, 2017. Subjective Follow-up for encephalopathy Patient's level of alertness and confusion are slightly improved this morning. She has been a bit more interactive with staff. The patient remains modestly lethargic, however. She recognizes me upon entering the room but otherwise does not voice any specific complaints. Yesterday's EEG was nondiagnostic due to significant electrical artifact. Yesterday's CT of the head was negative for hemorrhage or other acute process. Images and radiologist's interpretation reviewed. An episode of atrial fibrillation was apparently observed on telemetry overnight. Objective Date Time Temp Pulse Resp B/P (MAP) Pulse Ox O2 Delivery O2 Flow Rate FiO2 03/07/17 08:00 Nasal Cannula 4.0 03/07/17 08:00 37.0 77 20 148/78 (101) 96 Nasal Cannula 4.0 03/07/17 07:00 83 18 96 Nasal Cannula 4.0 03/07/17 04:19 36.8 62 22 134/69 (90) 97 03/07/17 04:00 Nasal Cannula 4.0 03/07/17 02:26 63 18 98 Nasal Cannula 4.0 03/07/17 00:00 Nasal Cannula 4.0 03/06/17 23:50 37.4 69 22 124/67 (86) 96 4.0 03/06/17 20:07 36.4 76 20 145/72 (96) 98 Nasal Cannula 3.0 03/06/17 20:00 Nasal Cannula 4.0 03/06/17 19:21 72 18 95 Nasal Cannula 4.0 03/06/17 16:58 68 15 96 Nasal Cannula 4.0 03/06/17 16:00 Nasal Cannula 4.0 03/06/17 15:37 36.7 67 22 144/73 (96) 97 Nasal Cannula 03/06/17 14:37 73 16 96 Nasal Cannula 4.0 03/06/17 12:00 Nasal Cannula 4.0 03/06/17 11:52 36.8 89 19 129/83 (98) 95 Room Air Last 24 Hours Test 03/06/17 10:56 03/06/17 13:57 03/06/17 16:24 03/06/17 18:38 Bedside Glucose 139 mg/dl 120 mg/dl Vancomycin Level Trough 21.2 mcg/ml Sodium Level 123 mmol/L Potassium Level 3.3 mmol/L Chloride Level 85 mmol/L Carbon Dioxide Level 32 mmol/L Anion Gap 6.0 mmol/L Blood Urea Nitrogen 16 mg/dl Creatinine 0.42 mg/dl Est Creatinine Clear Calc Drug Dose 145.3 ml/min Estimated GFR () 118.7 Estimated GFR (Non- 102.4 BUN/Creatinine Ratio 39.4 Random Glucose 113 mg/dl Calcium Level 7.9 mg/dl Phosphorus Level 1.3 mg/dl Albumin 2.6 gm/dl Test 03/06/17 20:05 03/07/17 03:10 03/07/17 06:22 03/07/17 06:25 Bedside Glucose 116 mg/dl 117 mg/dl Urine Random Sodium 5 mEq/L White Blood Count 4.81 K/uL Red Blood Count 3.07 M/uL Hemoglobin 8.6 g/dL Hematocrit 26.2 % Mean Corpuscular Volume 85.3 fL Mean Corpuscular Hemoglobin 28.0 pg Mean Corpuscular Hemoglobin Concent 32.8 g/dl Platelet Count 271 K/uL Mean Platelet Volume 9.8 fL Neutrophils (%) (Auto) 85.2 % Lymphocytes (%) (Auto) 6.9 % Monocytes (%) (Auto) 7.7 % Eosinophils (%) (Auto) 0.0 % Basophils (%) (Auto) 0.0 % Neutrophils # (Auto) 4.10 K/uL Lymphocytes # (Auto) 0.33 K/uL Monocytes # (Auto) 0.37 K/uL Eosinophils # (Auto) 0.00 K/uL Basophils # (Auto) 0.00 K/uL RDW Standard Deviation 42.7 fL RDW Coefficient of Variation 13.8 % Immature Granulocyte % (Auto) 0.2 % Immature Granulocyte # (Auto) 0.01 K/uL Hypochromasia PRESENT Ovalocytes 1+ Acanthocytes 1+ Sodium Level 126 mmol/L Potassium Level 3.5 mmol/L Chloride Level 87 mmol/L Carbon Dioxide Level 31 mmol/L Anion Gap 8.0 mmol/L Blood Urea Nitrogen 15 mg/dl Creatinine 0.34 mg/dl Est Creatinine Clear Calc Drug Dose 179.4 ml/min Estimated GFR () 127.2 Estimated GFR (Non- 109.8 BUN/Creatinine Ratio 42.2 Random Glucose 100 mg/dl Calcium Level 8.0 mg/dl Phosphorus Level 2.2 mg/dl Magnesium Level 2.1 mg/dl Exam: The patient is lethargic. She gives simple one-word answers to questions. She exhibits reduced attention span. Speech is non-dysarthric. As above, she recognizes me by name upon entering the room. Visual gray full to confrontation. Pupils equal round reactive to light. Eye movements intact. There is no gaze deviation. No nystagmus. There is normal facial symmetry and strength. No abnormal movements of the limbs observed at this time. Current Inpatient Medications Medications (Trade) Dose Ordered Sig/Phong Route Start Time Stop Time Status Last Admin Dose Admin Ondansetron HCl (Zofran Inj) 4 mg Q6H PRN IV 03/04/17 20:30 04/03/17 20:29 Guaifenesin (Organidin Nr Tab) 600 mg BID PO 03/04/17 21:00 04/03/17 20:59 03/07/17 08:15 600 MG Ondansetron HCl (Zofran Odt) 8 mg Q6H PRN PO 03/04/17 20:30 04/03/17 20:29 Insulin Aspart (novoLOG ASPART) SLIDING SCALE If C... ACHS SC 03/04/17 21:00 04/03/17 20:59 03/05/17 17:23 1 UNITS Glucose (Glucose 40% Gel) 15-30 GRAMS 15 GRAMS... UD PRN PO 03/04/17 20:30 04/03/17 20:29 Glucose (Glucose Chew Tab) 4-8 Tablets 4 Tabl... UD PRN PO 03/04/17 20:30 04/03/17 20:29 Dextrose (Dextrose 50% 50ML Syringe) 25-50ML OF 50% DW IV FOR... UD PRN IV 03/04/17 20:30 04/03/17 20:29 Glucagon (Glucagon Inj) 1 mg UD PRN SQ 03/04/17 20:30 04/03/17 20:29 Miscellaneous Information (Consult) 1 ea UD PRN N/A 03/04/17 20:30 04/03/17 20:29 Budesonide (Pulmicort Respules 0.5MG/ 2ML Neb Soln) 0.5 mg BIDR INH 03/05/17 08:00 04/04/17 07:59 03/07/17 07:00 0.5 MG Amlodipine Besylate (Norvasc Tab) 5 mg QAM PO 03/05/17 09:00 04/04/17 08:59 03/07/17 08:16 5 MG Bisacodyl (Dulcolax Supp) 10 mg Q96H PRN [place] 03/04/17 20:30 04/03/17 20:29 Carbidopa/Levodopa (Sinemet 25/ 100MG Tab) 2 tab TID PO 03/04/17 21:00 04/03/17 20:59 03/07/17 08:14 2 TAB Cyanocobalamin (Vitamin B-12 Tab) 250 mcg DAILY PO 03/05/17 09:00 04/04/17 08:59 03/07/17 08:15 250 MCG Diphenhydramine HCl (Benadryl Cap) 25 mg Q8 PRN PO 03/04/17 22:00 04/03/17 21:59 Docusate Sodium (coLACE CAP) 100 mg DAILY PO 03/05/17 09:00 04/04/17 08:59 03/07/17 08:14 100 MG Econazole Nitrate (Econazole Nitrate 1% Crm) 1 appln BID EXT 03/04/17 21:00 04/03/17 20:59 03/07/17 08:11 1 APPLN Levothyroxine Sodium (Synthroid Tab) 112 mcg DAILYBB PO 03/05/17 06:00 04/04/17 06:59 03/05/17 04:31 112 MCG Magnesium Hydroxide (Milk Of Magnesia Susp) 30 ml Q72H PRN PO 03/04/17 20:30 04/03/17 20:29 Menthol/Zinc Oxide (Calmoseptine Oint) 1 appln HS EXT 03/04/17 21:00 04/03/17 20:59 03/06/17 20:45 1 APPLN Montelukast Sodium (Singulair Tab) 10 mg HS PO 03/04/17 21:00 04/03/17 20:59 03/06/17 20:45 10 MG Nystatin (Mycostatin Oint) 1 appln BID EXT 03/04/17 21:00 04/03/17 20:59 03/07/17 08:10 1 APPLN Oxybutynin Chloride (Ditropan Tab) 5 mg Q12 PRN PO 03/04/17 20:30 04/03/17 20:29 Sodium Biphosphate/ Sodium Phosphate (Fleet Enema) 132 ml Q96H PRN [place] 03/04/17 20:30 04/03/17 20:29 Artificial Tears (Artificial Tears) 2 drops QID OPB 03/04/17 21:00 04/03/17 20:59 03/07/17 08:11 2 DROPS Miscellaneous Information (Order Awaiting Action) 1 ea QS N/A 03/05/17 00:00 04/04/17 00:00 Citalopram Hydrobromide (celeXA TAB) 10 mg QAM PO 03/05/17 09:00 04/04/17 08:59 03/07/17 08:16 10 MG Ferrous Sulfate (Feosol Tab) 325 mg BIDM PO 03/05/17 07:30 04/04/17 07:59 03/07/17 08:10 325 MG Pantoprazole Sodium (Protonix Tab) 40 mg QAM PO 03/05/17 09:00 04/04/17 08:59 03/07/17 08:13 40 MG Clotrimazole (Mycelex 10MG Manuel) 1 manuel [id number] MIGUEL 03/04/17 23:00 03/14/17 22:59 03/07/17 08:12 1 MANUEL Ipratropium [place] (Atrovent 0.02% 0.5MG/2.5ML Neb) 0.5 mg Q6R INH 03/05/17 03:00 04/04/17 02:59 03/07/17 07:00 0.5 MG Levalbuterol (Xopenex 1.25MG/ 0.5ML Neb) 1.25 mg Q6R INH 03/05/17 03:00 04/04/17 02:59 03/07/17 07:00 1.25 MG Ipratropium [place] (Atrovent 0.02% 0.5MG/2.5ML Neb) 0.5 mg Q2H PRN INH 03/04/17 21:15 04/03/17 21:14 03/06/17 16:58 0.5 MG Levalbuterol (Xopenex 1.25MG/ 0.5ML Neb) 1.25 mg Q2H PRN INH 03/04/17 21:15 04/03/17 21:14 03/06/17 16:58 1.25 MG Cefepime HCl 1000 mg/Syringe 11 ml @ 5.5 mls/min Q8H IV 03/05/17 02:00 03/12/17 01:59 03/07/17 10:38 5.5 MLS/MIN Methylprednisolone Sodium Succinate 40 mg/Syringe 0.64 ml @ 1.5 mls/min Q12H IV 03/05/17 16:00 04/04/17 03:59 03/07/17 04:27 1.5 MLS/MIN Heparin Sodium (Porcine) (Heparin Sq 5000 Unit/0.5ml) 5,000 unit Q12 SQ 03/05/17 10:00 04/04/17 09:59 03/07/17 08:19 5,000 UNIT Levetiracetam 500 mg/Dextrose 105 ml @ 420 mls/hr Q12H IV 03/06/17 10:00 04/05/17 09:59 03/07/17 10:38 420 MLS/HR Vancomycin HCl 1500 mg/Sodium Chloride 530 ml @ 200 mls/hr Q12H IV 03/07/17 02:00 03/14/17 01:59 03/07/17 02:48 200 MLS/HR Potassium/ Phosphorus/Sodium (Phospha 250 Neutral 155-852-130 Mg) 2 tab QID PO 03/06/17 21:00 03/09/17 20:59 03/07/17 08:12 2 TAB Sodium Chloride (Sodium Chloride Tab) 1 gm [id number] PO 03/07/17 14:00 04/06/17 08:59 Impression Improving encephalopathy secondary to respiratory failure in the context of pneumonia following a flulike illness further complicated by metabolic encephalopathy due to hyponatremia and infection. History of atypical parkinsonism. History of suspected complex partial seizures. Yesterday's EEG was nondiagnostic due to technical factors. Subclinical seizures not expected at this time. Plan Continue Keppra 500 mg IV every 12 hours. Would transition to tablets when patient able to reliably swallow. MRI of the brain to exclude acute/subacute stroke as an alternative explanation to patient's altered mental status in the context of possible occult atrial fibrillation. Restart Sinemet when mental status improves and patient able to swallow.
--- NOTE | 2017-03-07 11:59 | Progress Note ---
Subjective Date of Service: Mar 07, 2017. Subjective Patient does not provide much history today. She is awake, and gives one worded answers, but she does not follow commands. Problem List Medical Problems: (1) Anemia Status: Acute (2) Cellulitis Status: Acute (3) Chronic anemia Status: Acute (4) Congestive heart failure (CHF) Status: Acute (5) Dehydration Status: Acute (6) Flu-like symptoms Status: Acute (7) Guaiac positive stools Status: Acute (8) Hypertension Status: Acute (9) Hypokalemia Status: Acute (10) Hyponatremia Status: Acute (11) Pneumonia Status: Acute (12) Profound anemia Status: Acute (13) Severe anemia Status: Acute (14) Shortness of breath Status: Acute (15) Urinary tract infection Status: Acute (16) Weakness Status: Acute Medications Current Inpatient Medications Medications (Trade) Dose Ordered Sig/Phong Route Start Time Stop Time Status Last Admin Dose Admin Ondansetron HCl (Zofran Inj) 4 mg Q6H PRN IV 03/04/17 20:30 04/03/17 20:29 Guaifenesin (Organidin Nr Tab) 600 mg BID PO 03/04/17 21:00 04/03/17 20:59 03/08/17 08:22 600 MG Ondansetron HCl (Zofran Odt) 8 mg Q6H PRN PO 03/04/17 20:30 04/03/17 20:29 Insulin Aspart (novoLOG ASPART) SLIDING SCALE If C... ACHS SC 03/04/17 21:00 04/03/17 20:59 03/05/17 17:23 1 UNITS Glucose (Glucose 40% Gel) 15-30 GRAMS 15 GRAMS... UD PRN PO 03/04/17 20:30 04/03/17 20:29 Glucose (Glucose Chew Tab) 4-8 Tablets 4 Tabl... UD PRN PO 03/04/17 20:30 04/03/17 20:29 Dextrose (Dextrose 50% 50ML Syringe) 25-50ML OF 50% DW IV FOR... UD PRN IV 03/04/17 20:30 04/03/17 20:29 Glucagon (Glucagon Inj) 1 mg UD PRN SQ 03/04/17 20:30 2/26/18 20:29 Budesonide (Pulmicort Respules 0.5MG/ 2ML Neb Soln) 0.5 mg BIDR INH 03/05/17 08:00 04/04/17 07:59 03/08/17 20:07 0.5 MG Amlodipine Besylate (Norvasc Tab) 5 mg QAM PO 03/05/17 09:00 04/04/17 08:59 03/08/17 08:23 5 MG Bisacodyl (Dulcolax Supp) 10 mg Q96H PRN [place] 03/04/17 20:30 04/03/17 20:29 Carbidopa/Levodopa (Sinemet 25/ 100MG Tab) 2 tab TID PO 03/04/17 21:00 04/03/17 20:59 03/08/17 20:52 2 TAB Cyanocobalamin (Vitamin B-12 Tab) 250 mcg DAILY PO 03/05/17 09:00 04/04/17 08:59 03/08/17 08:23 250 MCG Diphenhydramine HCl (Benadryl Cap) 25 mg Q8 PRN PO 03/04/17 22:00 04/03/17 21:59 Docusate Sodium (coLACE CAP) 100 mg DAILY PO 03/05/17 09:00 04/04/17 08:59 03/08/17 08:23 100 MG Econazole Nitrate (Econazole Nitrate 1% Crm) 1 appln BID EXT 03/04/17 21:00 04/03/17 20:59 03/08/17 08:24 1 APPLN Levothyroxine Sodium (Synthroid Tab) 112 mcg DAILYBB PO 03/05/17 06:00 04/04/17 06:59 03/05/17 04:31 112 MCG Magnesium Hydroxide (Milk Of Magnesia Susp) 30 ml Q72H PRN PO 03/04/17 20:30 04/03/17 20:29 Menthol/Zinc Oxide (Calmoseptine Oint) 1 appln HS EXT 03/04/17 21:00 04/03/17 20:59 03/07/17 20:06 1 APPLN Montelukast Sodium (Singulair Tab) 10 mg HS PO 03/04/17 21:00 04/03/17 20:59 03/07/17 20:08 10 MG Nystatin (Mycostatin Oint) 1 appln BID EXT 03/04/17 21:00 04/03/17 20:59 03/08/17 08:24 1 APPLN Oxybutynin Chloride (Ditropan Tab) 5 mg Q12 PRN PO 03/04/17 20:30 04/03/17 20:29 Sodium Biphosphate/ Sodium Phosphate (Fleet Enema) 132 ml Q96H PRN [place] 03/04/17 20:30 04/03/17 20:29 Artificial Tears (Artificial Tears) 2 drops QID OPB 03/04/17 21:00 04/03/17 20:59 03/08/17 12:42 2 DROPS Miscellaneous Information (Order Awaiting Action) 1 ea QS N/A 03/05/17 00:00 04/04/17 00:00 Citalopram Hydrobromide (celeXA TAB) 10 mg QAM PO 03/05/17 09:00 04/04/17 08:59 03/08/17 08:23 10 MG Ferrous Sulfate (Feosol Tab) 325 mg BIDM PO 03/05/17 07:30 04/04/17 07:59 03/08/17 08:22 325 MG Pantoprazole Sodium (Protonix Tab) 40 mg QAM PO 03/05/17 09:00 04/04/17 08:59 03/08/17 08:22 40 MG Clotrimazole (Mycelex 10MG Manuel) 1 manuel [id number] MIGUEL 03/04/17 23:00 03/14/17 22:59 03/08/17 16:27 1 MANUEL Ipratropium [place] (Atrovent 0.02% 0.5MG/2.5ML Neb) 0.5 mg Q6R INH 03/05/17 03:00 04/04/17 02:59 03/08/17 20:07 0.5 MG Levalbuterol (Xopenex 1.25MG/ 0.5ML Neb) 1.25 mg Q6R INH 03/05/17 03:00 04/04/17 02:59 03/08/17 20:06 1.25 MG Ipratropium [place] (Atrovent 0.02% 0.5MG/2.5ML Neb) 0.5 mg Q2H PRN INH 03/04/17 21:15 04/03/17 21:14 03/06/17 16:58 0.5 MG Levalbuterol (Xopenex 1.25MG/ 0.5ML Neb) 1.25 mg Q2H PRN INH 03/04/17 21:15 04/03/17 21:14 03/06/17 16:58 1.25 MG Cefepime HCl 1000 mg/Syringe 11 ml @ 5.5 mls/min Q8H IV 03/05/17 02:00 03/12/17 01:59 03/08/17 18:13 5.5 MLS/MIN Methylprednisolone Sodium Succinate 40 mg/Syringe 0.64 ml @ 1.5 mls/min Q12H IV 03/05/17 16:00 04/04/17 03:59 03/08/17 16:27 1.5 MLS/MIN Heparin Sodium (Porcine) (Heparin Sq 5000 Unit/0.5ml) 5,000 unit Q12 SQ 03/05/17 10:00 04/04/17 09:59 03/08/17 08:27 5,000 UNIT Levetiracetam 500 mg/Dextrose 105 ml @ 420 mls/hr Q12H IV 03/06/17 10:00 04/05/17 09:59 03/08/17 20:52 420 MLS/HR Potassium/ Phosphorus/Sodium (Phospha 250 Neutral 155-852-130 Mg) 2 tab QID PO 03/06/17 21:00 03/09/17 20:59 03/08/17 12:42 2 TAB Sodium Chloride (Sodium Chloride Tab) 1 gm [id number] PO 03/07/17 14:00 04/06/17 08:59 03/08/17 12:42 1 GM Sodium Chloride 1,000 ml @ 100 mls/hr Q10H IV 03/07/17 12:00 04/06/17 11:59 Future Hold 03/07/17 23:21 100 MLS/HR Gadobutrol (Gadavist) 10 mmol UD PRN IV 03/07/17 16:45 03/11/17 16:44 Objective Vital Signs Date Time Temp Pulse Resp B/P (MAP) Pulse Ox O2 Delivery O2 Flow Rate FiO2 03/07/17 11:06 37.6 81 22 126/71 (89) 95 Nasal Cannula 4.0 03/07/17 08:00 Nasal Cannula 4.0 03/07/17 08:00 37.0 77 20 148/78 (101) 96 Nasal Cannula 4.0 03/07/17 07:00 83 18 96 Nasal Cannula 4.0 03/07/17 04:19 36.8 62 22 134/69 (90) 97 03/07/17 04:00 Nasal Cannula 4.0 03/07/17 02:26 63 18 98 Nasal Cannula 4.0 03/07/17 00:00 Nasal Cannula 4.0 03/06/17 23:50 37.4 69 22 124/67 (86) 96 4.0 03/06/17 20:07 36.4 76 20 145/72 (96) 98 Nasal Cannula 3.0 03/06/17 20:00 Nasal Cannula 4.0 03/06/17 19:21 72 18 95 Nasal Cannula 4.0 03/06/17 16:58 68 15 96 Nasal Cannula 4.0 03/06/17 16:00 Nasal Cannula 4.0 03/06/17 15:37 36.7 67 22 144/73 (96) 97 Nasal Cannula 03/06/17 14:37 73 16 96 Nasal Cannula 4.0 03/06/17 12:00 Nasal Cannula 4.0 Physical Exam Comments: General Appearance: WD/WN, + no distress+ obese Eyes: normal inspection, sclerae normal Respiratory/Chest: chest non-tender, + decreased breath sounds, + accessory muscle use, + rhonchi Cardiovascular: regular rate, rhythm, + systolic murmur Abdomen: normal bowel sounds, non tender, soft Extremities: no calf tenderness, + pedal edema Neurologic/Psychiatric: alert, disoriented Laboratory Results Last 24 Hours Test 03/06/17 13:57 03/06/17 16:24 03/06/17 18:38 03/06/17 20:05 Vancomycin Level Trough 21.2 mcg/ml Bedside Glucose 120 mg/dl 116 mg/dl Sodium Level 123 mmol/L Potassium Level 3.3 mmol/L Chloride Level 85 mmol/L Carbon Dioxide Level 32 mmol/L Anion Gap 6.0 mmol/L Blood Urea Nitrogen 16 mg/dl Creatinine 0.42 mg/dl Est Creatinine Clear Calc Drug Dose 145.3 ml/min Estimated GFR () 118.7 Estimated GFR (Non- 102.4 BUN/Creatinine Ratio 39.4 Random Glucose 113 mg/dl Calcium Level 7.9 mg/dl Phosphorus Level 1.3 mg/dl Albumin 2.6 gm/dl Test 03/07/17 03:10 03/07/17 06:22 03/07/17 06:25 03/07/17 11:07 Urine Random Sodium 5 mEq/L Bedside Glucose 117 mg/dl 135 mg/dl White Blood Count 4.81 K/uL Red Blood Count 3.07 M/uL Hemoglobin 8.6 g/dL Hematocrit 26.2 % Mean Corpuscular Volume 85.3 fL Mean Corpuscular Hemoglobin 28.0 pg Mean Corpuscular Hemoglobin Concent 32.8 g/dl Platelet Count 271 K/uL Mean Platelet Volume 9.8 fL Neutrophils (%) (Auto) 85.2 % Lymphocytes (%) (Auto) 6.9 % Monocytes (%) (Auto) 7.7 % Eosinophils (%) (Auto) 0.0 % Basophils (%) (Auto) 0.0 % Neutrophils # (Auto) 4.10 K/uL Lymphocytes # (Auto) 0.33 K/uL Monocytes # (Auto) 0.37 K/uL Eosinophils # (Auto) 0.00 K/uL Basophils # (Auto) 0.00 K/uL RDW Standard Deviation 42.7 fL RDW Coefficient of Variation 13.8 % Immature Granulocyte % (Auto) 0.2 % Immature Granulocyte # (Auto) 0.01 K/uL Hypochromasia PRESENT Ovalocytes 1+ Acanthocytes 1+ Sodium Level 126 mmol/L Potassium Level 3.5 mmol/L Chloride Level 87 mmol/L Carbon Dioxide Level 31 mmol/L Anion Gap 8.0 mmol/L Blood Urea Nitrogen 15 mg/dl Creatinine 0.34 mg/dl Est Creatinine Clear Calc Drug Dose 179.4 ml/min Estimated GFR () 127.2 Estimated GFR (Non- 109.8 BUN/Creatinine Ratio 42.2 Random Glucose 100 mg/dl Calcium Level 8.0 mg/dl Phosphorus Level 2.2 mg/dl Magnesium Level 2.1 mg/dl Assessment and Plan 71 F recently treated for influenza presents with Acute respiratory failure with hypoxia/pneumonia involving right lung--hyponatremia, hypokalemia, hypomagnesemia, gram negative uti poa associated with chronic indwelling munoz cath Right sided pneumonia Concern for gram negative pneumonia, on cefepime Levaquin stopped due to resistance Vanco was stopped due to negative MRSA.. this will also cover gram negative UTI associated with munoz cath, Concern with upper airway sounds will prompt a speech consult, antibiotics may be altered is aspiration is more evident or clinical course does not improve Do not believe patient is fluid overloaded. CT chest confirmed pneumonia. metabolic encephalopathy from hyponatremia and infection, Patient is more confused today. She appears to have been better in AM, as cardiology was able to obtain history from patient. However, she is waxing and waning. Currently she is not responding ton me. will continue to monitor. Acute respiratory failure, will be on supplemental oxygen, nebulized medications, solu-medrol of xopenex and ipatropium q 6 hours plus her usual home meds of singulair Hyponatremia, Likely hypovolemic hyponatremia Improving with IVF. will continue with NS. Appreciate nephro input. Hypokalemia and hypomagnesemia replete Atypical parkinsonism, continue sinemet HTN continue norvasc but hold diuretic with hyponatremia Seizure disorder-- Continue Keppra 250 mg by mouth twice a day GERD-- Change omeprazole to pantoprazole Hyperlipidemia-- Continue simvastatin 20 mg every evening Hypothyroidism-- Continue levothyroxine sodium 112 g daily Depression-- Continue citalopram 10 mg daily Vitamin B12 deficiency-- Continue cyanocobalamin 250 g daily
[2017-03-07] MEDS: SODIUM CHLORIDE 0.9% 1000ML 1,000 ML IV SCH ×2 (12:22→23:21)
--- NOTE | 2017-03-07 12:37 | Cardiology Consultation ---
Cardiology Consultation Date of Consultation: Mar 07, 2017. Requesting Physician: Dr. Morales Reason for Consultation: Atrial fibrillation Pt evaluation today including: conversation w/ patient, physical exam, lab review, review of studies, review of inpatient medication list History of Present Illness This is a 71-year-old woman who is a resident of [facility] at [place], she had flulike symptoms for about 5 days before presenting to the emergency room on 03/04/2012. Her symptoms were cough, congestion and shortness of breath which did not improve with outpatient therapy. She did not have cardiovascular symptoms. She was admitted, treated right sided pneumonia. She is followed by Dr. Ortiz in our office, she has labile blood pressure, hypertension and orthostatic hypotension for which she has been on midodrine. She presented in sinus rhythm, however developed atrial fibrillation, to my knowledge she has not had this arrhythmia before. At the time of my evaluation she was in bed, she is oriented 3 and can give surprisingly detailed responses. She denies having a history of atrial fibrillation, however she tells me that she was on Coumadin a number of years ago for 6 months for DVT. She has no awareness of her rhythm currently, she does not of palpitations and is not aware of the irregularity. She has no chest discomfort. Past Medical/Surgical History (1) Bilateral knee replacements (2) Chronic anemia (3) Diabetes mellitus (4) Hyperlipemia (5) HTN (hypertension) (6) DVT (deep venous thrombosis) Family History Blood disorder Heart disease Social History Smoking Status: Never Smoker History of Alcohol Use: No Review of Systems Constitutional: No fever, No weight loss, No weakness Respiratory: + shortness of breath, + dyspnea on exertion, No cough Cardiac: No chest pain, No edema Abdomen: No pain, No nausea, No vomiting, No diarrhea, No GI bleeding Female : No problem reported Neurologic: No paralysis, No weakness, No numbness/tingling, No balance problems Heme: No abnormal bleeding/bruising, No clotting problems Endo: No fatigue Skin: No problem reported All Other Systems: Reviewed and Negative Allergies Coded Allergies: Iodinated Diagnostic Agents (Verified Allergy, Severe, SHORTNESS OF BREATH , 12/23/16) Latex (Verified Allergy, Intermediate, RASH, 12/23/16) Aspirin (Verified Allergy, Unknown, RASH, 12/23/16) IBUPROFEN WELL Chocolate (Unverified Allergy, Unknown, UNKNOWN, 12/23/16) Ibuprofen (Verified Allergy, Unknown, 12/23/16) Latex1 -Allergic Contact Dermititis (Verified Allergy, Unknown, 12/23/16) Lisinopril (Verified Allergy, Unknown, UNKNOWN, 12/23/16) Meperidine (Verified Allergy, Unknown, UNKNOWN, 12/23/16) Metformin (Unverified Allergy, Unknown, GI SYMPTOMS, 12/23/16) Midazolam (Verified Allergy, Unknown, UNKN, 12/23/16) Nut Tree (Verified Allergy, Unknown, UNKNOWN, 12/23/16) Peanut (Verified Allergy, Unknown, UNKNOWN, 12/23/16) Penicillins (Verified Allergy, Unknown, SHORTNESS OF BREATH, 12/23/16) (FROM UNCODED ALLERGIES) Sulfa Antibiotics (Verified Allergy, Unknown, UNKNOWN, 12/23/16) Gluten (Verified Adverse Reaction, Intermediate, GI SYMPTOMS, 12/23/16) Medications Current Inpatient Medications Medications (Trade) Dose Ordered Sig/Phong Route Start Time Stop Time Status Last Admin Dose Admin Ondansetron HCl (Zofran Inj) 4 mg Q6H PRN IV 03/04/17 20:30 04/03/17 20:29 Guaifenesin (Organidin Nr Tab) 600 mg BID PO 03/04/17 21:00 04/03/17 20:59 03/07/17 08:15 600 MG Ondansetron HCl (Zofran Odt) 8 mg Q6H PRN PO 03/04/17 20:30 04/03/17 20:29 Insulin Aspart (novoLOG ASPART) SLIDING SCALE If C... ACHS SC 03/04/17 21:00 04/03/17 20:59 03/05/17 17:23 1 UNITS Glucose (Glucose 40% Gel) 15-30 GRAMS 15 GRAMS... UD PRN PO 03/04/17 20:30 04/03/17 20:29 Glucose (Glucose Chew Tab) 4-8 Tablets 4 Tabl... UD PRN PO 03/04/17 20:30 04/03/17 20:29 Dextrose (Dextrose 50% 50ML Syringe) 25-50ML OF 50% DW IV FOR... UD PRN IV 03/04/17 20:30 04/03/17 20:29 Glucagon (Glucagon Inj) 1 mg UD PRN SQ 03/04/17 20:30 04/03/17 20:29 Miscellaneous Information (Consult) 1 ea UD PRN N/A 03/04/17 20:30 04/03/17 20:29 Budesonide (Pulmicort Respules 0.5MG/ 2ML Neb Soln) 0.5 mg BIDR INH 03/05/17 08:00 04/04/17 07:59 03/07/17 07:00 0.5 MG Amlodipine Besylate (Norvasc Tab) 5 mg QAM PO 03/05/17 09:00 04/04/17 08:59 03/07/17 08:16 5 MG Bisacodyl (Dulcolax Supp) 10 mg Q96H PRN AR 03/04/17 20:30 04/03/17 20:29 Carbidopa/Levodopa (Sinemet 25/ 100MG Tab) 2 tab TID PO 03/04/17 21:00 04/03/17 20:59 03/07/17 08:14 2 TAB Cyanocobalamin (Vitamin B-12 Tab) 250 mcg DAILY PO 03/05/17 09:00 04/04/17 08:59 03/07/17 08:15 250 MCG Diphenhydramine HCl (Benadryl Cap) 25 mg Q8 PRN PO 03/04/17 22:00 04/03/17 21:59 Docusate Sodium (coLACE CAP) 100 mg DAILY PO 03/05/17 09:00 04/04/17 08:59 03/07/17 08:14 100 MG Econazole Nitrate (Econazole Nitrate 1% Crm) 1 appln BID EXT 03/04/17 21:00 04/03/17 20:59 03/07/17 08:11 1 APPLN Levothyroxine Sodium (Synthroid Tab) 112 mcg DAILYBB PO 03/05/17 06:00 04/04/17 06:59 03/05/17 04:31 112 MCG Magnesium Hydroxide (Milk Of Magnesia Susp) 30 ml Q72H PRN PO 03/04/17 20:30 04/03/17 20:29 Menthol/Zinc Oxide (Calmoseptine Oint) 1 appln HS EXT 03/04/17 21:00 04/03/17 20:59 03/06/17 20:45 1 APPLN Montelukast Sodium (Singulair Tab) 10 mg HS PO 03/04/17 21:00 04/03/17 20:59 03/06/17 20:45 10 MG Nystatin (Mycostatin Oint) 1 appln BID EXT 03/04/17 21:00 04/03/17 20:59 03/07/17 08:10 1 APPLN Oxybutynin Chloride (Ditropan Tab) 5 mg Q12 PRN PO 03/04/17 20:30 04/03/17 20:29 Sodium Biphosphate/ Sodium Phosphate (Fleet Enema) 132 ml Q96H PRN AR 03/04/17 20:30 04/03/17 20:29 Artificial Tears (Artificial Tears) 2 drops QID OPB 03/04/17 21:00 04/03/17 20:59 03/07/17 08:11 2 DROPS Miscellaneous Information (Order Awaiting Action) 1 ea QS N/A 03/05/17 00:00 04/04/17 00:00 Citalopram Hydrobromide (celeXA TAB) 10 mg QAM PO 03/05/17 09:00 04/04/17 08:59 03/07/17 08:16 10 MG Ferrous Sulfate (Feosol Tab) 325 mg BIDM PO 03/05/17 07:30 04/04/17 07:59 03/07/17 08:10 325 MG Pantoprazole Sodium (Protonix Tab) 40 mg QAM PO 03/05/17 09:00 04/04/17 08:59 03/07/17 08:13 40 MG Clotrimazole (Mycelex 10MG Manuel) 1 manuel [id number] MIGUEL 03/04/17 23:00 03/14/17 22:59 03/07/17 08:12 1 MANUEL Ipratropium [place] (Atrovent 0.02% 0.5MG/2.5ML Neb) 0.5 mg Q6R INH 03/05/17 03:00 04/04/17 02:59 03/07/17 07:00 0.5 MG Levalbuterol (Xopenex 1.25MG/ 0.5ML Neb) 1.25 mg Q6R INH 03/05/17 03:00 04/04/17 02:59 03/07/17 07:00 1.25 MG Ipratropium [place] (Atrovent 0.02% 0.5MG/2.5ML Neb) 0.5 mg Q2H PRN INH 03/04/17 21:15 04/03/17 21:14 03/06/17 16:58 0.5 MG Levalbuterol (Xopenex 1.25MG/ 0.5ML Neb) 1.25 mg Q2H PRN INH 03/04/17 21:15 04/03/17 21:14 03/06/17 16:58 1.25 MG Cefepime HCl 1000 mg/Syringe 11 ml @ 5.5 mls/min Q8H IV 03/05/17 02:00 03/12/17 01:59 03/07/17 01:44 5.5 MLS/MIN Methylprednisolone Sodium Succinate 40 mg/Syringe 0.64 ml @ 1.5 mls/min Q12H IV 03/05/17 16:00 04/04/17 03:59 03/07/17 04:27 1.5 MLS/MIN Heparin Sodium (Porcine) (Heparin Sq 5000 Unit/0.5ml) 5,000 unit Q12 SQ 03/05/17 10:00 04/04/17 09:59 03/07/17 08:19 5,000 UNIT Levetiracetam 500 mg/Dextrose 105 ml @ 420 mls/hr Q12H IV 03/06/17 10:00 04/05/17 09:59 03/06/17 22:06 420 MLS/HR Vancomycin HCl 1500 mg/Sodium Chloride 530 ml @ 200 mls/hr Q12H IV 03/07/17 02:00 03/14/17 01:59 03/07/17 02:48 200 MLS/HR Potassium/ Phosphorus/Sodium (Phospha 250 Neutral 155-852-130 Mg) 2 tab QID PO 03/06/17 21:00 03/09/17 20:59 03/07/17 08:12 2 TAB Sodium Chloride (Sodium Chloride Tab) 1 gm [id number] PO 03/07/17 14:00 04/06/17 08:59 Physical Exam Vital Signs Past 12 Hours Date Time Temp Pulse Resp B/P (MAP) Pulse Ox O2 Delivery O2 Flow Rate FiO2 03/07/17 08:00 Nasal Cannula 4.0 03/07/17 08:00 37.0 77 20 148/78 (101) 96 Nasal Cannula 4.0 03/07/17 07:00 83 18 96 Nasal Cannula 4.0 03/07/17 04:19 36.8 62 22 134/69 (90) 97 03/07/17 04:00 Nasal Cannula 4.0 03/07/17 02:26 63 18 98 Nasal Cannula 4.0 03/07/17 00:00 Nasal Cannula 4.0 03/06/17 23:50 37.4 69 22 124/67 (86) 96 4.0 Constitutional: General Apperance: overweight Level of Distress: mild distress Psychiatric: Mental Status: active & alert Head: normocephalic Eyes: EOM: EOMI ENMT: normal ENT inspection, hearing grossly normal Neck: supple, no masses Lungs: Auscultation: wet rales/crackles, rhonchi Cardiovascular: Heart Auscultation: no murmurs, no rubs, no gallops, irregular rate rhythm Peripheral Pulses: Bruits: none appreciated Abdomen: Bowel Sounds: normal Inspection & Palpation: soft, no tenderness, guarding & rebound, no masses Musculoskeletal: poor tone Neurologic: Cranial Nerves: grossly intact Sensation: grossly intact Data Laboratory Results: Last 24 Hours Test 03/06/17 10:56 03/06/17 13:57 03/06/17 16:24 03/06/17 18:38 Bedside Glucose 139 mg/dl 120 mg/dl Vancomycin Level Trough 21.2 mcg/ml Sodium Level 123 mmol/L Potassium Level 3.3 mmol/L Chloride Level 85 mmol/L Carbon Dioxide Level 32 mmol/L Anion Gap 6.0 mmol/L Blood Urea Nitrogen 16 mg/dl Creatinine 0.42 mg/dl Est Creatinine Clear Calc Drug Dose 145.3 ml/min Estimated GFR () 118.7 Estimated GFR (Non- 102.4 BUN/Creatinine Ratio 39.4 Random Glucose 113 mg/dl Calcium Level 7.9 mg/dl Phosphorus Level 1.3 mg/dl Albumin 2.6 gm/dl Test 03/06/17 20:05 03/07/17 03:10 03/07/17 06:22 03/07/17 06:25 Bedside Glucose 116 mg/dl 117 mg/dl Urine Random Sodium 5 mEq/L White Blood Count 4.81 K/uL Red Blood Count 3.07 M/uL Hemoglobin 8.6 g/dL Hematocrit 26.2 % Mean Corpuscular Volume 85.3 fL Mean Corpuscular Hemoglobin 28.0 pg Mean Corpuscular Hemoglobin Concent 32.8 g/dl Platelet Count 271 K/uL Mean Platelet Volume 9.8 fL Neutrophils (%) (Auto) 85.2 % Lymphocytes (%) (Auto) 6.9 % Monocytes (%) (Auto) 7.7 % Eosinophils (%) (Auto) 0.0 % Basophils (%) (Auto) 0.0 % Neutrophils # (Auto) 4.10 K/uL Lymphocytes # (Auto) 0.33 K/uL Monocytes # (Auto) 0.37 K/uL Eosinophils # (Auto) 0.00 K/uL Basophils # (Auto) 0.00 K/uL RDW Standard Deviation 42.7 fL RDW Coefficient of Variation 13.8 % Immature Granulocyte % (Auto) 0.2 % Immature Granulocyte # (Auto) 0.01 K/uL Hypochromasia PRESENT Ovalocytes 1+ Acanthocytes 1+ Sodium Level 126 mmol/L Potassium Level 3.5 mmol/L Chloride Level 87 mmol/L Carbon Dioxide Level 31 mmol/L Anion Gap 8.0 mmol/L Blood Urea Nitrogen 15 mg/dl Creatinine 0.34 mg/dl Est Creatinine Clear Calc Drug Dose 179.4 ml/min Estimated GFR () 127.2 Estimated GFR (Non- 109.8 BUN/Creatinine Ratio 42.2 Random Glucose 100 mg/dl Calcium Level 8.0 mg/dl Phosphorus Level 2.2 mg/dl Magnesium Level 2.1 mg/dl Imaging: EKG: Her electrocardiogram today shows atrial fibrillation with a heart rate is 74 bpm. Telemetry reviewed: Telemetry shows sinus rhythm in tell around 10 AM on the morning of 03/06/2017 and atrial fibrillation since. It is hard to tell exactly where the arrhythmia starts due to baseline artifact and very little change in heart rate with onset of atrial fibrillation. Echocardiogram: The echocardiogram shows normal left ventricular size and function, moderate concentric left ventricular hypertrophy and diastolic dysfunction. The left atrium is severely dilated. Assessment & Plan #1. Atrial fibrillation: As far as I know she has not had atrial fibrillation identified before, however her heart rate is virtually unchanged between sinus rhythm and her atrial fibrillation and she is unaware of it therefore it is possible she has had this arrhythmia before. Her heart rate is under very good control so no adjustments to her medications are required for that. I think it would be a good idea to have her on an anticoagulant if possible, however she is significantly anemic. I therefore not started an anticoagulant, I will leave that up to the primary service. Her left atrium is severely dilated by echocardiography and she is asymptomatic, I would probably not consider antiarrhythmic therapy and trying to maintain sinus rhythm. Thank you for allowing me to participate in her care.
[2017-03-07 13:35] LABS: CALCIUM 7.7 mg/dl (8.5-10.1); CREATININE 0.38 mg/dl (0.60-1.20); POTASSIUM 3.6 mmol/L (3.5-5.1)
[2017-03-07] MEDS: SODIUM CHLORIDE 1 GM TAB PO SCH (13:38)
[2017-03-07] MEDS ORDERED: GADAVIST IV PRN (16:45)
--- NOTE | 2017-03-07 16:49 | DIAGNOSTIC IMAGING REPORT ---
MRI OF THE BRAIN COMBO CLINICAL HISTORY: Encephalopathy. COMPARISON STUDY: CT of the brain dated 03/06/2017. TECHNIQUE: MRI of the brain was performed utilizing various T1 and T2-weighted sequences in the axial, sagittal, and coronal planes. Contrast-enhanced sequences were acquired following the administration of 10 cc of Gadavist. FINDINGS: Brain parenchyma: There are age-related involutional changes noting mild subcortical and periventricular microangiopathic disease. Cerebellar atrophy is greater than cortical atrophy. There is no hemorrhage or mass effect. There is no restricted diffusion to suggest acute ischemia. No enhancing mass lesion is identified on the postcontrast images. [place]azo-white matter differentiation is preserved. No extra-axial fluid collection is seen. The cerebellar tonsils are normal in configuration. Ventricles, sulci, and cisterns: Prominent secondary to involutional change. Cavum septum pellucidum is incidentally noted. Pituitary and sella: Unremarkable. Intracranial vasculature: Normal flow voids are maintained at the skull base. Orbits: The bony orbits are grossly intact. Orbital contents are normal in appearance. Sinuses and mastoids: Mild mucosal thickening is seen in the sphenoid sinuses. The remaining paranasal sinuses are clear. There is trace right mastoid effusion. The left mastoid air cells are well pneumatized. Calvarium: Unremarkable. Cervical cord: Partially visualized cervical spinal cord is normal in morphology and signal intensity. IMPRESSION: No acute intracranial abnormality. Electronically signed by: Mitchell Tejada M.D. 03/07/2017 4:47 PM Dictated Date/Time: 03/07/2017 4:44 PM
[2017-03-07] MEDS: MENTHOL-ZINC OXIDE 360 APPLN/120 GM TUBE EXT SCH (20:06)
[2017-03-07] MEDS: MONTELUKAST SOD 10 MG TAB PO SCH (20:08)
[2017-03-08] VITALS (10 sets, daily range): BP systolic 132–191; BP diastolic 70–97; PULSE 68–114; TEMP 36.6–37.4; O2SAT 92–95
[2017-03-08] MEDS: LEVALBUTEROL 1.25MG/0.5ML NEB INH SCH ×4 (01:22→20:06)
[2017-03-08] MEDS: IPRATROPIUM BROMIDE NEB SOLN 0.02% 2.5 ML VIAL INH SCH ×4 (01:22→20:07)
[2017-03-08] MEDS ORDERED: VANCOMYCIN TROUGH ONE (01:30)
[2017-03-08] MEDS: CEFEPIME IV 1,000 MG in SYRINGE 0 ML IV SCH ×3 (01:55→18:13)
[2017-03-08] MEDS: METHYLPREDNISOLONE IV 40 MG in SYRINGE 0 ML IV SCH ×2 (04:44→16:27)
[2017-03-08] MEDS: LEVOTHYROXINE 112 MCG TAB PO SCH (05:31)
[2017-03-08] MEDS ORDERED: NURSING VERBAL MED ORDER ONE (06:30)
[2017-03-08 06:56] LABS: HEMATOCRIT 24.6 % (37-47); HEMOGLOBIN 7.8 g/dL (12.0-16.0); MEAN CORPUSCULAR HEMOGLOBIN 27.3 pg (25-34); MEAN CORPUSCULAR HGB CONC 31.7 g/dl (32-36); MEAN PLATELET VOLUME 9.3 fL (7.4-10.4); PLATELET COUNT 243 K/uL (130-400); RED CELL DISTRIBUTION WIDTH SD 44.5 fL (36.4-46.3); WHITE BLOOD COUNT 3.31 K/uL (4.8-10.8)
[2017-03-08] MEDS: SODIUM CHLORIDE 1 GM TAB PO SCH ×2 (07:00→12:42)
[2017-03-08] MEDS: BUDESONIDE 0.5 MG/2 ML VIAL (PULMICORT) INH SCH ×2 (07:07→20:07)
[2017-03-08 07:32] LABS: CREATININE 0.37 mg/dl (0.60-1.20); POTASSIUM 3.5 mmol/L (3.5-5.1)
[2017-03-08] MEDS: CLOTRIMAZOLE 10 MG TROCHE LOZ SCH ×4 (08:21→19:00)
[2017-03-08] MEDS: FERROUS SULFATE 325 MG TAB PO SCH ×2 (08:22→16:45)
[2017-03-08] MEDS: POT PHOSPHATE MONOBASIC W/ SOD TAB PO SCH ×4 (08:22→21:00)
[2017-03-08] MEDS: PANTOprazole SOD 40 MG TAB PO SCH (08:22)
[2017-03-08] MEDS: GUAIFENESIN 200 MG TAB PO SCH ×2 (08:22→21:00)
[2017-03-08] MEDS: CARBIDOPA/LEVODOPA 25/100MG TAB PO SCH ×3 (08:23→20:52)
[2017-03-08] MEDS: DOCUSATE SODIUM 100 MG CAP PO SCH (08:23)
[2017-03-08] MEDS: CYANOCOBALAMIN 500 MCG TAB (VIT B-12) PO SCH (08:23)
[2017-03-08] MEDS: CITALOPRAM 20 MG TAB PO SCH (08:23)
[2017-03-08] MEDS: AMLODIPINE BESYLATE 5 MG TAB PO SCH (08:23)
[2017-03-08] MEDS: ARTIFICIAL TEARS OP SOLN OPB SCH ×4 (08:24→21:00)
[2017-03-08] MEDS: ECONAZOLE NITRATE 1% CRM 15 GM TUBE EXT SCH ×2 (08:24→21:00)
[2017-03-08] MEDS: INSULIN ASPART 100 UNITS/ML 3 ML PEN SC SCH ×4 (08:24→20:21)
[2017-03-08] MEDS: NYSTATIN OINT 15 GM TUBE EXT SCH ×2 (08:24→21:00)
[2017-03-08] MEDS: LEVETIRACETAM IV 500 MG in DEXTROSE 5% 100ML 100 ML IV SCH ×2 (08:25→20:52)
[2017-03-08] MEDS: HEPARIN SOD 5000 UNIT/0.5 ML CARP SQ SCH ×2 (08:27→21:00)
--- NOTE | 2017-03-08 09:04 | Nephrology Progress Note ---
Nephrology Progress Note Date of Service Mar 08, 2017. Chief Complaint Hyponatremia Subjective No acute events overnight. Izabela is more awake this morning. Denies pain or dyspnea. No fevers or chills. Review of Systems A complete review of systems was performed. Pertinent positives are noted above. All other systems are negative. Vital Signs Last 8 Hrs Date Time Temp Pulse Resp B/P (MAP) Pulse Ox O2 Delivery O2 Flow Rate FiO2 03/08/17 08:10 Nasal Cannula 4.0 03/08/17 08:07 36.6 71 24 132/73 (92) 95 Nasal Cannula 2.0 03/08/17 07:07 72 16 94 Nasal Cannula 2.0 03/08/17 04:00 Nasal Cannula 03/08/17 03:37 36.6 78 19 160/70 (100) 95 Nasal Cannula 4.0 03/08/17 01:24 68 16 95 Nasal Cannula 2.0 Last Recorded Weight Weight (Kilograms): 102.400 Physical Exam General Appearance: no apparent distress, + obese Head: normocephalic, atraumatic Eyes: normal inspection, sclerae normal ENT: normal ENT inspection, pharynx normal Neck: supple, no JVD Respiratory/Chest: lungs clear, no respiratory distress, no accessory muscle use, + decreased breath sounds Cardiovascular: regular rate, rhythm, no gallop Abdomen/GI: non tender, soft Extremities/Musculoskelatal: + pertinent finding (generalized edema) Neurologic/Psych: alert Family History Blood disorder Heart disease Social History Smoking Status: Never smoker Smokeless Tobacco Use: No Alcohol Use: none Drug Use: none Marital Status: Housing Status: lives with family 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 Laboratory Results Past 24 Hours 03/08/17 06:44 03/07/17 13:01 03/08/17 06:44 Test 03/07/17 11:07 03/07/17 13:01 03/07/17 17:05 03/07/17 20:17 Bedside Glucose 135 mg/dl (70-90) 113 mg/dl (70-90) 118 mg/dl (70-90) Anion Gap 5.0 mmol/L (3-11) Est Creatinine Clear Calc Drug Dose 160.5 ml/min Estimated GFR () 122.7 Estimated GFR (Non- 105.8 BUN/Creatinine Ratio 42.4 (10-20) Calcium Level 7.7 mg/dl (8.5-10.1) Test 03/08/17 01:31 03/08/17 06:44 03/08/17 06:46 Vancomycin Level Trough 13.1 mcg/ml (SEE COMMENT) Red Blood Count 2.86 M/uL (4.2-5.4) Mean Corpuscular Volume 86.0 fL (80-100) Mean Corpuscular Hemoglobin 27.3 pg (25-34) Mean Corpuscular Hemoglobin Concent 31.7 g/dl (32-36) RDW Standard Deviation 44.5 fL (36.4-46.3) RDW Coefficient of Variation 14.0 % (11.5-14.5) Mean Platelet Volume 9.3 fL (7.4-10.4) Anion Gap 5.0 mmol/L (3-11) Est Creatinine Clear Calc Drug Dose 163.1 ml/min Estimated GFR () 123.7 Estimated GFR (Non- 106.8 BUN/Creatinine Ratio 43.0 (10-20) Calcium Level 8.0 mg/dl (8.5-10.1) Bedside Glucose 105 mg/dl (70-90) Allergies Coded Allergies: Iodinated Diagnostic Agents (Verified Allergy, Severe, SHORTNESS OF BREATH , 12/23/16) Latex (Verified Allergy, Intermediate, RASH, 12/23/16) Aspirin (Verified Allergy, Unknown, RASH, 12/23/16) IBUPROFEN WELL Chocolate (Unverified Allergy, Unknown, UNKNOWN, 12/23/16) Ibuprofen (Verified Allergy, Unknown, 12/23/16) Latex1 -Allergic Contact Dermititis (Verified Allergy, Unknown, 12/23/16) Lisinopril (Verified Allergy, Unknown, UNKNOWN, 12/23/16) Meperidine (Verified Allergy, Unknown, UNKNOWN, 12/23/16) Metformin (Unverified Allergy, Unknown, GI SYMPTOMS, 12/23/16) Midazolam (Verified Allergy, Unknown, UNKN, 12/23/16) Nut Tree (Verified Allergy, Unknown, UNKNOWN, 12/23/16) Peanut (Verified Allergy, Unknown, UNKNOWN, 12/23/16) Penicillins (Verified Allergy, Unknown, SHORTNESS OF BREATH, 12/23/16) (FROM UNCODED ALLERGIES) Sulfa Antibiotics (Verified Allergy, Unknown, UNKNOWN, 12/23/16) Gluten (Verified Adverse Reaction, Intermediate, GI SYMPTOMS, 12/23/16) Medications Current Inpatient Medications Medications (Trade) Dose Ordered Sig/Phong Route Start Time Stop Time Status Last Admin Dose Admin Ondansetron HCl (Zofran Inj) 4 mg Q6H PRN IV 03/04/17 20:30 04/03/17 20:29 Guaifenesin (Organidin Nr Tab) 600 mg BID PO 03/04/17 21:00 04/03/17 20:59 03/08/17 08:22 600 MG Ondansetron HCl (Zofran Odt) 8 mg Q6H PRN PO 03/04/17 20:30 04/03/17 20:29 Insulin Aspart (novoLOG ASPART) SLIDING SCALE If C... ACHS SC 03/04/17 21:00 04/03/17 20:59 03/05/17 17:23 1 UNITS Glucose (Glucose 40% Gel) 15-30 GRAMS 15 GRAMS... UD PRN PO 03/04/17 20:30 04/03/17 20:29 Glucose (Glucose Chew Tab) 4-8 Tablets 4 Tabl... UD PRN PO 03/04/17 20:30 04/03/17 20:29 Dextrose (Dextrose 50% 50ML Syringe) 25-50ML OF 50% DW IV FOR... UD PRN IV 03/04/17 20:30 04/03/17 20:29 Glucagon (Glucagon Inj) 1 mg UD PRN SQ 03/04/17 20:30 04/03/17 20:29 Budesonide (Pulmicort Respules 0.5MG/ 2ML Neb Soln) 0.5 mg BIDR INH 03/05/17 08:00 04/04/17 07:59 03/08/17 07:07 0.5 MG Amlodipine Besylate (Norvasc Tab) 5 mg QAM PO 03/05/17 09:00 04/04/17 08:59 03/08/17 08:23 5 MG Bisacodyl (Dulcolax Supp) 10 mg Q96H PRN [place] 03/04/17 20:30 04/03/17 20:29 Carbidopa/Levodopa (Sinemet 25/ 100MG Tab) 2 tab TID PO 03/04/17 21:00 2/26/18 20:59 03/08/17 08:23 2 TAB Cyanocobalamin (Vitamin B-12 Tab) 250 mcg DAILY PO 03/05/17 09:00 04/04/17 08:59 03/08/17 08:23 250 MCG Diphenhydramine HCl (Benadryl Cap) 25 mg Q8 PRN PO 03/04/17 22:00 04/03/17 21:59 Docusate Sodium (coLACE CAP) 100 mg DAILY PO 03/05/17 09:00 04/04/17 08:59 03/08/17 08:23 100 MG Econazole Nitrate (Econazole Nitrate 1% Crm) 1 appln BID EXT 03/04/17 21:00 04/03/17 20:59 03/08/17 08:24 1 APPLN Levothyroxine Sodium (Synthroid Tab) 112 mcg DAILYBB PO 03/05/17 06:00 04/04/17 06:59 03/05/17 04:31 112 MCG Magnesium Hydroxide (Milk Of Magnesia Susp) 30 ml Q72H PRN PO 03/04/17 20:30 04/03/17 20:29 Menthol/Zinc Oxide (Calmoseptine Oint) 1 appln HS EXT 03/04/17 21:00 04/03/17 20:59 03/07/17 20:06 1 APPLN Montelukast Sodium (Singulair Tab) 10 mg HS PO 03/04/17 21:00 04/03/17 20:59 03/07/17 20:08 10 MG Nystatin (Mycostatin Oint) 1 appln BID EXT 03/04/17 21:00 04/03/17 20:59 03/08/17 08:24 1 APPLN Oxybutynin Chloride (Ditropan Tab) 5 mg Q12 PRN PO 03/04/17 20:30 04/03/17 20:29 Sodium Biphosphate/ Sodium Phosphate (Fleet Enema) 132 ml Q96H PRN PA 03/04/17 20:30 04/03/17 20:29 Artificial Tears (Artificial Tears) 2 drops QID OPB 03/04/17 21:00 04/03/17 20:59 03/08/17 08:24 2 DROPS Miscellaneous Information (Order Awaiting Action) 1 ea QS N/A 03/05/17 00:00 04/04/17 00:00 Citalopram Hydrobromide (celeXA TAB) 10 mg QAM PO 03/05/17 09:00 04/04/17 08:59 03/08/17 08:23 10 MG Ferrous Sulfate (Feosol Tab) 325 mg BIDM PO 03/05/17 07:30 04/04/17 07:59 03/08/17 08:22 325 MG Pantoprazole Sodium (Protonix Tab) 40 mg QAM PO 03/05/17 09:00 04/04/17 08:59 03/08/17 08:22 40 MG Clotrimazole (Mycelex 10MG Manuel) 1 manuel [id number] MIGUEL 03/04/17 23:00 03/14/17 22:59 03/08/17 08:21 1 MANUEL Ipratropium [place] (Atrovent 0.02% 0.5MG/2.5ML Neb) 0.5 mg Q6R INH 03/05/17 03:00 04/04/17 02:59 03/08/17 07:07 0.5 MG Levalbuterol (Xopenex 1.25MG/ 0.5ML Neb) 1.25 mg Q6R INH 03/05/17 03:00 04/04/17 02:59 03/08/17 07:07 1.25 MG Ipratropium [place] (Atrovent 0.02% 0.5MG/2.5ML Neb) 0.5 mg Q2H PRN INH 03/04/17 21:15 04/03/17 21:14 03/06/17 16:58 0.5 MG Levalbuterol (Xopenex 1.25MG/ 0.5ML Neb) 1.25 mg Q2H PRN INH 03/04/17 21:15 04/03/17 21:14 03/06/17 16:58 1.25 MG Cefepime HCl 1000 mg/Syringe 11 ml @ 5.5 mls/min Q8H IV 03/05/17 02:00 03/12/17 01:59 03/08/17 01:55 5.5 MLS/MIN Methylprednisolone Sodium Succinate 40 mg/Syringe 0.64 ml @ 1.5 mls/min Q12H IV 03/05/17 16:00 04/04/17 03:59 03/08/17 04:44 1.5 MLS/MIN Heparin Sodium (Porcine) (Heparin Sq 5000 Unit/0.5ml) 5,000 unit Q12 SQ 03/05/17 10:00 04/04/17 09:59 03/08/17 08:27 5,000 UNIT Levetiracetam 500 mg/Dextrose 105 ml @ 420 mls/hr Q12H IV 03/06/17 10:00 04/05/17 09:59 03/08/17 08:25 420 MLS/HR Potassium/ Phosphorus/Sodium (Phospha 250 Neutral 155-852-130 Mg) 2 tab QID PO 03/06/17 21:00 03/09/17 20:59 03/08/17 08:22 2 TAB Sodium Chloride (Sodium Chloride Tab) 1 gm [id number] PO 03/07/17 14:00 04/06/17 08:59 Sodium Chloride 1,000 ml @ 100 mls/hr Q10H IV 03/07/17 12:00 04/06/17 11:59 Future Hold 03/07/17 23:21 100 MLS/HR Gadobutrol (Gadavist) 10 mmol UD PRN IV 03/07/17 16:45 03/11/17 16:44 Impression (1) Hyponatremia Izabela is a frail 71 year-old female admitted with pneumonia complicated by hyponatremia. Dysnatremia is new since September. Serum sodium improving with increased solute. TBW expanded. Urine sodium is very low consistent with recent history of poor solute intake. Recommendations -- Encourage nutrition -- Continue NaCl 1 gm BID -- Repeat metabolic profile this afternoon with serum phosphorus -- Replete potassium as needed -- Medications appropriate for renal function -- Maintain appropriate thyroid replacement
--- NOTE | 2017-03-08 10:17 | Cardiology Follow-Up ---
Subjective Date of Service: Mar 08, 2017. 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 She was admitted secondary to acute respiratory failure due to right sided pneumonia. At 11am on 03/07/2016 , she was found to be in rate controlled and asymptomatic atrial fibrillation as per nursing staff and EKG confirmed she was in atrial fibrillation with ventricular rate of 74 bpm. She did not experience any palpitation, chest pain, tightness, pressure, or anginal symptoms at the time. Upon visiting the patient this morning, she is oriented to time, person, and place; but she only gives one worded answers and she is a poor historian. She denies having a history of prior myocardial infarctions, myocardial ischemia, atrial fibrillation, or other arrhythmias. She was not aware when she went into atrial fibrillation. She does not have any chest discomfort, tightness, pressure , pain, or angina pectoris. She also denies palpitation, lightheadedness, dizziness, syncope, peripheral edema. She complains of shortness of breath and exertional dyspnea but it's more likely due to her pneumonia. The patient is currently residing at [facility]. She has no history of smoking, alcohol abuse, or illicit drug use. Social History Smoking Status: Never Smoker History of Alcohol Use: No Review of Systems Respiratory: + shortness of breath, + dyspnea on exertion, No cough Cardiac: + see HPI, + claudication, + problem reported, No chest pain, No orthopnea, No PND, No edema, No palpitations Objective Vital Signs Past 12 Hours Date Time Temp Pulse Resp B/P (MAP) Pulse Ox O2 Delivery O2 Flow Rate FiO2 03/08/17 08:10 Nasal Cannula 4.0 03/08/17 08:07 36.6 71 24 132/73 (92) 95 Nasal Cannula 2.0 03/08/17 07:07 72 16 94 Nasal Cannula 2.0 03/08/17 04:00 Nasal Cannula 03/08/17 03:37 36.6 78 19 160/70 (100) 95 Nasal Cannula 4.0 03/08/17 01:24 68 16 95 Nasal Cannula 2.0 03/07/17 23:59 Nasal Cannula 03/07/17 23:17 36.9 70 20 146/68 (94) 95 Nasal Cannula 2.0 Last Recorded Weight-Kilograms: 102.400 Physical Exam Constitutional: General Apperance: overweight Level of Distress: mild distress (flat affect. Alert, oriented x 3. ) Ambulation: limited ambulation Lungs: Auscultation: wet rales/crackles (diffuse wet crackles auscultated in posterior lung gray. ), rhonchi Cardiovascular: Heart Auscultation: no murmurs, no rubs, no gallops, irregular rate rhythm ( irregular rhythm with heart rate of 78 bpm. ) Peripheral Pulses: Bruits: none appreciated Extremities: no cyanosis, no edema, no clubbing Data Laboratory Results: Last 24 Hours Test 03/07/17 11:07 03/07/17 13:01 03/07/17 17:05 03/07/17 20:17 Bedside Glucose 135 mg/dl 113 mg/dl 118 mg/dl Sodium Level 127 mmol/L Potassium Level 3.6 mmol/L Chloride Level 89 mmol/L Carbon Dioxide Level 33 mmol/L Anion Gap 5.0 mmol/L Blood Urea Nitrogen 16 mg/dl Creatinine 0.38 mg/dl Est Creatinine Clear Calc Drug Dose 160.5 ml/min Estimated GFR () 122.7 Estimated GFR (Non- 105.8 BUN/Creatinine Ratio 42.4 Random Glucose 112 mg/dl Calcium Level 7.7 mg/dl Test 03/08/17 01:31 03/08/17 06:44 03/08/17 06:46 Vancomycin Level Trough 13.1 mcg/ml White Blood Count 3.31 K/uL Red Blood Count 2.86 M/uL Hemoglobin 7.8 g/dL Hematocrit 24.6 % Mean Corpuscular Volume 86.0 fL Mean Corpuscular Hemoglobin 27.3 pg Mean Corpuscular Hemoglobin Concent 31.7 g/dl RDW Standard Deviation 44.5 fL RDW Coefficient of Variation 14.0 % Platelet Count 243 K/uL Mean Platelet Volume 9.3 fL Sodium Level 129 mmol/L Potassium Level 3.5 mmol/L Chloride Level 91 mmol/L Carbon Dioxide Level 33 mmol/L Anion Gap 5.0 mmol/L Blood Urea Nitrogen 16 mg/dl Creatinine 0.37 mg/dl Est Creatinine Clear Calc Drug Dose 163.1 ml/min Estimated GFR () 123.7 Estimated GFR (Non- 106.8 BUN/Creatinine Ratio 43.0 Random Glucose 94 mg/dl Calcium Level 8.0 mg/dl Bedside Glucose 105 mg/dl Imagin. Brain MRI (03/07/2017): No acute intracranial abnormality. 2. Chest CT (03/06/2017): Consolidation involving the lateral segment of the right middle lobe and left lower lobe. This is concerning for a pneumonia. Atelectasis could also have a similar appearance. Linear densities within the base of the right lower lobe and lingula which favor subsegmental atelectasis. Trace right pleural effusion. Small amount of mucoid material within the trachea. Cardiomegaly. No CT evidence for pulmonary edema at this time. Mild body wall edema. Pulmonary arterial hypertension. 3. Head CT (03/06/2017): No acute intracranial abnormality. 4. CXR (03/04/2017): There are new patchy airspace opacities within the right mid to lower lung zone. This likely represents a pneumonia. However, an asymmetric pulmonary edema could also have a similar appearance. EK. EKG (03/07/2017): atrial fibrillation at ventricular rate of 74bpm. LVH. Cannot rule out septal infarct, age undetermined. Abnormal EKG compared to EKG of 03/04/2017. 2. EKG (03/04/2017): Normal sinus rhythm. LVH. Poor R wave progression, consider anterior GA vs lead placement vs LVH. Abnormal EKG compared o EKG of 2016. 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 She was admitted secondary to acute respiratory failure due to right sided pneumonia. 1. Atrial Fibrillation: The patient denies a history of atrial fibrillation and she was asymptomatic when the nursing staff found her to be in atrial fibrillation. She denies of having any cardiovascular symptoms. Her heart rate is very well controlled so there is no need for rate control medication (and she likely has some degree of sinus node dysfunction / chronotropic incompetence ). Also, given that she has chronic iron deficiency anemia, complex partial seizure disorder, Parkinson's disease, and orthostatic hypotension-- she is not a candidate for shelter anticoagulant since the risk of bleeding is more significant compared to stroke prevention benefit. Thank you for allowing us to participate in Mrs. Bojorquez's care. We will continue to follow up with her during her hospital stay. Please let us know if you have any question. ESTEFANY Fortune
[2017-03-08 18:38] LABS: ALBUMIN 2.7 gm/dl (3.4-5.0); CALCIUM 8.4 mg/dl (8.5-10.1); CREATININE 0.41 mg/dl (0.60-1.20); PHOSPHORUS 2.1 mg/dl (2.5-4.9)
[2017-03-08] MEDS: MONTELUKAST SOD 10 MG TAB PO SCH (21:00)
[2017-03-08] MEDS: MENTHOL-ZINC OXIDE 360 APPLN/120 GM TUBE EXT SCH (21:00)
[2017-03-08] MEDS ORDERED: POTASSIUM PHOS 3 MMOL/1 ML INFUSION IV STA (23:13)
--- NOTE | 2017-03-08 23:15 | Progress Note ---
Subjective Date of Service: Mar 08, 2017. Subjective Pt evaluation today including: conversation w/ patient Patient does not answer questions. Unable to obtain history from patient. Problem List Medical Problems: (1) Anemia Status: Acute (2) Cellulitis Status: Acute (3) Chronic anemia Status: Acute (4) Congestive heart failure (CHF) Status: Acute (5) Dehydration Status: Acute (6) Flu-like symptoms Status: Acute (7) Guaiac positive stools Status: Acute (8) Hypertension Status: Acute (9) Hypokalemia Status: Acute (10) Hyponatremia Status: Acute (11) Pneumonia Status: Acute (12) Profound anemia Status: Acute (13) Severe anemia Status: Acute (14) Shortness of breath Status: Acute (15) Urinary tract infection Status: Acute (16) Weakness Status: Acute Medications Current Inpatient Medications Medications (Trade) Dose Ordered Sig/Phong Route Start Time Stop Time Status Last Admin Dose Admin Ondansetron HCl (Zofran Inj) 4 mg Q6H PRN IV 03/04/17 20:30 04/03/17 20:29 Guaifenesin (Organidin Nr Tab) 600 mg BID PO 03/04/17 21:00 04/03/17 20:59 03/08/17 08:22 600 MG Ondansetron HCl (Zofran Odt) 8 mg Q6H PRN PO 03/04/17 20:30 04/03/17 20:29 Insulin Aspart (novoLOG ASPART) SLIDING SCALE If C... ACHS SC 03/04/17 21:00 04/03/17 20:59 03/05/17 17:23 1 UNITS Glucose (Glucose 40% Gel) 15-30 GRAMS 15 GRAMS... UD PRN PO 03/04/17 20:30 04/03/17 20:29 Glucose (Glucose Chew Tab) 4-8 Tablets 4 Tabl... UD PRN PO 03/04/17 20:30 04/03/17 20:29 Dextrose (Dextrose 50% 50ML Syringe) 25-50ML OF 50% DW IV FOR... UD PRN IV 03/04/17 20:30 04/03/17 20:29 Glucagon (Glucagon Inj) 1 mg UD PRN SQ 03/04/17 20:30 04/03/17 20:29 Budesonide (Pulmicort Respules 0.5MG/ 2ML Neb Soln) 0.5 mg BIDR INH 03/05/17 08:00 04/04/17 07:59 03/08/17 20:07 0.5 MG Amlodipine Besylate (Norvasc Tab) 5 mg QAM PO 03/05/17 09:00 04/04/17 08:59 03/08/17 08:23 5 MG Bisacodyl (Dulcolax Supp) 10 mg Q96H PRN NH 03/04/17 20:30 04/03/17 20:29 Carbidopa/Levodopa (Sinemet 25/ 100MG Tab) 2 tab TID PO 03/04/17 21:00 04/03/17 20:59 03/08/17 20:52 2 TAB Cyanocobalamin (Vitamin B-12 Tab) 250 mcg DAILY PO 03/05/17 09:00 04/04/17 08:59 03/08/17 08:23 250 MCG Diphenhydramine HCl (Benadryl Cap) 25 mg Q8 PRN PO 03/04/17 22:00 04/03/17 21:59 Docusate Sodium (coLACE CAP) 100 mg DAILY PO 03/05/17 09:00 04/04/17 08:59 03/08/17 08:23 100 MG Econazole Nitrate (Econazole Nitrate 1% Crm) 1 appln BID EXT 03/04/17 21:00 04/03/17 20:59 03/08/17 08:24 1 APPLN Levothyroxine Sodium (Synthroid Tab) 112 mcg DAILYBB PO 03/05/17 06:00 04/04/17 06:59 03/05/17 04:31 112 MCG Magnesium Hydroxide (Milk Of Magnesia Susp) 30 ml Q72H PRN PO 03/04/17 20:30 04/03/17 20:29 Menthol/Zinc Oxide (Calmoseptine Oint) 1 appln HS EXT 03/04/17 21:00 04/03/17 20:59 03/07/17 20:06 1 APPLN Montelukast Sodium (Singulair Tab) 10 mg HS PO 03/04/17 21:00 04/03/17 20:59 03/07/17 20:08 10 MG Nystatin (Mycostatin Oint) 1 appln BID EXT 03/04/17 21:00 04/03/17 20:59 03/08/17 08:24 1 APPLN Oxybutynin Chloride (Ditropan Tab) 5 mg Q12 PRN PO 03/04/17 20:30 04/03/17 20:29 Sodium Biphosphate/ Sodium Phosphate (Fleet Enema) 132 ml Q96H PRN NH 03/04/17 20:30 04/03/17 20:29 Artificial Tears (Artificial Tears) 2 drops QID OPB 03/04/17 21:00 04/03/17 20:59 03/08/17 12:42 2 DROPS Miscellaneous Information (Order Awaiting Action) 1 ea QS N/A 03/05/17 00:00 04/04/17 00:00 Citalopram Hydrobromide (celeXA TAB) 10 mg QAM PO 03/05/17 09:00 04/04/17 08:59 03/08/17 08:23 10 MG Ferrous Sulfate (Feosol Tab) 325 mg BIDM PO 03/05/17 07:30 04/04/17 07:59 03/08/17 08:22 325 MG Pantoprazole Sodium (Protonix Tab) 40 mg QAM PO 03/05/17 09:00 04/04/17 08:59 03/08/17 08:22 40 MG Clotrimazole (Mycelex 10MG Manuel) 1 manuel [id number] MIGUEL 03/04/17 23:00 03/14/17 22:59 03/08/17 16:27 1 MANUEL Ipratropium [place] (Atrovent 0.02% 0.5MG/2.5ML Neb) 0.5 mg Q6R INH 03/05/17 03:00 04/04/17 02:59 03/08/17 20:07 0.5 MG Levalbuterol (Xopenex 1.25MG/ 0.5ML Neb) 1.25 mg Q6R INH 03/05/17 03:00 04/04/17 02:59 03/08/17 20:06 1.25 MG Ipratropium [place] (Atrovent 0.02% 0.5MG/2.5ML Neb) 0.5 mg Q2H PRN INH 03/04/17 21:15 04/03/17 21:14 03/06/17 16:58 0.5 MG Levalbuterol (Xopenex 1.25MG/ 0.5ML Neb) 1.25 mg Q2H PRN INH 03/04/17 21:15 04/03/17 21:14 03/06/17 16:58 1.25 MG Cefepime HCl 1000 mg/Syringe 11 ml @ 5.5 mls/min Q8H IV 03/05/17 02:00 03/12/17 01:59 03/08/17 18:13 5.5 MLS/MIN Methylprednisolone Sodium Succinate 40 mg/Syringe 0.64 ml @ 1.5 mls/min Q12H IV 03/05/17 16:00 04/04/17 03:59 03/08/17 16:27 1.5 MLS/MIN Heparin Sodium (Porcine) (Heparin Sq 5000 Unit/0.5ml) 5,000 unit Q12 SQ 03/05/17 10:00 04/04/17 09:59 03/08/17 08:27 5,000 UNIT Levetiracetam 500 mg/Dextrose 105 ml @ 420 mls/hr Q12H IV 03/06/17 10:00 04/05/17 09:59 03/08/17 20:52 420 MLS/HR Potassium/ Phosphorus/Sodium (Phospha 250 Neutral 155-852-130 Mg) 2 tab QID PO 03/06/17 21:00 03/09/17 20:59 03/08/17 12:42 2 TAB Sodium Chloride (Sodium Chloride Tab) 1 gm [id number] PO 03/07/17 14:00 04/06/17 08:59 03/08/17 12:42 1 GM Sodium Chloride 1,000 ml @ 100 mls/hr Q10H IV 03/07/17 12:00 04/06/17 11:59 Future Hold 03/07/17 23:21 100 MLS/HR Gadobutrol (Gadavist) 10 mmol UD PRN IV 03/07/17 16:45 03/11/17 16:44 Objective Vital Signs Date Time Temp Pulse Resp B/P (MAP) Pulse Ox O2 Delivery O2 Flow Rate FiO2 03/08/17 20:07 84 18 95 Nasal Cannula 2.0 03/08/17 20:00 Nasal Cannula 4.0 03/08/17 19:14 37.0 114 20 191/97 (128) 94 Nasal Cannula 2.0 03/08/17 16:00 Nasal Cannula 4.0 03/08/17 15:22 36.8 87 18 166/71 (102) 93 Nasal Cannula 2.0 03/08/17 12:30 71 16 92 Nasal Cannula 2.0 03/08/17 12:00 Nasal Cannula 4.0 03/08/17 11:47 37.4 83 22 183/73 (109) 94 Nasal Cannula 2.0 03/08/17 08:10 Nasal Cannula 4.0 03/08/17 08:07 36.6 71 24 132/73 (92) 95 Nasal Cannula 2.0 03/08/17 07:07 72 16 94 Nasal Cannula 2.0 03/08/17 04:00 Nasal Cannula 03/08/17 03:37 36.6 78 19 160/70 (100) 95 Nasal Cannula 4.0 03/08/17 01:24 68 16 95 Nasal Cannula 2.0 03/07/17 23:59 Nasal Cannula 03/07/17 23:17 36.9 70 20 146/68 (94) 95 Nasal Cannula 2.0 Physical Exam Comments: General Appearance: WD/WN, + no distress+ obese Eyes: normal inspection, sclerae normal Respiratory/Chest: chest non-tender, + decreased breath sounds, + accessory muscle use, + rhonchi Cardiovascular: regular rate, rhythm, + systolic murmur Abdomen: normal bowel sounds, non tender, soft Extremities: no calf tenderness, + pedal edema Neurologic/Psychiatric: alert, disoriented Laboratory Results Last 24 Hours Test 03/08/17 01:31 03/08/17 06:44 03/08/17 06:46 03/08/17 10:31 Vancomycin Level Trough 13.1 mcg/ml White Blood Count 3.31 K/uL Red Blood Count 2.86 M/uL Hemoglobin 7.8 g/dL Hematocrit 24.6 % Mean Corpuscular Volume 86.0 fL Mean Corpuscular Hemoglobin 27.3 pg Mean Corpuscular Hemoglobin Concent 31.7 g/dl RDW Standard Deviation 44.5 fL RDW Coefficient of Variation 14.0 % Platelet Count 243 K/uL Mean Platelet Volume 9.3 fL Sodium Level 129 mmol/L Potassium Level 3.5 mmol/L Chloride Level 91 mmol/L Carbon Dioxide Level 33 mmol/L Anion Gap 5.0 mmol/L Blood Urea Nitrogen 16 mg/dl Creatinine 0.37 mg/dl Est Creatinine Clear Calc Drug Dose 163.1 ml/min Estimated GFR () 123.7 Estimated GFR (Non- 106.8 BUN/Creatinine Ratio 43.0 Random Glucose 94 mg/dl Calcium Level 8.0 mg/dl Bedside Glucose 105 mg/dl 125 mg/dl Test 03/08/17 16:37 03/08/17 17:43 03/08/17 18:51 03/08/17 20:12 Bedside Glucose 111 mg/dl 120 mg/dl Sodium Level 129 mmol/L Potassium Level mmol/L 3.4 mmol/L Chloride Level 91 mmol/L Carbon Dioxide Level 33 mmol/L Anion Gap 5.0 mmol/L Blood Urea Nitrogen 14 mg/dl Creatinine 0.41 mg/dl Est Creatinine Clear Calc Drug Dose 147.2 ml/min Estimated GFR () 119.6 Estimated GFR (Non- 103.2 BUN/Creatinine Ratio 35.3 Random Glucose 113 mg/dl Calcium Level 8.4 mg/dl Phosphorus Level 2.1 mg/dl Albumin 2.7 gm/dl Assessment and Plan 71 F recently treated for influenza presents with Acute respiratory failure with hypoxia/pneumonia involving right lung--hyponatremia, hypokalemia, hypomagnesemia, gram negative uti poa associated with chronic indwelling munoz cath Right sided pneumonia Concern for gram negative pneumonia, Will continue same management. On cefepime Levaquin stopped due to resistance Vanco was stopped due to negative MRSA.. this will also cover gram negative UTI associated with munoz cath, Concern with upper airway sounds will prompt a speech consult, antibiotics may be altered is aspiration is more evident or clinical course does not improve Do not believe patient is fluid overloaded. CT chest confirmed pneumonia. metabolic encephalopathy from hyponatremia and infection, Patientappears to be more awake in AM hours, but confused in the afternoon to evening. She again appears to have been better in AM, as cardiology and nephrology was able to obtain history from patient. However, she is waxing and waning. Currently she is not responding ton me. will continue to monitor. Acute respiratory failure, will be on supplemental oxygen, nebulized medications, solu-medrol of xopenex and ipatropium q 6 hours plus her usual home meds of singulair Hyponatremia, Likely hypovolemic hyponatremia Improving with IVF. will hold due to third spacing. will monitor, Appreciate nephro input. Hypokalemia and hypomagnesemia replete Atypical parkinsonism, continue sinemet HTN continue norvasc but hold diuretic with hyponatremia Seizure disorder-- Continue Keppra 250 mg by mouth twice a day GERD-- Change omeprazole to pantoprazole Hyperlipidemia-- Continue simvastatin 20 mg every evening Hypothyroidism-- Continue levothyroxine sodium 112 g daily Depression-- Continue citalopram 10 mg daily Vitamin B12 deficiency-- Continue cyanocobalamin 250 g daily
[2017-03-08] MEDS ORDERED: POTASSIUM PHOSPHATE INJ 21 MMOL in SODIUM CHLORIDE 0.9% 500ML 500 ML IV ONE (23:45)
[2017-03-09] VITALS (12 sets, daily range): BP systolic 134–156; BP diastolic 37–85; PULSE 66–85; TEMP 36.4–37.1; O2SAT 91–96
[2017-03-09] MEDS: CLOTRIMAZOLE 10 MG TROCHE LOZ SCH ×6 (00:40→23:00)
[2017-03-09] MEDS: IPRATROPIUM BROMIDE NEB SOLN 0.02% 2.5 ML VIAL INH SCH ×4 (01:37→19:46)
[2017-03-09] MEDS: LEVALBUTEROL 1.25MG/0.5ML NEB INH SCH ×4 (01:38→19:46)
[2017-03-09] MEDS: METHYLPREDNISOLONE IV 40 MG in SYRINGE 0 ML IV SCH ×2 (03:55→16:42)
[2017-03-09] MEDS: CEFEPIME IV 1,000 MG in SYRINGE 0 ML IV SCH ×3 (03:56→17:12)
[2017-03-09 06:34] LABS: HEMATOCRIT 26.9 % (37-47); HEMOGLOBIN 8.7 g/dL (12.0-16.0); MEAN CELL VOLUME 84.9 fL (80-100); MEAN CORPUSCULAR HEMOGLOBIN 27.4 pg (25-34); MEAN CORPUSCULAR HGB CONC 32.3 g/dl (32-36); MEAN PLATELET VOLUME 9.5 fL (7.4-10.4); PLATELET COUNT 274 K/uL (130-400); RED CELL DISTRIBUTION WIDTH CV 13.7 % (11.5-14.5); RED CELL DISTRIBUTION WIDTH SD 42.8 fL (36.4-46.3); WHITE BLOOD COUNT 3.45 K/uL (4.8-10.8)
[2017-03-09] MEDS: LEVOTHYROXINE 112 MCG TAB PO SCH (06:44)
[2017-03-09] MEDS: BUDESONIDE 0.5 MG/2 ML VIAL (PULMICORT) INH SCH ×2 (07:02→19:46)
[2017-03-09 07:09] LABS: ALBUMIN 2.7 gm/dl (3.4-5.0); CALCIUM 8.6 mg/dl (8.5-10.1); CREATININE 0.37 mg/dl (0.60-1.20); POTASSIUM 3.7 mmol/L (3.5-5.1)
[2017-03-09 07:11] LABS: PHOSPHORUS 2.7 mg/dl (2.5-4.9)
[2017-03-09] MEDS: LEVETIRACETAM IV 500 MG in DEXTROSE 5% 100ML 100 ML IV SCH ×2 (08:26→22:15)
[2017-03-09] MEDS: CYANOCOBALAMIN 500 MCG TAB (VIT B-12) PO SCH (08:27)
[2017-03-09] MEDS: FERROUS SULFATE 325 MG TAB PO SCH ×2 (08:27→16:42)
[2017-03-09] MEDS: CITALOPRAM 20 MG TAB PO SCH (08:27)
[2017-03-09] MEDS: DOCUSATE SODIUM 100 MG CAP PO SCH (08:27)
[2017-03-09] MEDS: GUAIFENESIN 200 MG TAB PO SCH ×2 (08:28→21:30)
[2017-03-09] MEDS: CARBIDOPA/LEVODOPA 25/100MG TAB PO SCH ×3 (08:29→21:30)
[2017-03-09] MEDS: AMLODIPINE BESYLATE 5 MG TAB PO SCH (08:29)
[2017-03-09] MEDS: POT PHOSPHATE MONOBASIC W/ SOD TAB PO SCH ×3 (08:29→16:41)
[2017-03-09] MEDS: SODIUM CHLORIDE 1 GM TAB PO SCH ×2 (08:30→14:00)
[2017-03-09] MEDS: ARTIFICIAL TEARS OP SOLN OPB SCH ×4 (08:30→21:30)
[2017-03-09] MEDS: PANTOprazole SOD 40 MG TAB PO SCH (08:30)
[2017-03-09] MEDS: ECONAZOLE NITRATE 1% CRM 15 GM TUBE EXT SCH ×2 (08:31→21:30)
[2017-03-09] MEDS: INSULIN ASPART 100 UNITS/ML 3 ML PEN SC SCH ×4 (08:31→21:30)
[2017-03-09] MEDS: NYSTATIN OINT 15 GM TUBE EXT SCH ×2 (08:31→21:30)
[2017-03-09] MEDS: HEPARIN SOD 5000 UNIT/0.5 ML CARP SQ SCH ×2 (08:32→22:19)
--- NOTE | 2017-03-09 09:23 | Nephrology Progress Note ---
Nephrology Progress Note Date of Service Mar 09, 2017. Chief Complaint Hyponatremia Subjective No acute events overnight. Izabela was resting comfortably in bed this morning. She opened eyes to voice and she followed simple commands but did not answer questions. She has been refusing to eat or to take medications by mouth this morning per nursing report. No fevers or chills. Review of Systems A complete review of systems was performed. Pertinent positives are noted above. All other systems are negative. Vital Signs Last 8 Hrs Date Time Temp Pulse Resp B/P (MAP) Pulse Ox O2 Delivery O2 Flow Rate FiO2 03/09/17 08:10 Nasal Cannula 4.0 03/09/17 07:57 36.9 84 18 146/74 (98) 96 03/09/17 07:02 85 18 93 Nasal Cannula 2.0 03/09/17 04:30 Nasal Cannula 4.0 03/09/17 03:22 36.9 66 20 143/85 (104) 96 Nasal Cannula 2.0 03/09/17 01:38 79 16 96 Nasal Cannula 2.0 Last Recorded Weight Weight (Kilograms): 103.200 Physical Exam General Appearance: WD/WN, no apparent distress Head: normocephalic, atraumatic Eyes: normal inspection, sclerae normal ENT: normal ENT inspection, + pertinent finding (oral mucosa slightly dry) Neck: supple, no JVD Respiratory/Chest: lungs clear, no respiratory distress, no accessory muscle use Cardiovascular: no gallop, + irregularly irregular Abdomen/GI: non tender, soft Extremities/Musculoskelatal: normal inspection, + pertinent finding (dependent edema, bullous lesions on right UE) Neurologic/Psych: alert Family History Blood disorder Heart disease Social History Smoking Status: Never smoker Smokeless Tobacco Use: No Alcohol Use: none Drug Use: none Marital Status: Housing Status: lives with family 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 Laboratory Results Past 24 Hours 03/09/17 06:00 03/08/17 17:43 03/08/17 18:51 03/09/17 06:00 Test 03/08/17 10:31 03/08/17 16:37 03/08/17 17:43 03/08/17 20:12 Bedside Glucose 125 mg/dl (70-90) 111 mg/dl (70-90) 120 mg/dl (70-90) Anion Gap 5.0 mmol/L (3-11) Est Creatinine Clear Calc Drug Dose 147.2 ml/min Estimated GFR () 119.6 Estimated GFR (Non- 103.2 BUN/Creatinine Ratio 35.3 (10-20) Calcium Level 8.4 mg/dl (8.5-10.1) Phosphorus Level 2.1 mg/dl (2.5-4.9) Albumin 2.7 gm/dl (3.4-5.0) Test 03/09/17 06:00 03/09/17 06:14 Red Blood Count 3.17 M/uL (4.2-5.4) Mean Corpuscular Volume 84.9 fL (80-100) Mean Corpuscular Hemoglobin 27.4 pg (25-34) Mean Corpuscular Hemoglobin Concent 32.3 g/dl (32-36) RDW Standard Deviation 42.8 fL (36.4-46.3) RDW Coefficient of Variation 13.7 % (11.5-14.5) Mean Platelet Volume 9.5 fL (7.4-10.4) Anion Gap 5.0 mmol/L (3-11) Est Creatinine Clear Calc Drug Dose 163.8 ml/min Estimated GFR () 123.7 Estimated GFR (Non- 106.8 BUN/Creatinine Ratio 39.0 (10-20) Calcium Level 8.6 mg/dl (8.5-10.1) Phosphorus Level 2.7 mg/dl (2.5-4.9) Albumin 2.7 gm/dl (3.4-5.0) Bedside Glucose 99 mg/dl (70-90) Allergies Coded Allergies: Iodinated Diagnostic Agents (Verified Allergy, Severe, SHORTNESS OF BREATH , 12/23/16) Latex (Verified Allergy, Intermediate, RASH, 12/23/16) Aspirin (Verified Allergy, Unknown, RASH, 12/23/16) IBUPROFEN WELL Ibuprofen (Verified Allergy, Unknown, 12/23/16) Latex1 -Allergic Contact Dermititis (Verified Allergy, Unknown, 12/23/16) Lisinopril (Verified Allergy, Unknown, UNKNOWN, 12/23/16) Meperidine (Verified Allergy, Unknown, UNKNOWN, 12/23/16) Metformin (Unverified Allergy, Unknown, GI SYMPTOMS, 12/23/16) Midazolam (Verified Allergy, Unknown, UNKN, 12/23/16) Nut Tree (Verified Allergy, Unknown, UNKNOWN, 12/23/16) Peanut (Verified Allergy, Unknown, UNKNOWN, 12/23/16) Penicillins (Verified Allergy, Unknown, SHORTNESS OF BREATH, 12/23/16) (FROM UNCODED ALLERGIES) Sulfa Antibiotics (Verified Allergy, Unknown, UNKNOWN, 12/23/16) Gluten (Verified Adverse Reaction, Intermediate, GI SYMPTOMS, 12/23/16) Medications Current Inpatient Medications Medications (Trade) Dose Ordered Sig/Phong Route Start Time Stop Time Status Last Admin Dose Admin Ondansetron HCl (Zofran Inj) 4 mg Q6H PRN IV 03/04/17 20:30 04/03/17 20:29 Guaifenesin (Organidin Nr Tab) 600 mg BID PO 03/04/17 21:00 04/03/17 20:59 03/08/17 08:22 600 MG Ondansetron HCl (Zofran Odt) 8 mg Q6H PRN PO 03/04/17 20:30 04/03/17 20:29 Insulin Aspart (novoLOG ASPART) SLIDING SCALE If C... ACHS SC 03/04/17 21:00 04/03/17 20:59 03/05/17 17:23 1 UNITS Glucose (Glucose 40% Gel) 15-30 GRAMS 15 GRAMS... UD PRN PO 03/04/17 20:30 04/03/17 20:29 Glucose (Glucose Chew Tab) 4-8 Tablets 4 Tabl... UD PRN PO 03/04/17 20:30 04/03/17 20:29 Dextrose (Dextrose 50% 50ML Syringe) 25-50ML OF 50% DW IV FOR... UD PRN IV 03/04/17 20:30 04/03/17 20:29 Glucagon (Glucagon Inj) 1 mg UD PRN SQ 03/04/17 20:30 04/03/17 20:29 Budesonide (Pulmicort Respules 0.5MG/ 2ML Neb Soln) 0.5 mg BIDR INH 03/05/17 08:00 04/04/17 07:59 03/09/17 07:02 0.5 MG Amlodipine Besylate (Norvasc Tab) 5 mg QAM PO 03/05/17 09:00 04/04/17 08:59 03/08/17 08:23 5 MG Bisacodyl (Dulcolax Supp) 10 mg Q96H PRN NE 03/04/17 20:30 04/03/17 20:29 Carbidopa/Levodopa (Sinemet 25/ 100MG Tab) 2 tab TID PO 03/04/17 21:00 04/03/17 20:59 03/08/17 20:52 2 TAB Cyanocobalamin (Vitamin B-12 Tab) 250 mcg DAILY PO 03/05/17 09:00 04/04/17 08:59 03/08/17 08:23 250 MCG Diphenhydramine HCl (Benadryl Cap) 25 mg Q8 PRN PO 03/04/17 22:00 04/03/17 21:59 Docusate Sodium (coLACE CAP) 100 mg DAILY PO 03/05/17 09:00 04/04/17 08:59 03/08/17 08:23 100 MG Econazole Nitrate (Econazole Nitrate 1% Crm) 1 appln BID EXT 03/04/17 21:00 04/03/17 20:59 03/08/17 08:24 1 APPLN Levothyroxine Sodium (Synthroid Tab) 112 mcg DAILYBB PO 03/05/17 06:00 04/04/17 06:59 03/05/17 04:31 112 MCG Magnesium Hydroxide (Milk Of Magnesia Susp) 30 ml Q72H PRN PO 03/04/17 20:30 04/03/17 20:29 Menthol/Zinc Oxide (Calmoseptine Oint) 1 appln HS EXT 03/04/17 21:00 04/03/17 20:59 03/07/17 20:06 1 APPLN Montelukast Sodium (Singulair Tab) 10 mg HS PO 03/04/17 21:00 04/03/17 20:59 03/07/17 20:08 10 MG Nystatin (Mycostatin Oint) 1 appln BID EXT 03/04/17 21:00 04/03/17 20:59 03/08/17 08:24 1 APPLN Oxybutynin Chloride (Ditropan Tab) 5 mg Q12 PRN PO 03/04/17 20:30 04/03/17 20:29 Sodium Biphosphate/ Sodium Phosphate (Fleet Enema) 132 ml Q96H PRN NE 03/04/17 20:30 04/03/17 20:29 Artificial Tears (Artificial Tears) 2 drops QID OPB 03/04/17 21:00 04/03/17 20:59 03/08/17 12:42 2 DROPS Miscellaneous Information (Order Awaiting Action) 1 ea QS N/A 03/05/17 00:00 04/04/17 00:00 Citalopram Hydrobromide (celeXA TAB) 10 mg QAM PO 03/05/17 09:00 04/04/17 08:59 03/08/17 08:23 10 MG Ferrous Sulfate (Feosol Tab) 325 mg BIDM PO 03/05/17 07:30 04/04/17 07:59 03/08/17 08:22 325 MG Pantoprazole Sodium (Protonix Tab) 40 mg QAM PO 03/05/17 09:00 04/04/17 08:59 03/08/17 08:22 40 MG Clotrimazole (Mycelex 10MG Manuel) 1 manuel [id number] MIGUEL 03/04/17 23:00 03/14/17 22:59 03/09/17 00:40 1 MANUEL Ipratropium [place] (Atrovent 0.02% 0.5MG/2.5ML Neb) 0.5 mg Q6R INH 03/05/17 03:00 04/04/17 02:59 03/09/17 07:02 0.5 MG Levalbuterol (Xopenex 1.25MG/ 0.5ML Neb) 1.25 mg Q6R INH 03/05/17 03:00 04/04/17 02:59 03/09/17 07:02 1.25 MG Ipratropium [place] (Atrovent 0.02% 0.5MG/2.5ML Neb) 0.5 mg Q2H PRN INH 03/04/17 21:15 04/03/17 21:14 03/06/17 16:58 0.5 MG Levalbuterol (Xopenex 1.25MG/ 0.5ML Neb) 1.25 mg Q2H PRN INH 03/04/17 21:15 04/03/17 21:14 03/06/17 16:58 1.25 MG Cefepime HCl 1000 mg/Syringe 11 ml @ 5.5 mls/min Q8H IV 03/05/17 02:00 03/12/17 01:59 03/09/17 03:56 5.5 MLS/MIN Methylprednisolone Sodium Succinate 40 mg/Syringe 0.64 ml @ 1.5 mls/min Q12H IV 03/05/17 16:00 04/04/17 03:59 03/09/17 03:55 1.5 MLS/MIN Heparin Sodium (Porcine) (Heparin Sq 5000 Unit/0.5ml) 5,000 unit Q12 SQ 03/05/17 10:00 04/04/17 09:59 03/08/17 08:27 5,000 UNIT Levetiracetam 500 mg/Dextrose 105 ml @ 420 mls/hr Q12H IV 03/06/17 10:00 04/05/17 09:59 03/08/17 20:52 420 MLS/HR Potassium/ Phosphorus/Sodium (Phospha 250 Neutral 155-852-130 Mg) 2 tab QID PO 03/06/17 21:00 03/09/17 20:59 03/08/17 12:42 2 TAB Sodium Chloride (Sodium Chloride Tab) 1 gm [id number] PO 03/07/17 14:00 04/06/17 08:59 03/08/17 12:42 1 GM Sodium Chloride 1,000 ml @ 100 mls/hr Q10H IV 03/07/17 12:00 04/06/17 11:59 Future Hold 03/07/17 23:21 100 MLS/HR Gadobutrol (Gadavist) 10 mmol UD PRN IV 03/07/17 16:45 03/11/17 16:44 Impression (1) Hyponatremia Izabela is a frail 71 year-old female admitted with pneumonia who was also found to have new atrial fibrillation and hyponatremia. Serum sodium improving with increased solute intake. Volume status appears acceptable. Patient has been refusing PO medications and meals. Will hold oral NaCl for now and monitor. Repeat renal profile this afternoon. In the interim, encourage nutrition. Recommendations -- Encourage nutrition -- Hold oral NaCl -- Repeat metabolic profile this afternoon with serum phosphorus -- Replete potassium as needed
--- NOTE | 2017-03-09 10:22 | CARDIOLOGY PROGRESS NOTE ---
DATE: 03/09/2017 SUBJECTIVE: Mrs. Bojorquez is resting comfortably in bed without complaints of chest pain, dyspnea or palpitations. OBJECTIVE: VITAL SIGNS: Blood pressure 146/74 with a regular pulse of 84. Respiratory rate is 18. The patient is afebrile at 36.9 degrees Celsius. Saturation 96% on 4 liters nasal cannula. NECK: Supple with full carotid upstrokes. No obvious bruits. Jugular venous pressure is difficult to assess. CARDIOVASCULAR: Reveals an irregularly irregular rhythm with distant heart sounds. No obvious murmurs. LUNGS: Clear anteriorly. ABDOMEN: Soft without bruits. EXTREMITIES: Reveal intact radial artery pulses bilaterally. Trace pretibial edema is noted. DATA: CBC notes hemoglobin 8.7, hematocrit 26.9, white count 3.45, platelet count 274,000. Electrolytes note sodium of 131, potassium 3.7, chloride 92, bicarbonate 34, BUN 15, creatinine 0.37, glucose 95. INR is 1.0. IMPRESSION AND PLAN: 1. Atrial fibrillation -- remains asymptomatic. Heart rate is well controlled. Not a candidate for long-term anticoagulation. 2. Hypertension -- controlled. 3. Hypercholesterolemia -- continue statin. 4. Parkinson's disease. 5. Complex partial seizures.
--- NOTE | 2017-03-09 10:25 | Progress Note ---
Subjective Date of Service: Mar 09, 2017. Subjective Pt evaluation today including: conversation w/ patient, physical exam 71 yo female is able to answer questions today. She reports that she is still coughing and has shortness of breath. She does not provide more history however. Problem List Medical Problems: (1) Anemia Status: Acute (2) Cellulitis Status: Acute (3) Chronic anemia Status: Acute (4) Congestive heart failure (CHF) Status: Acute (5) Dehydration Status: Acute (6) Flu-like symptoms Status: Acute (7) Guaiac positive stools Status: Acute (8) Hypertension Status: Acute (9) Hypokalemia Status: Acute (10) Hyponatremia Status: Acute (11) Pneumonia Status: Acute (12) Profound anemia Status: Acute (13) Severe anemia Status: Acute (14) Shortness of breath Status: Acute (15) Urinary tract infection Status: Acute (16) Weakness Status: Acute Review of Systems All Other Systems: Reviewed and Negative Medications Current Inpatient Medications Medications (Trade) Dose Ordered Sig/Phong Route Start Time Stop Time Status Last Admin Dose Admin Ondansetron HCl (Zofran Inj) 4 mg Q6H PRN IV 03/04/17 20:30 04/03/17 20:29 Guaifenesin (Organidin Nr Tab) 600 mg BID PO 03/04/17 21:00 04/03/17 20:59 03/09/17 08:28 600 MG Ondansetron HCl (Zofran Odt) 8 mg Q6H PRN PO 03/04/17 20:30 04/03/17 20:29 Insulin Aspart (novoLOG ASPART) SLIDING SCALE If C... ACHS SC 03/04/17 21:00 04/03/17 20:59 03/05/17 17:23 1 UNITS Glucose (Glucose 40% Gel) 15-30 GRAMS 15 GRAMS... UD PRN PO 03/04/17 20:30 04/03/17 20:29 Glucose (Glucose Chew Tab) 4-8 Tablets 4 Tabl... UD PRN PO 03/04/17 20:30 04/03/17 20:29 Dextrose (Dextrose 50% 50ML Syringe) 25-50ML OF 50% DW IV FOR... UD PRN IV 03/04/17 20:30 04/03/17 20:29 Glucagon (Glucagon Inj) 1 mg UD PRN SQ 03/04/17 20:30 04/03/17 20:29 Budesonide (Pulmicort Respules 0.5MG/ 2ML Neb Soln) 0.5 mg BIDR INH 03/05/17 08:00 04/04/17 07:59 03/09/17 19:46 0.5 MG Amlodipine Besylate (Norvasc Tab) 5 mg QAM PO 03/05/17 09:00 04/04/17 08:59 03/09/17 08:29 5 MG Bisacodyl (Dulcolax Supp) 10 mg Q96H PRN NM 03/04/17 20:30 04/03/17 20:29 Carbidopa/Levodopa (Sinemet 25/ 100MG Tab) 2 tab TID PO 03/04/17 21:00 04/03/17 20:59 03/09/17 08:29 2 TAB Cyanocobalamin (Vitamin B-12 Tab) 250 mcg DAILY PO 03/05/17 09:00 04/04/17 08:59 03/09/17 08:27 250 MCG Diphenhydramine HCl (Benadryl Cap) 25 mg Q8 PRN PO 03/04/17 22:00 04/03/17 21:59 Docusate Sodium (coLACE CAP) 100 mg DAILY PO 03/05/17 09:00 04/04/17 08:59 03/09/17 08:27 100 MG Econazole Nitrate (Econazole Nitrate 1% Crm) 1 appln BID EXT 03/04/17 21:00 04/03/17 20:59 03/09/17 21:30 1 APPLN Levothyroxine Sodium (Synthroid Tab) 112 mcg DAILYBB PO 03/05/17 06:00 04/04/17 06:59 03/05/17 04:31 112 MCG Magnesium Hydroxide (Milk Of Magnesia Susp) 30 ml Q72H PRN PO 03/04/17 20:30 04/03/17 20:29 Menthol/Zinc Oxide (Calmoseptine Oint) 1 appln HS EXT 03/04/17 21:00 04/03/17 20:59 03/09/17 21:30 1 APPLN Montelukast Sodium (Singulair Tab) 10 mg HS PO 03/04/17 21:00 04/03/17 20:59 03/07/17 20:08 10 MG Nystatin (Mycostatin Oint) 1 appln BID EXT 03/04/17 21:00 04/03/17 20:59 03/09/17 21:30 1 APPLN Oxybutynin Chloride (Ditropan Tab) 5 mg Q12 PRN PO 03/04/17 20:30 04/03/17 20:29 Sodium Biphosphate/ Sodium Phosphate (Fleet Enema) 132 ml Q96H PRN NM 03/04/17 20:30 04/03/17 20:29 Artificial Tears (Artificial Tears) 2 drops QID OPB 03/04/17 21:00 04/03/17 20:59 03/09/17 21:30 2 DROPS Miscellaneous Information (Order Awaiting Action) 1 ea QS N/A 03/05/17 00:00 04/04/17 00:00 Citalopram Hydrobromide (celeXA TAB) 10 mg QAM PO 03/05/17 09:00 04/04/17 08:59 03/09/17 08:27 10 MG Ferrous Sulfate (Feosol Tab) 325 mg BIDM PO 03/05/17 07:30 04/04/17 07:59 03/09/17 16:42 325 MG Pantoprazole Sodium (Protonix Tab) 40 mg QAM PO 03/05/17 09:00 04/04/17 08:59 03/09/17 08:30 40 MG Clotrimazole (Mycelex 10MG Manuel) 1 manuel [id number] MIGUEL 03/04/17 23:00 03/14/17 22:59 03/09/17 19:34 1 MANUEL Ipratropium [place] (Atrovent 0.02% 0.5MG/2.5ML Neb) 0.5 mg Q6R INH 03/05/17 03:00 04/04/17 02:59 03/09/17 19:46 0.5 MG Levalbuterol (Xopenex 1.25MG/ 0.5ML Neb) 1.25 mg Q6R INH 03/05/17 03:00 04/04/17 02:59 03/09/17 19:46 1.25 MG Ipratropium [place] (Atrovent 0.02% 0.5MG/2.5ML Neb) 0.5 mg Q2H PRN INH 03/04/17 21:15 04/03/17 21:14 03/06/17 16:58 0.5 MG Levalbuterol (Xopenex 1.25MG/ 0.5ML Neb) 1.25 mg Q2H PRN INH 03/04/17 21:15 04/03/17 21:14 03/06/17 16:58 1.25 MG Cefepime HCl 1000 mg/Syringe 11 ml @ 5.5 mls/min Q8H IV 03/05/17 02:00 03/12/17 01:59 03/09/17 17:12 5.5 MLS/MIN Methylprednisolone Sodium Succinate 40 mg/Syringe 0.64 ml @ 1.5 mls/min Q12H IV 03/05/17 16:00 04/04/17 03:59 03/09/17 16:42 1.5 MLS/MIN Heparin Sodium (Porcine) (Heparin Sq 5000 Unit/0.5ml) 5,000 unit Q12 SQ 03/05/17 10:00 04/04/17 09:59 03/09/17 08:32 5,000 UNIT Levetiracetam 500 mg/Dextrose 105 ml @ 420 mls/hr Q12H IV 03/06/17 10:00 04/05/17 09:59 03/09/17 08:26 420 MLS/HR Sodium Chloride 1,000 ml @ 100 mls/hr Q10H IV 03/07/17 12:00 04/06/17 11:59 Future Hold 03/07/17 23:21 100 MLS/HR Gadobutrol (Gadavist) 10 mmol UD PRN IV 03/07/17 16:45 03/11/17 16:44 Sodium Chloride (Sodium Chloride Tab) 1 gm DAILY PO 03/10/17 09:00 04/06/17 08:59 Objective Vital Signs Date Time Temp Pulse Resp B/P (MAP) Pulse Ox O2 Delivery O2 Flow Rate FiO2 03/09/17 08:10 Nasal Cannula 4.0 03/09/17 07:57 36.9 84 18 146/74 (98) 96 03/09/17 07:02 85 18 93 Nasal Cannula 2.0 03/09/17 04:30 Nasal Cannula 4.0 03/09/17 03:22 36.9 66 20 143/85 (104) 96 Nasal Cannula 2.0 03/09/17 01:38 79 16 96 Nasal Cannula 2.0 03/08/17 23:59 Nasal Cannula 4.0 03/08/17 23:36 36.9 77 76 149/71 (97) 95 Nasal Cannula 2.0 03/08/17 20:07 84 18 95 Nasal Cannula 2.0 03/08/17 20:00 Nasal Cannula 4.0 03/08/17 19:14 37.0 114 20 191/97 (128) 94 Nasal Cannula 2.0 03/08/17 16:00 Nasal Cannula 4.0 03/08/17 15:22 36.8 87 18 166/71 (102) 93 Nasal Cannula 2.0 03/08/17 12:30 71 16 92 Nasal Cannula 2.0 03/08/17 12:00 Nasal Cannula 4.0 03/08/17 11:47 37.4 83 22 183/73 (109) 94 Nasal Cannula 2.0 Physical Exam Comments: General Appearance: WD/WN, + no distress+ obese Eyes: normal inspection, sclerae normal Respiratory/Chest: chest non-tender, + decreased breath sounds, + accessory muscle use, + rhonchi, coarse breath sounds Cardiovascular: regular rate, rhythm, + systolic murmur Abdomen: normal bowel sounds, non tender, soft Extremities: no calf tenderness, + pedal edema Neurologic/Psychiatric: alert, disoriented Laboratory Results Last 24 Hours Test 03/08/17 10:31 03/08/17 16:37 03/08/17 17:43 03/08/17 18:51 Bedside Glucose 125 mg/dl 111 mg/dl Sodium Level 129 mmol/L Potassium Level mmol/L 3.4 mmol/L Chloride Level 91 mmol/L Carbon Dioxide Level 33 mmol/L Anion Gap 5.0 mmol/L Blood Urea Nitrogen 14 mg/dl Creatinine 0.41 mg/dl Est Creatinine Clear Calc Drug Dose 147.2 ml/min Estimated GFR () 119.6 Estimated GFR (Non- 103.2 BUN/Creatinine Ratio 35.3 Random Glucose 113 mg/dl Calcium Level 8.4 mg/dl Phosphorus Level 2.1 mg/dl Albumin 2.7 gm/dl Test 03/08/17 20:12 03/09/17 06:00 03/09/17 06:14 Bedside Glucose 120 mg/dl 99 mg/dl White Blood Count 3.45 K/uL Red Blood Count 3.17 M/uL Hemoglobin 8.7 g/dL Hematocrit 26.9 % Mean Corpuscular Volume 84.9 fL Mean Corpuscular Hemoglobin 27.4 pg Mean Corpuscular Hemoglobin Concent 32.3 g/dl RDW Standard Deviation 42.8 fL RDW Coefficient of Variation 13.7 % Platelet Count 274 K/uL Mean Platelet Volume 9.5 fL Sodium Level 131 mmol/L Potassium Level 3.7 mmol/L Chloride Level 92 mmol/L Carbon Dioxide Level 34 mmol/L Anion Gap 5.0 mmol/L Blood Urea Nitrogen 15 mg/dl Creatinine 0.37 mg/dl Est Creatinine Clear Calc Drug Dose 163.8 ml/min Estimated GFR () 123.7 Estimated GFR (Non- 106.8 BUN/Creatinine Ratio 39.0 Random Glucose 95 mg/dl Calcium Level 8.6 mg/dl Phosphorus Level 2.7 mg/dl Albumin 2.7 gm/dl Assessment and Plan 71 F recently treated for influenza presents with Acute respiratory failure with hypoxia/pneumonia involving right lung--hyponatremia, hypokalemia, hypomagnesemia, gram negative uti poa associated with chronic indwelling munoz cath Right sided pneumonia Concern for gram negative pneumonia, Will continue same management. Patient has coarse breath sounds. will repeat x-ray and consult pulmonary. On cefepime Levaquin stopped due to resistance Vanco was stopped due to negative MRSA.. this will also cover gram negative UTI associated with munoz cath, Do not believe patient is fluid overloaded. CT chest confirmed pneumonia. Concern over lack of clinical improvement. will call son. metabolic encephalopathy from hyponatremia and infection, Patient appears to be more awake in AM hours, but confused in the afternoon to evening. However, she is waxing and waning. I was kizzy to obtain some sort of history from patient today. will continue to monitor. Acute respiratory failure, will be on supplemental oxygen, nebulized medications, solu-medrol of xopenex and ipatropium q 6 hours plus her usual home meds of singulair Hyponatremia, Likely hypovolemic hyponatremia Improving with IVF. will hold due to thrid spacing. Appreciate nephro input. Hypokalemia and hypomagnesemia replete Atypical parkinsonism, continue sinemet HTN continue norvasc but hold diuretic with hyponatremia Seizure disorder-- Continue Keppra 250 mg by mouth twice a day GERD-- Change omeprazole to pantoprazole Hyperlipidemia-- Continue simvastatin 20 mg every evening Hypothyroidism-- Continue levothyroxine sodium 112 g daily Depression-- Continue citalopram 10 mg daily Vitamin B12 deficiency-- Continue cyanocobalamin 250 g daily Continued [facility] stay due to: other (coarse breath soiunds. mental status has no improved. not safe for discharge as of yet. not tolerating PO meds)
--- NOTE | 2017-03-09 12:41 | PULMONARY CONSULTATION ---
DATE OF CONSULTATION: 03/09/2017 TIME: 11:45 a.m. REPORT OF CONSULTATION: The patient was seen in room 217. Consultation is requested regarding pneumonia, unresponsive to therapy. The patient is a 71-year-old female who is a very poor historian. She was not able to give me much significant history. [facility] resides [facility] a [facility]. She was admitted here on March 04. The history is that she has been treated for 5 days for pneumonia and influenza with levofloxacin and Tamiflu. She has symptoms of fever, cough, congestion, and shortness of breath. Her symptoms have worsened since that time. The patient does have a chronic indwelling Fair catheter and she was found to have an UTI as well. She has been receiving cefepime. She has been on methylprednisolone. She is getting neb treatments with levalbuterol and ipratropium. Nursing reports that she stays very congested in the chest. She has a very weak cough. In part, this is related to her having Parkinson's disease. She also has had mental status changes. She was evaluated by neurology. They indicate that she has encephalopathy. They thought it was perhaps related to her pneumonia with flu-like illness, complicated by hyponatremia and the infection itself. She does have a history of complex partial seizures. Nursing reports that the patient is generally more awake in the morning than she is later in the day. The patient is too weak to expectorate anything out. This is despite all of her treatments. She did have a CAT scan of the chest on March 06. This showed consolidation involving the right middle lobe lateral segment as well as the left lower lobe. There were also some atelectatic changes at the right lung base. Her heart size was enlarged. The pulmonary artery was distended, suggesting pulmonary hypertension. The patient has had negative blood cultures. Her urine culture was positive for E. Coli. I could not determine with certainty if the patient has had prior pulmonary problems. PAST SURGICAL HISTORY: Right and left total knee replacements. PAST MEDICAL HISTORY: 1. Diabetes. 2. Orthostatic hypotension. 3. Prior DVT. 4. Anemia, for which she has had numerous transfusions. 5. Parkinson's disease. 6. Partial complex seizures. 7. Hypothyroidism. 8. Hyponatremia. 9. Obesity. FAMILY HISTORY: The patient can give me no info. The chart reveals a history of a blood disorder and heart disease. SOCIAL HISTORY: The patient has reportedly never smoked. ALLERGIES: FROM THE CHART INCLUDE, 1. IODINE DYE. 2. LATEX. 3. ASPIRIN. 4. IBUPROFEN. 5. LISINOPRIL. 6. MEPERIDINE. 7. METFORMIN. 8. MIDAZOLAM. 9. PEANUTS AND OTHER NUTS. 10. PENICILLIN. 11. SULFA. 12. GLUTEN. OUTPATIENT MEDICATIONS: From a pulmonary perspective include albuterol neb treatments q. 6 hours, montelukast 10 mg daily, and she may have a rescue inhaler, but I am not certain of that. REVIEW OF SYSTEMS: Unobtainable. PHYSICAL EXAMINATION: GENERAL: The patient is a 71-year-old female who is very somnolent when I first came in. After much stimulation, she awakened. She was not oriented. HEENT: Pupils were reactive. Nasal passages revealed a small amount of mucus. Mouth exam was very difficult to evaluate. The patient would only open her mouth a very small distance. NECK: She has a large neck. No lymph nodes are palpable. VITAL SIGNS: The temperature is 36.8. Heart rate was 72 per minute. Blood pressure was 139/68. Respiratory rate was 24. LUNGS: Diffuse rhonchi were heard bilaterally and both anteriorly and posteriorly. The most prominent ones were heard in the right chest posteriorly. Her cough is weak. She does not seem to be able to expectorate. Oxygen saturation was 96% on 4 liters. ABDOMEN: Obese. It was soft and nontender. Bowel sounds were present. EXTREMITIES: She has a scar on both knees. The right arm is wrapped. Nursing states that she has had some skin eruptions in this area. She does have edema of both lower extremities. LABORATORY DATA: Most recent CBC shows a white count of 3.45. Hemoglobin 8.7. Platelets 274,000. Her highest white count since admission was 9.51 on the . Coags were unremarkable. Urinalysis showed positive for nitrite. There was 5-10 WBCs and 4+ bacteria was noted. The urinary random sodium was 5 on 2 separate occasions. Electrolytes show sodium of 131, potassium 3.7, chloride 92, and bicarbonate 34. BUN is 15 with a creatinine of 0.37. Albumin was 2.7. ProBNP was 419. Troponin was negative. ALT was low at 7 and AST was low at 9. IMPRESSIONS: 1. Pneumonia, right middle lobe and left lower lobe. 2. Respiratory failure with hypoxia and probable hypercarbia. 3. Parkinson's disease. 4. Pulmonary hypertension -- suggested by CAT scan. 5. Urinary tract infection secondary to Escherichia coli. COMMENTS AND RECOMMENDATIONS: The patient definitely has a secretion problem. She appears to be in poor condition. Her CO2 on the lytes is high. I am going to check a blood gas to see if the pCO2 may actually be much higher than expected. This could be contributing to her lethargy. The patient is a full code according to nursing staff. If the blood gas is severely abnormal, she might need transfer to a higher level of care if she is still a full code. I do not know if those discussions have been held with the family. She may be a candidate for BiPAP. We will try to have her do a flutter valve, but I am doubtful she will be able to follow instructions properly. We will try a vibration vest and see if that helps her at all. I would continue with her neb treatments as currently ordered. I would continue with the cefepime. Prognosis is very guarded.
[2017-03-09] MEDS: MONTELUKAST SOD 10 MG TAB PO SCH (21:30)
[2017-03-09] MEDS: MENTHOL-ZINC OXIDE 360 APPLN/120 GM TUBE EXT SCH (21:30)
[2017-03-10] VITALS (10 sets, daily range): BP systolic 132–181; BP diastolic 69–78; PULSE 70–84; TEMP 36.5–36.9; O2SAT 93–99
[2017-03-10] MEDS: IPRATROPIUM BROMIDE NEB SOLN 0.02% 2.5 ML VIAL INH SCH ×4 (01:47→18:58)
[2017-03-10] MEDS: LEVALBUTEROL 1.25MG/0.5ML NEB INH SCH ×4 (01:47→18:58)
[2017-03-10] MEDS: CEFEPIME IV 1,000 MG in SYRINGE 0 ML IV SCH ×3 (02:23→18:38)
[2017-03-10] MEDS: METHYLPREDNISOLONE IV 40 MG in SYRINGE 0 ML IV SCH ×2 (04:35→18:38)
[2017-03-10] MEDS: LEVOTHYROXINE 112 MCG TAB PO SCH (06:42)
[2017-03-10] MEDS: BUDESONIDE 0.5 MG/2 ML VIAL (PULMICORT) INH SCH ×2 (06:59→18:55)
[2017-03-10] MEDS: INSULIN ASPART 100 UNITS/ML 3 ML PEN SC SCH ×4 (07:00→20:53)
[2017-03-10] MEDS: CARBIDOPA/LEVODOPA 25/100MG TAB PO SCH ×3 (07:48→21:03)
[2017-03-10] MEDS: FERROUS SULFATE 325 MG TAB PO SCH ×2 (07:48→16:45)
[2017-03-10] MEDS: CITALOPRAM 20 MG TAB PO SCH (07:49)
[2017-03-10] MEDS: AMLODIPINE BESYLATE 5 MG TAB PO SCH (07:49)
[2017-03-10] MEDS: CYANOCOBALAMIN 500 MCG TAB (VIT B-12) PO SCH (07:49)
[2017-03-10] MEDS: DOCUSATE SODIUM 100 MG CAP PO SCH (07:49)
[2017-03-10] MEDS: CLOTRIMAZOLE 10 MG TROCHE LOZ SCH ×5 (07:50→22:23)
[2017-03-10] MEDS: GUAIFENESIN 200 MG TAB PO SCH ×2 (07:50→21:03)
[2017-03-10] MEDS: PANTOprazole SOD 40 MG TAB PO SCH (07:50)
[2017-03-10] MEDS: ARTIFICIAL TEARS OP SOLN OPB SCH ×4 (07:51→20:57)
[2017-03-10] MEDS: NYSTATIN OINT 15 GM TUBE EXT SCH ×2 (07:51→20:57)
[2017-03-10] MEDS: ECONAZOLE NITRATE 1% CRM 15 GM TUBE EXT SCH ×2 (07:51→20:56)
[2017-03-10] MEDS: HEPARIN SOD 5000 UNIT/0.5 ML CARP SQ SCH ×2 (07:53→21:04)
[2017-03-10 08:18] LABS: ALBUMIN 2.6 gm/dl (3.4-5.0); CALCIUM 8.5 mg/dl (8.5-10.1); CREATININE 0.41 mg/dl (0.60-1.20); PHOSPHORUS 2.4 mg/dl (2.5-4.9); POTASSIUM 3.1 mmol/L (3.5-5.1)
[2017-03-10] MEDS ORDERED: SODIUM CHLORIDE 1 GM TAB PO SCH (09:00)
--- NOTE | 2017-03-10 09:42 | Neurology Progress Notes ---
Neurology Progress Note Date of Service Mar 10, 2017. Subjective Follow-up for encephalopathy, atypical Parkinson's disease, and partial complex seizures The patient continues to exhibit a moderate degree of confusion and lethargy. She is encephalopathic in the context of respiratory failure/pneumonia. She has also been found to have atrial fibrillation. An EEG completed a few days ago was nondiagnostic due to electrical artifact although she is not exhibited obvious signs of seizure activity. She remains on Keppra 500 mg IV every 12 hours. By mouth intake has been limited although she has been receiving her Sinemet. She continues to exhibit bradykinesia and rigidity. Objective Date Time Temp Pulse Resp B/P (MAP) Pulse Ox O2 Delivery O2 Flow Rate FiO2 03/10/17 07:41 36.8 70 22 160/74 (102) 96 03/10/17 06:59 76 20 95 Nasal Cannula 2.0 03/10/17 04:00 Nasal Cannula 2.0 BiPAP 03/10/17 03:42 36.9 75 22 181/77 (111) 97 BiPAP 03/10/17 01:48 84 95 2.0 03/10/17 01:48 84 20 94 Nasal Cannula 2.0 03/10/17 00:00 Nasal Cannula 2.0 BiPAP 03/09/17 23:56 37.1 85 18 145/37 (73) 92 BiPAP 03/09/17 23:22 82 93 2.0 03/09/17 20:00 Nasal Cannula 2.0 BiPAP 03/09/17 19:46 74 16 91 Nasal Cannula 2.0 03/09/17 19:43 36.8 81 18 156/79 (104) 94 BiPAP 03/09/17 16:00 Nasal Cannula 4.0 03/09/17 15:29 36.4 75 20 134/77 (96) 93 BiPAP 03/09/17 15:10 81 91 2.0 03/09/17 14:16 71 16 93 Nasal Cannula 2.0 03/09/17 12:10 Nasal Cannula 4.0 03/09/17 11:40 36.8 72 18 139/68 (91) 95 Last 24 Hours Test 03/09/17 11:02 03/09/17 13:09 03/09/17 16:21 03/09/17 20:08 Bedside Glucose 140 mg/dl 112 mg/dl 121 mg/dl Arterial Blood pH 7.46 Arterial Blood Partial Pressure CO2 52 mmHg Arterial Blood Partial Pressure O2 71 mm/Hg Arterial Blood HCO3 36 mmol/L Arterial Blood Oxygen Saturation 92.9 % Arterial Blood Base Excess 10.6 mEq/L Arterial Blood Gas Delivery 2 L Ramy Test POS Test 03/10/17 06:24 03/10/17 06:34 Sodium Level 133 mmol/L Potassium Level 3.1 mmol/L Chloride Level 90 mmol/L Carbon Dioxide Level 37 mmol/L Anion Gap 6.0 mmol/L Blood Urea Nitrogen 12 mg/dl Creatinine 0.41 mg/dl Est Creatinine Clear Calc Drug Dose 146.1 ml/min Estimated GFR () 119.6 Estimated GFR (Non- 103.2 BUN/Creatinine Ratio 28.8 Random Glucose 95 mg/dl Calcium Level 8.5 mg/dl Phosphorus Level 2.4 mg/dl Albumin 2.6 gm/dl Bedside Glucose 110 mg/dl Exam: The patient is lethargic. She is oriented to person only. Speech is soft and hypophonic. Attention and concentration are impaired. Vocabulary normal. Pupils equal round reactive to light. Eye movements seem limited although cooperation poor. There is no gaze preference or nystagmus. There is no facial droop. Tongue and palate are midline. The patient generally lies very still in bed. She is bradykinetic and generally rigid. She does not exhibit a resting tremor. She is generally weak and does not move the arms or legs to command. Current Inpatient Medications Medications (Trade) Dose Ordered Sig/Phong Route Start Time Stop Time Status Last Admin Dose Admin Ondansetron HCl (Zofran Inj) 4 mg Q6H PRN IV 03/04/17 20:30 04/03/17 20:29 Guaifenesin (Organidin Nr Tab) 600 mg BID PO 03/04/17 21:00 04/03/17 20:59 03/10/17 07:50 600 MG Ondansetron HCl (Zofran Odt) 8 mg Q6H PRN PO 03/04/17 20:30 04/03/17 20:29 Insulin Aspart (novoLOG ASPART) SLIDING SCALE If C... ACHS SC 03/04/17 21:00 04/03/17 20:59 03/05/17 17:23 1 UNITS Glucose (Glucose 40% Gel) 15-30 GRAMS 15 GRAMS... UD PRN PO 03/04/17 20:30 04/03/17 20:29 Glucose (Glucose Chew Tab) 4-8 Tablets 4 Tabl... UD PRN PO 03/04/17 20:30 04/03/17 20:29 Dextrose (Dextrose 50% 50ML Syringe) 25-50ML OF 50% DW IV FOR... UD PRN IV 03/04/17 20:30 04/03/17 20:29 Glucagon (Glucagon Inj) 1 mg UD PRN SQ 03/04/17 20:30 04/03/17 20:29 Budesonide (Pulmicort Respules 0.5MG/ 2ML Neb Soln) 0.5 mg BIDR INH 03/05/17 08:00 04/04/17 07:59 03/10/17 06:59 0.5 MG Amlodipine Besylate (Norvasc Tab) 5 mg QAM PO 03/05/17 09:00 04/04/17 08:59 03/10/17 07:49 5 MG Bisacodyl (Dulcolax Supp) 10 mg Q96H PRN MA 03/04/17 20:30 04/03/17 20:29 Carbidopa/Levodopa (Sinemet 25/ 100MG Tab) 2 tab TID PO 03/04/17 21:00 04/03/17 20:59 03/10/17 07:48 2 TAB Cyanocobalamin (Vitamin B-12 Tab) 250 mcg DAILY PO 03/05/17 09:00 04/04/17 08:59 03/10/17 07:49 250 MCG Diphenhydramine HCl (Benadryl Cap) 25 mg Q8 PRN PO 03/04/17 22:00 04/03/17 21:59 Docusate Sodium (coLACE CAP) 100 mg DAILY PO 03/05/17 09:00 04/04/17 08:59 03/10/17 07:49 100 MG Econazole Nitrate (Econazole Nitrate 1% Crm) 1 appln BID EXT 03/04/17 21:00 04/03/17 20:59 03/10/17 07:51 1 APPLN Levothyroxine Sodium (Synthroid Tab) 112 mcg DAILYBB PO 03/05/17 06:00 04/04/17 06:59 03/05/17 04:31 112 MCG Magnesium Hydroxide (Milk Of Magnesia Susp) 30 ml Q72H PRN PO 03/04/17 20:30 04/03/17 20:29 Menthol/Zinc Oxide (Calmoseptine Oint) 1 appln HS EXT 03/04/17 21:00 04/03/17 20:59 03/09/17 21:30 1 APPLN Montelukast Sodium (Singulair Tab) 10 mg HS PO 03/04/17 21:00 04/03/17 20:59 03/07/17 20:08 10 MG Nystatin (Mycostatin Oint) 1 appln BID EXT 03/04/17 21:00 04/03/17 20:59 03/10/17 07:51 1 APPLN Oxybutynin Chloride (Ditropan Tab) 5 mg Q12 PRN PO 03/04/17 20:30 04/03/17 20:29 Sodium Biphosphate/ Sodium Phosphate (Fleet Enema) 132 ml Q96H PRN MA 03/04/17 20:30 04/03/17 20:29 Artificial Tears (Artificial Tears) 2 drops QID OPB 03/04/17 21:00 04/03/17 20:59 03/10/17 07:51 2 DROPS Miscellaneous Information (Order Awaiting Action) 1 ea QS N/A 03/05/17 00:00 04/04/17 00:00 Citalopram Hydrobromide (celeXA TAB) 10 mg QAM PO 03/05/17 09:00 04/04/17 08:59 03/10/17 07:49 10 MG Ferrous Sulfate (Feosol Tab) 325 mg BIDM PO 03/05/17 07:30 04/04/17 07:59 03/10/17 07:48 325 MG Pantoprazole Sodium (Protonix Tab) 40 mg QAM PO 03/05/17 09:00 04/04/17 08:59 03/10/17 07:50 40 MG Clotrimazole (Mycelex 10MG Manuel) 1 manuel [id number] MIGUEL 03/04/17 23:00 03/14/17 22:59 03/10/17 07:50 1 MANUEL Ipratropium [place] (Atrovent 0.02% 0.5MG/2.5ML Neb) 0.5 mg Q6R INH 03/05/17 03:00 04/04/17 02:59 03/10/17 06:59 0.5 MG Levalbuterol (Xopenex 1.25MG/ 0.5ML Neb) 1.25 mg Q6R INH 03/05/17 03:00 04/04/17 02:59 03/10/17 06:59 1.25 MG Ipratropium [place] (Atrovent 0.02% 0.5MG/2.5ML Neb) 0.5 mg Q2H PRN INH 03/04/17 21:15 04/03/17 21:14 03/06/17 16:58 0.5 MG Levalbuterol (Xopenex 1.25MG/ 0.5ML Neb) 1.25 mg Q2H PRN INH 03/04/17 21:15 04/03/17 21:14 03/06/17 16:58 1.25 MG Cefepime HCl 1000 mg/Syringe 11 ml @ 5.5 mls/min Q8H IV 03/05/17 02:00 03/12/17 01:59 03/10/17 02:23 5.5 MLS/MIN Methylprednisolone Sodium Succinate 40 mg/Syringe 0.64 ml @ 1.5 mls/min Q12H IV 03/05/17 16:00 04/04/17 03:59 03/10/17 04:35 1.5 MLS/MIN Heparin Sodium (Porcine) (Heparin Sq 5000 Unit/0.5ml) 5,000 unit Q12 SQ 03/05/17 10:00 04/04/17 09:59 03/10/17 07:53 5,000 UNIT Levetiracetam 500 mg/Dextrose 105 ml @ 420 mls/hr Q12H IV 03/06/17 10:00 04/05/17 09:59 03/09/17 22:15 420 MLS/HR Sodium Chloride 1,000 ml @ 100 mls/hr Q10H IV 03/07/17 12:00 04/06/17 11:59 Future Hold 03/07/17 23:21 100 MLS/HR Gadobutrol (Gadavist) 10 mmol UD PRN IV 03/07/17 16:45 2/3/18 16:44 Sodium Chloride (Sodium Chloride Tab) 1 gm DAILY PO 03/10/17 09:00 04/06/17 08:59 03/10/17 07:48 1 GM Potassium Chloride 10 meq/ Prmx 100 ml @ 100 mls/hr Q1H IV 03/10/17 09:15 03/10/17 11:14 UNV Impression Persistent mild to moderate encephalopathy. History of partial complex seizures. Stable. 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 Plan Continue Keppra 500 mg IV every 12 hours. Would transition to tablets when patient able to reliably swallow. Continue Sinemet
--- NOTE | 2017-03-10 10:04 | Nephrology Progress Note ---
Nephrology Progress Note Date of Service Mar 10, 2017. Chief Complaint Hyponatremia Subjective No acute events overnight. No complaints this morning. Izabela denies pain. She is resting comfortably in bed this morning. Continues to intermittently refuse medications and appetite is limited. Review of Systems A complete review of systems was performed. Pertinent positives are noted above. All other systems are negative. Vital Signs Last 8 Hrs Date Time Temp Pulse Resp B/P (MAP) Pulse Ox O2 Delivery O2 Flow Rate FiO2 03/10/17 07:41 36.8 70 22 160/74 (102) 96 03/10/17 06:59 76 20 95 Nasal Cannula 2.0 03/10/17 04:00 Nasal Cannula 2.0 BiPAP 03/10/17 03:42 36.9 75 22 181/77 (111) 97 BiPAP Last Recorded Weight Weight (Kilograms): 101.000 Physical Exam General Appearance: WD/WN, no apparent distress Head: normocephalic, atraumatic Eyes: normal inspection, sclerae normal ENT: normal ENT inspection, pharynx normal Neck: supple, no JVD Respiratory/Chest: lungs clear, no accessory muscle use Cardiovascular: regular rate, rhythm, no murmur Abdomen/GI: non tender, soft Extremities/Musculoskelatal: normal inspection, + pedal edema (dependent) Neurologic/Psych: alert, + depressed affect Family History Blood disorder Heart disease Social History Smoking Status: Never smoker Smokeless Tobacco Use: No Alcohol Use: none Drug Use: none Marital Status: Housing Status: lives with family 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 Laboratory Results Past 24 Hours 03/10/17 06:24 Test 03/09/17 11:02 03/09/17 13:09 03/09/17 16:21 03/09/17 20:08 Bedside Glucose 140 mg/dl (70-90) 112 mg/dl (70-90) 121 mg/dl (70-90) Arterial Blood pH 7.46 (7.35-7.45) Arterial Blood Partial Pressure CO2 52 mmHg (35-46) Arterial Blood Partial Pressure O2 71 mm/Hg (80-95) Arterial Blood HCO3 36 mmol/L (19-24) Arterial Blood Oxygen Saturation 92.9 % (90-95) Arterial Blood Base Excess 10.6 mEq/L (-9-1.8) Arterial Blood Gas Delivery 2 L Ramy Test POS (POS) Test 03/10/17 06:24 03/10/17 06:34 Anion Gap 6.0 mmol/L (3-11) Est Creatinine Clear Calc Drug Dose 146.1 ml/min Estimated GFR () 119.6 Estimated GFR (Non- 103.2 BUN/Creatinine Ratio 28.8 (10-20) Calcium Level 8.5 mg/dl (8.5-10.1) Phosphorus Level 2.4 mg/dl (2.5-4.9) Albumin 2.6 gm/dl (3.4-5.0) Bedside Glucose 110 mg/dl (70-90) Allergies Coded Allergies: Iodinated Diagnostic Agents (Verified Allergy, Severe, SHORTNESS OF BREATH , 12/23/16) Latex (Verified Allergy, Intermediate, RASH, 12/23/16) Aspirin (Verified Allergy, Unknown, RASH, 12/23/16) IBUPROFEN WELL Ibuprofen (Verified Allergy, Unknown, 12/23/16) Latex1 -Allergic Contact Dermititis (Verified Allergy, Unknown, 12/23/16) Lisinopril (Verified Allergy, Unknown, UNKNOWN, 12/23/16) Meperidine (Verified Allergy, Unknown, UNKNOWN, 12/23/16) Metformin (Unverified Allergy, Unknown, GI SYMPTOMS, 12/23/16) Midazolam (Verified Allergy, Unknown, UNKN, 12/23/16) Nut Tree (Verified Allergy, Unknown, UNKNOWN, 12/23/16) Peanut (Verified Allergy, Unknown, UNKNOWN, 12/23/16) Penicillins (Verified Allergy, Unknown, SHORTNESS OF BREATH, 12/23/16) (FROM UNCODED ALLERGIES) Sulfa Antibiotics (Verified Allergy, Unknown, UNKNOWN, 12/23/16) Gluten (Verified Adverse Reaction, Intermediate, GI SYMPTOMS, 12/23/16) Medications Current Inpatient Medications Medications (Trade) Dose Ordered Sig/Phong Route Start Time Stop Time Status Last Admin Dose Admin Ondansetron HCl (Zofran Inj) 4 mg Q6H PRN IV 03/04/17 20:30 04/03/17 20:29 Guaifenesin (Organidin Nr Tab) 600 mg BID PO 03/04/17 21:00 04/03/17 20:59 03/10/17 07:50 600 MG Ondansetron HCl (Zofran Odt) 8 mg Q6H PRN PO 03/04/17 20:30 04/03/17 20:29 Insulin Aspart (novoLOG ASPART) SLIDING SCALE If C... ACHS SC 03/04/17 21:00 04/03/17 20:59 03/05/17 17:23 1 UNITS Glucose (Glucose 40% Gel) 15-30 GRAMS 15 GRAMS... UD PRN PO 03/04/17 20:30 04/03/17 20:29 Glucose (Glucose Chew Tab) 4-8 Tablets 4 Tabl... UD PRN PO 03/04/17 20:30 04/03/17 20:29 Dextrose (Dextrose 50% 50ML Syringe) 25-50ML OF 50% DW IV FOR... UD PRN IV 03/04/17 20:30 04/03/17 20:29 Glucagon (Glucagon Inj) 1 mg UD PRN SQ 03/04/17 20:30 04/03/17 20:29 Budesonide (Pulmicort Respules 0.5MG/ 2ML Neb Soln) 0.5 mg BIDR INH 03/05/17 08:00 04/04/17 07:59 03/10/17 06:59 0.5 MG Amlodipine Besylate (Norvasc Tab) 5 mg QAM PO 03/05/17 09:00 04/04/17 08:59 03/10/17 07:49 5 MG Bisacodyl (Dulcolax Supp) 10 mg Q96H PRN DC 03/04/17 20:30 04/03/17 20:29 Carbidopa/Levodopa (Sinemet 25/ 100MG Tab) 2 tab TID PO 03/04/17 21:00 04/03/17 20:59 03/10/17 07:48 2 TAB Cyanocobalamin (Vitamin B-12 Tab) 250 mcg DAILY PO 03/05/17 09:00 04/04/17 08:59 03/10/17 07:49 250 MCG Diphenhydramine HCl (Benadryl Cap) 25 mg Q8 PRN PO 03/04/17 22:00 04/03/17 21:59 Docusate Sodium (coLACE CAP) 100 mg DAILY PO 03/05/17 09:00 04/04/17 08:59 03/10/17 07:49 100 MG Econazole Nitrate (Econazole Nitrate 1% Crm) 1 appln BID EXT 03/04/17 21:00 04/03/17 20:59 03/10/17 07:51 1 APPLN Levothyroxine Sodium (Synthroid Tab) 112 mcg DAILYBB PO 03/05/17 06:00 04/04/17 06:59 03/05/17 04:31 112 MCG Magnesium Hydroxide (Milk Of Magnesia Susp) 30 ml Q72H PRN PO 03/04/17 20:30 04/03/17 20:29 Menthol/Zinc Oxide (Calmoseptine Oint) 1 appln HS EXT 03/04/17 21:00 04/03/17 20:59 03/09/17 21:30 1 APPLN Montelukast Sodium (Singulair Tab) 10 mg HS PO 03/04/17 21:00 04/03/17 20:59 03/07/17 20:08 10 MG Nystatin (Mycostatin Oint) 1 appln BID EXT 03/04/17 21:00 04/03/17 20:59 03/10/17 07:51 1 APPLN Oxybutynin Chloride (Ditropan Tab) 5 mg Q12 PRN PO 03/04/17 20:30 04/03/17 20:29 Sodium Biphosphate/ Sodium Phosphate (Fleet Enema) 132 ml Q96H PRN DC 03/04/17 20:30 04/03/17 20:29 Artificial Tears (Artificial Tears) 2 drops QID OPB 03/04/17 21:00 04/03/17 20:59 03/10/17 07:51 2 DROPS Miscellaneous Information (Order Awaiting Action) 1 ea QS N/A 03/05/17 00:00 04/04/17 00:00 Citalopram Hydrobromide (celeXA TAB) 10 mg QAM PO 03/05/17 09:00 04/04/17 08:59 03/10/17 07:49 10 MG Ferrous Sulfate (Feosol Tab) 325 mg BIDM PO 03/05/17 07:30 04/04/17 07:59 03/10/17 07:48 325 MG Pantoprazole Sodium (Protonix Tab) 40 mg QAM PO 03/05/17 09:00 04/04/17 08:59 03/10/17 07:50 40 MG Clotrimazole (Mycelex 10MG Manuel) 1 manuel [id number] MIGUEL 03/04/17 23:00 03/14/17 22:59 03/10/17 07:50 1 MANUEL Ipratropium [place] (Atrovent 0.02% 0.5MG/2.5ML Neb) 0.5 mg Q6R INH 03/05/17 03:00 04/04/17 02:59 03/10/17 06:59 0.5 MG Levalbuterol (Xopenex 1.25MG/ 0.5ML Neb) 1.25 mg Q6R INH 03/05/17 03:00 04/04/17 02:59 03/10/17 06:59 1.25 MG Ipratropium [place] (Atrovent 0.02% 0.5MG/2.5ML Neb) 0.5 mg Q2H PRN INH 03/04/17 21:15 04/03/17 21:14 03/06/17 16:58 0.5 MG Levalbuterol (Xopenex 1.25MG/ 0.5ML Neb) 1.25 mg Q2H PRN INH 03/04/17 21:15 04/03/17 21:14 03/06/17 16:58 1.25 MG Cefepime HCl 1000 mg/Syringe 11 ml @ 5.5 mls/min Q8H IV 03/05/17 02:00 03/12/17 01:59 03/10/17 02:23 5.5 MLS/MIN Methylprednisolone Sodium Succinate 40 mg/Syringe 0.64 ml @ 1.5 mls/min Q12H IV 03/05/17 16:00 04/04/17 03:59 03/10/17 04:35 1.5 MLS/MIN Heparin Sodium (Porcine) (Heparin Sq 5000 Unit/0.5ml) 5,000 unit Q12 SQ 03/05/17 10:00 04/04/17 09:59 03/10/17 07:53 5,000 UNIT Levetiracetam 500 mg/Dextrose 105 ml @ 420 mls/hr Q12H IV 03/06/17 10:00 04/05/17 09:59 03/09/17 22:15 420 MLS/HR Sodium Chloride 1,000 ml @ 100 mls/hr Q10H IV 03/07/17 12:00 04/06/17 11:59 Future Hold 03/07/17 23:21 100 MLS/HR Gadobutrol (Gadavist) 10 mmol UD PRN IV 03/07/17 16:45 03/11/17 16:44 Sodium Chloride (Sodium Chloride Tab) 1 gm DAILY PO 03/10/17 09:00 04/06/17 08:59 03/10/17 07:48 1 GM Potassium Chloride 10 meq/ Prmx 100 ml @ 100 mls/hr Q1H IV 03/10/17 09:15 03/10/17 11:14 UNV Impression (1) Hyponatremia Izabela is a frail 71 year-old female admitted with pneumonia who was also found to have new atrial fibrillation and hyponatremia. Serum sodium improving with increased solute intake. Volume status appears acceptable. Patient has been refusing PO medications and meals. Will hold oral NaCl for now and monitor. Repeat renal profile this afternoon. In the interim, encourage nutrition. Recommendations -- Encourage nutrition -- Hold oral NaCl -- Repeat metabolic profile this afternoon with serum phosphorus -- Replete potassium as needed
--- NOTE | 2017-03-10 10:18 | PULMONARY PROGRESS NOTE ---
DATE: 03/10/2017 TIME: 9:30 a.m. SUBJECTIVE: The patient verbalizes some today. She is more awake than yesterday. I could not find with certainty if she wore the BiPAP last night. The nurse's notes do not mention BiPAP. Vital signs however during the night seemed to indicate she was on BiPAP. The patient indicates she feels less short of breath. OBJECTIVE: GENERAL: The patient looked comfortable. VITAL SIGNS: Temperature was 36.8. She has not had any fevers in the past 24 hours. HEART: Heart rate was 70 per minute. The rhythm is irregular. Blood pressure is 160/74. LUNGS: Auscultation of the lung gray revealed rhonchi bilaterally posteriorly. They are perhaps slightly less than yesterday. Still very significant however are the rhonchi. Oxygen saturation is 95% on 2 liters. Respiratory rate is 22 breaths per minute. EXTREMITIES: Reveals the right upper extremity has several blebs filled with water. Etiology is not clear. All of the extremities are somewhat edematous. She has scars in the knees from prior surgery. LABORATORY DATA: The patient had a blood gas done yesterday. The pH was 7.46 with a pCO2 of 52 and a pO2 of 71 done on 2 liters. Electrolytes today show sodium 133, potassium 3.1, chloride 90, bicarbonate 37. The BUN is 12 with a creatinine of 0.41. IMPRESSIONS: 1. Pneumonia, right middle lobe and left lower lobe. 2. Respiratory failure with hypoxia and hypercarbia. 3. Parkinson's disease. 4. Urinary tract infection secondary to Escherichia coli. COMMENTS AND RECOMMENDATIONS: The patient appears slightly improved. She is more awake, although I am seeing her fairly early in the day. I am still going to encourage the BiPAP at night. We will order a followup chest x-ray for tomorrow.
[2017-03-10] MEDS: LEVETIRACETAM IV 500 MG in DEXTROSE 5% 100ML 100 ML IV SCH ×2 (10:29→22:23)
--- NOTE | 2017-03-10 10:42 | Progress Note ---
Subjective Date of Service: Mar 10, 2017. Subjective Pt evaluation today including: conversation w/ patient Patient is more awake today. Patient still reports having shortness of breath. Patient however does not report any worsening. During our conversation in the presence of her nurse, she wanted to change her code status to a level 5. Patient denies any fever, chills, nausea, vomiting, diarrhea. Problem List Medical Problems: (1) Anemia Status: Acute (2) Cellulitis Status: Acute (3) Chronic anemia Status: Acute (4) Congestive heart failure (CHF) Status: Acute (5) Dehydration Status: Acute (6) Flu-like symptoms Status: Acute (7) Guaiac positive stools Status: Acute (8) Hypertension Status: Acute (9) Hypokalemia Status: Acute (10) Hyponatremia Status: Acute (11) Pneumonia Status: Acute (12) Profound anemia Status: Acute (13) Severe anemia Status: Acute (14) Shortness of breath Status: Acute (15) Urinary tract infection Status: Acute (16) Weakness Status: Acute Review of Systems All Other Systems: Reviewed and Negative Medications Current Inpatient Medications Medications (Trade) Dose Ordered Sig/Phong Route Start Time Stop Time Status Last Admin Dose Admin Ondansetron HCl (Zofran Inj) 4 mg Q6H PRN IV 03/04/17 20:30 04/03/17 20:29 Guaifenesin (Organidin Nr Tab) 600 mg BID PO 03/04/17 21:00 04/03/17 20:59 03/10/17 21:03 600 MG Ondansetron HCl (Zofran Odt) 8 mg Q6H PRN PO 03/04/17 20:30 04/03/17 20:29 Insulin Aspart (novoLOG ASPART) SLIDING SCALE If C... ACHS SC 03/04/17 21:00 04/03/17 20:59 03/05/17 17:23 1 UNITS Glucose (Glucose 40% Gel) 15-30 GRAMS 15 GRAMS... UD PRN PO 03/04/17 20:30 04/03/17 20:29 Glucose (Glucose Chew Tab) 4-8 Tablets 4 Tabl... UD PRN PO 03/04/17 20:30 04/03/17 20:29 Dextrose (Dextrose 50% 50ML Syringe) 25-50ML OF 50% DW IV FOR... UD PRN IV 03/04/17 20:30 04/03/17 20:29 Glucagon (Glucagon Inj) 1 mg UD PRN SQ 03/04/17 20:30 04/03/17 20:29 Budesonide (Pulmicort Respules 0.5MG/ 2ML Neb Soln) 0.5 mg BIDR INH 03/05/17 08:00 04/04/17 07:59 03/11/17 06:56 0.5 MG Amlodipine Besylate (Norvasc Tab) 5 mg QAM PO 03/05/17 09:00 04/04/17 08:59 03/10/17 07:49 5 MG Bisacodyl (Dulcolax Supp) [address] 03/04/17 20:30 04/03/17 20:29 Carbidopa/Levodopa (Sinemet 25/ 100MG Tab) 2 tab TID PO 03/04/17 21:00 04/03/17 20:59 03/10/17 21:03 2 TAB Cyanocobalamin (Vitamin B-12 Tab) 250 mcg DAILY PO 03/05/17 09:00 04/04/17 08:59 03/10/17 07:49 250 MCG Diphenhydramine HCl (Benadryl Cap) 25 mg Q8 PRN PO 03/04/17 22:00 04/03/17 21:59 Docusate Sodium (coLACE CAP) 100 mg DAILY PO 03/05/17 09:00 04/04/17 08:59 03/10/17 07:49 100 MG Econazole Nitrate (Econazole Nitrate 1% Crm) 1 appln BID EXT 03/04/17 21:00 04/03/17 20:59 03/10/17 20:56 1 APPLN Levothyroxine Sodium (Synthroid Tab) 112 mcg DAILYBB PO 03/05/17 06:00 04/04/17 06:59 03/11/17 05:37 112 MCG Magnesium Hydroxide (Milk Of Magnesia Susp) 30 ml Q72H PRN PO 03/04/17 20:30 04/03/17 20:29 Menthol/Zinc Oxide (Calmoseptine Oint) 1 appln HS EXT 03/04/17 21:00 04/03/17 20:59 03/10/17 20:56 1 APPLN Montelukast Sodium (Singulair Tab) 10 mg HS PO 03/04/17 21:00 04/03/17 20:59 03/10/17 21:03 10 MG Nystatin (Mycostatin Oint) 1 appln BID EXT 03/04/17 21:00 04/03/17 20:59 03/10/17 20:57 1 APPLN Oxybutynin Chloride (Ditropan Tab) 5 mg Q12 PRN PO 03/04/17 20:30 04/03/17 20:29 Sodium Biphosphate/ Sodium Phosphate (Fleet Enema) [address] 03/04/17 20:30 04/03/17 20:29 Artificial Tears (Artificial Tears) 2 drops QID OPB 03/04/17 21:00 04/03/17 20:59 03/10/17 20:57 2 DROPS Miscellaneous Information (Order Awaiting Action) 1 ea QS N/A 03/05/17 00:00 04/04/17 00:00 Citalopram Hydrobromide (celeXA TAB) 10 mg QAM PO 03/05/17 09:00 04/04/17 08:59 03/10/17 07:49 10 MG Ferrous Sulfate (Feosol Tab) 325 mg BIDM PO 03/05/17 07:30 04/04/17 07:59 03/10/17 07:48 325 MG Pantoprazole Sodium (Protonix Tab) 40 mg QAM PO 03/05/17 09:00 04/04/17 08:59 03/10/17 07:50 40 MG Clotrimazole (Mycelex 10MG Manuel) 1 manuel [id number] MIGUEL 03/04/17 23:00 03/14/17 22:59 03/10/17 07:50 1 MANUEL Ipratropium [place] (Atrovent 0.02% 0.5MG/2.5ML Neb) 0.5 mg Q6R INH 03/05/17 03:00 04/04/17 02:59 03/11/17 06:56 0.5 MG Levalbuterol (Xopenex 1.25MG/ 0.5ML Neb) 1.25 mg Q6R INH 03/05/17 03:00 04/04/17 02:59 03/11/17 06:56 1.25 MG Ipratropium [place] (Atrovent 0.02% 0.5MG/2.5ML Neb) 0.5 mg Q2H PRN INH 03/04/17 21:15 04/03/17 21:14 03/06/17 16:58 0.5 MG Levalbuterol (Xopenex 1.25MG/ 0.5ML Neb) 1.25 mg Q2H PRN INH 03/04/17 21:15 04/03/17 21:14 03/06/17 16:58 1.25 MG Cefepime HCl 1000 mg/Syringe 11 ml @ 5.5 mls/min Q8H IV 03/05/17 02:00 03/12/17 01:59 03/11/17 01:36 5.5 MLS/MIN Methylprednisolone Sodium Succinate 40 mg/Syringe 0.64 ml @ 1.5 mls/min Q12H IV 03/05/17 16:00 04/04/17 03:59 03/11/17 03:51 1.5 MLS/MIN Heparin Sodium (Porcine) (Heparin Sq 5000 Unit/0.5ml) 5,000 unit Q12 SQ 03/05/17 10:00 04/04/17 09:59 03/10/17 21:04 5,000 UNIT Levetiracetam 500 mg/Dextrose 105 ml @ 420 mls/hr Q12H IV 03/06/17 10:00 04/05/17 09:59 03/10/17 22:23 420 MLS/HR Sodium Chloride 1,000 ml @ 100 mls/hr Q10H IV 03/07/17 12:00 04/06/17 11:59 Future Hold 03/07/17 23:21 100 MLS/HR Gadobutrol (Gadavist) 10 mmol UD PRN IV 03/07/17 16:45 03/11/17 16:44 Objective Vital Signs Date Time Temp Pulse Resp B/P (MAP) Pulse Ox O2 Delivery O2 Flow Rate FiO2 03/10/17 08:00 Nasal Cannula 2.0 03/10/17 07:41 36.8 70 22 160/74 (102) 96 03/10/17 06:59 76 20 95 Nasal Cannula 2.0 03/10/17 04:00 Nasal Cannula 2.0 BiPAP 03/10/17 03:42 36.9 75 22 181/77 (111) 97 BiPAP 03/10/17 01:48 84 95 2.0 03/10/17 01:48 84 20 94 Nasal Cannula 2.0 03/10/17 00:00 Nasal Cannula 2.0 BiPAP 03/09/17 23:56 37.1 85 18 145/37 (73) 92 BiPAP 03/09/17 23:22 82 93 2.0 03/09/17 20:00 Nasal Cannula 2.0 BiPAP 03/09/17 19:46 74 16 91 Nasal Cannula 2.0 03/09/17 19:43 36.8 81 18 156/79 (104) 94 BiPAP 03/09/17 16:00 Nasal Cannula 4.0 03/09/17 15:29 36.4 75 20 134/77 (96) 93 BiPAP 03/09/17 15:10 81 91 2.0 03/09/17 14:16 71 16 93 Nasal Cannula 2.0 03/09/17 12:10 Nasal Cannula 4.0 03/09/17 11:40 36.8 72 18 139/68 (91) 95 Physical Exam Comments: General Appearance: WD/WN, + no distress+ obese Eyes: normal inspection, sclerae normal Respiratory/Chest: chest non-tender, + decreased breath sounds, + accessory muscle use, + rhonchi, coarse breath sounds Cardiovascular: regular rate, rhythm, + systolic murmur Abdomen: normal bowel sounds, non tender, soft Extremities: no calf tenderness, + pedal edema Neurologic/Psychiatric: alert, oriented x3 Laboratory Results Last 24 Hours Test 03/09/17 11:02 03/09/17 13:09 03/09/17 16:21 03/09/17 20:08 Bedside Glucose 140 mg/dl 112 mg/dl 121 mg/dl Arterial Blood pH 7.46 Arterial Blood Partial Pressure CO2 52 mmHg Arterial Blood Partial Pressure O2 71 mm/Hg Arterial Blood HCO3 36 mmol/L Arterial Blood Oxygen Saturation 92.9 % Arterial Blood Base Excess 10.6 mEq/L Arterial Blood Gas Delivery 2 L Ramy Test POS Test 03/10/17 06:24 03/10/17 06:34 Sodium Level 133 mmol/L Potassium Level 3.1 mmol/L Chloride Level 90 mmol/L Carbon Dioxide Level 37 mmol/L Anion Gap 6.0 mmol/L Blood Urea Nitrogen 12 mg/dl Creatinine 0.41 mg/dl Est Creatinine Clear Calc Drug Dose 146.1 ml/min Estimated GFR () 119.6 Estimated GFR (Non- 103.2 BUN/Creatinine Ratio 28.8 Random Glucose 95 mg/dl Calcium Level 8.5 mg/dl Phosphorus Level 2.4 mg/dl Albumin 2.6 gm/dl Bedside Glucose 110 mg/dl Assessment and Plan 71 F recently treated for influenza presents with Acute respiratory failure with hypoxia/pneumonia involving right lung--hyponatremia, hypokalemia, hypomagnesemia, gram negative uti poa associated with chronic indwelling munoz cath Right sided pneumonia Clinically patient is improving with her mental status. Still though has SOB. Concern for gram negative pneumonia, Will continue same management. On cefepime Levaquin was stopped due to resistance Vanco was stopped due to negative MRSA.. Do not believe patient is fluid overloaded as CT chest confirmed pneumonia. Concern over lack of clinical improvement. I discussed case with son. He was updated on the clinical situation. metabolic encephalopathy from hyponatremia and infection, Appears to be resolving. Will continue to monitor for waxing and waning. I was able to obtain some sort of history from patient today. will continue to monitor. Acute respiratory failure, will be on supplemental oxygen, nebulized medications, solu-medrol of xopenex and ipatropium q 6 hours plus her usual home meds of singulair Hyponatremia, Likely hypovolemic hyponatremia Improving with IVF. will hold due to thrid spacing. Appreciate nephro input. Hypokalemia and hypomagnesemia replete Atypical parkinsonism, continue sinemet HTN continue norvasc but hold diuretic with hyponatremia Seizure disorder-- Continue Keppra 250 mg by mouth twice a day GERD-- Change omeprazole to pantoprazole Hyperlipidemia-- Continue simvastatin 20 mg every evening Hypothyroidism-- Continue levothyroxine sodium 112 g daily Depression-- Continue citalopram 10 mg daily Vitamin B12 deficiency-- Continue cyanocobalamin 250 g daily Patient changed to level 5 Code status. Continued [facility] stay due to: other (coarse breath soiunds. mental status has no improved. not safe for discharge as of yet. not tolerating PO meds) Discharge planning: uncertain
[2017-03-10] MEDS: POTASSIUM CHLR 10 MEQ / WTR 10 MEQ in PREMIXED WATER 100 ML IV SCH ×2 (11:28→12:42)
--- NOTE | 2017-03-10 13:13 | CARDIOLOGY PROGRESS NOTE ---
DATE: 03/10/2017 SUBJECTIVE: Mrs. Bojorquez is resting comfortably in bedside without complaints of chest pain, dyspnea, or palpitations. OBJECTIVE: VITAL SIGNS: Blood pressure is 158/69 with a regular pulse of 72. Respiratory rate is 18. The patient is afebrile at 36.5 degrees Celsius. Saturations 95% on 2 liters nasal cannula. NECK: Supple with full carotid upstrokes. No obvious bruits. Jugular venous pressure is difficult to assess. CARDIOVASCULAR: Reveals a regular rhythm with distant heart sounds. No obvious murmurs. LUNGS: Clear anteriorly. ABDOMEN: Soft without bruits. EXTREMITIES: Reveal intact radial artery pulses bilaterally. Trace pretibial edema is noted. DATA: CBC notes hemoglobin of 8.7, hematocrit 26.9, white count 3.45, and platelet count 274,000. Electrolytes note a sodium of 133, potassium 3.1, chloride 90, bicarb 30, BUN 12, creatinine 0.41, and glucose 95. compliance monitor notes rate controlled atrial fibrillation. IMPRESSION AND PLAN: 1. Atrial fibrillation -- remains asymptomatic. Heart rate is adequately controlled. Not a candidate for long-term anticoagulation. 2. Hypertension -- controlled. 3. Hypercholesterolemia -- continue statin. 4. Parkinson disease. 5. Complex partial seizures.
[2017-03-10] MEDS: MENTHOL-ZINC OXIDE 360 APPLN/120 GM TUBE EXT SCH (20:56)
[2017-03-10] MEDS: MONTELUKAST SOD 10 MG TAB PO SCH (21:03)
[2017-03-11] VITALS (16 sets, daily range): BP systolic 107–170; BP diastolic 65–85; PULSE 73–98; TEMP 36.8–37.9; O2SAT 90–98
[2017-03-11] MEDS: CEFEPIME IV 1,000 MG in SYRINGE 0 ML IV SCH ×3 (01:36→17:04)
[2017-03-11] MEDS: LEVALBUTEROL 1.25MG/0.5ML NEB INH SCH ×4 (02:03→19:34)
[2017-03-11] MEDS: IPRATROPIUM BROMIDE NEB SOLN 0.02% 2.5 ML VIAL INH SCH ×4 (02:03→19:34)
[2017-03-11] MEDS: METHYLPREDNISOLONE IV 40 MG in SYRINGE 0 ML IV SCH ×2 (03:51→17:01)
[2017-03-11] MEDS: LEVOTHYROXINE 112 MCG TAB PO SCH (05:37)
[2017-03-11] MEDS: BUDESONIDE 0.5 MG/2 ML VIAL (PULMICORT) INH SCH ×2 (06:56→19:34)
[2017-03-11 07:18] LABS: ALBUMIN 2.9 gm/dl (3.4-5.0); CALCIUM 8.8 mg/dl (8.5-10.1); CREATININE 0.46 mg/dl (0.60-1.20); PHOSPHORUS 2.6 mg/dl (2.5-4.9); POTASSIUM 3.4 mmol/L (3.5-5.1)
--- NOTE | 2017-03-11 08:11 | DIAGNOSTIC IMAGING REPORT ---
CHEST ONE VIEW PORTABLE CLINICAL HISTORY: f/u pulmonary infiltrates COMPARISON STUDY: Chest CT March 06, 2017. FINDINGS: Cardiomegaly is noted. There is no pneumothorax. There are small bilateral pleural effusions with bibasilar opacities. There is pleural vascular congestion without overt pulmonary edema. IMPRESSION: 1. Small bilateral pleural effusions with bibasilar opacities which may reflect atelectasis or consolidation. No significant change. 2. Pulmonary vascular congestion without overt pulmonary edema. Electronically signed by: Joshua Nelson M.D. 03/11/2017 8:10 AM Dictated Date/Time: 03/11/2017 8:09 AM
[2017-03-11] MEDS: INSULIN ASPART 100 UNITS/ML 3 ML PEN SC SCH ×4 (08:56→20:18)
[2017-03-11] MEDS: CLOTRIMAZOLE 10 MG TROCHE LOZ SCH ×5 (08:56→22:45)
[2017-03-11] MEDS: FERROUS SULFATE 325 MG TAB PO SCH ×2 (08:57→16:45)
[2017-03-11] MEDS: AMLODIPINE BESYLATE 5 MG TAB PO SCH (08:58)
[2017-03-11] MEDS: NYSTATIN OINT 15 GM TUBE EXT SCH ×2 (08:58→21:15)
[2017-03-11] MEDS: DOCUSATE SODIUM 100 MG CAP PO SCH (08:58)
[2017-03-11] MEDS: ARTIFICIAL TEARS OP SOLN OPB SCH ×4 (08:58→21:15)
[2017-03-11] MEDS: ECONAZOLE NITRATE 1% CRM 15 GM TUBE EXT SCH ×2 (08:58→21:15)
[2017-03-11] MEDS: CITALOPRAM 20 MG TAB PO SCH (08:58)
[2017-03-11] MEDS: CARBIDOPA/LEVODOPA 25/100MG TAB PO SCH ×4 (08:59→21:24)
[2017-03-11] MEDS: GUAIFENESIN 200 MG TAB PO SCH ×2 (08:59→21:25)
[2017-03-11] MEDS: CYANOCOBALAMIN 500 MCG TAB (VIT B-12) PO SCH (08:59)
[2017-03-11] MEDS: PANTOprazole SOD 40 MG TAB PO SCH (08:59)
[2017-03-11] MEDS: HEPARIN SOD 5000 UNIT/0.5 ML CARP SQ SCH ×2 (09:01→21:26)
[2017-03-11] MEDS: POTASSIUM CHLORIDE 20 MEQ TABCR PO SCH ×2 (09:45→21:24)
[2017-03-11] MEDS ORDERED: HydrALAZINE HCL 20 MG/ML VIAL IV. STA (09:46)
--- NOTE | 2017-03-11 10:30 | Nephrology Progress Note ---
Nephrology Progress Note Date of Service Mar 11, 2017. Chief Complaint Hyponatremia Subjective No acute events overnight. Izabela refuses to answer questions this morning. She is awake and appears comfortable. She is not eating or taking medications by mouth at this time. Noted that she was able to participate in a level of care discussion yesterday. Review of Systems A complete review of systems was performed. Pertinent positives are noted above. All other systems are negative. Vital Signs Last 8 Hrs Date Time Temp Pulse Resp B/P (MAP) Pulse Ox O2 Delivery O2 Flow Rate FiO2 03/11/17 07:58 36.9 74 18 170/78 (108) 98 03/11/17 06:56 75 18 96 Nasal Cannula 2.0 03/11/17 04:00 BiPAP 03/11/17 03:42 36.9 86 22 166/76 (106) 90 Last Recorded Weight Weight (Kilograms): 98.300 Physical Exam General Appearance: WD/WN, no apparent distress Head: normocephalic, atraumatic Eyes: normal inspection, sclerae normal ENT: normal ENT inspection, pharynx normal Neck: supple, no JVD Respiratory/Chest: lungs clear, no respiratory distress, no accessory muscle use Cardiovascular: regular rate, rhythm, no gallop Abdomen/GI: non tender, soft Extremities/Musculoskelatal: normal inspection, no pedal edema Neurologic/Psych: alert Family History Blood disorder Heart disease Social History Smoking Status: Never smoker Smokeless Tobacco Use: No Alcohol Use: none Drug Use: none Marital Status: Housing Status: lives with family 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 Laboratory Results Past 24 Hours 03/11/17 05:56 Test 03/10/17 11:10 03/10/17 16:19 03/10/17 19:59 03/11/17 05:56 Bedside Glucose 110 mg/dl (70-90) 129 mg/dl (70-90) 122 mg/dl (70-90) Anion Gap 6.0 mmol/L (3-11) Est Creatinine Clear Calc Drug Dose 128.3 ml/min Estimated GFR () 115.2 Estimated GFR (Non- 99.4 BUN/Creatinine Ratio 29.9 (10-20) Calcium Level 8.8 mg/dl (8.5-10.1) Phosphorus Level 2.6 mg/dl (2.5-4.9) Albumin 2.9 gm/dl (3.4-5.0) Test 03/11/17 06:31 Bedside Glucose 117 mg/dl (70-90) Allergies Coded Allergies: Iodinated Diagnostic Agents (Verified Allergy, Severe, SHORTNESS OF BREATH , 12/23/16) Latex (Verified Allergy, Intermediate, RASH, 12/23/16) Aspirin (Verified Allergy, Unknown, RASH, 12/23/16) IBUPROFEN WELL Ibuprofen (Verified Allergy, Unknown, 12/23/16) Latex1 -Allergic Contact Dermititis (Verified Allergy, Unknown, 12/23/16) Lisinopril (Verified Allergy, Unknown, UNKNOWN, 12/23/16) Meperidine (Verified Allergy, Unknown, UNKNOWN, 12/23/16) Metformin (Unverified Allergy, Unknown, GI SYMPTOMS, 12/23/16) Midazolam (Verified Allergy, Unknown, UNKN, 12/23/16) Nut Tree (Verified Allergy, Unknown, UNKNOWN, 12/23/16) Peanut (Verified Allergy, Unknown, UNKNOWN, 12/23/16) Penicillins (Verified Allergy, Unknown, SHORTNESS OF BREATH, 12/23/16) (FROM UNCODED ALLERGIES) Sulfa Antibiotics (Verified Allergy, Unknown, UNKNOWN, 12/23/16) Gluten (Verified Adverse Reaction, Intermediate, GI SYMPTOMS, 12/23/16) Medications Current Inpatient Medications Medications (Trade) Dose Ordered Sig/Phong Route Start Time Stop Time Status Last Admin Dose Admin Ondansetron HCl (Zofran Inj) 4 mg Q6H PRN IV 03/04/17 20:30 04/03/17 20:29 Guaifenesin (Organidin Nr Tab) 600 mg BID PO 03/04/17 21:00 04/03/17 20:59 03/10/17 21:03 600 MG Ondansetron HCl (Zofran Odt) 8 mg Q6H PRN PO 03/04/17 20:30 04/03/17 20:29 Insulin Aspart (novoLOG ASPART) SLIDING SCALE If C... ACHS SC 03/04/17 21:00 04/03/17 20:59 03/05/17 17:23 1 UNITS Glucose (Glucose 40% Gel) 15-30 GRAMS 15 GRAMS... UD PRN PO 03/04/17 20:30 04/03/17 20:29 Glucose (Glucose Chew Tab) 4-8 Tablets 4 Tabl... UD PRN PO 03/04/17 20:30 04/03/17 20:29 Dextrose (Dextrose 50% 50ML Syringe) 25-50ML OF 50% DW IV FOR... UD PRN IV 03/04/17 20:30 04/03/17 20:29 Glucagon (Glucagon Inj) 1 mg UD PRN SQ 03/04/17 20:30 04/03/17 20:29 Budesonide (Pulmicort Respules 0.5MG/ 2ML Neb Soln) 0.5 mg BIDR INH 03/05/17 08:00 04/04/17 07:59 03/11/17 06:56 0.5 MG Amlodipine Besylate (Norvasc Tab) 5 mg QAM PO 03/05/17 09:00 04/04/17 08:59 03/10/17 07:49 5 MG Bisacodyl (Dulcolax Supp) 10 mg Q96H PRN [place] 03/04/17 20:30 04/03/17 20:29 Carbidopa/Levodopa (Sinemet 25/ 100MG Tab) 2 tab TID PO 03/04/17 21:00 04/03/17 20:59 03/10/17 21:03 2 TAB Cyanocobalamin (Vitamin B-12 Tab) 250 mcg DAILY PO 03/05/17 09:00 04/04/17 08:59 03/10/17 07:49 250 MCG Diphenhydramine HCl (Benadryl Cap) 25 mg Q8 PRN PO 03/04/17 22:00 04/03/17 21:59 Docusate Sodium (coLACE CAP) 100 mg DAILY PO 03/05/17 09:00 04/04/17 08:59 03/10/17 07:49 100 MG Econazole Nitrate (Econazole Nitrate 1% Crm) 1 appln BID EXT 03/04/17 21:00 04/03/17 20:59 03/11/17 08:58 1 APPLN Levothyroxine Sodium (Synthroid Tab) 112 mcg DAILYBB PO 03/05/17 06:00 04/04/17 06:59 03/11/17 05:37 112 MCG Magnesium Hydroxide (Milk Of Magnesia Susp) 30 ml Q72H PRN PO 03/04/17 20:30 04/03/17 20:29 Menthol/Zinc Oxide (Calmoseptine Oint) 1 appln HS EXT 03/04/17 21:00 04/03/17 20:59 03/10/17 20:56 1 APPLN Montelukast Sodium (Singulair Tab) 10 mg HS PO 03/04/17 21:00 04/03/17 20:59 03/10/17 21:03 10 MG Nystatin (Mycostatin Oint) 1 appln BID EXT 03/04/17 21:00 04/03/17 20:59 03/11/17 08:58 1 APPLN Oxybutynin Chloride (Ditropan Tab) 5 mg Q12 PRN PO 03/04/17 20:30 04/03/17 20:29 Sodium Biphosphate/ Sodium Phosphate (Fleet Enema) 132 ml Q96H PRN [place] 03/04/17 20:30 04/03/17 20:29 Artificial Tears (Artificial Tears) 2 drops QID OPB 03/04/17 21:00 04/03/17 20:59 03/11/17 08:58 2 DROPS Miscellaneous Information (Order Awaiting Action) 1 ea QS N/A 03/05/17 00:00 04/04/17 00:00 Citalopram Hydrobromide (celeXA TAB) 10 mg QAM PO 03/05/17 09:00 04/04/17 08:59 03/10/17 07:49 10 MG Ferrous Sulfate (Feosol Tab) 325 mg BIDM PO 03/05/17 07:30 04/04/17 07:59 03/10/17 07:48 325 MG Pantoprazole Sodium (Protonix Tab) 40 mg QAM PO 03/05/17 09:00 04/04/17 08:59 03/10/17 07:50 40 MG Clotrimazole (Mycelex 10MG Manuel) 1 manuel [id number] MIGUEL 03/04/17 23:00 03/14/17 22:59 03/10/17 07:50 1 MANUEL Ipratropium [place] (Atrovent 0.02% 0.5MG/2.5ML Neb) 0.5 mg Q6R INH 03/05/17 03:00 04/04/17 02:59 03/11/17 06:56 0.5 MG Levalbuterol (Xopenex 1.25MG/ 0.5ML Neb) 1.25 mg Q6R INH 03/05/17 03:00 04/04/17 02:59 03/11/17 06:56 1.25 MG Ipratropium [place] (Atrovent 0.02% 0.5MG/2.5ML Neb) 0.5 mg Q2H PRN INH 03/04/17 21:15 04/03/17 21:14 03/06/17 16:58 0.5 MG Levalbuterol (Xopenex 1.25MG/ 0.5ML Neb) 1.25 mg Q2H PRN INH 03/04/17 21:15 04/03/17 21:14 03/06/17 16:58 1.25 MG Cefepime HCl 1000 mg/Syringe 11 ml @ 5.5 mls/min Q8H IV 03/05/17 02:00 03/12/17 01:59 03/11/17 01:36 5.5 MLS/MIN Methylprednisolone Sodium Succinate 40 mg/Syringe 0.64 ml @ 1.5 mls/min Q12H IV 03/05/17 16:00 04/04/17 03:59 03/11/17 03:51 1.5 MLS/MIN Heparin Sodium (Porcine) (Heparin Sq 5000 Unit/0.5ml) 5,000 unit Q12 SQ 03/05/17 10:00 04/04/17 09:59 03/11/17 09:01 5,000 UNIT Levetiracetam 500 mg/Dextrose 105 ml @ 420 mls/hr Q12H IV 03/06/17 10:00 04/05/17 09:59 03/10/17 22:23 420 MLS/HR Sodium Chloride 1,000 ml @ 100 mls/hr Q10H IV 03/07/17 12:00 04/06/17 11:59 Future Hold 03/07/17 23:21 100 MLS/HR Gadobutrol (Gadavist) 10 mmol UD PRN IV 03/07/17 16:45 03/11/17 16:44 Potassium Chloride (Klor-Con Tab) 20 meq BID PO 03/11/17 09:00 04/10/17 08:59 Potassium Chloride 10 meq/ Prmx 100 ml @ 100 mls/hr Q1H IV 03/11/17 10:00 03/11/17 11:59 Impression (1) Hyponatremia Izabela is a frail 71 year-old female admitted with pneumonia who was also found to have new atrial fibrillation and hyponatremia. Serum sodium improving with increased solute intake. Volume status appears acceptable. Patient has been refusing PO medications and meals. Unfortunately, nutrition remains the largest barrier to correction of the patient's dysnatremia and other electrolyte abnormalities including hypokalemia. She is refusing medications at this time and not eating. This has been the pattern for several days. I again explained the risks including the potential progressive decline associated with not taking Sinemet. Recommendations -- Encourage nutrition -- IV KCl replacement provided this morning -- Consider a palliative care consultation to assist with goals of care -- Repeat metabolic profile with serum phosphorus and magnesium tomorrow AM -- Replete potassium as needed -- Restarting IVF and electrolyte replacement seems inappropriate if patient is able to but refusing to take by mouth
[2017-03-11] MEDS: LEVETIRACETAM IV 500 MG in DEXTROSE 5% 100ML 100 ML IV SCH ×2 (10:51→21:25)
[2017-03-11] MEDS: POTASSIUM CHLR 10 MEQ / WTR 10 MEQ in PREMIXED WATER 100 ML IV SCH ×2 (10:51→13:03)
--- NOTE | 2017-03-11 14:47 | PULMONARY PROGRESS NOTE ---
DATE: 03/11/2017 TIME: 2:25 p.m. SUBJECTIVE: The patient is nonverbal today. She had her eyes open, but was not focusing. I could not get her to respond to verbal questioning. Nursing staff reports she has been this way since 7:00 a.m. The patient was made a DNR yesterday. OBJECTIVE: GENERAL: She does not appear in distress. VITAL SIGNS: Temperature is 36.9. Heart rate is 86 per minute. Blood pressure was 167/77. RESPIRATORY: Lung gray continued to show rhonchi bilaterally. Her respiratory rate was 30 breaths per minute at the time of my exam. Saturation was 91% on 2-liter nasal cannula. ABDOMEN: Obese. EXTREMITIES: Continue to show edema. The lower leg edema is approximately a +1. She has scars on the knees. LABORATORY DATA: Electrolytes today show sodium 130, potassium 3.4, chloride 86, bicarbonate 38. The high bicarbonate would correlate with her blood gas findings from March 09 showing a pCO2 of 52. BUN is 14 with a creatinine of 0.46. IMPRESSIONS: 1. Pneumonia, right middle lobe and left lower lobe. 2. Respiratory failure with hypoxia and hypercarbia. 3. Severe Parkinson's disease. 4. Urinary tract infection with Escherichia coli. 5. Pulmonary hypertension. COMMENTS AND RECOMMENDATIONS: The patient reportedly wore the BiPAP last night. Also, I cannot blame her lethargy on the fact that she did not wear the BiPAP. She has had altered mental status intermittently throughout this hospital stay. Her status overall is poor. We would continue as present. She did have a chest x-ray today, which showed small effusions with some bibasilar opacities. It was notable that the infiltrates seen and reported were much more prominent on the CAT scan, which was done several days ago, than on the chest x-rays . JOHAN
--- NOTE | 2017-03-11 19:59 | Progress Note ---
Subjective Date of Service: Mar 11, 2017. Subjective Pt evaluation today including: conversation w/ patient, physical exam 71 yo female is nonverbal today during my exam with her. She does not given any history. Problem List Medical Problems: (1) Anemia Status: Acute (2) Cellulitis Status: Acute (3) Chronic anemia Status: Acute (4) Congestive heart failure (CHF) Status: Acute (5) Dehydration Status: Acute (6) Flu-like symptoms Status: Acute (7) Guaiac positive stools Status: Acute (8) Hypertension Status: Acute (9) Hypokalemia Status: Acute (10) Hyponatremia Status: Acute (11) Pneumonia Status: Acute (12) Profound anemia Status: Acute (13) Severe anemia Status: Acute (14) Shortness of breath Status: Acute (15) Urinary tract infection Status: Acute (16) Weakness Status: Acute Review of Systems All Other Systems: Reviewed and Negative Medications Current Inpatient Medications Medications (Trade) Dose Ordered Sig/Phong Route Start Time Stop Time Status Last Admin Dose Admin Ondansetron HCl (Zofran Inj) 4 mg Q6H PRN IV 03/04/17 20:30 04/03/17 20:29 Guaifenesin (Organidin Nr Tab) 600 mg BID PO 03/04/17 21:00 04/03/17 20:59 03/10/17 21:03 600 MG Ondansetron HCl (Zofran Odt) 8 mg Q6H PRN PO 03/04/17 20:30 04/03/17 20:29 Insulin Aspart (novoLOG ASPART) SLIDING SCALE If C... ACHS SC 03/04/17 21:00 04/03/17 20:59 03/05/17 17:23 1 UNITS Glucose (Glucose 40% Gel) 15-30 GRAMS 15 GRAMS... UD PRN PO 03/04/17 20:30 04/03/17 20:29 Glucose (Glucose Chew Tab) 4-8 Tablets 4 Tabl... UD PRN PO 03/04/17 20:30 04/03/17 20:29 Dextrose (Dextrose 50% 50ML Syringe) 25-50ML OF 50% DW IV FOR... UD PRN IV 03/04/17 20:30 04/03/17 20:29 Glucagon (Glucagon Inj) 1 mg UD PRN SQ 03/04/17 20:30 04/03/17 20:29 Budesonide (Pulmicort Respules 0.5MG/ 2ML Neb Soln) 0.5 mg BIDR INH 03/05/17 08:00 04/04/17 07:59 03/11/17 19:34 0.5 MG Amlodipine Besylate (Norvasc Tab) 5 mg QAM PO 03/05/17 09:00 04/04/17 08:59 03/10/17 07:49 5 MG Bisacodyl (Dulcolax Supp) 10 mg Q96H PRN [place] 03/04/17 20:30 04/03/17 20:29 Carbidopa/Levodopa (Sinemet 25/ 100MG Tab) 2 tab TID PO 03/04/17 21:00 04/03/17 20:59 03/11/17 18:16 2 TAB Cyanocobalamin (Vitamin B-12 Tab) 250 mcg DAILY PO 03/05/17 09:00 04/04/17 08:59 03/10/17 07:49 250 MCG Diphenhydramine HCl (Benadryl Cap) 25 mg Q8 PRN PO 03/04/17 22:00 04/03/17 21:59 Docusate Sodium (coLACE CAP) 100 mg DAILY PO 03/05/17 09:00 04/04/17 08:59 03/10/17 07:49 100 MG Econazole Nitrate (Econazole Nitrate 1% Crm) 1 appln BID EXT 03/04/17 21:00 04/03/17 20:59 03/11/17 08:58 1 APPLN Levothyroxine Sodium (Synthroid Tab) 112 mcg DAILYBB PO 03/05/17 06:00 04/04/17 06:59 03/11/17 05:37 112 MCG Magnesium Hydroxide (Milk Of Magnesia Susp) 30 ml Q72H PRN PO 03/04/17 20:30 04/03/17 20:29 Menthol/Zinc Oxide (Calmoseptine Oint) 1 appln HS EXT 03/04/17 21:00 04/03/17 20:59 03/10/17 20:56 1 APPLN Montelukast Sodium (Singulair Tab) 10 mg HS PO 03/04/17 21:00 04/03/17 20:59 03/10/17 21:03 10 MG Nystatin (Mycostatin Oint) 1 appln BID EXT 03/04/17 21:00 04/03/17 20:59 03/11/17 08:58 1 APPLN Oxybutynin Chloride (Ditropan Tab) 5 mg Q12 PRN PO 03/04/17 20:30 04/03/17 20:29 Sodium Biphosphate/ Sodium Phosphate (Fleet Enema) 132 ml Q96H PRN [place] 03/04/17 20:30 04/03/17 20:29 Artificial Tears (Artificial Tears) 2 drops QID OPB 03/04/17 21:00 04/03/17 20:59 03/11/17 17:01 2 DROPS Miscellaneous Information (Order Awaiting Action) 1 ea QS N/A 03/05/17 00:00 04/04/17 00:00 Citalopram Hydrobromide (celeXA TAB) 10 mg QAM PO 03/05/17 09:00 04/04/17 08:59 03/10/17 07:49 10 MG Ferrous Sulfate (Feosol Tab) 325 mg BIDM PO 03/05/17 07:30 04/04/17 07:59 03/10/17 07:48 325 MG Pantoprazole Sodium (Protonix Tab) 40 mg QAM PO 03/05/17 09:00 04/04/17 08:59 03/10/17 07:50 40 MG Clotrimazole (Mycelex 10MG Manuel) 1 manuel [id number] MIGUEL 03/04/17 23:00 03/14/17 22:59 03/10/17 07:50 1 MANUEL Ipratropium [place] (Atrovent 0.02% 0.5MG/2.5ML Neb) 0.5 mg Q6R INH 03/05/17 03:00 04/04/17 02:59 03/11/17 19:34 0.5 MG Levalbuterol (Xopenex 1.25MG/ 0.5ML Neb) 1.25 mg Q6R INH 03/05/17 03:00 04/04/17 02:59 03/11/17 19:34 1.25 MG Ipratropium [place] (Atrovent 0.02% 0.5MG/2.5ML Neb) 0.5 mg Q2H PRN INH 03/04/17 21:15 04/03/17 21:14 03/06/17 16:58 0.5 MG Levalbuterol (Xopenex 1.25MG/ 0.5ML Neb) 1.25 mg Q2H PRN INH 03/04/17 21:15 04/03/17 21:14 03/06/17 16:58 1.25 MG Cefepime HCl 1000 mg/Syringe 11 ml @ 5.5 mls/min Q8H IV 03/05/17 02:00 03/12/17 01:59 03/11/17 17:04 5.5 MLS/MIN Methylprednisolone Sodium Succinate 40 mg/Syringe 0.64 ml @ 1.5 mls/min Q12H IV 03/05/17 16:00 04/04/17 03:59 03/11/17 17:01 1.5 MLS/MIN Heparin Sodium (Porcine) (Heparin Sq 5000 Unit/0.5ml) 5,000 unit Q12 SQ 03/05/17 10:00 04/04/17 09:59 03/11/17 09:01 5,000 UNIT Levetiracetam 500 mg/Dextrose 105 ml @ 420 mls/hr Q12H IV 03/06/17 10:00 04/05/17 09:59 03/11/17 10:51 420 MLS/HR Sodium Chloride 1,000 ml @ 100 mls/hr Q10H IV 03/07/17 12:00 04/06/17 11:59 Future Hold 03/07/17 23:21 100 MLS/HR Potassium Chloride (Klor-Con Tab) 20 meq BID PO 03/11/17 09:00 04/10/17 08:59 Objective Vital Signs Date Time Temp Pulse Resp B/P (MAP) Pulse Ox O2 Delivery O2 Flow Rate FiO2 03/11/17 16:38 37.7 89 18 158/65 (96) 94 Nasal Cannula 2.0 03/11/17 16:00 95 Nasal Cannula 2.0 03/11/17 14:09 86 18 91 Nasal Cannula 2.0 03/11/17 12:00 96 Nasal Cannula 2.0 03/11/17 11:40 36.9 84 16 167/77 (107) 94 Nasal Cannula 2.0 03/11/17 08:00 98 Nasal Cannula 2.0 03/11/17 07:58 36.9 74 18 170/78 (108) 98 03/11/17 06:56 75 18 96 Nasal Cannula 2.0 03/11/17 04:00 BiPAP 03/11/17 03:42 36.9 86 22 166/76 (106) 90 03/11/17 02:05 74 95 2.0 03/11/17 02:04 74 17 95 BiPAP/CPAP 2.0 03/11/17 00:00 36.8 73 18 152/85 (107) 95 03/10/17 23:59 Nasal Cannula 2.0 03/10/17 22:10 80 99 2.0 03/10/17 20:00 Nasal Cannula 2.0 03/10/17 19:57 36.6 82 20 132/70 (90) 93 Nasal Cannula 2.0 Physical Exam Comments: General Appearance: WD/WN, + no distress+ obese Eyes: normal inspection, sclerae normal Respiratory/Chest: chest non-tender, + decreased breath sounds, + accessory muscle use, + rhonchi bilaterally Cardiovascular: regular rate, rhythm, + systolic murmur Abdomen: normal bowel sounds, non tender, soft Extremities: no calf tenderness, + pedal edema Neurologic/Psychiatric: alert, oriented x3 Laboratory Results Last 24 Hours Test 03/10/17 19:59 03/11/17 05:56 03/11/17 06:31 03/11/17 11:18 Bedside Glucose 122 mg/dl 117 mg/dl 140 mg/dl Sodium Level 130 mmol/L Potassium Level 3.4 mmol/L Chloride Level 86 mmol/L Carbon Dioxide Level 38 mmol/L Anion Gap 6.0 mmol/L Blood Urea Nitrogen 14 mg/dl Creatinine 0.46 mg/dl Est Creatinine Clear Calc Drug Dose 128.3 ml/min Estimated GFR () 115.2 Estimated GFR (Non- 99.4 BUN/Creatinine Ratio 29.9 Random Glucose 106 mg/dl Calcium Level 8.8 mg/dl Phosphorus Level 2.6 mg/dl Albumin 2.9 gm/dl Test 03/11/17 16:13 Bedside Glucose 99 mg/dl Assessment and Plan 71 F recently treated for influenza presents with Acute respiratory failure with hypoxia/pneumonia involving right lung--hyponatremia, hypokalemia, hypomagnesemia, gram negative uti poa associated with chronic indwelling munoz cath Right sided pneumonia Patient again is nonverbal. Will continue same management. On cefepime Do not believe patient is fluid overloaded as CT chest confirmed pneumonia. Concern over lack of clinical improvement. D/W son, will continue with current treatment. If no improvement Monday, may consider palliative care consult Appreciate pulmonary recommendations. BIPAP at night. metabolic encephalopathy from hyponatremia and infection, As compared to yesterday, today her mental stae has deteriorated. She did have some brief episode with her son where she spoke with him, but it was short lived. Will continue to monitor for waxing and waning. will continue to monitor. Acute respiratory failure, will be on supplemental oxygen, nebulized medications, solu-medrol of xopenex and ipatropium q 6 hours plus her usual home meds of singulair BIPAP at night Hyponatremia, Likely hypovolemic hyponatremia NA at 130. This improved with IVF will hold due to thrid spacing. Appreciate nephro input. Hypokalemia and hypomagnesemia repleted Atypical parkinsonism, continue sinemet HTN continue norvasc but hold diuretic with hyponatremia Seizure disorder-- ON keppra IV. GERD-- Continue pantoprazole Hyperlipidemia-- Continue simvastatin 20 mg every evening Hypothyroidism-- Continue levothyroxine sodium 112 g daily Depression-- Continue citalopram 10 mg daily Vitamin B12 deficiency-- Continue cyanocobalamin 250 g daily Patient is a level 5 Code status. Continued [facility] stay due to: other (coarse breath soiunds. mental status has no improved. not safe for discharge as of yet. not tolerating PO meds) Discharge planning: uncertain
--- NOTE | 2017-03-11 21:09 | DIAGNOSTIC IMAGING REPORT ---
CHEST ONE VIEW PORTABLE CLINICAL HISTORY: Line placement. COMPARISON STUDY: Chest CT March 06, 2017 and chest radiograph March 11, 2007 pain at 7:04 AM FINDINGS: The tip of the right internal jugular central line projects over the mid SVC. There is no pneumothorax. Small bilateral pleural effusions with bibasilar opacities persist. There is pulmonary vascular congestion with suspected mild pulmonary edema. Cardiomegaly is unchanged. IMPRESSION: 1. No pneumothorax following placement of a right internal jugular central line. Catheter tip projects over mid SVC. 2. Persistent small bilateral pleural effusions and associated bibasilar opacities. 3. No change in mild pulmonary edema. Electronically signed by: Joshua Nelson M.D. 03/11/2017 9:08 PM Dictated Date/Time: 03/11/2017 9:06 PM
[2017-03-11] MEDS: MENTHOL-ZINC OXIDE 360 APPLN/120 GM TUBE EXT SCH (21:15)
--- NOTE | 2017-03-11 21:19 | Procedure Note ---
Procedure Note Procedure Date Mar 11, 2017. Central Line Procedure time out: side/site verified, patient ID confirmed, sterile procedure used Consent obtained: verbal (Dr. Sharp obtained verbal from pt. Son also at bedside in agreement. ) Time of procedure: 20:40 Performed by: physician freelance director Indications: poor venous access Prep: chlorhexadine prep, sterile drape, sterile procedures used Anesthesia: local injection, lidocaine 1% without epi Volume anesthetic (ml's): 5 Central line lumen: triple Central line location: internal jugular (R) Additional details: percutaneous placement, ultrasound guidance, Selinger technique used, line sutured, good blood return CXR: appropriate position, no pneumothorax Complications: none Patient tolerated procedure: well Post-procedure vital signs: reviewed and stable Comments: Consent was obtained prior to procedure. Indication, risks, and benefits were explained at length. Procedure: Procedure was performed under strict sterile field in O.R. fashion. The right neck and chest were cleaned with chloroprep scrub and the pt was draped in sterile fashion. The internal jugular vein was identified using ultrasound. After anesthetizing the area with 5cc of lidocaine, venous blood was withdrawn after accessing the vein under ultrasound guidance. The syringe was removed and a guide wire was advanced into the introducer needle.The dilator was advanced after being exchanged for the introducer needle. After appropriate dilation was obtained, the dilator was removed and the central catheter was placed over the guide wire using Seldinger technique. The wire was removed intact and the catheter was sutured at 15cm. A surgical dressing was placed over the catheter with a biofilm shield in place. At the time of the procedure each port was aspirated and then flushed properly. Pt tolerated the procedure well with no complications. Post procedure x-ray was completed, placement was appropriate and no pneumothorax was noted. Critical Care Medicine Point of Care Bedside Ultrasound Procedure: Procedural Ultrasound Procedure Date: 03/11/2017 Indication: Need for IV drug administration; Unable to obtain access Attending: Dr. Romel Sharp MD Resident/Physician Glass Blowing Instructor: Abi Cooper PA-C If for central venous access Artery AND Vein visualized: Y Compressible Vein: Y Guidewire or Short Catheter seen in vein prior to dilation: Y Line confirmed in Vein with ultrasound: Y If no lung sliding or not obtained has CXR been ordered: Y Impression: Poor Venous Access Plan: Access obtained, Line in place, No pneumothorax, May administer IV medications via RIJ CVC Images obtained are saved for permanent record
[2017-03-11] MEDS: MONTELUKAST SOD 10 MG TAB PO SCH (21:24)
[2017-03-12] VITALS (14 sets, daily range): BP systolic 125–153; BP diastolic 54–79; PULSE 73–88; TEMP 36.8–37.3; O2SAT 93–98
[2017-03-12] MEDS: LEVALBUTEROL 1.25MG/0.5ML NEB INH SCH ×4 (01:55→19:05)
[2017-03-12] MEDS: IPRATROPIUM BROMIDE NEB SOLN 0.02% 2.5 ML VIAL INH SCH ×4 (01:55→19:05)
[2017-03-12] MEDS: METHYLPREDNISOLONE IV 40 MG in SYRINGE 0 ML IV SCH (04:20)
[2017-03-12] MEDS: IPRATROPIUM BROMIDE NEB SOLN 0.02% 2.5 ML VIAL INH PRN (05:34)
[2017-03-12] MEDS: LEVALBUTEROL 1.25MG/0.5ML NEB INH PRN (05:34)
[2017-03-12] MEDS: LEVOTHYROXINE 112 MCG TAB PO SCH (06:00)
[2017-03-12 06:29] LABS: ALBUMIN 2.7 gm/dl (3.4-5.0); CALCIUM 8.8 mg/dl (8.5-10.1); CREATININE 0.54 mg/dl (0.60-1.20); POTASSIUM 3.6 mmol/L (3.5-5.1)
[2017-03-12 06:38] LABS: PHOSPHORUS 3.4 mg/dl (2.5-4.9)
[2017-03-12] MEDS: CITALOPRAM 20 MG TAB PO SCH (07:45)
[2017-03-12] MEDS: DOCUSATE SODIUM 100 MG CAP PO SCH (07:45)
[2017-03-12] MEDS: FERROUS SULFATE 325 MG TAB PO SCH ×2 (07:45→15:20)
[2017-03-12] MEDS: PANTOprazole SOD 40 MG TAB PO SCH (07:45)
[2017-03-12] MEDS: ARTIFICIAL TEARS OP SOLN OPB SCH ×4 (07:46→21:09)
[2017-03-12] MEDS: ECONAZOLE NITRATE 1% CRM 15 GM TUBE EXT SCH ×2 (07:46→21:04)
[2017-03-12] MEDS: NYSTATIN OINT 15 GM TUBE EXT SCH ×2 (07:46→21:04)
[2017-03-12] MEDS: POTASSIUM CHLORIDE 20 MEQ TABCR PO SCH ×2 (07:46→21:10)
[2017-03-12] MEDS: BUDESONIDE 0.5 MG/2 ML VIAL (PULMICORT) INH SCH ×2 (07:47→19:05)
[2017-03-12] MEDS: INSULIN ASPART 100 UNITS/ML 3 ML PEN SC SCH ×4 (07:47→20:46)
[2017-03-12] MEDS: CLOTRIMAZOLE 10 MG TROCHE LOZ SCH ×5 (07:47→23:09)
[2017-03-12] MEDS: GUAIFENESIN 200 MG TAB PO SCH ×2 (07:49→21:11)
[2017-03-12] MEDS: CYANOCOBALAMIN 500 MCG TAB (VIT B-12) PO SCH (07:49)
[2017-03-12] MEDS: CARBIDOPA/LEVODOPA 25/100MG TAB PO SCH ×3 (07:49→21:10)
[2017-03-12] MEDS: HEPARIN SOD 5000 UNIT/0.5 ML CARP SQ SCH ×2 (07:50→21:02)
[2017-03-12] MEDS: AMLODIPINE BESYLATE 5 MG TAB PO SCH (07:50)
[2017-03-12] MEDS: LEVETIRACETAM IV 500 MG in DEXTROSE 5% 100ML 100 ML IV SCH ×2 (10:00→21:09)
--- NOTE | 2017-03-12 10:28 | Nephrology Progress Note ---
Nephrology Progress Note Date of Service Mar 12, 2017. Chief Complaint Hyponatremia Subjective No acute events overnight. Mrs. Bojorquez is resting comfortably in bed this morning. She denies pain. She ate very little this morning. She did take her medications as Rx. Overall, no significant interval change. The patient does not participate in ROS and answers questions with simple 1-2 word answers. Review of Systems A complete review of systems was performed. Pertinent positives are noted above. All other systems are negative. Vital Signs Last 8 Hrs Date Time Temp Pulse Resp B/P (MAP) Pulse Ox O2 Delivery O2 Flow Rate FiO2 03/12/17 08:01 36.8 76 18 153/79 (103) 95 03/12/17 07:47 80 20 97 Nasal Cannula 2.0 03/12/17 05:34 82 20 97 Nasal Cannula 2.0 03/12/17 04:14 36.9 83 18 125/73 (90) 95 Nasal Cannula 03/12/17 04:00 Nasal Cannula 2.0 Last Recorded Weight Weight (Kilograms): 99.300 Physical Exam General Appearance: WD/WN, no apparent distress Head: normocephalic, atraumatic Eyes: normal inspection, sclerae normal ENT: normal ENT inspection, pharynx normal Neck: supple, thyroid normal Respiratory/Chest: lungs clear, no respiratory distress, no accessory muscle use Cardiovascular: regular rate, rhythm, no gallop Abdomen/GI: non tender, soft Extremities/Musculoskelatal: normal inspection, no pedal edema Neurologic/Psych: alert, normal mood/affect Family History Blood disorder Heart disease Social History Smoking Status: Never smoker Smokeless Tobacco Use: No Alcohol Use: none Drug Use: none Marital Status: Housing Status: lives with family 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 Laboratory Results Past 24 Hours 03/12/17 05:31 Test 03/11/17 11:18 03/11/17 16:13 03/11/17 20:07 03/12/17 05:31 Bedside Glucose 140 mg/dl (70-90) 99 mg/dl (70-90) 109 mg/dl (70-90) Anion Gap 5.0 mmol/L (3-11) Est Creatinine Clear Calc Drug Dose 109.9 ml/min Estimated GFR () 109.3 Estimated GFR (Non- 94.3 BUN/Creatinine Ratio 32.8 (10-20) Calcium Level 8.8 mg/dl (8.5-10.1) Phosphorus Level 3.4 mg/dl (2.5-4.9) Albumin 2.7 gm/dl (3.4-5.0) Test 03/12/17 06:39 Bedside Glucose 112 mg/dl (70-90) Allergies Coded Allergies: Iodinated Diagnostic Agents (Verified Allergy, Severe, SHORTNESS OF BREATH , 12/23/16) Latex (Verified Allergy, Intermediate, RASH, 12/23/16) Aspirin (Verified Allergy, Unknown, RASH, 12/23/16) IBUPROFEN WELL Ibuprofen (Verified Allergy, Unknown, 12/23/16) Latex1 -Allergic Contact Dermititis (Verified Allergy, Unknown, 12/23/16) Lisinopril (Verified Allergy, Unknown, UNKNOWN, 12/23/16) Meperidine (Verified Allergy, Unknown, UNKNOWN, 12/23/16) Metformin (Unverified Allergy, Unknown, GI SYMPTOMS, 12/23/16) Midazolam (Verified Allergy, Unknown, UNKN, 12/23/16) Nut Tree (Verified Allergy, Unknown, UNKNOWN, 12/23/16) Peanut (Verified Allergy, Unknown, UNKNOWN, 12/23/16) Penicillins (Verified Allergy, Unknown, SHORTNESS OF BREATH, 12/23/16) (FROM UNCODED ALLERGIES) Sulfa Antibiotics (Verified Allergy, Unknown, UNKNOWN, 12/23/16) Gluten (Verified Adverse Reaction, Intermediate, GI SYMPTOMS, 12/23/16) Medications Current Inpatient Medications Medications (Trade) Dose Ordered Sig/Phong Route Start Time Stop Time Status Last Admin Dose Admin Ondansetron HCl (Zofran Inj) 4 mg Q6H PRN IV 03/04/17 20:30 04/03/17 20:29 Guaifenesin (Organidin Nr Tab) 600 mg BID PO 03/04/17 21:00 04/03/17 20:59 03/12/17 07:49 600 MG Ondansetron HCl (Zofran Odt) 8 mg Q6H PRN PO 03/04/17 20:30 04/03/17 20:29 Insulin Aspart (novoLOG ASPART) SLIDING SCALE If C... ACHS SC 03/04/17 21:00 04/03/17 20:59 03/05/17 17:23 1 UNITS Glucose (Glucose 40% Gel) 15-30 GRAMS 15 GRAMS... UD PRN PO 03/04/17 20:30 04/03/17 20:29 Glucose (Glucose Chew Tab) 4-8 Tablets 4 Tabl... UD PRN PO 03/04/17 20:30 04/03/17 20:29 Dextrose (Dextrose 50% 50ML Syringe) 25-50ML OF 50% DW IV FOR... UD PRN IV 03/04/17 20:30 04/03/17 20:29 Glucagon (Glucagon Inj) 1 mg UD PRN SQ 03/04/17 20:30 04/03/17 20:29 Budesonide (Pulmicort Respules 0.5MG/ 2ML Neb Soln) 0.5 mg BIDR INH 03/05/17 08:00 04/04/17 07:59 03/12/17 07:47 0.5 MG Amlodipine Besylate (Norvasc Tab) 5 mg QAM PO 03/05/17 09:00 04/04/17 08:59 03/12/17 07:50 5 MG Bisacodyl (Dulcolax Supp) 10 mg Q96H PRN [place] 03/04/17 20:30 04/03/17 20:29 Carbidopa/Levodopa (Sinemet 25/ 100MG Tab) 2 tab TID PO 03/04/17 21:00 04/03/17 20:59 03/12/17 07:49 2 TAB Cyanocobalamin (Vitamin B-12 Tab) 250 mcg DAILY PO 03/05/17 09:00 04/04/17 08:59 03/12/17 07:49 250 MCG Diphenhydramine HCl (Benadryl Cap) 25 mg Q8 PRN PO 03/04/17 22:00 04/03/17 21:59 Docusate Sodium (coLACE CAP) 100 mg DAILY PO 03/05/17 09:00 04/04/17 08:59 03/12/17 07:45 100 MG Econazole Nitrate (Econazole Nitrate 1% Crm) 1 appln BID EXT 03/04/17 21:00 04/03/17 20:59 03/12/17 07:46 1 APPLN Levothyroxine Sodium (Synthroid Tab) 112 mcg DAILYBB PO 03/05/17 06:00 04/04/17 06:59 03/11/17 05:37 112 MCG Magnesium Hydroxide (Milk Of Magnesia Susp) 30 ml Q72H PRN PO 03/04/17 20:30 04/03/17 20:29 03/12/17 08:01 30 ML Menthol/Zinc Oxide (Calmoseptine Oint) 1 appln HS EXT 03/04/17 21:00 04/03/17 20:59 03/11/17 21:15 1 APPLN Montelukast Sodium (Singulair Tab) 10 mg HS PO 03/04/17 21:00 04/03/17 20:59 03/11/17 21:24 10 MG Nystatin (Mycostatin Oint) 1 appln BID EXT 03/04/17 21:00 04/03/17 20:59 03/12/17 07:46 1 APPLN Oxybutynin Chloride (Ditropan Tab) 5 mg Q12 PRN PO 03/04/17 20:30 04/03/17 20:29 Sodium Biphosphate/ Sodium Phosphate (Fleet Enema) 132 ml Q96H PRN [place] 03/04/17 20:30 04/03/17 20:29 Artificial Tears (Artificial Tears) 2 drops QID OPB 03/04/17 21:00 04/03/17 20:59 03/12/17 07:46 2 DROPS Miscellaneous Information (Order Awaiting Action) 1 ea QS N/A 03/05/17 00:00 04/04/17 00:00 Citalopram Hydrobromide (celeXA TAB) 10 mg QAM PO 03/05/17 09:00 04/04/17 08:59 03/12/17 07:45 10 MG Ferrous Sulfate (Feosol Tab) 325 mg BIDM PO 03/05/17 07:30 04/04/17 07:59 03/12/17 07:45 325 MG Pantoprazole Sodium (Protonix Tab) 40 mg QAM PO 03/05/17 09:00 04/04/17 08:59 03/12/17 07:45 40 MG Clotrimazole (Mycelex 10MG Manuel) 1 manuel [id number] MIGUEL 03/04/17 23:00 03/14/17 22:59 03/12/17 07:47 1 MANUEL Ipratropium [place] (Atrovent 0.02% 0.5MG/2.5ML Neb) 0.5 mg Q6R INH 03/05/17 03:00 04/04/17 02:59 03/12/17 07:47 0.5 MG Levalbuterol (Xopenex 1.25MG/ 0.5ML Neb) 1.25 mg Q6R INH 03/05/17 03:00 04/04/17 02:59 03/12/17 07:47 1.25 MG Ipratropium [place] (Atrovent 0.02% 0.5MG/2.5ML Neb) 0.5 mg Q2H PRN INH 03/04/17 21:15 04/03/17 21:14 03/12/17 05:34 0.5 MG Levalbuterol (Xopenex 1.25MG/ 0.5ML Neb) 1.25 mg Q2H PRN INH 03/04/17 21:15 04/03/17 21:14 03/12/17 05:34 1.25 MG Methylprednisolone Sodium Succinate 40 mg/Syringe 0.64 ml @ 1.5 mls/min Q12H IV 03/05/17 16:00 04/04/17 03:59 03/12/17 04:20 1.5 MLS/MIN Heparin Sodium (Porcine) (Heparin Sq 5000 Unit/0.5ml) 5,000 unit Q12 SQ 03/05/17 10:00 04/04/17 09:59 03/12/17 07:50 5,000 UNIT Levetiracetam 500 mg/Dextrose 105 ml @ 420 mls/hr Q12H IV 03/06/17 10:00 04/05/17 09:59 03/11/17 21:25 420 MLS/HR Sodium Chloride 1,000 ml @ 100 mls/hr Q10H IV 03/07/17 12:00 04/06/17 11:59 Future Hold 03/07/17 23:21 100 MLS/HR Potassium Chloride (Klor-Con Tab) 20 meq BID PO 03/11/17 09:00 04/10/17 08:59 03/12/17 07:46 20 MEQ Impression (1) Hyponatremia Izabela is a frail 71 year-old female admitted with pneumonia who was also found to have new atrial fibrillation and hyponatremia. Serum sodium improving with increased solute intake. Volume status appears acceptable. Unfortunately, nutrition remains the largest barrier to correction of the patient's dysnatremia and other electrolyte abnormalities. This has been the pattern for several days. Recommendations -- Encourage nutrition -- Continue oral KCl as needed -- Serum sodium improved and acceptable -- Sodium remains stable after stopping NaCl tablets and without enforcing a fluid restriction -- No additional recommendations from nephrology for now I will sign off. Please call with any additional questions or concerns.
--- NOTE | 2017-03-12 11:39 | PULMONARY PROGRESS NOTE ---
DATE: 03/12/2017 TIME: 11:20 a.m. SUBJECTIVE: The patient is awake today. She is talking. She indicates that she feels less short of breath. She admits that she is still coughing. All of this reflected improvement from yesterday when she was essentially unresponsive. OBJECTIVE: GENERAL: The patient looked comfortable. VITAL SIGNS: Temperature is 36.8. Yesterday, she had a maximum temperature of 37.9. Heart rate was 76. The rhythm was irregular. Blood pressure 153/79. CHEST: Auscultation revealed rhonchi, greater on the right than the left. The patient was actually able to support a bit, so I could listen posteriorly. Respiratory rate was 20. Saturation was 95% on 2 liters. EXTREMITIES: Revealed the lower leg edema is resolving. It is now considered trace. LABORATORY DATA: Electrolytes today show sodium 131, potassium 3.6, chloride 89, bicarbonate 37. BUN is 15 with a creatinine of 0.54. Albumin is low at 2.7. Chest x-ray done yesterday showed a right internal jugular line in place. Small effusions were noted. A suggestion of pulmonary edema was made by the radiologist. It was a portable x-ray. The patient has cardiomegaly. She is obese. Thus, it is very difficult to adequately interpret this portable x-ray. IMPRESSIONS: 1. Pneumonia, right middle lobe and left lower lobe -- based upon CT. 2. Respiratory failure with hypoxia and hypercarbia. 3. Parkinson's disease. 4. Urinary tract infection secondary to Escherichia coli. 5. Pulmonary hypertension. RECOMMENDATIONS: The patient seems relatively stable. She is still wearing her BiPAP at night. I believe the methylprednisolone can be decreased to 20 mg IV q. 12 hours. We will sign off from a respiratory perspective. Please feel free to call if we can help in any way.
[2017-03-12] MEDS: METHYLPREDNISOLONE IV 20 MG in SYRINGE 0 ML IV SCH (15:20)
[2017-03-12] MEDS: MENTHOL-ZINC OXIDE 360 APPLN/120 GM TUBE EXT SCH (21:04)
[2017-03-12] MEDS: MONTELUKAST SOD 10 MG TAB PO SCH (21:10)
[2017-03-13] VITALS (13 sets, daily range): BP systolic 107–168; BP diastolic 65–77; PULSE 68–76; TEMP 36.4–36.9; O2SAT 94–100
[2017-03-13] MEDS: IPRATROPIUM BROMIDE NEB SOLN 0.02% 2.5 ML VIAL INH SCH ×4 (01:49→19:17)
[2017-03-13] MEDS: LEVALBUTEROL 1.25MG/0.5ML NEB INH SCH ×4 (01:49→19:17)
[2017-03-13] MEDS: METHYLPREDNISOLONE IV 20 MG in SYRINGE 0 ML IV SCH ×2 (03:38→15:55)
[2017-03-13 05:21] LABS: ALBUMIN 2.8 gm/dl (3.4-5.0); CALCIUM 8.3 mg/dl (8.5-10.1); CREATININE 0.46 mg/dl (0.60-1.20); POTASSIUM 3.7 mmol/L (3.5-5.1)
[2017-03-13] MEDS: LEVOTHYROXINE 112 MCG TAB PO SCH (05:30)
[2017-03-13 05:39] LABS: PHOSPHORUS 2.8 mg/dl (2.5-4.9)
[2017-03-13 06:39] LABS: EOS % 0.1 %; EOS ABS # 0.01 K/uL (0-0.5); HEMATOCRIT 28.5 % (37-47); HEMOGLOBIN 8.9 g/dL (12.0-16.0); IG# 0.03 K/uL (0.00-0.02); LYMPH % 5.8 %; LYMPH ABS # 0.42 K/uL (1.2-3.4); MEAN CELL VOLUME 85.8 fL (80-100); MEAN CORPUSCULAR HEMOGLOBIN 26.8 pg (25-34); MEAN CORPUSCULAR HGB CONC 31.2 g/dl (32-36); MEAN PLATELET VOLUME 9.5 fL (7.4-10.4); MONO % 6.8 %; MONO ABS # 0.49 K/uL (0.11-0.59); NEUT % 86.9 %; NEUT ABS # 6.28 K/uL (1.4-6.5); PLATELET COUNT 198 K/uL (130-400); RED CELL DISTRIBUTION WIDTH SD 47.6 fL (36.4-46.3); WHITE BLOOD COUNT 7.23 K/uL (4.8-10.8)
[2017-03-13] MEDS: BUDESONIDE 0.5 MG/2 ML VIAL (PULMICORT) INH SCH ×2 (07:17→19:17)
--- NOTE | 2017-03-13 07:19 | Progress Note ---
Subjective Date of Service: Mar 12, 2017. Subjective Examined patient at 14:00 Patient at this time was awake, she states she has no complaints today and reports her SOB has improved. Problem List Medical Problems: (1) Anemia Status: Acute (2) Cellulitis Status: Acute (3) Chronic anemia Status: Acute (4) Congestive heart failure (CHF) Status: Acute (5) Dehydration Status: Acute (6) Flu-like symptoms Status: Acute (7) Guaiac positive stools Status: Acute (8) Hypertension Status: Acute (9) Hypokalemia Status: Acute (10) Hyponatremia Status: Acute (11) Pneumonia Status: Acute (12) Profound anemia Status: Acute (13) Severe anemia Status: Acute (14) Shortness of breath Status: Acute (15) Urinary tract infection Status: Acute (16) Weakness Status: Acute Review of Systems All Other Systems: Reviewed and Negative Medications Current Inpatient Medications Medications (Trade) Dose Ordered Sig/Phong Route Start Time Stop Time Status Last Admin Dose Admin Ondansetron HCl (Zofran Inj) 4 mg Q6H PRN IV 03/04/17 20:30 04/03/17 20:29 Guaifenesin (Organidin Nr Tab) 600 mg BID PO 03/04/17 21:00 04/03/17 20:59 03/12/17 21:11 600 MG Ondansetron HCl (Zofran Odt) 8 mg Q6H PRN PO 03/04/17 20:30 04/03/17 20:29 Insulin Aspart (novoLOG ASPART) SLIDING SCALE If C... ACHS SC 03/04/17 21:00 04/03/17 20:59 03/05/17 17:23 1 UNITS Glucose (Glucose 40% Gel) 15-30 GRAMS 15 GRAMS... UD PRN PO 03/04/17 20:30 04/03/17 20:29 Glucose (Glucose Chew Tab) 4-8 Tablets 4 Tabl... UD PRN PO 03/04/17 20:30 04/03/17 20:29 Dextrose (Dextrose 50% 50ML Syringe) 25-50ML OF 50% DW IV FOR... UD PRN IV 03/04/17 20:30 04/03/17 20:29 Glucagon (Glucagon Inj) 1 mg UD PRN SQ 03/04/17 20:30 04/03/17 20:29 Budesonide (Pulmicort Respules 0.5MG/ 2ML Neb Soln) 0.5 mg BIDR INH 03/05/17 08:00 04/04/17 07:59 03/12/17 19:05 0.5 MG Amlodipine Besylate (Norvasc Tab) 5 mg QAM PO 03/05/17 09:00 04/04/17 08:59 03/12/17 07:50 5 MG Bisacodyl (Dulcolax Supp) 10 mg Q96H PRN ID 03/04/17 20:30 04/03/17 20:29 Carbidopa/Levodopa (Sinemet 25/ 100MG Tab) 2 tab TID PO 03/04/17 21:00 04/03/17 20:59 03/12/17 21:10 2 TAB Cyanocobalamin (Vitamin B-12 Tab) 250 mcg DAILY PO 03/05/17 09:00 04/04/17 08:59 03/12/17 07:49 250 MCG Diphenhydramine HCl (Benadryl Cap) 25 mg Q8 PRN PO 03/04/17 22:00 04/03/17 21:59 Docusate Sodium (coLACE CAP) 100 mg DAILY PO 03/05/17 09:00 04/04/17 08:59 03/12/17 07:45 100 MG Econazole Nitrate (Econazole Nitrate 1% Crm) 1 appln BID EXT 03/04/17 21:00 04/03/17 20:59 03/12/17 21:04 1 APPLN Levothyroxine Sodium (Synthroid Tab) 112 mcg DAILYBB PO 03/05/17 06:00 04/04/17 06:59 03/13/17 05:30 112 MCG Magnesium Hydroxide (Milk Of Magnesia Susp) 30 ml Q72H PRN PO 03/04/17 20:30 04/03/17 20:29 03/12/17 08:01 30 ML Menthol/Zinc Oxide (Calmoseptine Oint) 1 appln HS EXT 03/04/17 21:00 04/03/17 20:59 03/12/17 21:04 1 APPLN Montelukast Sodium (Singulair Tab) 10 mg HS PO 03/04/17 21:00 04/03/17 20:59 03/12/17 21:10 10 MG Nystatin (Mycostatin Oint) 1 appln BID EXT 03/04/17 21:00 04/03/17 20:59 03/12/17 21:04 1 APPLN Oxybutynin Chloride (Ditropan Tab) 5 mg Q12 PRN PO 03/04/17 20:30 04/03/17 20:29 Sodium Biphosphate/ Sodium Phosphate (Fleet Enema) 132 ml Q96H PRN ID 03/04/17 20:30 04/03/17 20:29 Artificial Tears (Artificial Tears) 2 drops QID OPB 03/04/17 21:00 04/03/17 20:59 03/12/17 21:09 2 DROPS Miscellaneous Information (Order Awaiting Action) 1 ea QS N/A 03/05/17 00:00 04/04/17 00:00 Citalopram Hydrobromide (celeXA TAB) 10 mg QAM PO 03/05/17 09:00 04/04/17 08:59 03/12/17 07:45 10 MG Ferrous Sulfate (Feosol Tab) 325 mg BIDM PO 03/05/17 07:30 04/04/17 07:59 03/12/17 15:20 325 MG Pantoprazole Sodium (Protonix Tab) 40 mg QAM PO 03/05/17 09:00 04/04/17 08:59 03/12/17 07:45 40 MG Clotrimazole (Mycelex 10MG Manuel) 1 manuel [id number] MIGUEL 03/04/17 23:00 03/14/17 22:59 03/12/17 23:09 1 MANUEL Ipratropium [place] (Atrovent 0.02% 0.5MG/2.5ML Neb) 0.5 mg Q6R INH 03/05/17 03:00 04/04/17 02:59 03/13/17 01:49 0.5 MG Levalbuterol (Xopenex 1.25MG/ 0.5ML Neb) 1.25 mg Q6R INH 03/05/17 03:00 04/04/17 02:59 03/13/17 01:49 1.25 MG Ipratropium [place] (Atrovent 0.02% 0.5MG/2.5ML Neb) 0.5 mg Q2H PRN INH 03/04/17 21:15 04/03/17 21:14 03/12/17 05:34 0.5 MG Levalbuterol (Xopenex 1.25MG/ 0.5ML Neb) 1.25 mg Q2H PRN INH 03/04/17 21:15 04/03/17 21:14 03/12/17 05:34 1.25 MG Heparin Sodium (Porcine) (Heparin Sq 5000 Unit/0.5ml) 5,000 unit Q12 SQ 03/05/17 10:00 04/04/17 09:59 03/12/17 21:02 5,000 UNIT Levetiracetam 500 mg/Dextrose 105 ml @ 420 mls/hr Q12H IV 03/06/17 10:00 04/05/17 09:59 03/12/17 21:09 420 MLS/HR Sodium Chloride 1,000 ml @ 100 mls/hr Q10H IV 03/07/17 12:00 04/06/17 11:59 Future Hold 03/07/17 23:21 100 MLS/HR Potassium Chloride (Klor-Con Tab) 20 meq BID PO 03/11/17 09:00 04/10/17 08:59 03/12/17 21:10 20 MEQ Methylprednisolone Sodium Succinate 20 mg/Syringe 0.32 ml @ 1.5 mls/min Q12H IV 03/12/17 16:00 04/04/17 03:59 03/13/17 03:38 1.5 MLS/MIN Objective Vital Signs Date Time Temp Pulse Resp B/P (MAP) Pulse Ox O2 Delivery O2 Flow Rate FiO2 03/13/17 04:00 Nasal Cannula 2.0 03/13/17 03:38 36.4 70 18 168/77 (107) 97 Nasal Cannula 2.0 03/13/17 01:49 70 22 97 Nasal Cannula 2.0 03/12/17 23:59 Nasal Cannula 2.0 03/12/17 23:14 37.3 83 18 128/68 (88) 98 Nasal Cannula 2.5 03/12/17 20:18 36.8 88 20 147/54 (85) 94 Nasal Cannula 3.0 03/12/17 20:00 Nasal Cannula 2.0 03/12/17 19:06 84 20 96 Nasal Cannula 2.0 03/12/17 16:00 95 Nasal Cannula 2.0 03/12/17 15:10 37.2 77 18 131/77 (95) 93 Nasal Cannula 2.0 03/12/17 14:34 80 20 97 Nasal Cannula 2.0 03/12/17 12:00 96 Nasal Cannula 2.0 03/12/17 11:33 37.0 78 18 144/71 (95) 98 03/12/17 08:01 36.8 76 18 153/79 (103) 95 03/12/17 08:00 95 Nasal Cannula 2.0 03/12/17 07:47 80 20 97 Nasal Cannula 2.0 Physical Exam Comments: General Appearance: WD/WN, + no distress+ obese Eyes: normal inspection, sclerae normal Respiratory/Chest: chest non-tender, + decreased breath sounds, + accessory muscle use, + rhonchi bilaterally Cardiovascular: regular rate, rhythm, + systolic murmur Abdomen: normal bowel sounds, non tender, soft Extremities: no calf tenderness, + pedal edema Neurologic/Psychiatric: alert, oriented x3 Laboratory Results Last 24 Hours Test 03/12/17 11:27 03/12/17 16:29 03/12/17 20:20 03/13/17 04:20 Bedside Glucose 127 mg/dl 113 mg/dl 132 mg/dl Sodium Level 135 mmol/L Potassium Level 3.7 mmol/L Chloride Level 92 mmol/L Carbon Dioxide Level 39 mmol/L Anion Gap 4.0 mmol/L Blood Urea Nitrogen 16 mg/dl Creatinine 0.46 mg/dl Est Creatinine Clear Calc Drug Dose 129.0 ml/min Estimated GFR () 115.2 Estimated GFR (Non- 99.4 BUN/Creatinine Ratio 35.9 Random Glucose 81 mg/dl Calcium Level 8.3 mg/dl Phosphorus Level 2.8 mg/dl Albumin 2.8 gm/dl Test 03/13/17 06:28 03/13/17 06:55 White Blood Count 7.23 K/uL Red Blood Count 3.32 M/uL Hemoglobin 8.9 g/dL Hematocrit 28.5 % Mean Corpuscular Volume 85.8 fL Mean Corpuscular Hemoglobin 26.8 pg Mean Corpuscular Hemoglobin Concent 31.2 g/dl Platelet Count 198 K/uL Mean Platelet Volume 9.5 fL Neutrophils (%) (Auto) 86.9 % Lymphocytes (%) (Auto) 5.8 % Monocytes (%) (Auto) 6.8 % Eosinophils (%) (Auto) 0.1 % Basophils (%) (Auto) 0.0 % Neutrophils # (Auto) 6.28 K/uL Lymphocytes # (Auto) 0.42 K/uL Monocytes # (Auto) 0.49 K/uL Eosinophils # (Auto) 0.01 K/uL Basophils # (Auto) 0.00 K/uL RDW Standard Deviation 47.6 fL RDW Coefficient of Variation 15.0 % Immature Granulocyte % (Auto) 0.4 % Immature Granulocyte # (Auto) 0.03 K/uL Hypochromasia PRESENT Ovalocytes 1+ Acanthocytes 1+ Bedside Glucose 93 mg/dl Assessment and Plan 71 F recently treated for influenza presents with Acute respiratory failure with hypoxia/pneumonia involving right lung--hyponatremia, hypokalemia, hypomagnesemia, gram negative uti poa associated with chronic indwelling munoz cath Right sided pneumonia Patient today is verbal and oreinted. Throughout this hospital stay she has waxed and waned. Some day she becomes non verbal and does not follow commands, others she is completely alert and takes her medicine and eats her meals Will continue same management. On cefepime Do not believe patient is fluid overloaded as CT chest confirmed pneumonia. Concern over lack of clinical improvement, especially mentation as she has waned and waned. At least, her pulmonary issue appears to be improving. D/W son, will continue with current treatment. If no improvement Monday, may consider palliative care consult Appreciate pulmonary recommendations. BIPAP at night. metabolic encephalopathy from hyponatremia and infection, As compared to yesterday, today her mental state has improved, but will need to see consistent improvement. Will continue to monitor for waxing and waning. Acute respiratory failure, will be on supplemental oxygen, nebulized medications, solu-medrol of xopenex and ipatropium q 6 hours plus her usual home meds of singulair BIPAP at night Hyponatremia, Likely hypovolemic hyponatremia NA at 130. This improved with IVF will hold due to third spacing. Appreciate nephro input. Hypokalemia and hypomagnesemia repleted Atypical parkinsonism, continue sinemet HTN continue norvasc but hold diuretic with hyponatremia Seizure disorder-- ON keppra IV. May switch to PO if patient remains alert mitch. Neuro on the case. Appreciate input GERD-- Continue pantoprazole Hyperlipidemia-- Continue simvastatin 20 mg every evening Hypothyroidism-- Continue levothyroxine sodium 112 g daily Depression-- Continue citalopram 10 mg daily Vitamin B12 deficiency-- Continue cyanocobalamin 250 g daily Patient is a level 5 Code status. If mentation does not improve, may consider palliative care consult. During her periods of clarity, patient changed her code status to a level 5. Her son is aware of this change. Continued [facility] stay due to: other (coarse breath soiunds. mental status has no improved. not safe for discharge as of yet. not tolerating PO meds) Discharge planning: uncertain
[2017-03-13] MEDS: ARTIFICIAL TEARS OP SOLN OPB SCH ×4 (09:00→20:26)
[2017-03-13] MEDS: CYANOCOBALAMIN 500 MCG TAB (VIT B-12) PO SCH (10:08)
[2017-03-13] MEDS: LEVETIRACETAM IV 500 MG in DEXTROSE 5% 100ML 100 ML IV SCH ×2 (10:08→21:57)
[2017-03-13] MEDS: AMLODIPINE BESYLATE 5 MG TAB PO SCH (10:08)
[2017-03-13] MEDS: CITALOPRAM 20 MG TAB PO SCH (10:08)
[2017-03-13] MEDS: POTASSIUM CHLORIDE 20 MEQ TABCR PO SCH ×2 (10:09→21:57)
[2017-03-13] MEDS: DOCUSATE SODIUM 100 MG CAP PO SCH (10:09)
[2017-03-13] MEDS: FERROUS SULFATE 325 MG TAB PO SCH ×2 (10:09→18:16)
[2017-03-13] MEDS: GUAIFENESIN 200 MG TAB PO SCH ×2 (10:09→20:28)
[2017-03-13] MEDS: INSULIN ASPART 100 UNITS/ML 3 ML PEN SC SCH ×5 (10:10→21:46)
[2017-03-13] MEDS: NYSTATIN OINT 15 GM TUBE EXT SCH ×2 (10:10→20:26)
[2017-03-13] MEDS: ECONAZOLE NITRATE 1% CRM 15 GM TUBE EXT SCH ×2 (10:10→20:22)
[2017-03-13] MEDS: PANTOprazole SOD 40 MG TAB PO SCH (10:11)
[2017-03-13] MEDS: CLOTRIMAZOLE 10 MG TROCHE LOZ SCH ×5 (10:11→22:23)
[2017-03-13] MEDS: CARBIDOPA/LEVODOPA 25/100MG TAB PO SCH ×3 (10:12→20:28)
[2017-03-13] MEDS: HEPARIN SOD 5000 UNIT/0.5 ML CARP SQ SCH ×2 (10:24→20:29)
--- NOTE | 2017-03-13 16:26 | Progress Note ---
Subjective Date of Service: Mar 13, 2017. Subjective Pt evaluation today including: conversation w/ patient, physical exam, lab review, review of inpatient medication list Pain: no pain PO Intake: improving slowly Voiding: munoz catheter in place patient seen this afternoon, no concerns she is oriented to person and place, she knows why she is in the hospital not much of an appetite, states she was tired most of the day certainly her orientation seems like an improvement labs reviewed, stable will transfer to medical Problem List Medical Problems: (1) Anemia Status: Acute (2) Cellulitis Status: Acute (3) Chronic anemia Status: Acute (4) Congestive heart failure (CHF) Status: Acute (5) Dehydration Status: Acute (6) Flu-like symptoms Status: Acute (7) Guaiac positive stools Status: Acute (8) Hypertension Status: Acute (9) Hypokalemia Status: Acute (10) Hyponatremia Status: Acute (11) Pneumonia Status: Acute (12) Profound anemia Status: Acute (13) Severe anemia Status: Acute (14) Shortness of breath Status: Acute (15) Urinary tract infection Status: Acute (16) Weakness Status: Acute Review of Systems Constitutional: + weakness, + fatigue Neurologic: + weakness, + balance problems All Other Systems: Reviewed and Negative Medications Current Inpatient Medications Medications (Trade) Dose Ordered Sig/Phong Route Start Time Stop Time Status Last Admin Dose Admin Ondansetron HCl (Zofran Inj) 4 mg Q6H PRN IV 03/04/17 20:30 04/03/17 20:29 Guaifenesin (Organidin Nr Tab) 600 mg BID PO 03/04/17 21:00 04/03/17 20:59 03/13/17 10:09 600 MG Ondansetron HCl (Zofran Odt) 8 mg Q6H PRN PO 03/04/17 20:30 04/03/17 20:29 Insulin Aspart (novoLOG ASPART) SLIDING SCALE If C... ACHS SC 03/04/17 21:00 04/03/17 20:59 03/05/17 17:23 1 UNITS Glucose (Glucose 40% Gel) 15-30 GRAMS 15 GRAMS... UD PRN PO 03/04/17 20:30 04/03/17 20:29 Glucose (Glucose Chew Tab) 4-8 Tablets 4 Tabl... UD PRN PO 03/04/17 20:30 04/03/17 20:29 Dextrose (Dextrose 50% 50ML Syringe) 25-50ML OF 50% DW IV FOR... UD PRN IV 03/04/17 20:30 04/03/17 20:29 Glucagon (Glucagon Inj) 1 mg UD PRN SQ 03/04/17 20:30 04/03/17 20:29 Budesonide (Pulmicort Respules 0.5MG/ 2ML Neb Soln) 0.5 mg BIDR INH 03/05/17 08:00 04/04/17 07:59 03/13/17 07:17 0.5 MG Amlodipine Besylate (Norvasc Tab) 5 mg QAM PO 03/05/17 09:00 04/04/17 08:59 03/13/17 10:08 5 MG Bisacodyl (Dulcolax Supp) 10 mg Q96H PRN [place] 03/04/17 20:30 04/03/17 20:29 03/13/17 10:24 10 MG Carbidopa/Levodopa (Sinemet 25/ 100MG Tab) 2 tab TID PO 03/04/17 21:00 04/03/17 20:59 03/13/17 14:28 2 TAB Cyanocobalamin (Vitamin B-12 Tab) 250 mcg DAILY PO 03/05/17 09:00 04/04/17 08:59 03/13/17 10:08 250 MCG Diphenhydramine HCl (Benadryl Cap) 25 mg Q8 PRN PO 03/04/17 22:00 04/03/17 21:59 Docusate Sodium (coLACE CAP) 100 mg DAILY PO 03/05/17 09:00 04/04/17 08:59 03/13/17 10:09 100 MG Econazole Nitrate (Econazole Nitrate 1% Crm) 1 appln BID EXT 03/04/17 21:00 04/03/17 20:59 03/13/17 10:10 1 APPLN Levothyroxine Sodium (Synthroid Tab) 112 mcg DAILYBB PO 03/05/17 06:00 04/04/17 06:59 03/13/17 05:30 112 MCG Magnesium Hydroxide (Milk Of Magnesia Susp) 30 ml Q72H PRN PO 03/04/17 20:30 04/03/17 20:29 03/12/17 08:01 30 ML Menthol/Zinc Oxide (Calmoseptine Oint) 1 appln HS EXT 03/04/17 21:00 04/03/17 20:59 03/12/17 21:04 1 APPLN Montelukast Sodium (Singulair Tab) 10 mg HS PO 03/04/17 21:00 04/03/17 20:59 03/12/17 21:10 10 MG Nystatin (Mycostatin Oint) 1 appln BID EXT 03/04/17 21:00 04/03/17 20:59 03/13/17 10:10 1 APPLN Oxybutynin Chloride (Ditropan Tab) 5 mg Q12 PRN PO 03/04/17 20:30 04/03/17 20:29 Sodium Biphosphate/ Sodium Phosphate (Fleet Enema) 132 ml Q96H PRN [place] 03/04/17 20:30 04/03/17 20:29 Artificial Tears (Artificial Tears) 2 drops QID OPB 03/04/17 21:00 04/03/17 20:59 03/12/17 21:09 2 DROPS Miscellaneous Information (Order Awaiting Action) 1 ea QS N/A 03/05/17 00:00 04/04/17 00:00 Citalopram Hydrobromide (celeXA TAB) 10 mg QAM PO 03/05/17 09:00 04/04/17 08:59 03/13/17 10:08 10 MG Ferrous Sulfate (Feosol Tab) 325 mg BIDM PO 03/05/17 07:30 04/04/17 07:59 03/13/17 10:09 325 MG Pantoprazole Sodium (Protonix Tab) 40 mg QAM PO 03/05/17 09:00 04/04/17 08:59 03/13/17 10:11 40 MG Clotrimazole (Mycelex 10MG Manuel) 1 manuel [id number] MIGUEL 03/04/17 23:00 03/14/17 22:59 03/13/17 10:11 1 MANUEL Ipratropium [place] (Atrovent 0.02% 0.5MG/2.5ML Neb) 0.5 mg Q6R INH 03/05/17 03:00 04/04/17 02:59 03/13/17 14:33 0.5 MG Levalbuterol (Xopenex 1.25MG/ 0.5ML Neb) 1.25 mg Q6R INH 03/05/17 03:00 04/04/17 02:59 03/13/17 14:34 1.25 MG Ipratropium [place] (Atrovent 0.02% 0.5MG/2.5ML Neb) 0.5 mg Q2H PRN INH 03/04/17 21:15 04/03/17 21:14 03/12/17 05:34 0.5 MG Levalbuterol (Xopenex 1.25MG/ 0.5ML Neb) 1.25 mg Q2H PRN INH 03/04/17 21:15 04/03/17 21:14 03/12/17 05:34 1.25 MG Heparin Sodium (Porcine) (Heparin Sq 5000 Unit/0.5ml) 5,000 unit Q12 SQ 03/05/17 10:00 04/04/17 09:59 03/13/17 10:24 5,000 UNIT Levetiracetam 500 mg/Dextrose 105 ml @ 420 mls/hr Q12H IV 03/06/17 10:00 04/05/17 09:59 03/13/17 10:08 420 MLS/HR Sodium Chloride 1,000 ml @ 100 mls/hr Q10H IV 03/07/17 12:00 04/06/17 11:59 Future Hold 03/07/17 23:21 100 MLS/HR Potassium Chloride (Klor-Con Tab) 20 meq BID PO 03/11/17 09:00 04/10/17 08:59 03/13/17 10:09 20 MEQ Methylprednisolone Sodium Succinate 20 mg/Syringe 0.32 ml @ 1.5 mls/min Q12H IV 03/12/17 16:00 04/04/17 03:59 03/13/17 15:55 1.5 MLS/MIN Objective Vital Signs Date Time Temp Pulse Resp B/P (MAP) Pulse Ox O2 Delivery O2 Flow Rate FiO2 03/13/17 15:13 36.6 76 16 130/67 (88) 97 Nasal Cannula 2.0 03/13/17 14:34 70 20 100 Nasal Cannula 2.0 03/13/17 12:00 95 Nasal Cannula 2.0 03/13/17 11:24 36.9 76 20 107/65 (79) 99 Nasal Cannula 2.0 Humidified Oxygen 03/13/17 08:00 96 Nasal Cannula 2.0 03/13/17 07:43 36.5 76 24 136/76 (96) 97 Nasal Cannula 2.0 Humidified Oxygen 03/13/17 07:19 72 22 97 Nasal Cannula 2.0 03/13/17 04:00 Nasal Cannula 2.0 03/13/17 03:38 36.4 70 18 168/77 (107) 97 Nasal Cannula 2.0 03/13/17 01:49 70 22 97 Nasal Cannula 2.0 03/12/17 23:59 Nasal Cannula 2.0 03/12/17 23:14 37.3 83 18 128/68 (88) 98 Nasal Cannula 2.5 03/12/17 20:18 36.8 88 20 147/54 (85) 94 Nasal Cannula 3.0 03/12/17 20:00 Nasal Cannula 2.0 03/12/17 19:06 84 20 96 Nasal Cannula 2.0 Physical Exam General Appearance: no apparent distress, + obese Eyes: normal inspection, EOMI, sclerae normal ENT: normal ENT inspection, hearing grossly normal, pharynx normal Neck: supple, no adenopathy, no JVD, trachea midline Respiratory/Chest: chest non-tender, lungs clear, normal breath sounds, no respiratory distress, no accessory muscle use Cardiovascular: regular rate, rhythm, no edema, no gallop, no JVD, no murmur Abdomen: normal bowel sounds, non tender, soft, no organomegaly Extremities: normal range of motion, non-tender, normal inspection, no pedal edema, no calf tenderness, pelvis stable 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, alert, + motor weakness, + depressed affect Skin: normal color, warm/dry, no rash Laboratory Results Last 24 Hours Test 03/12/17 16:29 03/12/17 20:20 03/13/17 04:20 03/13/17 06:28 Bedside Glucose 113 mg/dl 132 mg/dl Sodium Level 135 mmol/L Potassium Level 3.7 mmol/L Chloride Level 92 mmol/L Carbon Dioxide Level 39 mmol/L Anion Gap 4.0 mmol/L Blood Urea Nitrogen 16 mg/dl Creatinine 0.46 mg/dl Est Creatinine Clear Calc Drug Dose 129.0 ml/min Estimated GFR () 115.2 Estimated GFR (Non- 99.4 BUN/Creatinine Ratio 35.9 Random Glucose 81 mg/dl Calcium Level 8.3 mg/dl Phosphorus Level 2.8 mg/dl Albumin 2.8 gm/dl White Blood Count 7.23 K/uL Red Blood Count 3.32 M/uL Hemoglobin 8.9 g/dL Hematocrit 28.5 % Mean Corpuscular Volume 85.8 fL Mean Corpuscular Hemoglobin 26.8 pg Mean Corpuscular Hemoglobin Concent 31.2 g/dl Platelet Count 198 K/uL Mean Platelet Volume 9.5 fL Neutrophils (%) (Auto) 86.9 % Lymphocytes (%) (Auto) 5.8 % Monocytes (%) (Auto) 6.8 % Eosinophils (%) (Auto) 0.1 % Basophils (%) (Auto) 0.0 % Neutrophils # (Auto) 6.28 K/uL Lymphocytes # (Auto) 0.42 K/uL Monocytes # (Auto) 0.49 K/uL Eosinophils # (Auto) 0.01 K/uL Basophils # (Auto) 0.00 K/uL RDW Standard Deviation 47.6 fL RDW Coefficient of Variation 15.0 % Immature Granulocyte % (Auto) 0.4 % Immature Granulocyte # (Auto) 0.03 K/uL Hypochromasia PRESENT Ovalocytes 1+ Acanthocytes 1+ Test 03/13/17 06:55 03/13/17 10:58 Bedside Glucose 93 mg/dl 129 mg/dl Assessment and Plan 71 F recently treated for influenza presents with Acute respiratory failure with hypoxia/pneumonia involving right lung--hyponatremia, hypokalemia, hypomagnesemia, gram negative uti poa associated with chronic indwelling munoz cath Right sided pneumonia improving clinically, patient oriented but fatigued completed full course of cefepime continue BIPAP at night metabolic encephalopathy from hyponatremia and infection, improvement today but she has been waxing and waning, look for consistency Acute respiratory failure due to pneumonia will be on supplemental oxygen, nebulized medications, solu-medrol 20 q12, wean back tomorrow xopenex and ipatropium q 6 hours plus her usual home meds of singulair BIPAP at night Hyponatremia, Likely hypovolemic hyponatremia resolved, Na is 135 Hypokalemia and hypomagnesemia replaced Atypical parkinsonism, continue sinemet HTN continue norvasc but hold diuretic with hyponatremia Seizure d/o: continue Keppra IV today, if she is alert again tomorrow switch to PO GERD-- Continue pantoprazole Hyperlipidemia-- Continue simvastatin 20 mg every evening Hypothyroidism-- Continue levothyroxine sodium 112 g daily Depression-- Continue citalopram 10 mg daily Vitamin B12 deficiency-- Continue cyanocobalamin 250 g daily Patient is a level 5 Code status. Hold on palliative care consult for now transfer to medical floor, HR stable Continued [facility] stay due to: other (coarse breath soiunds. mental status has no improved. not safe for discharge as of yet. not tolerating PO meds) Discharge planning: uncertain
[2017-03-13] MEDS: MENTHOL-ZINC OXIDE 360 APPLN/120 GM TUBE EXT SCH (21:45)
[2017-03-13] MEDS: MONTELUKAST SOD 10 MG TAB PO SCH (22:23)
[2017-03-14] VITALS (8 sets, daily range): BP systolic 107–147; BP diastolic 56–74; PULSE 66–85; TEMP 36.7–37.2; O2SAT 91–98
[2017-03-14] MEDS: IPRATROPIUM BROMIDE NEB SOLN 0.02% 2.5 ML VIAL INH SCH ×4 (01:38→19:33)
[2017-03-14] MEDS: LEVALBUTEROL 1.25MG/0.5ML NEB INH SCH ×4 (01:38→19:34)
[2017-03-14] MEDS: METHYLPREDNISOLONE IV 20 MG in SYRINGE 0 ML IV SCH ×2 (04:10→17:26)
[2017-03-14] MEDS: LEVOTHYROXINE 112 MCG TAB PO SCH ×2 (06:15→08:37)
[2017-03-14 06:35] LABS: ALBUMIN 2.7 gm/dl (3.4-5.0); CALCIUM 8.5 mg/dl (8.5-10.1); CREATININE 0.48 mg/dl (0.60-1.20); PHOSPHORUS 2.9 mg/dl (2.5-4.9)
[2017-03-14] MEDS: BUDESONIDE 0.5 MG/2 ML VIAL (PULMICORT) INH SCH ×2 (07:04→20:00)
[2017-03-14] MEDS: CLOTRIMAZOLE 10 MG TROCHE LOZ SCH ×4 (07:54→18:24)
[2017-03-14] MEDS: GUAIFENESIN 200 MG TAB PO SCH ×3 (08:37→20:29)
[2017-03-14] MEDS: AMLODIPINE BESYLATE 5 MG TAB PO SCH (08:39)
[2017-03-14] MEDS: CARBIDOPA/LEVODOPA 25/100MG TAB PO SCH ×4 (08:39→20:29)
[2017-03-14] MEDS: DOCUSATE SODIUM 100 MG CAP PO SCH (08:39)
[2017-03-14] MEDS: POTASSIUM CHLORIDE 20 MEQ TABCR PO SCH ×3 (08:39→20:29)
[2017-03-14] MEDS: ARTIFICIAL TEARS OP SOLN OPB SCH ×5 (08:40→20:33)
[2017-03-14] MEDS: CYANOCOBALAMIN 500 MCG TAB (VIT B-12) PO SCH (08:40)
[2017-03-14] MEDS: FERROUS SULFATE 325 MG TAB PO SCH ×2 (08:40→17:27)
[2017-03-14] MEDS: CITALOPRAM 20 MG TAB PO SCH (08:40)
[2017-03-14] MEDS: NYSTATIN OINT 15 GM TUBE EXT SCH ×3 (08:40→20:31)
[2017-03-14] MEDS: ECONAZOLE NITRATE 1% CRM 15 GM TUBE EXT SCH ×3 (08:40→20:31)
[2017-03-14] MEDS: PANTOprazole SOD 40 MG TAB PO SCH (08:41)
[2017-03-14] MEDS: HEPARIN SOD 5000 UNIT/0.5 ML CARP SQ SCH ×3 (08:50→20:30)
[2017-03-14] MEDS: INSULIN ASPART 100 UNITS/ML 3 ML PEN SC SCH ×4 (08:51→20:32)
[2017-03-14] MEDS: LEVETIRACETAM IV 500 MG in DEXTROSE 5% 100ML 100 ML IV SCH ×2 (08:51→20:31)
--- NOTE | 2017-03-14 13:18 | Progress Note ---
Subjective Date of Service: Mar 14, 2017. Subjective Pt evaluation today including: conversation w/ patient, physical exam, lab review, review of inpatient medication list Pain: no pain PO Intake: eating half of her meals Voiding: munoz catheter in place patient is alert again today, oriented, two good days in a row asked therapy to re-evaluate her, although at baseline she is in a wheelchair she can tell me that she has exercises at [employer], that she goes to various activities vitals and labs stable talked with her RN, she is eating half of her meals Problem List Medical Problems: (1) Anemia Status: Acute (2) Cellulitis Status: Acute (3) Chronic anemia Status: Acute (4) Congestive heart failure (CHF) Status: Acute (5) Dehydration Status: Acute (6) Flu-like symptoms Status: Acute (7) Guaiac positive stools Status: Acute (8) Hypertension Status: Acute (9) Hypokalemia Status: Acute (10) Hyponatremia Status: Acute (11) Pneumonia Status: Acute (12) Profound anemia Status: Acute (13) Severe anemia Status: Acute (14) Shortness of breath Status: Acute (15) Urinary tract infection Status: Acute (16) Weakness Status: Acute Review of Systems Constitutional: + weakness, + fatigue Neurologic: + weakness, + balance problems All Other Systems: Reviewed and Negative Medications Current Inpatient Medications Medications (Trade) Dose Ordered Sig/Phong Route Start Time Stop Time Status Last Admin Dose Admin Ondansetron HCl (Zofran Inj) 4 mg Q6H PRN IV 03/04/17 20:30 04/03/17 20:29 Guaifenesin (Organidin Nr Tab) 600 mg BID PO 03/04/17 21:00 04/03/17 20:59 03/14/17 08:37 600 MG Ondansetron HCl (Zofran Odt) 8 mg Q6H PRN PO 03/04/17 20:30 04/03/17 20:29 Insulin Aspart (novoLOG ASPART) SLIDING SCALE If C... ACHS SC 03/04/17 21:00 04/03/17 20:59 03/14/17 12:33 4 UNITS Glucose (Glucose 40% Gel) 15-30 GRAMS 15 GRAMS... UD PRN PO 03/04/17 20:30 04/03/17 20:29 Glucose (Glucose Chew Tab) 4-8 Tablets 4 Tabl... UD PRN PO 03/04/17 20:30 04/03/17 20:29 Dextrose (Dextrose 50% 50ML Syringe) 25-50ML OF 50% DW IV FOR... UD PRN IV 03/04/17 20:30 04/03/17 20:29 Glucagon (Glucagon Inj) 1 mg UD PRN SQ 03/04/17 20:30 04/03/17 20:29 Budesonide (Pulmicort Respules 0.5MG/ 2ML Neb Soln) 0.5 mg BIDR INH 03/05/17 08:00 04/04/17 07:59 03/14/17 07:04 0.5 MG Amlodipine Besylate (Norvasc Tab) 5 mg QAM PO 03/05/17 09:00 04/04/17 08:59 03/14/17 08:39 5 MG Bisacodyl (Dulcolax Supp) 10 mg Q96H PRN MT 03/04/17 20:30 04/03/17 20:29 03/13/17 10:24 10 MG Carbidopa/Levodopa (Sinemet 25/ 100MG Tab) 2 tab TID PO 03/04/17 21:00 04/03/17 20:59 03/14/17 08:39 2 TAB Cyanocobalamin (Vitamin B-12 Tab) 250 mcg DAILY PO 03/05/17 09:00 04/04/17 08:59 03/14/17 08:40 250 MCG Diphenhydramine HCl (Benadryl Cap) 25 mg Q8 PRN PO 03/04/17 22:00 04/03/17 21:59 Docusate Sodium (coLACE CAP) 100 mg DAILY PO 03/05/17 09:00 04/04/17 08:59 03/14/17 08:39 100 MG Econazole Nitrate (Econazole Nitrate 1% Crm) 1 appln BID EXT 03/04/17 21:00 04/03/17 20:59 03/14/17 08:40 1 APPLN Levothyroxine Sodium (Synthroid Tab) 112 mcg DAILYBB PO 03/05/17 06:00 04/04/17 06:59 03/14/17 08:37 112 MCG Magnesium Hydroxide (Milk Of Magnesia Susp) 30 ml Q72H PRN PO 03/04/17 20:30 04/03/17 20:29 03/12/17 08:01 30 ML Menthol/Zinc Oxide (Calmoseptine Oint) 1 appln HS EXT 03/04/17 21:00 04/03/17 20:59 03/13/17 21:45 1 APPLN Montelukast Sodium (Singulair Tab) 10 mg HS PO 03/04/17 21:00 04/03/17 20:59 03/13/17 22:23 10 MG Nystatin (Mycostatin Oint) 1 appln BID EXT 03/04/17 21:00 04/03/17 20:59 03/14/17 08:40 1 APPLN Oxybutynin Chloride (Ditropan Tab) 5 mg Q12 PRN PO 03/04/17 20:30 04/03/17 20:29 Sodium Biphosphate/ Sodium Phosphate (Fleet Enema) 132 ml Q96H PRN MT 03/04/17 20:30 04/03/17 20:29 Artificial Tears (Artificial Tears) 2 drops QID OPB 03/04/17 21:00 04/03/17 20:59 03/14/17 12:30 2 DROPS Miscellaneous Information (Order Awaiting Action) 1 ea QS N/A 03/05/17 00:00 04/04/17 00:00 Citalopram Hydrobromide (celeXA TAB) 10 mg QAM PO 03/05/17 09:00 04/04/17 08:59 03/14/17 08:40 10 MG Ferrous Sulfate (Feosol Tab) 325 mg BIDM PO 03/05/17 07:30 04/04/17 07:59 03/14/17 08:40 325 MG Pantoprazole Sodium (Protonix Tab) 40 mg QAM PO 03/05/17 09:00 04/04/17 08:59 03/14/17 08:41 40 MG Clotrimazole (Mycelex 10MG Manuel) 1 manuel [id number] MIGUEL 03/04/17 23:00 03/14/17 22:59 03/14/17 12:30 1 MANUEL Ipratropium [place] (Atrovent 0.02% 0.5MG/2.5ML Neb) 0.5 mg Q6R INH 03/05/17 03:00 04/04/17 02:59 03/14/17 07:03 0.5 MG Levalbuterol (Xopenex 1.25MG/ 0.5ML Neb) 1.25 mg Q6R INH 03/05/17 03:00 04/04/17 02:59 03/14/17 07:03 1.25 MG Ipratropium [place] (Atrovent 0.02% 0.5MG/2.5ML Neb) 0.5 mg Q2H PRN INH 03/04/17 21:15 04/03/17 21:14 03/12/17 05:34 0.5 MG Levalbuterol (Xopenex 1.25MG/ 0.5ML Neb) 1.25 mg Q2H PRN INH 03/04/17 21:15 04/03/17 21:14 03/12/17 05:34 1.25 MG Heparin Sodium (Porcine) (Heparin Sq 5000 Unit/0.5ml) 5,000 unit Q12 SQ 03/05/17 10:00 04/04/17 09:59 03/14/17 08:50 5,000 UNIT Levetiracetam 500 mg/Dextrose 105 ml @ 420 mls/hr Q12H IV 03/06/17 10:00 04/05/17 09:59 03/14/17 08:51 420 MLS/HR Sodium Chloride 1,000 ml @ 100 mls/hr Q10H IV 03/07/17 12:00 04/06/17 11:59 Future Hold 03/07/17 23:21 100 MLS/HR Potassium Chloride (Klor-Con Tab) 20 meq BID PO 03/11/17 09:00 04/10/17 08:59 03/14/17 08:39 20 MEQ Methylprednisolone Sodium Succinate 20 mg/Syringe 0.32 ml @ 1.5 mls/min Q12H IV 03/12/17 16:00 04/04/17 03:59 03/14/17 04:10 1.5 MLS/MIN Heparin Sodium (Porcine) (Heparin 10 Unit/ ml 5 ml Flush) 5 ml PRN PRN FLUSH 03/13/17 22:15 04/12/17 22:14 03/14/17 05:44 5 ML Objective Vital Signs Date Time Temp Pulse Resp B/P (MAP) Pulse Ox O2 Delivery O2 Flow Rate FiO2 03/14/17 08:30 Nasal Cannula 2.0 03/14/17 08:12 36.9 66 18 141/74 (96) 94 03/14/17 07:06 66 16 96 Nasal Cannula 2.0 03/14/17 01:40 71 14 93 Nasal Cannula 2.0 03/13/17 23:50 Nasal Cannula 2.0 03/13/17 19:20 68 20 95 Nasal Cannula 2.0 03/13/17 16:41 94 Nasal Cannula 2.0 03/13/17 16:24 36.8 68 16 137/72 (93) 94 03/13/17 16:00 94 Nasal Cannula 2.0 03/13/17 15:13 36.6 76 16 130/67 (88) 97 Nasal Cannula 2.0 03/13/17 14:34 70 20 100 Nasal Cannula 2.0 Physical Exam General Appearance: WD/WN, no apparent distress Eyes: normal inspection, EOMI, sclerae normal ENT: normal ENT inspection, hearing grossly normal, pharynx normal Neck: supple, no adenopathy, no JVD, trachea midline Respiratory/Chest: chest non-tender, lungs clear, normal breath sounds, no respiratory distress, no accessory muscle use Cardiovascular: regular rate, rhythm, no edema, no gallop, no JVD, no murmur Abdomen: normal bowel sounds, non tender, soft, no organomegaly Extremities: normal range of motion, non-tender, normal inspection, no pedal edema, no calf tenderness, pelvis stable 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, alert, oriented x 3, + motor weakness, + depressed affect Skin: normal color, warm/dry, no rash Laboratory Results Last 24 Hours Test 03/13/17 15:56 03/13/17 17:02 03/13/17 20:11 03/14/17 05:43 Bedside Glucose 94 mg/dl 96 mg/dl 144 mg/dl Sodium Level 134 mmol/L Potassium Level 4.0 mmol/L Chloride Level 94 mmol/L Carbon Dioxide Level 39 mmol/L Anion Gap 1.0 mmol/L Blood Urea Nitrogen 16 mg/dl Creatinine 0.48 mg/dl Est Creatinine Clear Calc Drug Dose 124.0 ml/min Estimated GFR () 113.6 Estimated GFR (Non- 98.0 BUN/Creatinine Ratio 33.6 Random Glucose 91 mg/dl Calcium Level 8.5 mg/dl Phosphorus Level 2.9 mg/dl Albumin 2.7 gm/dl Test 03/14/17 07:49 03/14/17 11:38 Bedside Glucose 119 mg/dl 135 mg/dl Assessment and Plan 71 F recently treated for influenza presents with Acute respiratory failure with hypoxia/pneumonia involving right lung--hyponatremia, hypokalemia, hypomagnesemia, gram negative uti poa associated with chronic indwelling munoz cath Right sided pneumonia resolved clinically, patient oriented but fatigued completed full course of cefepime continue BIPAP at night metabolic encephalopathy from hyponatremia and infection, two days of being oriented, encephalopathy would appear to be resolved Acute respiratory failure due to pneumonia completed antibiotics change Solu Medrol to Prednisone 20mg tomorrow AM xopenex and ipatropium q 6 hours plus her usual home meds of singulair BIPAP at night Hyponatremia, Likely hypovolemic hyponatremia resolved Hypokalemia and hypomagnesemia replaced Atypical parkinsonism, continue sinemet HTN continue norvasc but hold diuretic with hyponatremia, continue to hold on discharge Seizure d/o: Keppra PO GERD-- Continue pantoprazole Hyperlipidemia-- Continue simvastatin 20 mg every evening Hypothyroidism-- Continue levothyroxine sodium 112 g daily Depression-- Continue citalopram 10 mg daily Vitamin B12 deficiency-- Continue cyanocobalamin 250 g daily Patient is a level 5 Code status. plan to d/c back to [facility] tomorrow Continued [facility] stay due to: other (coarse breath soiunds. mental status has no improved. not safe for discharge as of yet. not tolerating PO meds) Discharge planning: uncertain
[2017-03-14] MEDS: MONTELUKAST SOD 10 MG TAB PO SCH (20:29)
[2017-03-14] MEDS: MENTHOL-ZINC OXIDE 360 APPLN/120 GM TUBE EXT SCH (20:30)
[2017-03-15] VITALS (12 sets, daily range): BP systolic 141–190; BP diastolic 61–73; PULSE 68–76; TEMP 36.5–38; O2SAT 90–98
[2017-03-15] MEDS: IPRATROPIUM BROMIDE NEB SOLN 0.02% 2.5 ML VIAL INH SCH ×3 (01:14→15:08)
[2017-03-15] MEDS: LEVALBUTEROL 1.25MG/0.5ML NEB INH SCH ×3 (01:15→15:08)
[2017-03-15] MEDS: BUDESONIDE 0.5 MG/2 ML VIAL (PULMICORT) INH SCH (07:13)
[2017-03-15] MEDS: HEPARIN SOD 5000 UNIT/0.5 ML CARP SQ SCH (09:00)
[2017-03-15] MEDS: CITALOPRAM 20 MG TAB PO SCH (09:17)
[2017-03-15] MEDS: PANTOprazole SOD 40 MG TAB PO SCH (09:17)
[2017-03-15] MEDS: POTASSIUM CHLORIDE 20 MEQ TABCR PO SCH (09:18)
[2017-03-15] MEDS: DOCUSATE SODIUM 100 MG CAP PO SCH (09:18)
[2017-03-15] MEDS: CARBIDOPA/LEVODOPA 25/100MG TAB PO SCH ×2 (09:18→14:21)
[2017-03-15] MEDS: AMLODIPINE BESYLATE 5 MG TAB PO SCH (09:19)
[2017-03-15] MEDS: CYANOCOBALAMIN 500 MCG TAB (VIT B-12) PO SCH (09:19)
[2017-03-15] MEDS: ECONAZOLE NITRATE 1% CRM 15 GM TUBE EXT SCH (09:20)
[2017-03-15] MEDS: GUAIFENESIN 200 MG TAB PO SCH (09:20)
[2017-03-15] MEDS: FERROUS SULFATE 325 MG TAB PO SCH ×2 (09:20→17:31)
[2017-03-15] MEDS: LEVOTHYROXINE 112 MCG TAB PO SCH (09:20)
[2017-03-15] MEDS: NYSTATIN OINT 15 GM TUBE EXT SCH (09:21)
[2017-03-15] MEDS: ARTIFICIAL TEARS OP SOLN OPB SCH ×3 (09:21→17:31)
[2017-03-15] MEDS: LEVETIRACETAM IV 500 MG in DEXTROSE 5% 100ML 100 ML IV SCH (09:22)
[2017-03-15] MEDS: INSULIN ASPART 100 UNITS/ML 3 ML PEN SC SCH ×2 (09:27→12:40)
[2017-03-15] MEDS ORDERED: PRED10TA PO (10:38)
--- NOTE | 2017-03-15 10:45 | Discharge Instructions ---
Discharge Instructions Date of Service Mar 15, 2017. Admission Reason for Admission: Acute Respiratory Failure With Hypoxia, Pneumonia Discharge Discharge Diagnosis / Problem: Acute hypoxic respiratory failure, pneumonia Discharge Goals Goal(s): Decrease discomfort, Improve function Activity Recommendations Activity Level: Assistance Required Therapies: Physical Therapy, Occupational Therapy Lifting Limitations: none Exercise/Sports Limitations: as tolerated Shower/Bathe: no limitations . Additional Information Patient informed of condition: Yes Advance Directives: Yes DNR: Yes Level of Care: Skilled Communicable Disease: No Prognosis: Stable Oxygen at (LPM): 2L, can wean as tolerated Fair Catheter: Yes (chronic) Instructions / Follow-Up Instructions / Follow-Up Medications: - PREDNISONE: finish taper, 20mg daily x 3 days then 10mg x 3 days then stop Acute hypoxic respiratory failure: secondary to influenza and pneumonia improved, breathing comfortably, 2L continuously try to wean as tolerated Pneumonia: already started treatment prior to admission with Levaquin and Clindamycin completed a full course of Cefepime IV while admitted afebrile, WBC normal minimal cough Influenza: completed course of Tamiflu, no further treatment needed Encephalopathy: was minimally responsive for several days, poor oral intake patient has been alert, oriented for three days, appears to be recovering from acute illness has been eating 50% or greater at meal time per RN FOLLOW UP - Dr. Young in one week SPEECH THERAPY RECOMMENDATIONS FOR DIET 1. Moist mechanical soft diet 2. Aspiration precautions: fully upright for meals and for 20-30 minutes after meals; keep head of bed elevated at least 30-degrees at all times; alternate solids and liquids Current Hospital Diet Patient's current hospital diet: Diabetes Type 2 Diet, Gluten Free Diet Discharge Diet Recommended Diet: Diabetes Type 2 Diet, Gluten Free Diet Diet Texture: Mechanical Soft (ground) (moist) Pending Studies Studies pending at discharge: no Physician Orders On Transfer POLST Discussion: Not Applicable Medical Emergencies . Who to Call and When: Medical Emergencies: If at any time you feel your situation is an emergency, please call 911 immediately. . Non-Emergent Contact Non-Emergency issues call your: Primary Care Provider Call Non-Emergent contact if: you have a fever, you have any medication questions . . "Provider Documentation" section prepared by Jesus Villafuerte. . Core Measure Problem Core Measures: None [place] Drug Monitoring Program Search Results: no issues identified
[2017-03-15] MEDS ORDERED: ACETAMINOPHEN 325 MG TAB PO ONE (16:15)
--- NOTE | 2017-03-15 16:40 | Discharge Summary ---
Discharge Summary Date of Service Mar 15, 2017. Discharge Summary Admission Date: Mar 04, 2017 at 20:40 Discharge Date: Mar 15, 2017 Discharge Disposition: group home facility Principal Diagnosis: Pneumonia Problems/Secondary Diagnoses: Acute hypoxic respiratory failure UTI, E coli Encephalopathy Hyponatremia Immunizations: Have You Had Influenza Vaccine: Yes History of Tetanus Vaccine?: Yes History of Pneumococcal: No History of Hepatitis B Vaccine: Yes Procedures: none Consultations: Nephrology Pulmonology Medication Reconciliation New Medications: Prednisone (Prednisone) 10 Mg Tab 20 MG PO DAILY for 6 Days, #9 TAB start 03/16, take 20mg daily x 3 days then 10mg daily x 3 days then stop Continued Medications: Acetaminophen (Tylenol) 500 Mg Tab 1 TAB PO Q24 PRN for Pain for 3 Days, #10 TAB Albuterol Sulf (Proventil 0.083% 2.5MG/3ML) 2.5 Mg/3 Ml Nebu 2.5 MG INH Q6 PRN for Shortness of Breath, EA Amlodipine Besylate (Amlodipine Besylate) 5 Mg Tab 5 MG PO QAM for 14 Days, #14 TAB Bisacodyl (Bisac-Evac) 10 Mg Sup 10 MG PO Q96H PRN for Constipation Calcium Carbonate-Cholecalcife (Caltrate 600+D) 1 Tab Tab 1 TAB PO DAILY Carbidopa/Levodopa (Sinemet 25MG/100MG) Tab 2 TAB PO TID, TAB Carboxymethylcellulose-Glyceri (Refresh Optive Advanced) 1 Johanny Johanny 2 DROPS OPB QID Citalopram Hydrobromide (Citalopram Hydrobromide) 10 Mg Tab 1 TAB PO DAILY for 90 Days, #90 TAB 3 Refills Coenzyme Q10 (Ubidecarenone) (Co Q 10) 100 Mg Cap 100 MG PO AMHS Cyanocobalamin (Vitamin B-12) 250 Mcg Tab 250 MCG PO DAILY, TAB Diphenhydramine Hcl (Benadryl Allergy) 25 Mg Cap 1 CAP PO Q8 for Allergic Reaction for 30 Days, #30 CAP Docusate Sodium (Colace) 100 Mg Cap 1 CAP PO DAILY for 15 Days, #15 CAP Econazole Nitrate (Econazole Nitrate Crm 1% 30 Gm) 90 Appln/30 Gm Cr 1 APPL TOP BID Ergocalciferol (Drisdol) 50,000 Unit Cap 1 CAP PO 2XWK MONDAY,MONDAY Eyelid Cleansers (Ocusoft Lid Scrub Plus) 1 Pad Pad 1 APPLN TOP BID Ferrous Sulfate (Kp Ferrous Sulfate) 325 Mg Tab 1 TAB PO BID Fluticasone Prop/Salmeterol (Advair Diskus 250/50 60 Dose) 1 Ea Aerp 1 PUFFS INH BID, INHALER 3 Refills Levetiracetam (Keppra) 500 Mg Tab 250 MG PO BID Levothyroxine Sodium (Synthroid) 112 Mcg Tab 112 MCG PO DAILY, TAB Magnesium Hydroxide (Milk Of Magnesia) 30 Ml Susp 30 ML PO Q72H PRN for Constipation, ML Menthol (Topical Analgesic) (Biofreeze) 4 % Gel 1 APPL TOP TID Menthol-Zinc Oxide (Calmoseptine) 1 Oin Oin 1 APPL TOP HS Montelukast Sod (Montelukast Sodium) 10 Mg Tab 10 MG PO HS Nystatin (Topical) (Nystatin) 100,000 Unit/Gm Oin 1 APPLN TOP BID Omeprazole (Prilosec) 20 Mg Cap 20 MG PO DAILY Oxybutynin Chloride (Ditropan) 5 Mg Tab 1 TAB PO Q12 PRN for BLADDER SPASMS for 30 Days, #60 TAB 11 Refills Simvastatin (Zocor) 20 Mg Tab 20 MG PO QPM, TAB Sodium Phosphate/Biphosphate (Fleet Enema) Becka 1 EA OR Q96H PRN for Constipation, BTL Discontinued Medications: Albuterol Sulf (Albuterol Sulfate) 2.5 Mg/0.5 Ml Nebu 3 ML NEB Q6 Clindamycin Hcl (Cleocin) 150 Mg Cap 600 MG PO UD, CAP Levofloxacin (Levaquin) 750 Mg Tab 750 MG PO DAILY, TAB Oseltamivir Phosphate (Tamiflu) 75 Mg Cap 1 CAP PO BID for 5 Days, #10 CAP Discharge Exam Patient doing well again today, third day in a row that she has been oriented, answering questions appropriately, eating well. Accepted to [facility] for discharge today. Review of Systems: Constitutional: + weakness, No fever, No chills, No sweats, No weight loss, No fatigue, No problem reported Eyes: No worsening of vision, No eye pain, No redness, No discharge, No diplopia, No problem reported ENT: No hearing loss, No unusual epistaxis, No nasal symptoms, No sore throat, No tinnitus, No dental problems, No trouble swallowing, No problem reported Respiratory: No cough, No sputum, No wheezing, No shortness of breath, No dyspnea on exertion, No dyspnea at rest, No hemoptysis, No problem reported Cardiovascular: No chest pain, No orthopnea, No PND, No edema, No claudication, No palpitations, No problem reported Abdomen: No pain, No nausea, No vomiting, No diarrhea, No constipation, No GI bleeding, No problem reported Musculoskeletal: No joint pain, No muscle pain, No swelling, No calf pain, No problem reported Genitourinary - Female: + problem reported (chronic munoz) Neurologic: + weakness, + balance problems, No memory loss, No paralysis, No numbness/tingling, No vertigo, No problem reported Psychiatric: No depression symptoms, No anhedonism, No anxiety, No insomnia , No substance abuse, No problem reported Endocrine: No fatigue, No excessive thirst, No excessive urination, No problem reported Hematologic / Lymphatic: No abnormal bleeding/bruising, No clotting problems , No swollen lymph nodes, No night sweats, No problem reported Integumentary: No rash, No itch, No new/changing skin lesions, No color change, No bleeding, No problem reported Physical Exam: General Appearance: no apparent distress, + obese Eyes: normal inspection, EOMI, sclerae normal ENT: normal ENT inspection, hearing grossly normal, pharynx normal Neck: supple, no adenopathy, no JVD, trachea midline Respiratory/Chest: chest non-tender, lungs clear, normal breath sounds, no respiratory distress, no accessory muscle use Cardiovascular: regular rate, rhythm, no edema, no gallop, no JVD, no murmur , normal peripheral pulses Abdomen / GI: normal bowel sounds, non tender, soft, no organomegaly Extremities: normal inspection, no calf tenderness, normal capillary refill , no pedal edema, normal range of motion 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, alert, normal mood/affect , normal reflexes, oriented x 3, + motor weakness Skin: normal color, warm/dry, no rash Hospital Course 71 F recently treated for influenza presents with Acute respiratory failure with hypoxia/pneumonia involving right lung--hyponatremia, hypokalemia, hypomagnesemia, gram negative uti poa associated with chronic indwelling munoz cath Right sided pneumonia resolved clinically, patient oriented but fatigued completed full course of cefepime metabolic encephalopathy from hyponatremia and infection, three days of being oriented, encephalopathy would appear to be resolved Acute respiratory failure due to pneumonia completed antibiotics change Solu Medrol to Prednisone 20mg x 3 days then 10mg x 3 days then stop xopenex and ipatropium q 6 hours plus her usual home meds of singulair Hyponatremia, Likely hypovolemic hyponatremia resolved continue to hold Lasix on discharge, weight has been stable if patient starts to gain weight, would use Lasix only as needed basis Hypokalemia and hypomagnesemia replaced Atypical parkinsonism, continue sinemet HTN continue norvasc Seizure d/o: Keppra PO UTI, e coli: sensitive to Cefepime, completed a full course d/c to [facility] today Total Time Spent: Greater than 30 minutes This includes examination of the patient, discharge planning, medication reconciliation, and communication with other providers. Discharge Instructions Please refer to the electronic Patient Visit Report (Discharge Instructions) for additional information. Follow-Up physician at [facility] Additional Copies To [facility]
[2017-03-15] MEDS ORDERED: LEVETIRACETAM 500 MG TAB PO SCH (20:00)
== END 2017-03-15 18:04 | DRG 177 ==
LOC: EDBD 17:18 → C.EDB 17:20 → C.2T 20:40 → UNDOADMIN 20:40 → ENRESERV 20:49 → C.MS4W 03-13 15:24 → EDBEDREQ 03-13 15:31 → ENRESERV 03-13 15:38
PROVIDERS: ADMIT Hospitalist; ATTEND Internal Medicine
DX: J15.6 Pneumonia due to other Gram-negative bacteria (principal); J96.01 Acute respiratory failure with hypoxia; G93.41 Metabolic encephalopathy; E87.1 Hypo-osmolality and hyponatremia; N39.0 Urinary tract infection, site not specified; T83.511A Infection and inflammatory reaction due to indwelling urethral catheter, initial encounter; I10 Essential (primary) hypertension; E83.42 Hypomagnesemia; E78.5 Hyperlipidemia, unspecified; E87.6 Hypokalemia; I48.91 Unspecified atrial fibrillation; E11.9 Type 2 diabetes mellitus without complications; G20 Parkinson's disease; K21.9 Gastro-esophageal reflux disease without esophagitis; E03.9 Hypothyroidism, unspecified; G40.909 Epilepsy, unspecified, not intractable, without status epilepticus; E53.8 Deficiency of other specified B group vitamins; B96.20 Unspecified Escherichia coli [E. coli] as the cause of diseases classified elsewhere; Z66 Do not resuscitate; Z79.899 Other long term (current) drug therapy; Z88.0 Allergy status to penicillin; Z88.2 Allergy status to sulfonamides; Z88.6 Allergy status to analgesic agent; Z88.8 Allergy status to other drugs, medicaments and biological substances; Z86.718 Personal history of other venous thrombosis and embolism; Z91.040 Latex allergy status; Z91.041 Radiographic dye allergy status; Y84.6 Urinary catheterization as the cause of abnormal reaction of the patient, or of later complication, without mention of misadventure at the time of the procedure

== ENCOUNTER 2017-03-17 09:48 | Emergency (ER) | payer OTHER ==
[~2017-03-17 09:48] MED LIST changes: +ALBINS/ INH; -ARTISOL12 OP; -CHOL2000 PO; -CLIN300C2 PO; -FURO-85 PO; +MENT4GEL TOP; +MENTOIN TOP; -MENTPOW4 TOP; +MOML PO; -OXYBUTIN PO; +PRED10TA PO; -PRVIN525X NEB; -SIMV10TA2 PO
[2017-03-17 09:58] VITALS: TEMP 37.2
[2017-03-17] MEDS ORDERED: ACET650S10 PR (10:15)
[2017-03-17] MEDS ORDERED: LSX20 PO (10:20)
[2017-03-17] MEDS ORDERED: ADVIN25/60 INH (10:20)
[2017-03-17] MEDS ORDERED: PRED20TA2 PO (10:24)
[2017-03-17] MEDS ORDERED: MOMLX PO (10:24)
[2017-03-17] MEDS ORDERED: ACET-1311 PO (10:29)
[2017-03-17] MEDS ORDERED: DOCU-94 PO (10:41)
[2017-03-17] MEDS ORDERED: DIPH25CA65 PO (10:41)
[2017-03-17 10:50] LABS: EOS % 0.6 %; EOS ABS # 0.04 K/uL (0-0.5); HEMATOCRIT 27.7 % (37-47); HEMOGLOBIN 8.7 g/dL (12.0-16.0); IG# 0.01 K/uL (0.00-0.02); LYMPH % 7.1 %; MEAN CELL VOLUME 86.3 fL (80-100); MEAN CORPUSCULAR HEMOGLOBIN 27.1 pg (25-34); MEAN CORPUSCULAR HGB CONC 31.4 g/dl (32-36); MEAN PLATELET VOLUME 10.7 fL (7.4-10.4); MONO % 7.4 %; MONO ABS # 0.52 K/uL (0.11-0.59); NEUT % 84.8 %; NEUT ABS # 5.99 K/uL (1.4-6.5); PLATELET COUNT 182 K/uL (130-400); RED CELL DISTRIBUTION WIDTH CV 15.6 % (11.5-14.5); RED CELL DISTRIBUTION WIDTH SD 49.8 fL (36.4-46.3); WHITE BLOOD COUNT 7.06 K/uL (4.8-10.8)
[2017-03-17 11:08] LABS: ALT/SGPT 18 U/L (12-78); AST/SGOT 13 U/L (15-37); BLOOD UREA NITROGEN 18 mg/dl (7-18); CALCIUM 8.9 mg/dl (8.5-10.1); CARBON DIOXIDE 37 mmol/L (21-32); GLUCOSE 81 mg/dl (70-99); LIPASE 75 U/L (73-393); POTASSIUM 3.3 mmol/L (3.5-5.1); SODIUM 134 mmol/L (136-145)
[2017-03-17 11:10] LABS: ALKALINE PHOSPHATASE 53 U/L (45-117); TOTAL PROTEIN 5.9 gm/dl (6.4-8.2)
--- NOTE | 2017-03-17 11:24 | DIAGNOSTIC IMAGING REPORT ---
SINGLE VIEW CHEST CLINICAL HISTORY: Syncope. FINDINGS: A PA chest radiograph is compared to study dated 03/11/2017. Correlation is made with chest CT dated 03/06/2017. A right internal jugular central venous catheter has been removed. The examination is degraded by patient rotation. The heart is enlarged and there is atherosclerotic calcification of the thoracic aorta. The pulmonary vascular structures noncongested. Chronic interstitial thickening is similar to previous. There is bibasilar atelectasis. Trace pleural effusions are suspected. No pneumothorax is seen. The skeletal structures are osteopenic. The bony thorax is grossly intact. IMPRESSION: 1. Cardiomegaly without radiographic evidence of congestive failure. 2. Trace pleural effusions and bibasilar atelectasis. Electronically signed by: Mitchell Tejada M.D. 03/17/2017 11:23 AM Dictated Date/Time: 03/17/2017 11:21 AM
[2017-03-17 11:44] LABS: INFLUENZA B ANTIGEN Neg for Influ B (NEG)
[2017-03-17] MEDS ORDERED: FERR1TAB13 PO (12:46)
[2017-03-17] MEDS ORDERED: CARB25TA12 PO (13:24)
[2017-03-17] MEDS ORDERED: COEN1CAP17 PO (13:25)
[2017-03-17] MEDS ORDERED: LEVE500T13 PO (13:28)
[2017-03-17] MEDS ORDERED: LORAZEPAM 2 MG/ML 1 ML VIAL ONE (14:38)
[2017-03-17] MEDS ORDERED: LEVETIRACETAM IV 500 MG in DEXTROSE 5% 100ML 100 ML IV STA ×2 (14:40→18:11)
[2017-03-17] MEDS ORDERED: LORAZEPAM 2 MG/ML 1 ML VIAL IV ONE (14:49)
[2017-03-17] MEDS ORDERED: SNG10 PO (15:37)
[2017-03-17] MEDS ORDERED: OMEP20CA9 PO (15:37)
--- NOTE | 2017-03-17 15:39 | DIAGNOSTIC IMAGING REPORT ---
CT SCAN OF THE BRAIN WITHOUT IV CONTRAST CLINICAL HISTORY: Syncope. COMPARISON STUDY: CT of the brain dated 03/06/2017. TECHNIQUE: Unenhanced axial CT scan of the brain is performed from the vertex to the skull base. A dose lowering technique was utilized adhering to the principles of ALARA. The skull base was scanned twice due to motion artifact. CT DOSE: 1235.91 mGycm FINDINGS: Brain parenchyma: There are age-related involutional changes noting mild subcortical and periventricular microangiopathic change. There is no hemorrhage, mass effect, or evidence of acute territorial ischemia by CT criteria. Suazo-white matter is preserved. No extra-axial fluid collection is seen. Ventricles, sulci, cisterns: Prominent secondary to involutional change. Cavum septum pellucidum is incidentally noted. Intracranial vasculature: There is atherosclerotic calcification of the cavernous carotid arteries. Calvarium: The skeletal structures are osteopenic. There is no depressed calvarial fracture. Sinuses and mastoids: The visualized paranasal sinuses are clear. The mastoid air cells are well pneumatized. Orbits: The bony orbits are grossly intact. There are bilateral ocular lens implants. IMPRESSION: There is no hemorrhage, mass effect, or evidence of acute territorial ischemia by CT criteria. Electronically signed by: Mitchell Tejada M.D. 03/17/2017 3:38 PM Dictated Date/Time: 03/17/2017 3:36 PM
[2017-03-17] MEDS ORDERED: CALC-354 PO (17:11)
[2017-03-17] MEDS ORDERED: CEFTRIAXONE SOD INJ 1 GM ADDVIAL IV STA (17:37)
[2017-03-17] MEDS ORDERED: POTASSIUM CHLR 20 MEQ / WTR 20 MEQ in PREMIXED WATER 100 ML IV STA (17:44)
[2017-03-17] MEDS ORDERED: POTASSIUM CHLORIDE 20 MEQ/15 ML UDC PO STA (17:57)
--- NOTE | 2017-03-17 17:58 | EMERGENCY ROOM VISIT NOTE ---
History Report prepared by Jodi: Kelley Frederick Under the Supervision of: Dr. Jignesh Kingsley M.D. First contact with patient: 09:53 Stated Complaint: SYNCOPE/RESPIRATORY History of Present Illness The patient is a 71 year old female who presents to the Emergency Room with complaints of possible syncope starting last night. The patient presents to the ED by EMS from [facility]. Records from March 04 show that the patient was sent to their facility after being diagnosed with pneumonia and influenza. She was being treated with antibiotics and and Tamiflu. The patient is usually on 2 L of oxygen. The patient has a history of Parkinson's disease. Alert and oriented, the patient states she does not remember passing out. Source of History: patient, EMS Onset: last night Position: other (global) Quality: other (syncope) Timing: other (mulitple episodes) Associated Symptoms: + LOC Review of Systems See HPI for pertinent positives and negatives. A total of ten systems were reviewed and were otherwise negative. Past Medical & Surgical Medical Problems: (1) Acute respiratory failure with hypoxia (2) Atypical Parkinsonism (3) Diabetes mellitus (4) DVT (deep venous thrombosis) (5) Gait disturbance (6) HTN (hypertension) (7) Hyperlipemia (8) Hyponatremia (9) Orthostatic hypotension (10) Pneumonia involving right lung (11) Polyneuropathy (12) Symptomatic anemia Surgical Problems: (1) Bilateral knee replacements Family History Blood disorder Heart disease Social History Smoking Status: Never Smoker Drug Use: none Marital Status: Housing Status: lives with significant other Occupation Status: retired Current/Historical Medications Scheduled Amlodipine Besylate (Amlodipine Besylate), 5 MG PO QAM Calcium Carbonate-Cholecalcife (Caltrate 600+D), 1 TAB PO DAILY Carbidopa/Levodopa (Sinemet 25MG/100MG), 2 TAB PO TID Carboxymethylcellulose-Glyceri (Refresh Optive Advanced), 2 DROPS OPB QID Citalopram Hydrobromide (Citalopram Hydrobromide), 10 MG PO DAILY Coenzyme Q10 (Ubidecarenone) (Co Q 10), 100 MG PO AMHS Cyanocobalamin (Vitamin B-12), 250 MCG PO DAILY Diphenhydramine Hcl (Benadryl Allergy), 1 CAP PO Q8 Docusate Sodium (Colace), 1 CAP PO DAILY Ergocalciferol (Drisdol), 1 CAP PO 2XWK Eyelid Cleansers (Ocusoft Lid Scrub Plus), 1 APPLN TOP BID Ferrous Sulfate (Kp Ferrous Sulfate), 1 TAB PO BID Fluticasone Prop/Salmeterol (Advair Diskus 250/50 60 Dose), 1 PUFF INH BID Furosemide (Furosemide), 20 MG PO DAILY Levetiracetam (Keppra), 500 MG PO BID Levothyroxine Sodium (Synthroid), 112 MCG PO DAILY Montelukast Sod (Montelukast Sodium), 10 MG PO HS Omeprazole (Prilosec), 20 MG PO DAILY Prednisone (Prednisone Tab), 20 MG PO UD Simvastatin (Zocor), 20 MG PO QPM Scheduled PRN Acetaminophen (Tylenol), 65 MG KS Q6 PRN for Pain Acetaminophen (Tylenol), 650 MG PO Q6 PRN for Pain or Fever Albuterol Sulf (Proventil 0.083% 2.5MG/3ML), 2.5 MG INH Q6 PRN for Shortness of Breath Bisacodyl (Bisac-Evac), 10 MG PO Q96H PRN for Constipation Magnesium Hydroxide (Milk of Magnesia), 30 ML PO UD PRN for Constipation Oxybutynin Chloride (Ditropan), 1 TAB PO Q12 PRN for BLADDER SPASMS Sodium Phosphate/Biphosphate (Fleet Enema), 1 EA KS Q96H PRN for Constipation Allergies Coded Allergies: Iodinated Diagnostic Agents (Verified Allergy, Severe, SHORTNESS OF BREATH , 03/17/17) Latex (Verified Allergy, Intermediate, RASH, 03/17/17) Aspirin (Verified Allergy, Unknown, RASH, 03/17/17) IBUPROFEN WELL Ibuprofen (Verified Allergy, Unknown, 03/17/17) Latex1 -Allergic Contact Dermititis (Verified Allergy, Unknown, 03/17/17) Lisinopril (Verified Allergy, Unknown, UNKNOWN, 03/17/17) Meperidine (Verified Allergy, Unknown, UNKNOWN, 03/17/17) Metformin (Unverified Allergy, Unknown, GI SYMPTOMS, 03/17/17) Midazolam (Verified Allergy, Unknown, UNKN, 03/17/17) Nut Tree (Verified Allergy, Unknown, UNKNOWN, 03/17/17) Peanut (Verified Allergy, Unknown, UNKNOWN, 03/17/17) Penicillins (Verified Allergy, Unknown, SHORTNESS OF BREATH, 03/17/17) (FROM UNCODED ALLERGIES) Sulfa Antibiotics (Verified Allergy, Unknown, UNKNOWN, 03/17/17) Gluten (Verified Adverse Reaction, Intermediate, GI SYMPTOMS, 03/17/17) Physical Exam Vital Signs Date Time Temp Pulse Resp B/P (MAP) Pulse Ox O2 Delivery O2 Flow Rate FiO2 03/17/17 17:36 58 16 95 03/17/17 17:31 124/52 03/17/17 17:06 58 15 95 03/17/17 17:05 62 03/17/17 17:01 111/55 03/17/17 16:36 60 20 93 03/17/17 16:31 107/49 03/17/17 16:06 65 24 93 03/17/17 16:01 116/55 03/17/17 15:36 68 21 93 03/17/17 15:31 114/50 03/17/17 15:06 65 19 96 03/17/17 15:01 136/55 03/17/17 14:41 70 23 93 03/17/17 14:37 140/50 03/17/17 14:31 149/62 03/17/17 14:11 72 24 93 03/17/17 14:01 148/55 03/17/17 13:41 81 24 93 03/17/17 13:31 140/62 03/17/17 13:20 70 03/17/17 13:11 74 21 94 03/17/17 13:01 133/61 03/17/17 12:41 66 19 93 03/17/17 12:36 68 18 93 03/17/17 12:31 146/62 03/17/17 12:06 74 23 93 03/17/17 12:01 149/60 03/17/17 11:36 69 19 92 03/17/17 11:31 138/53 90 Nasal Cannula 2.0 03/17/17 11:26 140/55 03/17/17 10:48 73 32 90 03/17/17 10:18 72 30 91 03/17/17 10:15 71 03/17/17 09:58 37.2 131 24 139/59 97 Nasal Cannula 2.0 03/17/17 09:55 139/59 Physical Exam Physical Exam GENERAL: She is oriented to person, place, and time. HENT: Exam performed. Head: Normocephalic and atraumatic. Right Ear: External ear normal. No mastoid tenderness. Left Ear: External ear normal. No mastoid tenderness. Mouth/Throat: The oropharynx is clear and moist. No trismus in the jaw. No dental abscesses or uvula swelling. No oropharyngeal exudate or tonsillar abscesses. ____ EYES: Conjunctivae and EOM are normal. Pupils are equal, round, and reactive to light. Right eye exhibits no discharge. Left eye exhibits no discharge. No scleral icterus. ____ NECK: Normal range of motion. Neck supple. No JVD present. No spinous process tenderness present. No carotid bruit present. No rigidity. No tracheal deviation and normal range of motion present. No meningeal signs. CV: Normal rate, regular rhythm, normal heart sounds and intact distal pulses. There is no peripheral edema. Palpable radial pulses bue. ____ PULM/CHEST: Effort normal. No respiratory distress. No stridor. She has diffuse rales and rhonchi. ABD: The abdomen is soft. Bowel sounds are normal. She has no distension. No mass is present. There is no tenderness. There is no rebound, no guarding, no Tavarez's sign and no tenderness at McBurney's point. Rovsig negative. Fair in place. MUSC/SKEL: Normal range of motion. There is peripheral edema. Upper extremities are contracted at baseline. There is no tenderness or deformity. ___ LYMPH: No cervical adenopathy. ____ NEURO: She is alert and oriented to person, place, and time. GCS eye subscore is 4. GCS verbal subscore is 5. GCS motor subscore is 6. cerbellar tests wnl. __ __ SKIN: Skin is warm and dry. She is not diaphoretic. There is multiple bruising over the bilateral upper extremities. Erythematous macular rash on her right upper extremity with a 2 x 1 cm bullae. PSYCH: She has a normal mood and affect. Her behavior is normal. Judgment and thought content normal. Medical Decision & Procedures ER Provider Diagnostic Interpretation: Xray results as stated below per my and radiologist interpretation. Radiology results as stated below per my review and radiologist interpretation: SINGLE VIEW CHEST CLINICAL HISTORY: Syncope. FINDINGS: A PA chest radiograph is compared to study dated 03/11/2017. Correlation is made with chest CT dated 03/06/2017. A right internal jugular central venous catheter has been removed. The examination is degraded by patient rotation. The heart is enlarged and there is atherosclerotic calcification of the thoracic aorta. The pulmonary vascular structures noncongested. Chronic interstitial thickening is similar to previous. There is bibasilar atelectasis. Trace pleural effusions are suspected. No pneumothorax is seen. The skeletal structures are osteopenic. The bony thorax is grossly intact. IMPRESSION: 1. Cardiomegaly without radiographic evidence of congestive failure. 2. Trace pleural effusions and bibasilar atelectasis. Electronically signed by: Mitchell Tejada M.D. 03/17/2017 11:23 AM Dictated Date/Time: 03/17/2017 11:[address] SCAN OF THE BRAIN WITHOUT IV CONTRAST CLINICAL HISTORY: Syncope. COMPARISON STUDY: CT of the brain dated 03/06/2017. TECHNIQUE: Unenhanced axial CT scan of the brain is performed from the vertex to the skull base. A dose lowering technique was utilized adhering to the principles of ALARA. The skull base was scanned twice due to motion artifact. CT DOSE: 1235.91 mGycm FINDINGS: Brain parenchyma: There are age-related involutional changes noting mild subcortical and periventricular microangiopathic change. There is no hemorrhage, mass effect, or evidence of acute territorial ischemia by CT criteria. Suazo-white matter is preserved. No extra-axial fluid collection is seen. Ventricles, sulci, cisterns: Prominent secondary to involutional change. Cavum septum pellucidum is incidentally noted. Intracranial vasculature: There is atherosclerotic calcification of the cavernous carotid arteries. Calvarium: The skeletal structures are osteopenic. There is no depressed calvarial fracture. Sinuses and mastoids: The visualized paranasal sinuses are clear. The mastoid air cells are well pneumatized. Orbits: The bony orbits are grossly intact. There are bilateral ocular lens implants. IMPRESSION: There is no hemorrhage, mass effect, or evidence of acute territorial ischemia by CT criteria. Electronically signed by: Mitchell Tejada M.D. 03/17/2017 3:38 PM Dictated Date/Time: 03/17/2017 3:36 PM Laboratory Results 03/17/17 10:20 Red Blood Count 3.21, Mean Corpuscular Volume 86.3, Mean Corpuscular Hemoglobin 27.1, Mean Corpuscular Hemoglobin Concent 31.4, Mean Platelet Volume 10.7, Neutrophils (%) (Auto) 84.8, Lymphocytes (%) (Auto) 7.1, Monocytes (%) (Auto) 7.4, Eosinophils (%) (Auto) 0.6, Basophils (%) (Auto) 0.0, Neutrophils # (Auto) 5.99, Lymphocytes # (Auto) 0.50, Monocytes # (Auto) 0.52, Eosinophils # (Auto) 0.04, Basophils # (Auto) 0.00 03/17/17 10:20 Test 03/17/17 10:20 03/17/17 10:40 03/17/17 10:54 03/17/17 11:20 White Blood Count 7.06 K/uL (4.8-10.8) Red Blood Count 3.21 M/uL (4.2-5.4) Hemoglobin 8.7 g/dL (12.0-16.0) Hematocrit 27.7 % (37-47) Mean Corpuscular Volume 86.3 fL (80-100) Mean Corpuscular Hemoglobin 27.1 pg (25-34) Mean Corpuscular Hemoglobin Concent 31.4 g/dl (32-36) Platelet Count 182 K/uL (130-400) Mean Platelet Volume 10.7 fL (7.4-10.4) Neutrophils (%) (Auto) 84.8 % Lymphocytes (%) (Auto) 7.1 % Monocytes (%) (Auto) 7.4 % Eosinophils (%) (Auto) 0.6 % Basophils (%) (Auto) 0.0 % Neutrophils # (Auto) 5.99 K/uL (1.4-6.5) Lymphocytes # (Auto) 0.50 K/uL (1.2-3.4) Monocytes # (Auto) 0.52 K/uL (0.11-0.59) Eosinophils # (Auto) 0.04 K/uL (0-0.5) Basophils # (Auto) 0.00 K/uL (0-0.2) RDW Standard Deviation 49.8 fL (36.4-46.3) RDW Coefficient of Variation 15.6 % (11.5-14.5) Immature Granulocyte % (Auto) 0.1 % Immature Granulocyte # (Auto) 0.01 K/uL (0.00-0.02) Large Platelets 1+ Hypochromasia PRESENT Poikilocytosis PRESENT Anion Gap 4.0 mmol/L (3-11) Estimated GFR () 112.1 Estimated GFR (Non- 96.7 BUN/Creatinine Ratio 36.7 (10-20) Calcium Level 8.9 mg/dl (8.5-10.1) Total Bilirubin 0.4 mg/dl (0.2-1) Aspartate Amino Transf (AST/SGOT) 13 U/L (15-37) Alanine Aminotransferase (ALT/SGPT) 18 U/L (12-78) Alkaline Phosphatase 53 U/L (45-117) Troponin I < 0.015 ng/ml (0-0.045) Pro-B-Type Natriuretic Peptide 378 pg/ml (0-900) Total Protein 5.9 gm/dl (6.4-8.2) Albumin 3.0 gm/dl (3.4-5.0) Globulin 2.9 gm/dl (2.5-4.0) Albumin/Globulin Ratio 1.0 (0.9-2) Lipase 75 U/L (73-393) Influenza Type A Antigen Neg for Influ A (NEG) Influenza Type B Antigen Neg for Influ B (NEG) Lactic Acid Level 0.7 mmol/L (0.4-2.0) Urine Color DK YELLOW Urine Appearance TURBID (CLEAR) Urine pH 7.0 (4.5-7.5) Urine Specific [place] 1.021 (1.000-1.030) Urine Protein 1+ (NEG) Urine Glucose (UA) NEG (NEG) Urine Ketones 2+ (NEG) Urine Occult Blood 2+ (NEG) Urine Nitrite POS (NEG) Urine Bilirubin NEG (NEG) Urine Urobilinogen NEG (NEG) Urine Leukocyte Esterase LARGE (NEG) Urine WBC (Auto) >30 /hpf (0-5) Urine RBC (Auto) 5-10 /hpf (0-4) Urine Hyaline Casts (Auto) 1-5 /lpf (0-5) Urine Epithelial Cells (Auto) 20-30 /lpf (0-5) Urine Bacteria (Auto) 4+ (NEG) Urine Crystals CALCIUM OXALATE (NONE Urine Pathogenic Casts 0-3 GRANULAR CASTS /lpf (0) Urine Yeast (Auto) (NONE PRSENT) Test 03/17/17 15:52 03/17/17 16:38 Venous Blood pH 7.43 (7.36-7.41) Venous Blood Partial Pressure CO2 58 mmHg (38.0-50.0) Venous Blood Partial Pressure O2 81 mmHg Venous Blood HCO3 37 mmol/L Venous Blood Oxygen Saturation 94.5 % Venous Blood Base Excess 11.5 mEq/L Laboratory results reviewed by me Medications Administered Medications (Trade) Dose Ordered Sig/Phong Route Start Time Stop Time Status Last Admin Dose Admin Lorazepam (Ativan Inj) 2 mg STK-MED ONCE .ROUTE 03/17/17 14:38 03/17/17 14:39 DC 03/17/17 14:38 1 MG Levetiracetam 500 mg/Dextrose 105 ml @ 420 mls/hr ONE STAT IV 03/17/17 14:40 03/17/17 14:54 DC 03/17/17 14:57 420 MLS/HR Lorazepam (Ativan Inj) 1 mg ONE ONCE IV 03/17/17 14:49 03/17/17 14:51 DC 03/17/17 14:51 1 MG Ceftriaxone Sodium (Rocephin Inj) 1 gm NOW STAT IV 03/17/17 17:37 03/17/17 17:44 DC 03/17/17 18:01 1 GM Levetiracetam 500 mg/Dextrose 105 ml @ 420 mls/hr ONE STAT IV 03/17/17 18:11 03/17/17 18:25 DC 03/17/17 18:37 420 MLS/HR ECG Indication: syncope Rate (beats per minute): 67 Rhythm: sinus rhythm Findings: PVC, no acute ischemic change, other (KS increased at 206, QRS QTc WNL, no ST elevation or ST depression, baseline artifact) Change: Patient's electrocardiogram was interpreted by me. ED Course 09: The patient was evaluated in room B10. A complete history and physical exam was performed. 1300: EMR review shows the patient was recently admitted for hypoxia, pneumonia , hyponatremia, and UTI. She was discharged from the hospital March 15. Today her hemoglobin was 8.7 which is patients baseline. Potassium is low at 3.3. Sodium WNL. Urine shows continuing infection. Chest X-ray improved from previous imaging. She had an echo done March 06 which showed an EF of 60-65% . Normal left ventricular size. 1435: I was called to bedside by nursing. Patient is having a seizure. Eyes are deviating to the left. Patient is not responding, having convulsions. 2 mg of Ativan ordered. CT has not been performed yet. 1438: Ativan Inj 2 mg IV. 1439: EMR review from [facility] shows the patient is supposed to have Keppra 500 mg PO BID. Her last dose was yesterday evening. She did not receive her 0830 morning dose today. Ativan was given. Patient will be loaded with home dose of Keppra. 1440: Levetiracetam 500 mg/Dextrose 105 ml @ 420 mls/hr IV. 1712: I spoke with the PRUNER that takes care of the patient at [facility]. 1737: Rocephin Inj 1 gm IV. 1744: Potassium Chloride 20 meq/Prmx 100 ml @ 50 mls/hr IV. 1800: Potassium Chloride 10 meq/Prmx 100 ml @ 100 mls/hr IV. 1928: Vital signs stable. Awaiting transport via ALS for the patient. Anticipated arrival 2199. Medical Decision EMR review shows the patient was recently admitted for hypoxia, pneumonia, hyponatremia, and UTI. She was discharged from the hospital March 15. Today her hemoglobin was 8.7 which is patients baseline. Potassium is low at 3.3. Sodium WNL. Urine shows continuing infection. Chest X-ray improved from previous imaging. She had an echo done March 06 which showed an EF of 60-65% . Normal left ventricular size. She also had an EEG which was nondiagnostic for epileptic seizures. She had a UTI that was treated with a full course of cefepime. She also completed a course of antibiotics for her pneumonia. While in the emergency department, Patient had a seizure. Eyes were deviating to the left. Patient was not responding and having convulsions. 2 mg of Ativan ordered which caused the seizure to cease. EMR review from [facility] shows the patient is supposed to have Keppra 500 mg PO BID. Her last dose was yesterday evening. She did not receive her 0830 morning dose today. Patient was loaded with 500 mg of Keppra IV piggyback. The patient's vital signs have been stable during her emergency department visit. Her labs are within normal limits including a lactic acid and white blood cell count within normal limits. Her hemoglobin was within normal limits. Electrolytes were within normal limits with the exception of a potassium of 3.3. Potassium will be replaced in the emergency department. Her urinalysis showed signs of infection. Patient will be treated based off of the urine culture completed on March 04 which showed that the urine grew out E. coli that was sensitive to ceftriaxone. 1 g of IV piggyback Rocephin given in the emergency department. Her CT of the head was within normal limits. Chest x -ray showed no acute infiltrate and cardiomegaly without pulmonary edema. Kidney function, influenza, troponin, proBNP, venous blood gas, within normal limits. Discussed with the hospitalist team and case management, patient does not meet admission criteria. Spoke with the nurse practitioner at [facility] Shazia Rawls. She confirms that the patient did not receive her morning dose of Keppra. She also confirms that the patient will be able to receive IV antibiotics at the [facility]. She states that she can continue the Rocephin at the [facility] for her UTI. I discussed with Ms. Rawls that the patient does not meet inpatient criteria and her labs are within normal limits with the exception of the potassium that was repleted and her urine showing UTI. The patient is still lethargic/post ictal after having seizure and receiving the Ativan. I discussed with Ms. Rawls that as long as the halfway can give the patient her scheduled Keppra it is not that that she will have a recurrent seizure. Patient has not had seizures since receiving Keppra in the emergency department. Patient will be loaded with evening dose of Keppra prior to discharge. The patient's son is at bedside. I discussed the care plan with the son. He states he understands. He states the patient was recently at [facility] before she was admitted to the hospital and then transferred to [facility]. He states he is still comfortable with the patient being sent back to [facility] as long as she can get the medications needed to help her there. I discussed with him that I confirmed with the PRUNER there that they will be able to give those medications. The son is aware and agrees with the plan. Patient will be transported back to the [facility] after her Rocephin is completed, her potassium was repleted, and she is loaded with her evening dose of Keppra. Patient will be transferred back to [facility] after her medications are completed via ALS. Medication Reconcilliation Current Medication List: was personally reviewed by me Blood Pressure Screening Patient's blood pressure: Elevated blood pressure Consults Time Called: 1700 Consulting Physician: Shazia Rawls, nurse practitioner at [facility] Returned Call: [phone] Impression Primary Impression: UTI (urinary tract infection) Additional Impressions: Hypokalemia Seizure Scribe Attestation The scribe's documentation has been prepared under my direction and personally reviewed by me in its entirety. I confirm that the note above accurately reflects all work, treatment, procedures, and medical decision making performed by me. Departure Information Referrals Bill Young MD (PCP) Problem Qualifiers Primary Impression: UTI (urinary tract infection) Urinary tract infection type: catheter-associated UTI Indwelling urinary catheter type: indwelling urethral catheter Encounter type: initial encounter Qualified Codes: T83.511A - Infection and inflammatory reaction due to indwelling urethral catheter, initial encounter; N39.0 - Urinary tract infection, site not specified
[2017-03-17] MEDS ORDERED: POTASSIUM CHLR 10MEQ / WTR IV SCH (18:00)
[2017-03-17] MEDS ORDERED: LEVO112T2 PO (18:46)
[2017-03-17] MEDS ORDERED: CYAN250T PO (18:48)
[2017-03-17] MEDS ORDERED: BISA10SU7 PO (19:32)
[2017-03-17] MEDS ORDERED: ERGO50002 PO (19:32)
[2017-03-17] MEDS ORDERED: CARB0.25 OPB (19:32)
[2017-03-17] MEDS ORDERED: SIMV20TA5 PO (19:32)
[2017-03-17] MEDS ORDERED: [UNRECOGNIZED DRUG - CODE] TOP (19:32)
[2017-03-17] MEDS ORDERED: DTR/5 PO (19:32)
[2017-03-17] MEDS ORDERED: SODIENE PR (19:32)
[2017-03-17] MEDS ORDERED: CITA10TA4 PO (19:32)
[2017-03-17] MEDS: POTASSIUM CHLR 10MEQ / WTR IV SCH ×2 (20:00→21:54)
[2017-03-17] MEDS ORDERED: NURSING VERBAL MED ORDER ONE (20:00)
[2017-03-17 22:34] VITALS: BP 120/60; PULSE 58; O2SAT 97
== END 2017-03-17 22:41 ==
LOC: EDBD 09:48 → C.EDB 09:49
DX: T83.511A Infection and inflammatory reaction due to indwelling urethral catheter, initial encounter (principal); E87.6 Hypokalemia; G40.909 Epilepsy, unspecified, not intractable, without status epilepticus; I49.3 Ventricular premature depolarization; G20 Parkinson's disease; E11.9 Type 2 diabetes mellitus without complications; I10 Essential (primary) hypertension; E78.5 Hyperlipidemia, unspecified; Z79.899 Other long term (current) drug therapy; Z87.01 Personal history of pneumonia (recurrent); Z87.09 Personal history of other diseases of the respiratory system; Z82.49 Family history of ischemic heart disease and other diseases of the circulatory system; Z83.2 Family history of diseases of the blood and blood-forming organs and certain disorders involving the immune mechanism; Z88.0 Allergy status to penicillin; Z88.1 Allergy status to other antibiotic agents; Z88.2 Allergy status to sulfonamides; Z88.6 Allergy status to analgesic agent; Z88.8 Allergy status to other drugs, medicaments and biological substances; Z91.040 Latex allergy status; Z91.010 Allergy to peanuts